=== PATIENT | female | born 1990 | race Caucasian/White ===

== ENCOUNTER 2023-08-09 21:59 | Emergency (ER) | payer MEDICAID, SELFPAY ==
[2023-08-09 22:13] VITALS: BP 122/78; PULSE 82; RESP 17; TEMP 36.8; O2SAT 97; BMI 35.3
[2023-08-09 22:57] LABS: Bilirubin Urine NEGATIVE (NEGATIVE); Blood Urine MODERATE (NEGATIVE); Clarity Urine CLEAR (CLEAR); Color Urine LT. YELLOW (YELLOW); Glucose Urine UA NEGATIVE (NEGATIVE); Ketones Urine NEGATIVE (NEGATIVE); Leukocyte Esterase Urine NEGATIVE (NEGATIVE); Nitrite Urine NEGATIVE (NEGATIVE); Protein Urine NEGATIVE (NEG/TRACE); Specific Gravity Urine 1.015 (1.005-1.025); Urobilinogen Urine 0.2 EU/dL (0.2-1.0); pH Urine 7.5 (5.0-9.0)
[2023-08-09 23:08] LABS: Bacteria Urine NONE SEEN #/HPF (NONE SEEN); Cast Seen? NONE SEEN #/LPF (NONE SEEN); Crystals Seen? None Seen #/HPF (None Seen); Mucus Urine NONE SEEN (NONE SEEN); RBC Urine 0-2 #/HPF (0-2); Squamous Epithelial Cell Urine FEW #/LPF (NONE/RARE)
== END 2023-08-09 23:54 | disposition left against medical advice (07) ==
LOC: ER 22:17
PROVIDERS: Emergency Provider Emergency Medicine; PCP Internal Medicine
DX: R35.0 Frequency of micturition (principal); Z53.21 Procedure and treatment not carried out due to patient leaving prior to being seen by health care provider
CPT/HCPCS: 81001

== ENCOUNTER 2023-10-12 19:10 | Outpatient (REF) | payer MEDICAID, SELFPAY ==
[2023-10-17 15:10] LABS: Age Gdln ACOG Testing Note (.); HPV Aptima Negative (Negative); IGP, Aptima HPV, rfx 16/18,45 Note (.)
== END 2023-10-12 19:11 | disposition home or self-care (01) ==
LOC: LAB 19:10
PROVIDERS: PCP Internal Medicine; Visit Provider Obstetrics & Gynecology
DX: Z01.419 Encounter for gynecological examination (general) (routine) without abnormal findings (principal)
CPT/HCPCS: 87624; G0145

== ENCOUNTER 2024-07-27 11:52 | Outpatient (OUT) | payer MEDICAID, SELFPAY ==
--- NOTE | 2024-07-27 | US_ITS ---
[address] [address] Patient Name: DOMENIC RODRIGUEZ MRN: [id number] date: 1990 Sex: F Assigned Patient Location: Current Patient Location: Accession/Order Number: [id number] Exam Date: 07/27/2024 12:10 Report Date: 07/29/2024 07:45 At the request of: NANY MÉNDEZ Procedure: US pelvis w/ transvaginal EXAMINATION: US pelvis w/ transvaginal HISTORY: PELVIC PAIN R10.2 COMPARISON: 09/16/2022 FINDINGS: The uterus is surgically absent The right ovary measures 3.8 x 2.9 x 2.4 cm. Normal color and Doppler flow. Area of anechoic echogenicity measuring 2.3 x 2.3 x 1.7 cm, simple cyst. The left ovary measures 3.3 x 2.6 x 2.7 cm. Anechoic cystic area measuring 2.2 x 2.3 x 2.2 cm with a peripheral area of soft tissue echotexture US/US pelvis w/ transvaginal IMPRESSION: 2.3 cm right ovarian simple cyst 2.3 cm left ovarian cyst with peripheral soft tissue component, nonspecific Electronically authenticated by: PRISCILLA PARKER Date: 07/29/2024 07:45
--- OUTSIDE RECORDS SUMMARY | 2024-07-27 11:58 | XMS_ITS | CCD ---
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 Name Role Phone OSINOWO, OSIYEMI Unavailable Unavailable OSINOWO, OSIYEMI Unavailable Unavailable CRIS, ILDA Unavailable Unavailable CRIS, ILDA Unavailable Unavailable MALIA, DA Unavailable Unavailable MALIA, DA Unavailable Unavailable CRIS, ILDA Unavailable Unavailable CRIS, ILDA Unavailable Unavailable NORI, YOUNGSOOK Unavailable Unavailable NORI, YOUNGSOOK Unavailable Unavailable CRIS, ILDA Unavailable Unavailable SELF, REFERRED Unavailable Unavailable UNKNOWN, PROVIDER Attending Unavailable [id number], [id number] Primary Care Unavailable Igor, Aissatou A Primary Care Provider Kadir, Carmen Unavailable Taye, Carmen Unavailable Igor, Aissatou A Primary Care Provider Kadir, Carmen Unavailable Igor WHEEL AND CASTER REPAIRER-C, Aissatou A Primary Care Unavailable Igor, Aissatou A Admitting Unavailable Igor, Aissatou A Attending Unavailable SHAAN, RAMOS R Admitting Unavailable SHAAN, RAMOS R Attending Unavailable Igor WHEEL AND CASTER REPAIRER-C, Aissatou A Primary Care Unavailable Igor WHEEL AND CASTER REPAIRER-C, Aissatou A Primary Care Unavailable Igor, Aissatou A Attending Unavailable Igor, Aissatou A Attending Unavailable Igor WHEEL AND CASTER REPAIRER-C, Aissatou A Primary Care Unavailable Igor WHEEL AND CASTER REPAIRER-C, Aissatou A Primary Care Unavailable Igor, Aissatou A Attending Unavailable Igor WHEEL AND CASTER REPAIRER-C, Aissatou A Primary Care Unavailable Igor, Aissatou A Attending Unavailable Igor WHEEL AND CASTER REPAIRER-C, Aissatou A Primary Care Unavailable Igor, Aissatou A Attending Unavailable Igor WHEEL AND CASTER REPAIRER-C, Aissatou A Primary Care Unavailable Igor, Aissatou A Attending Unavailable Igor, Aissatou A Attending Unavailable Igor WHEEL AND CASTER REPAIRER-C, Aissatou A Primary Care Unavailable Igor, Aissatou A Attending Unavailable Igor, Aissatou A Admitting Unavailable Igor WHEEL AND CASTER REPAIRER-C, Aissatou A Primary Care Unavailable Clary Flores Unavailable Igor, 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 ASSEMBLER Aissatou A Primary Care Provider MD Carmen Kothari Attending Provider HANH Chacon Attending Provider Roxie Chacon Unavailable SHAAN ., DR VANN Admitting Unavailable SHAAN ., DR VANN Attending Unavailable IGOR, AISSATOU Primary Care Unavailable SHAAN ., DR VANN Consulting Unavailable ZIEBER, DARNELL Yan Consulting Unavailable MCGRAW ., MR REJI Admitting Unavailable MCGRAW ., MR REJI Attending Unavailable IGOR, AISSATOU Primary Care Unavailable MCGRAW ., MR REJI Consulting Unavailable SHAAN ., DR VANN Admitting Unavailable SHAAN ., DR VANN Attending Unavailable IGOR, AISSATOU Primary Care Unavailable SHAAN ., DR VANN Consulting Unavailable SHAAN ., DR VANN Admitting Unavailable SHAAN ., DR VANN Attending Unavailable IGOR, AISSATOU Primary Care Unavailable SHAAN ., DR VANN Consulting Unavailable PRISCILLA CALLES Consulting Unavailable FAWWAD, PINEDO H Admitting Unavailable FAWWAD, PINEDO H Attending Unavailable IGOR, AISSATOU Primary Care Unavailable FAWWAD, PINEDO H Consulting Unavailable Igor, Aissatou A Primary Care Provider [phone] Carmen Nichols Unavailable Shaikh Naik MD Primary Care Provider Igor, 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 ASSEMBLER Aissatou A Primary Care Provider MD Carmen Kothari Attending Provider DO Orlando Guan Emergency Provider [phone] MD Janak Naik Primary Care Provider DO Jerrell Smith Admit Provider DO Jerrell Smith Attending Provider MD Maria Elena Garibay Attending Provider [phone] MD Francis Fuller Other Provider Igor 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 ASSEMBLER-SELVINNormaa Primary Care Provider [phone] Miriam Fabian Unavailable Igor, 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 ASSEMBLER Aissatou A Primary Care Provider MD Carmen Kothari Attending Provider [phone] CARIDAD Fabian Attending Provider MD Carmen Kothari Attending Provider MD Carmen Kothari Referring Provider MD [facility] Primary Care Provider ILDA CANNON Attending Unavailable Ramos MAHONEY Referring Unavailable ILDA CANNON Admitting Unavailable ILDA CANNON Attending Unavailable [facility] Primary [facility] Physician [phone] YUSUF Cannon Attending Provider MD Jerrell Hooper Emergency Provider MD Jean Claude Olsen Admit Provider MD Jean Claude Olsen Attending Provider [phone] SHAIKH NAIK Attending Unavailable RAMOS MAHONEY Attending Unavailable SOHA SOUSA Attending Unavailable Carmen Nichols Unavailable Unavailable [facility] Primary Care Provider [phone] [facility] Primary Care Provider [phone] MARQUIS NAIKIKH Primary Care Unavailable GIUSEPPE FAIR Attending Unavailable [facility] Primary Care Unavailable Ilda Cannon Admitting Unavailable Ilda Cannon Attending Unavailable [facility] Primary Care Unavailable Taye Carmen Admitting Unavailable Carmen Kothari Attending Unavailable Carmen Kothari Referring Unavailable Jean Claude Olsen Admitting Unavailable Jean Claude Olsen Attending Unavailable Shaikh Naik Primary Care Unavailable Miriam Fabian Admitting Unavailable Miriam Fabian Attending Unavailable Clifton Gonsales MD Primary Care Provider Frannie Laureano NP Unavailable Allergies Allergy Classification Reported Allergen(s) Allergy Type Date of Onset Reaction(s) Facility Adhesive Tape (2 sources) Adhesive Tape Substance Allergy 4 [facility] (1 source) [id number] Drug allergy (disorder) [address] [facility] Repository (7 sources) Adhesive Tape; Translations: [ADHESIVE TAPE (ROSINS)] Allergy to substance 8 Rash [facility] (12 sources) Desonide; Translations: [Desonide] Drug Allergy 9 Unknown, Unknown (qualifier value) [facility] (11 sources) Adhesive Tape; Translations: [Tape] Propensity to adverse reactions skin tear [facility] Repository (5 sources) Adhesive bandage; Translations: [Adhesive Bandage] Propensity to adverse reactions to drug (disorder) Eruption of skin (disorder) [facility] Repository (12 sources) Adhesive agent; Translations: [adhesive] Allergy to substance 8 [facility] (4 sources) Adhesive Tape; Translations: [adhesive tape] Allergy to substance 4 [facility] (4 sources) New Skin Bandage; Translations: [New Skin Bandage] Propensity to adverse reactions (disorder) Eruption of skin (disorder) [facility] Rep[facility] (4 sources) Desonide Allergy to substance 9 Unknown [facility] (4 sources) New Skin Drug Allergy 4 Rash [facility] (4 sources) Wound Dressing Adhesive Drug Intolerance 8 [facility] Medications Current Medications Medication Drug Class(es) Dates Sig (Normalized) Sig (Original) acetaminophen 500 mg oral tablet (9 sources) Start: 02-01-2024 take 2 tablets by mouth every six hours Acetaminophen (Tylenol Extra Strength) 500 mg tablet Active 1000 MG PO Every 6 hours February 01, 2024 12:00am Start: 01-26-2022 take 2 tablets by mo [facility] every six hours acetaminophen (TYLENOL EXTRA STRENGTH) 500 mg tablet Take 2 tablets (1,000 mg total) by mouth every 6 (six) hours. 30 tablet 0 01/26/2022 Active acetaminophen 325 mg / oxyCODONE hydrochloride 5 mg oral tablet (2 sources) Opioid Agonist take 1 tablet by mouth every four hours as needed for pain oxyCODONE-acetaminophen (PERCOCET) 5-325 mg per tablet Take 1 tablet by mouth every 4 (four) hours as needed for pain. 0 Active [employer] Sport Ankle Brace/Rght - (2 sources) Start: 023 Airc[employer] Sport Ankle Brace/Rght - as directed Aug, Active aMILoride hydrochloride 5 mg oral tablet (20 sources) Potassium-spari ng Diuretic Start: 024 take 2 tablets by mouth twice daily amiloride 5 mg oral tablet take 2 tablets by mouth twice a day Start Date: 02/27/24 Status: Ordered Start: 09-16-2018 take 10 mg by mouth twice zen y Amiloride Active 10 MG PO Twice daily September 16, 2018 1:00am Comment on above: Take 5 mg by mouth t hree times daily as needed. 2 tabs twice daily cephalexin 250 mg oral capsule (5 sources) Cephalosporin Antibacterial Start: 03-07-2024 Cephalexin Active 250 MG PO .COMPLEX March 07, 2024 12:00am 250 mg orally following sexual activity.; Start: 02-27-2024 Keflex 250 mg Cap See Instructions, take 1 cap po following sexual activity for UTI prevention, # 15 cap(s), Refills(s) 3, Pharmacy: [id number], 155, cm, 02/27/24 9:49:00 EDT, Height/Length Dosing, 87.5, kg, 02/27/24 9:49:00 EDT, Weight Dosing Start Date: 02/27/24 Status: Ordered Start: 02-27-2024 Keflex 250 mg Cap See Instructions, take 1 cap po following sexual activity for UTI prevention, # 15 cap(s), Refills(s) 3, Pharmacy: [id number], 155, cm, 02/27/24 9:49:00 EDT, Height/Length Dosing, 87.5, kg, 02/27/24 9:49:00 EDT, Weight Dosing Start Date: 02/27/24 Status: Ordered Start: 08-11-2023 take 1 tablet by nori every twelve hours Cephalexin 500 MG 1 tablet Orally every 12 hrs for 7 days Jul, Active 1 ml erenumab-aooe 140 mg/ml auto-injector (20 sources) Start: 02-13-2024 inject 1 mL by subcutaneous injection every 30 days erenumab (Aimovig) 140 MG/ML injection Indications: Migraine with aura and without status migrainosus, not intractable (CMS/HCC) inject 1 milliliter ( 140 milligrams ) subcutaneously as directed 30 days 1 mL 2 02/13/2024 Active Start: 02-01-2024 inject 140 mg by sub cutaneous injection every month Erenumab-Aooe (Aimovig Autoinjector) 140 mg/mL auto-injector Active 140 MG SUBCUT every month February 01, 2024 12:00am Start: 04-20-2021 End: 05-30-2024 AIMOVIG AUTOINJECTOR 70 mg/m L auto-injector 04/20/2021 05/30/2024 Discontinued inject 140 mg by sub cutaneous injection every month Aimovig 140 MG/ML as directed Subcutaneous once a month Active gabapentin 100 mg oral capsule (20 sources) Anti-epileptic Agent Start: 04-10-2024 gabapenti n (Neurontin) 100 MG capsule Indications: Neuropathy Take 1-3 caps at bedtime 90 capsule 2 04/10/2024 Active Start: 05-01-2019 End: 01-25-2021 take 200 mg by mouth once daily at bedtime Gabapentin Discontinued 200 MG PO Daily at bedtime 0 January 25, 2021 12:00am January 25, 2021 1:58pm Start: 12-12-2018 End: 01-25-2021 take 100 mg by mouth once daily in the morning Gabapentin Discontinued 100 MG PO Every morning May 07, 2019 12:00am January 24, 2021 3:12pm Comment on above: Take 1 capsule by mo [facility] once daily for 90 days. ibuprofen 800 mg oral tablet (20 sources) Nonsteroidal Anti-inflammatory Drug Start: 02-22-2022 take 1 tablet by mouth every six hours as needed for pain ibuprofen (MOTRIN) 800 mg tablet Take 1 tablet (800 mg total) by mouth every 6 (six) hours as needed for pain. 30 tablet 0 02/22/2022 Active Start: 05-13-2019 End: 05-15-2019 take 800 mg by mouth three times daily Ibuprofen Discontinued 800 MG PO Three times daily May 13, 2019 12:00am May 15, 2019 5:40pm End: 07-24-2024 take 1 tablet by mouth in the morning, then take 1 tablet by mouth in the evening, then take 1 tablet by mouth at bedtime ibuprofen 600 MG tablet Take 600 mg by mouth in the morning and 600 mg in the evening and 600 mg before bedtime. 07/24/2024 Discontinued (Med list cleanup) magnesium oxide 400 mg oral tablet (20 sources) Start: 02-27-2024 take 2 tablets by mouth three times daily magnesium oxide 400 mg Tab take 2 tablets by mouth three times a day Start Date: 02/27/24 Status: Ordered Start: 09-16-2018 End: 01-03-2024 take 800 mg by mouth three times daily Magnesium Oxide Active 800 MG PO Three times daily 540 90 January 03, 2024 5:06pm End: 07-24-2024 take 2 tablets by mouth three times daily magnesium oxide 400 MG capsule Take 2 tablets 3 times a day by oral route for 30 days. 07/24/2024 Discontinued (Duplicate order) take 1 capsule by mo uth in the morning, then take 1 capsule by mouth in the evening, then take 1 capsule by mouth at bedtime magnesium oxide 400 MG capsule Take 400 mg by mouth in the morning and 400 mg in the evening and 400 mg before bedtime. Active take 2 tablets by mo uth every eight hours Magnesium Oxide 400 MG 2 tablets By Mouth tid for 90 day(s) Active take 2 tablets by mo uth three times daily Magnesium Oxide 400 (240 Mg) MG TAKE 2 TABLETS BY MOUTH THREE TIMES DAILY for 30 Active take 2 tablets by mo uth three times daily Magnesium Oxide 400 (241.3 Mg) MG TAKE 2 TABLETS BY MOUTH THREE TIMES DAILY for 30 Active Comment on above: Take 400 mg by mouth once daily. 2 tabs 3 times a day ondansetron 8 mg oral tablet (20 sources) Serotonin-3 Receptor Antagonist Start: 02-01-2024 take 8 mg by mouth once daily Ondansetron Hcl Active 8 MG PO Daily February 01, 2024 12:00am Start: 05-08-2023 take 1 tablet by nori th every eight hours as needed for nausea and vomiting ondansetron ODT (Zofran-ODT) 4 MG disintegrating tablet Take 4 mg by mouth every 8 (eight) hours if needed for nausea or vomiting 05/08/2023 Active Start: 05-13-2019 ondansetron (Z OFRAN) 4 mg tablet 4 mg. 0 05/13/2019 Active Start: 05-13-2019 End: 02-01-2024 Ondansetron Hcl Discontinued 4 MG PO every 6 to 8 hours May 13, 2019 12:00am February 01, 2024 11:33am take 1 tablet by nori th once daily as needed Zofran 8 MG 1 tablet as needed Orally Once a day prn Active Comment on above: 4 mg. Post-OP Shoe/Soft Top Women - (2 sources) Start: 09-10-2022 Post-OP Shoe/S oft Top Women - as directed Aug, Active Potassium Chloride (20 sources) Start: 02-27-2024 Potassium Chlo ride (Uan-Umxz-Ehi M20) 20 mEq oral tablet, extended release take 6 tablets by mouth three times a day Start Date: 02/27/24 Status: Ordered Start: 01-25-2021 End: 01-03-2024 Potassium Chloride (Klor-Con M20) 20 mEq tablet,ER particles/crystals Active 120 MEQ PO Three times daily 1620 90 January 03, 2024 5:08pm Start: 03-28-2020 take 1 tablet by nori th in the morning, then take 1 tablet by mouth in the evening, then take 1 tablet by mouth at bedtime potassium chloride CR (Klor-Con M20) 20 MEQ ER tablet Take 20 mEq by mouth in the morning and 20 mEq in the evening and 20 mEq before bedtime. 03/31/2023 Active Start: 09-16-2018 End: 01-24-2021 take 160 mEq by mouth three times daily Potassium Chloride (Klor-Con) 20 mEq Packet Discontinued 160 MEQ PO Three times daily September 16, 2018 1:00am January 24, 2021 2:32pm take 6 tablets by mo uth in the morning potassium chloride (K-DUR,KLOR-CON) 10 MEQ CR tablet Take 120 mEq by mouth in the morning and 120 mEq at noon and 120 mEq before bedtime. Take 6 tablets(120meq) with each dose. 0 Active take 6 tablets by mo uth every eight hours Klor-Con M20 20 MEQ 6 tablet with food Orally tid for 90 days Active predniSONE 20 mg oral tablet (1 source) Start: 06-10-2022 take 1 tablet by mouth every twelve hours predniSONE 20 MG 1 tablet Orally 2 times a day for 5 day(s) May, Active rimegepant 75 mg disintegrating oral tablet (20 sources) Start: 04-10-2024 Rimegepant Sul fate (Nurtec) 75 MG tablet dispersible Indications: Migraine without aura and without status migrainosus, not intractable (CMS/HCC) Take one at migraine onset, not more than one in 24 hours 8 tablet 2 04/10/2024 Active Start: 04-20-2021 End: 01-20-2022 Rimegepant Sulfate (Nurtec) 75 MG tablet dispersible Indications: Migraine without aura and without status migrainosus, not intractable (CMS/HCC) Take one at migraine onset, not more than one in 24 hours 8 tablet 2 04/10/2024 Active Comment on above: DISSOLVE ONE TABLET BY MOUTH AT ONSET OF MIGRAINES rivaroxaban 20 mg oral tablet (20 sources) Factor Xa Inhibitor Start: End: take 1 tablet by mouth at mealtime rivaroxaban (Xarelto) 20 MG tablet Indications: Deep vein thrombosis (DVT) of distal vein of lower extremity, unspecified chronicity, unspecified laterality (CMS/HCC) Take 1 tablet (20 mg) by mouth in the evening. Take with meals Take with food. 90 tablet 06/18/2024 Active Comment on above: TAKE 1 TABLET BY NORI TH ONCE DAILY WITH DINNER Completed/Discontinued Medications Medication Drug Class(es) Dates Sig (Normalized) Sig (Original) acetaminophen 300 mg / butalbital 50 mg / caffeine 40 mg oral capsule (16 sources) Barbiturate, Central Nervous System Stimulant, Methylxanthine Start: 05-13-2019 End: 06-23-2021 take 1 capsule by mouth every four to six hours Butalbital-Acetam inophen-Caff (Fioricet) 50-300-40 mg Capsule Discontinued 300 MG PO EVERY 4-6 HOURS May 13, 2019 12:00am June 23, 2021 8:14am Acetaminophen-Ca ff-Butalbital 50-325-40 mg cap owlqqbtrzu-tyuqqkmgblygn-hedcoqcp 50 mg-325 mg-40 mg capsule 0 Active take 1 capsule by mo [facility] every four hours Fioricet 50-300-40 MG 1 capsule as neede d Orally every 4 hrs Active Comment on above: butalbital-acetamino phen-caffeine 50 mg-325 mg-40 mg capsule acetaminophen 300 mg / butalbital 50 mg / caffeine 40 mg / codeine phosphate 30 mg oral capsule (3 sources) Opioid Agonist, Barbiturate, Central Nervous System Stimulant, Methylxanthine butalbital-acetami nop-caf-cod (FIORICET WITH CODEINE) 82-747-45-30 mg cap Take by mouth as needed. 0 Active Comment on above: Take by mouth as nee ded. azithromycin 500 mg oral tablet (9 sources) Macrolide Antimicrobial Sta rt: 9 End : 9 take 500 mg by mouth once daily Azithromycin Discontinued 500 MG PO Daily 5 5 September 17, 2018 1:00am September 22, 2018 1:02am cetirizine hydrochloride 10 mg oral tablet (4 sources) Histamine-1 Receptor Antagonist Sta rt: 3 End : 4 take 1 tablet by mouth in the morning cetirizine (ZyrTEC) 10 MG tablet Take 10 mg by mouth in the morning. 01/18/2023 07/24/2024 Discontinued (Med list cleanup) ciprofloxacin 500 mg oral tablet (3 sources) Quinolone Antimicrobial Sta rt: 4 take 1 tablet by mouth once daily Cipro 500 mg Tab 500 mg = 1 tab(s), Oral, Daily, take one tab day before procedure and one tab after procedure, # 2 tab(s), Refills(s) 0, Pharmacy: [id number], 155, cm, 02/27/24 9:49:00 EDT, Height/Length Dosing, 87.5, kg, 02/27/24 9:49:00 EDT, Weight Dosing Start Date: 02/27/24 Status: Ordered cyclobenzaprine hydrochloride 5 mg oral tablet (20 sources) Muscle Relaxant Sta rt: 9 End : 9 Cyclobenzaprine Discontinued TABLET May 13, 2019 12:00am May 13, 2019 3:39pm Start: 02-22-2019 End: 05-30-2024 take 1 tablet by mouth in the evening as needed for muscle spasms cyclobenzaprine (FLEXERIL) 5 mg tablet TAKE 1 TABLET BY MOUTH IN THE EVENING NEEDED for spasms 0 02/22/2019 05/30/2024 Discontinued Comment on above: TAKE 1 TABLET BY NORI TH IN THE EVENING NEEDED for spasms famotidine 20 mg oral tablet (9 sources) Histamine-2 Receptor Antagonist Start: 02-24-20 End: 02-01-20 take 20 mg by mouth once daily Famotidine Discontinued 20 MG PO Daily February 23, 2022 11:32pm February 01, 2024 11:33am fluticasone propionate 0.05 mg/actuat metered dose nasal spray (4 sources) Corticosteroid Start: 01-19-20 23 End: 07-24-20 24 take 2 spray(s) nasal route in the morning fluticasone (Flonase) 50 MCG/ACT nasal spray Administer 2 sprays into each nostril in the morning. 01/18/2023 07/24/2024 Discontinued (Med list cleanup) 12 hr guaiFENesin 1200 mg extended release oral tablet (9 sources) Start: 09-17-19 End: 05-01-20 19 take 1 tablet by mouth every twelve hours, then take 1 tablet by mouth every twelve hours Guaifenesin (Mucinex) 1,200 mg tablet extended release 12hr Discontinued 1200 MG PO Q12H September 17, 2018 5:04pm May 01, 2019 8:29am available over the counter, drink plenty of fluids metFORMIN hydrochloride 500 mg oral tablet (9 sources) Biguanide Start: 06-23-20 21 End: 11-11-19 22 take 500 mg by mouth once daily Metformin Discontinued 500 MG PO Daily June 23, 2021 1:00am November 10, 2021 9:43am Nirmatrelvir-Ritonavi r (7 sources) Start: 05-02-20 23 End: 02-01-20 24 take 1 tablet by mouth twice daily Nirmatrelvir-Ritona vir (Paxlovid) 300 mg (150 mg x 2)-100 mg Tablets,Dose Pack Discontinued 1 EACH PO Twice daily May 02, 2023 12:00am February 01, 2024 11:33am Start: 05-02-2023 [facility] Nirmatrelvir-Ritonavir (Paxlovid) 300 mg (150 mg x 2)-100 mg Tablets,Dose Pack Active 1 EACH PO Twice daily May 01, 2023 11:00pm Start: 05-02-2023 [facility] 1 [facility] Nirmatrelvir-Ritonavir (Paxlovid) 300 mg (150 mg x 2)-100 mg Tablets,Dose Pack Active 1 EACH PO Twice daily May 02, 2023 12:00am oseltamivir 75 mg oral capsule (9 sources) Neuraminidase Inhibitor Start: 10-01-2019 End: 01-24-2021 take 75 mg by mouth twice daily Oseltamivir Discontinued 75 MG PO Twice daily October 01, 2019 1:00am January 24, 2021 3:12pm pantoprazole 40 mg delayed release oral tablet (7 sources) Proton Pump Inhibitor Start: 05-02-2023 End: 02-01-2024 Pantoprazole (Protonix) 40 mg tablet,delayed release (DR/EC) Discontinued 40 MG PO As Directed May 02, 2023 12:00am February 01, 2024 11:33am 40 mg twice a day for 6 weeks, then 20 mg daily in the setting of Xarelto potassium bicarbonate 20 meq effervescent oral tablet (3 sources) take 8 tablets by mouth twice daily Potassium Bicarb-Citric Acid 20 mEq tbef Take 8 tablets by mouth twice daily. 0 Active Comment on above: Take 8 tablets by mo [facility] twice daily. SUMAtriptan 100 mg oral tablet (9 sources) Serotonin-1b and Serotonin-1d Receptor Agonist Start: 09-16-2018 End: 01-20-2022 Sumatriptan Succinate (Imitrex) 100 mg Tablet Discontinued 100 MG PO EVERY 2-4 HOURS September 16, 2018 1:00am January 20, 2022 10:45am Tylenol Extra Strength 500 MG (8 sources) take 2 tablets by mouth every six hours as needed Tylenol Extra Strength 500 MG 2 tablets as needed Orally prn every 6 hrs Not-Taking take 2 tablets by mo uth every six hours as needed Tylenol Extra Strength 500 MG 2 tablets as needed Orally prn every 6 hrs Active vitamin b12 1 mg oral tablet (18 sources) Vitamin B12 Start: 05-01-2019 End: 01-25-2021 take 1000 ug by mouth once daily Cyanocobalamin (Vitamin B-12) Discontinued 1000 MCG PO Daily 0 January 25, 2021 12:00am January 25, 2021 1:58pm VITAMINS B COMPLEX capsule (3 sources) Start: 04-18-2019 VITAMINS B COM PLEX capsule Problems Active Problems Problem Classification Problem Date Documented Date Episodic/Chronic Abdominal pain (10 sources) Pelvic and perineal pain; Translations: [Pain in pelvis] Onset: 3 Episodic Coagulation and hemorrhagic disorders (5 sources) Hypercoagulability state; Translations: [Other primary thrombophilia] Onset: 3 05-31-2024 Chronic Esophageal disorders (9 sources) Gastric reflux; Translations: [Gastro-esophageal reflux disease without esophagitis] 02-23-2022 Chronic Essential hypertension (1 source) Essential (primary) hypertension; Translations: [ESSENTIAL (PRIMARY) HYPERTENSION] Onset: 8 Chronic Fluid and electrolyte disorders (20 sources) Hypokalemia; Translations: [Alkalosis] Onset: 8 Resolved: 2 10-09-2007 Episodic Headache; including migraine (19 sources) Migraine; Translations: [Migraine with aura] Onset: 4 02-26-2024 Chronic Immunizations and screening for infectious disease (1 source) Encounter for screening for human papillomavirus (HPV); Translations: [ENC SCREENING HUMAN PAPILLOMAVIRUS] Onset: 3 Episodic Influenza (9 sources) Influenza due to Influenza A virus; Translations: [Influenza due to other identified influenza virus with other respiratory manifestations] 06-23-2021 Episodic Joint disorders and dislocations; trauma-related (13 sources) Dislocation of temporomandibular joint; Translations: [Dislocation of jaw, unspecified side, initial encounter] Onset: 3 06-23-2021 Episodic Menstrual disorders (8 sources) Irregular menstruation, unspecified; Translations: [Excessive and frequent menstruation] Onset: 2 Chronic Miscellaneous mental health disorders (4 sources) Primary insomnia; Translations: [Primary insomnia] Onset: 4 04-06-2024 Chronic Nausea and vomiting (20 sources) Nausea and vomiting; Translations: [Nausea with vomiting, unspecified] 02-23-2022 Episodic Nonspecific chest pain (12 sources) Other chest pain; Translations: [Chest pain] Onset: 9 06-23-2021 Episodic Other aftercare (9 sources) Long-term current use of anticoagulant; Translations: [USP (current) use of anticoagulants] 06-23-2021 Episodic Other aftercare (1 source) Encounter for adjustment and management of vascular access device; Translations: [Encounter for adjustment and management of vascular access device] Onset: 4 Episodic Other diseases of kidney and ureters (4 sources) 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; Translations: [OTH DISORDERS RESULTING FROM IMPAIRED RENAL TUBULAR FUNCTION] Onset: 8 Chronic Other endocrine disorders (7 sources) Polycystic ovary syndrome; Translations: [Polycystic ovarian syndrome] Onset: 4 02-26-2024 Chronic Other female genital disorders (6 sources) Abnormal uterine bleeding; Translations: [Abnormal uterine and vaginal bleeding, unspecified] Onset: 2 Resolved: 2 02-09-2022 Chronic Other female genital disorders (1 source) History of gynecological disorder; Translations: [Personal history of other diseases of the female genital tract] 05-31-2024 Episodic Other hereditary and degenerative nervous system conditions (4 sources) Restless legs; Translations: [Restless legs syndrome] Onset: 4 04-06-2024 Chronic Other injuries and conditions due to external causes (1 source) Unspecified injury of right ankle, initial encounter Episodic Other lower respiratory disease (1 source) Hemoptysis; Translations: [Hemoptysis] Onset: 4 Episodic Other nervous system disorders (4 sources) Neuropathy; Translations: [Polyneuropathy, unspecified] Onset: 4 04-06-2024 Chronic Other nutritional; endocrine; and metabolic disorders (20 sources) Hypomagnesemia; Translations: [Disorders of magnesium metabolism] Onset: 8 Resolved: 2 Chronic Other nutritional; endocrine; and metabolic disorders (6 sources) Metabolic disease; Translations: [Metabolic disorder, unspecified] Onset: 8 10-09-2007 Chronic Other nutritional; endocrine; and metabolic disorders (20 sources) Gitelman syndrome; Translations: [Hypomagnesemia] Onset: 2 10-02-2019 Chronic Other nutritional; endocrine; and metabolic disorders (18 sources) Hypomagnesemia; Translations: [Hypomagnesemia] 01-20-2022 Chronic Other nutritional; endocrine; and metabolic disorders (8 sources) Hypocalcemia; Translations: [Hypocalcemia] 02-01-2024 Chronic Other nutritional; endocrine; and metabolic disorders (11 sources) Hypocalcemia; Translations: [Hypocalcemia] Onset: 4 Chronic Other nutritional; endocrine; and metabolic disorders (4 sources) 5,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; Translations: [Methylenetetrahydrofola te reductase deficiency] Onset: 3 08-10-2023 Chronic Other screening for suspected conditions (not mental disorders or infectious disease) (4 sources) Encounter for screening for malignant neoplasm of cervix; Translations: [ENC SCREENING MALIG NEOPLASM CERV] Onset: 3 Episodic Other upper respiratory infections (11 sources) Acute pharyngitis, unspecified; Translations: [Acute laryngitis] Episodic Residual codes; unclassified (4 sources) Obstructive sleep apnea syndrome; Translations: [Obstructive sleep apnea (adult) (pediatric)] Onset: 4 04-06-2024 Chronic Sprains and strains (1 source) Sprain of unspecified ligament of right ankle, initial encounter Episodic Substance-related disorders (1 source) Nicotine dependence, cigarettes, uncomplicated; Translations: [NICOTINE DEPENDENCE, CIGARETTES, UNCOMPLICATED] Onset: 8 Chronic Unclassified (2 sources) Unknown / UNK(Unknown) Onset: 8 Unclassified (3 sources) CONTACT W/AND (SUSP) EXPOS COVID-19; Translations: [CONTACT W/AND (SUSP) EXPOS COVID-19] Onset: 2 Viral infection (11 sources) Other viral agents as the cause of diseases classified elsewhere; Translations: [Disease caused by 2019-nCoV] Episodic Past or Other Problems Problem Classification Problem Date Documented Da te Episodic/Chronic Disorders of teeth and jaw (4 sources) Temporomandibular joint disorder; Translations: [Unspecified temporomandibular joint disorder, unspecified side] Onset: 4 04-06-2024 Episodic Genitourinary symptoms and ill-defined conditions (5 sources) Urogenital finding; Translations: [Unspecified symptoms and signs involving the genitourinary system] Onset: 3 08-11-2023 Episodic Mood disorders (2 sources) Mood disorders Onset: 2 03-08-2022 Other aftercare (5 sources) 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; Translations: [Long-term (current) use of anticoagulants] Onset: 4 05-02-2023 Episodic Other ear and sense organ disorders (2 sources) Sudden hearing loss; Translations: [Sudden idiopathic hearing loss, right ear] Onset: 9 Resolved: 2 01-11-2022 Episodic Other female genital disorders (1 source) Noninflammatory disorder of uterus, unspecified; Translations: [NONINFLAMMATORY DISORDER UTERUS UNS] Onset: 2 Episodic Other injuries and conditions due to external causes (4 sources) Injury of head; Translations: [Unspecified injury of head, initial encounter] Onset: 4 04-06-2024 Episodic Other nervous system disorders (2 sources) Postoperative pain ; Translations: [Other acute postprocedural pain] Onset: 2 Resolved: 2 05-18-2022 Episodic Phlebitis; thrombophlebitis and thromboembolism (20 sources) Personal history of other venous thrombosis and embolism; Translations: [Acute deep venous thrombosis of left femoral vein] Onset: 8 Resolved: 2 04-12-2018 Episodic Residual codes; unclassified (4 sources) Memory impairment; Translations: [Other amnesia] Onset: 4 08-21-2023 Episodic Unclassified (1 source) Contact with and (suspected) exposure to covid-19 Z20.822 Unclassified (1 source) CONTACT W/AND (SUSP) EXPOS COVID-19; Translations: [CONTACT W/AND (SUSP) EXPOS COVID-19] Onset: 2 Unclassified (2 sources) Onset: 1 09-10-2020 Urinary tract infections (17 sources) Urinary tract infectious disease; Translations: [Urinary tract infection, site not specified] Onset: 4 06-23-2021 Episodic Results Test Name Value Interpretation Reference Range Facility [facility] 06-20-2024 CNPN Telephone ([place]) ----- JENNIFERDOMENIC Mark Anthony ([id number]) 1990 F Date Time Provider Department 06/20/24 KARI NAVARRETE During your visit today, we recorded the following information about you: Kari Navarrete RN 06/20/2024 4:55 PM Signed Pt calls asking if Dr Fair will prescribe her Xarelto for one more month. Pt states she has a follow up appointment with her PCP in 3 weeks, and their office will not fill until they see her, and pt will be out of medication in a few days. Script pending if you agree. Pt does not want this to go to [facility] where her previous script went. Thanks ROSHAN Dallas Tiffaney, RN 06/21/2024 10:50 AM Signed Left a VM for patient that script was refilled and sent to in [place] and left call back number if she has any questions or concerns. Bebo Martinez RN Allergies As of Date: 06/20/2024 Noted Allergy Reaction ADHESIVE TAPE (ROSINS) 04/12/2018 2 - Rash DESONIDE 04/22/2019 16 - Unknown Date Reviewed: 05/30/2024 Reviewed by: Christelle Martinez MA - Fully Assessed Reason for Visit: Medication Question [4738] Order(s):rivaroxaban (XARELTO) 20 mg tabletTake 1 tablet by mouth daily with dinner.Disp: 30 tabletRfl: 3 Prescriptions as of 06/21/2024 - rivaroxaban (XARELTO) 20 mg tablet Take 1 tablet by mouth daily with dinner. - NURTEC ODT 75 mg disintegrating tablet DISSOLVE ONE TABLET BY MOUTH AT ONSET OF MIGRAINES - potassium chloride ER (K-DUR, KLOR-CON) 20 mEq tablet - magnesium oxide 400 mg cap Take 400 mg by mouth once daily. 2 tabs 3 times a day - aMILoride (MIDAMOR) 5 mg tablet Take 5 mg by mouth three times daily as needed. 2 tabs twice daily Problem List As Of Date 06/20/2024 Noted Resolved HYPOPOTASSEMIA [E87.6] 10/09/2007 METABOLISM DISORDER NOS [E88.9] 10/09/2007 Acute deep vein thrombosis (DVT) of femoral vei*04/12/2018 Recurrent deep vein thrombosis (DVT) (HCC) [I82*10/10/2018 Prescriptions ordered this encounter Disp Refills Start End RIVAROXABAN 20 MG TABLET 30 t* 3 06/20/2024 Route: ORAL Sig: Take 1 tablet by mouth daily with dinner. Medications Discontinued During This Encounter Prescriptions - XARELTO 20 mg tablet (Discontinued) TAKE 1 TABLET BY MOUTH ONCE DAILY WITH DINNER Encounter Status:Closed by DAVIDA MARTINEZ on 06/21/24 Normal [facility] Dipstick and Microscopicon 1 Appearance (U) Clear Normal Clear [facility] Comment on above: Performed By: #### Maureen Zamorano, BMP #### [address] Bacteria,Urine None Seen Normal None Seen [facility] Comment on above: Performed By: #### Maureen G, BMP #### [facility] [address] [place] [address] [place] Bilirubin,Urine Negative Normal Negative [facility] Comment on above: Performed By: #### M G, BMP #### [facility] [address] [place] [address] [facility] Color (U) Light-Yellow Normal Yellow [facility] Comment on above: Performed By: #### M G, BMP #### [facility] [address] [place] [id number] [place] Glucose Ql (U) Normal Normal Normal [facility] Comment on above: Performed By: #### M G, BMP #### [address] Hyaline Casts,Urine None Normal 0-8 [facility] Comment on above: Result Comment: PERF ORMED BY: [place] [address] PATHOLOGIST AGILITY INSTRUCTOR MAXINE RANGEL M.D. Performed By: #### M G, BMP #### [address] Ketones Ql (U) Negative Normal Negative [facility] Comment on above: Performed By: #### M G, BMP #### [address] Leukocyte esterase Test strip Ql (U) Negative Normal Negative [facility] Comment on above: Performed By: #### M G, BMP #### [place] [address] [place] Nitrite,Urine Negative Normal Negative [facility] Comment on above: Performed By: #### M G, BMP #### [address] Occult Blood,Urine Negative Normal Negative [facility] Comment on above: Performed By: #### M G, BMP #### [address] pH (U) 8.0 [pH] Normal 5.0-9.0 [facility] Comment on above: Performed By: #### M G, BMP #### [place] [address] [place] Protein,Urine Trace High Negative [facility] Comment on above: Performed By: #### M G, BMP #### [place] [address] [place] RBC,Urine 5-9 High 0-4 [facility] Comment on above: Performed By: #### M G, BMP #### [place] [id number] [place] Specificy [place],Urine 1.016 Normal 1.001-1.03 0 [facility] Comment on above: Performed By: #### M G, BMP #### [address] Squamous Epithelial Cell,Urine 5-9 High 0-2 [facility] Comment on above: Performed By: #### M G, BMP #### [address] Urobilinogen,Urine Normal Normal Normal [facility] Comment on above: Performed By: #### M G, BMP #### [address] WBC,Urine 1-2 Normal 0-4 [facility] Comment on above: Performed By: #### M G, BMP #### [address] Hemogram CBC Without Diffon 06-07-2024 Erythrocyte distribution width (RBC) [Ratio] 13.4 % Normal 11.9-15.3 [facility] Comment on above: Performed By: #### M G, BMP #### [address] Hematocrit (Bld) [Volume fraction] 37.6 % Normal 34.0-46.4 [facility] Comment on above: Performed By: #### M G, BMP #### [address] Hemoglobin (Bld) [Mass/Vol] 13.4 g/dL Normal 11.8-15.4 [facility] Comment on above: Performed By: #### M G, BMP #### [address] MCH (RBC) [Entitic mass] 30.3 pg Normal 24.7-34.3 [facility] Comment on above: Performed By: #### M G, BMP #### [address] MCV (RBC) [Entitic vol] 84.9 fL Normal 80-100 [facility] Comment on above: Performed By: #### M G, BMP #### [address] Mean Corpuscular HGB Conc 35.6 g/dL High 32.0-35.0 [facility] Comment on above: Performed By: #### M G, BMP #### [address] Platelet mean volume (Bld) [Entitic vol] 7.3 fL Normal 6.3-10.7 [facility] Comment on above: Result Comment: PERF ORMED BY: [place] [address] PATHOLOGIST AGILITY INSTRUCTOR MAXINE RANGEL M.D. Performed By: #### M G, BMP #### [address] Platelets (Bld) [#/Vol] 397 10*3/uL Normal 150-450 [facility] Comment on above: Performed By: #### M G, BMP #### [place] [address] [place] RBC (Bld) [#/Vol] 4.43 10*6/uL Normal 3.60-5.00 [facility] Comment on above: Performed By: #### M G, BMP #### [place] [address] [place] WBC (Bld) [#/Vol] 8.5 10*3/uL Normal 3.8-11.6 [facility] Comment on above: Performed By: #### M G, BMP #### [address] Magnesiumon 06-07-2024 Magnesium [Mass/Vol] 1.6 mg/dL Low 1.9-2.7 [facility] Comment on above: Performed By: #### M G, BMP #### [address] Parathyroid Hormone Intacton 06-07-2024 Parathyroid Hormone Intact 124.5 pg/mL High 12-88 [facility] Comment on above: Result Comment: PERF ORMED BY: [place] [address] PATHOLOGIST AGILITY INSTRUCTOR MAXINE RANGEL M.D. Performed By: #### M G, BMP #### [address] Protein Creat Ratio Ur Rando mon 06-07-2024 Creatinine, Urine (Random) 85.00 mg/dL Normal [facility] Comment on above: Result Comment: No r eference range established Performed By: #### M G, BMP #### [address] Protein (U) [Mass/Vol] 19 mg/dL High 0-9 e [facility] Comment on above: Performed By: #### M G, BMP #### [address] Urine Protein/Creatinine Ratio 224 mg/g{Cre} High 0-200 [facility] Comment on above: Result Comment: PERF ORMED BY: [place] [address] PATHOLOGIST AGILITY INSTRUCTOR MAXINE RANGEL M.D. Performed By: #### M G, BMP #### [address] Renal Function Panelon 06-07 Albumin [Mass/Vol] 4.1 g/dL Normal 3.5-5.7 [facility] Comment on above: Performed By: #### M G, BMP #### [place] [id number] [facility] Anion gap [Moles/Vol] 10.8 mmol/L Normal 6.0-15.0 e [facility] Comment on above: Performed By: #### M G, BMP #### [address] Calcium [Mass/Vol] 8.5 mg/dL Low 8.6-10.3 [facility] Comment on above: Performed By: #### M G, BMP #### [facility] [address] [place] [id number] [place] Chloride [Moles/Vol] 100 mmol/L Normal 98-107 [facility] Comment on above: Performed By: #### M G, BMP #### [facility] [address] [place] [id number] [place] CO2 [Moles/Vol] 31.5 mmol/L High 21.0-31.0 The [facility] Comment on above: Performed By: #### M G, BMP #### [facility] [address] Creatinine [Mass/Vol] 0.65 mg/dL Normal 0.60-1.20 [facility] Comment on above: Performed By: #### M G, BMP #### [place] [address] [place] GFR/1.73 sq M.predicted MDRD (S/P/Bld) [Vol rate/Area] mL/min/{1.73_m2} Normal [facility] Comment on above: Performed By: #### M G, BMP #### [address] Glucose [Mass/Vol] 92 mg/dL Normal 70-100 [facility] Comment on above: Result Comment: [facility] Glucose Reference Range is dependent on time and content of last meal. Glucose of more than 200 mg/dL in a nonstressed, ambulatory subject supports the diagnosis of Diabetes Mellitus. ADA recommended reference range Performed By: #### M G, BMP #### [facility] [address] [place] [id number] [place] Phosphate [Mass/Vol] 2.3 mg/dL Low 2.5-4.5 [facility] Comment on above: Performed By: #### M G, BMP #### [facility] [address] [place] [id number] [place] Potassium [Moles/Vol] 3.3 mmol/L Low 3.5-5.1 [facility] Comment on above: Performed By: #### M G, BMP #### [address] Sodium [Moles/Vol] 139 mmol/L Normal 136-145 [facility] Comment on above: Performed By: #### Maureen Zamorano, BMP #### [address] Urea nitrogen [Mass/Vol] 9 mg/dL Normal 7-25 [facility] Comment on above: Performed By: #### Maureen Zamorano, BMP #### [address] Uric Acidon 06-07-2024 Urate [Mass/Vol] 6.2 mg/dL Normal 2.3-6.6 [facility] Comment on above: Performed By: #### Maureen Zamorano, BMP #### [address] Vitamin D 25 Hydroxy Totalon 06-07-2024 Vitamin D 25 Hydroxy Total 18.0 ng/mL Low 30-100 [facility] Comment on above: Result Comment: FANY MIN D STATUS 25(OH)VITAMIN D RANGE (ng/mL) Deficient <20 Insufficient 20 to <30 Sufficient 30 to 100 Reference: Justyn MF,Carlos Alberto NC, Edd-Vidal GALEANO, et al. Evaluation,treatment, and prevention of vitamin D deficiency; an Endocrine Society clinical practice guideline. JCEM. 2010; 96(7):1911-30. PERFORMED BY: [place] [address] PATHOLOGIST AGILITY INSTRUCTOR MAXINE RANGEL M.D. Performed By: #### Maureen Zamorano, BMP #### [place] [id number] [facility] CNOVSPon 05-30-2024 CNOVSP Visit (SP) Office ([place]) ----- DOMENIC NGO ([id number]) 1990 F Date Time Provider Department 05/30/24 10:45 AM GIUSEPPE FAIR During your visit today, we recorded the following information about you: Temperature Pulse Respiration Blood pressure 97.7 degrees 66/minute 16/minute 106/75 Weight Height 90.8 kg 1.549 m Giuseppe Fair MD 05/31/2024 6:32 AM Signed PATIENT NAME: Domenic Ngo DATE: 05/30/2024 Portions of this encounter note have been copied from the note from 04/10/2023 and has been updated where appropriate, and reflect my current medical decision making from today. PRIMARY CARE PHYSICIAN: Dr. Shaikh Naik OTHER PHYSICIANS: Dr. Lerner, Dr. Kothari CC: This is a 33 year old female with a history of recurrent DVT, seen for scheduled follow-up. (prior patient of Dr. Taylor). INTERIM HISTORY: Since the patient's last visit here she has had no significant medical changes. She remains on anticoagulation with Xarelto 20 mg daily. She has occasional mild bruising, but no atypical bleeding. No evidence of recurrent thromboembolic disease. On follow-up today she feels well with no particular complaints. MEDICATIONS: NURTEC ODT 75 mg disintegrating tablet DISSOLVE ONE TABLET BY MOUTH AT ONSET OF MIGRAINES potassium chloride ER (K-DUR, KLOR-CON) 20 mEq tablet XARELTO 20 mg tablet TAKE 1 TABLET BY MOUTH ONCE DAILY WITH DINNER magnesium oxide 400 mg cap Take 400 mg by mouth once daily. 2 tabs 3 times a day aMILoride (MIDAMOR) 5 mg tablet Take 5 mg by mouth three times daily as needed. 2 tabs twice daily ALLERGIES: Adhesive Tape (Rosins) and Desonide PAST MEDICAL HISTORY: PAST MEDICAL HISTORY Diagnosis Date Antithrombin 3 deficiency (HCC) MTHFR gene mutation PAST SURGICAL HISTORY: PAST SURGICAL HISTORY Procedure Laterality Date HYSTERECTOMY S BALLOON,UTERINE ABLATION 01/2018 TUBAL LIGATION 2014 REVIEW OF SYSTEMS: General: No weight loss, malaise or fevers. HEENT: Negative for frequent or significant headaches, No changes in hearing or vision, no nose bleeds or other nasal problems. Respiratory: Negative for cough, wheezing or shortness of breath. Cardiovascular: Negative for chest pain, leg swelling or palpitations. GI: Negative for abdominal discomfort, blood in stools or black stools or change in bowel habits. : No history of dysuria, frequency or incontinence. Musculoskeletal: Negative for: joint pain or swelling, back pain and muscle pain. Skin: Negative for lesions, rash and itching. Hematology/Lymphology: Negative for prolonged bleeding, bruising easily or swollen nodes. Neuro: No history of headaches, syncope, paralysis, seizures or tremors. PHYSICAL EXAM: Vitals: BP 106/75 Pulse 66 Temp 36.5 ?C (97.7 ?F) (Temporal) Resp 16 Ht 154.9 cm (5' 0.98 ) Wt 90.8 kg (200 lb 2.8 oz) LMP 10/18/2007 SpO2 97% BMI 37.84 kg/m? Exam limited to gross visualization where appropriate due to COVID-19. Gen.: This is an age-appropriate patient in no acute distress. Head: Appears atraumatic with no visible lesions. Eyes: Pupils equally round and reactive to light, extraocular muscles are intact. Neck: Supple. Mouth: Mucous membranes appeared to be moist. Respiratory: Appears to be respiring comfortably. Neurologic: Nonfocal to gross visualization. Alert and oriented ?3. Psychiatric: No evidence of inappropriate anxiety or depression. Skin: Visible areas of skin without rash, lesions, wounds or petechiae. ASSESSMENT/PLAN: 1. Primary hypercoagulable state (HCC) - ICD9: 289.81, ICD10: D68.59 (primary diagnosis) Initial DVT of the left lower extremity diagnosed May 2014, thought to be induced by ongoing at the time. The patient was treated with Lovenox ? 6 months with resolution of symptoms. Hypercoagulable workup February 2015 revealed a heterozygous MTHFR mutation, otherwise unremarkable. She was diagnosed with a recurrent left lower extremity DVT in March 2018, apparently unprovoked. At the time of her second DVT the patient was started on anticoagulation with Xarelto, with plans to take indefinitely. At this time she remains clinically stable. Options for management were discussed at length with the patient and her fiance. As previously discussed she will continue as is with Xarelto, with plans to take indefinitely. However, I did mention that she consider decreasing the dosage if severe bruising persists. Per patient request she will now follow-up with her PCP for further management. We did not schedule a return visit here, but would be happy to see her in the future if we can be of assistance. 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 Continue management per nephrology (Dr. Kothari) 3. (more content not included)... Normal [facility] Basic Metabolic Panelon 02-12 Creatinine Clr Calc Pharmacy 126.48 Normal [facility] Comment on above: Performed By: #### Maureen Zamorano, BMP #### [facility] [address] [place] [id number] [place] GFR/1.73 sq M.predicted MDRD (S/P/Bld) [Vol rate/Area] mL/min/{1.73_m2} Normal [facility] Comment on above: Performed By: #### Maureen Zamorano, BMP #### [facility] [address] [place] [id number] [place] Potassium [Moles/Vol] 3.3 mmol/L Low 3.5-5.1 [facility] Comment on above: Performed By: #### Maureen Zamorano, BMP #### [facility] [address] [place] [id number] [place] Calcium [Mass/volume] in Ser um or PlasmaOrdered By: Jean Claude Olsen on 03-05-2024 Calcium [Mass/Vol] 8.7 mg/dL Normal 8.6-10.3 [facility] Comment on above: Performed By: #### Maureen Zamorano, BMP #### [facility] [address] [place] [address] [place] Carbon dioxide, total [Moles /volume] in Serum or PlasmaOrdered By: Jean Claude Olsen on 03-05-2024 CO2 [Moles/Vol] 30.1 mmol/L Normal 21.0-31.0 [facility] Comment on above: Performed By: #### Maureen Zamorano, BMP #### [facility] [address] [place] [address] [place] Chloride [Moles/volume] in S erwin or PlasmaOrdered By: Jean Claude Olsen on 03-05-2024 Chloride [Moles/Vol] 102 mmol/L Normal 98-107 [facility] Comment on above: Performed By: #### Maureen Zamorano, BMP #### [facility] [address] [place] [id number] [place] Creatinine [Mass/volume] in Serum or PlasmaOrdered By: Jean Claude Olsen on 03-05-2024 Creatinine [Mass/Vol] 0.65 mg/dL Normal 0.60-1.20 [facility] Comment on above: Performed By: #### Maureen Zamorano, BMP #### [facility] [address] [place] [id number] [place] Glucose [Mass/volume] in Ser um or PlasmaOrdered By: Jean Claude Olsen on 03-05-2024 Glucose [Mass/Vol] 103 mg/dL High 70-100 [facility] Comment on above: ADA recommended refe rence rangeRandom Glucose Reference Range is dependent on time and content of last meal. Glucose of more than 200 mg/dL in a nonstressed, ambulatory subject supports the diagnosis of Diabetes Mellitus. Result Comment: [place] om Glucose Reference Range is dependent on time and content of last meal. Glucose of more than 200 mg/dL in a nonstressed, ambulatory subject supports the diagnosis of Diabetes Mellitus. ADA recommended reference range Performed By: #### Maureen Zamorano, BMP #### [facility] [address] [place] [address] [place] Magnesiumon 03-05-2024 Magnesium [Mass/Vol] 2.0 mg/dL Normal 1.9-2.7 [facility] Comment on above: Result Comment: PERF ORMED BY: [facility] [address] [place] [address] PATHOLOGIST AGILITY INSTRUCTOR MAXINE RANGEL M.D. Performed By: #### Maureen Zamorano, BMP #### [facility] [address] [place] [id number] [place] Magnesium [Mass/volume] in S erwin or PlasmaOrdered By: Jean Claude Olsen on 03-05-2024 Magnesium [Mass/Vol] 1.5 mg/dL Low 1.9-2.7 [facility] Comment on above: Result Comment: PERF ORMED BY: [place] [address] PATHOLOGIST AGILITY INSTRUCTOR MAXINE RANGEL M.D. Performed By: #### K , MG #### [facility] [address] [place] [address] No Panel InformationOrdered By: Jean Claude Olsen on 03-05-2024 Estimated GFR (CKD-EPI) > 60.0 mL/Min [facility] Creatinine Clearance (Chem 126.48 [facility] Potassium [Moles/volume] in Serum or PlasmaOrdered By: Jean Claude Olsen on 03-05-2024 Potassium [Moles/Vol] 3.4 mmol/L Low 3.5-5.1 [facility] Comment on above: Performed By: #### K , MG #### [facility] [address] [place] [address] Serum or plasma anion gap de terminationOrdered By: Jean Claude Olsen on 03-05-2024 Anion gap [Moles/Vol] 9.2 mmol/L Normal 6.0-15.0 [facility] Comment on above: Performed By: #### M G, BMP #### [facility] [address] [place] [address] Sodium [Moles/volume] in Ser um or PlasmaOrdered By: Jean Claude Olsen on 03-05-2024 Sodium [Moles/Vol] 138 mmol/L Normal 136-145 [facility] Comment on above: Performed By: #### M G, BMP #### [facility] [address] [place] [address] US venous duplex LE BIon US venous duplex LE BI [facility] [address] [place] [address] Ultrasound Report Signed Patient: Domenic Ngo MR#: [id number] 04 : 1990 Acct:[id number] Age/Sex: 33 / F ADM Date: 03/03/24 Loc: Room: [address] [place] [address] Type: ADM IN Attending Dr: Jean Claude Olsen MD Ordering Provider: Jean Claude Olsen MD Date of Service: 03/04/24 US/US venous duplex LE BI: calf tenderness, h/o DVT Copies to: Jean Claude Olsen MD BILATERAL LOWER EXTREMITY VENOUS DUPLEX INDICATION: Leg pain PROCEDURE: Color-flow duplex scanning is used to interrogate the deep venous system of the right and left lower extremities. The common femoral vein, femoral vein and popliteal vein show good compressibility with normal proximal and distal augmentation. The posterior tibial and peroneal veins are compressible. US/US venous duplex LE BI IMPRESSION: NO EVIDENCE FOR DEEP VEIN THROMBOSIS OR PROXIMAL SUPERFICIAL THROMBOPHLEBITIS IN THE RIGHT OR LEFT LOWER EXTREMITY. Impression dictated by: Arben Sin M.D.03/05/2024 10:30 AM Dictation Location: [place] [address] Tech: Laura Brittany Transcribed By: DARREN 03/05/24 1030 Dictated By: Arben Sin MD 03/05/24 1030 Signed By: 03/05/24 1030 Normal [facility] Urea nitrogen [Mass/volume] in Serum or PlasmaOrdered By: Jean Claude Olsen on 03-05-2024 Urea nitrogen [Mass/Vol] 9 mg/dL Normal 03-07 [facility] Comment on above: Performed By: #### M G, BMP #### [facility] [address] Automated basophil %Ordered By: Jean Claude Olsen on 03-04-2024 Basophils/100 WBC (Bld) 0.3 % Normal . [facility] Comment on above: Performed By: #### C BC, MG, BMP #### [facility] [address] Automated basophil countOrde red By: Jean Claude Olsen on 03-04-2024 Basophils (Bld) [#/Vol] 0.0 10*3/uL Normal 0.0-0.2 [facility] Comment on above: Result Comment: PERF ORMED BY: [place] [address] PATHOLOGIST AGILITY INSTRUCTOR MAXINE RANGEL M.D. Performed By: #### C BC MG, BMP #### [address] Automated blood monocyte cou ntOrdered By: Jean Claude Olsen on 03-04-2024 Monocytes (Bld) [#/Vol] 0.5 10*3/uL Normal 0.0-0.8 [facility] Comment on above: Performed By: #### C BC, MG, BMP #### [address] Automated eosinophil %Ordere d By: Jean Claude Olsen on 03-04-2024 Eosinophils/100 WBC (Bld) 1.6 % Normal . [facility] Comment on above: Performed By: #### C BC MG, BMP #### [address] Automated eosinophil countOr dered By: Jean Claude Olsen on 03-04-2024 Eosinophils (Bld) [#/Vol] 0.1 10*3/uL Normal 0.0-0.45 [facility] Comment on above: Performed By: #### C BC MG, BMP #### [address] Automated monocyte %Ordered By: Jean Claude Olsen on 03-04-2024 Monocytes/100 WBC (Bld) 6.1 % Normal . [facility] Comment on above: Performed By: #### C BC, MG, BMP #### [address] Automated neutrophil %Ordere d By: Jean Claude Olsen on 03-04-2024 Neutrophils/100 WBC (Bld) 69.1 % Normal . [facility] Comment on above: Performed By: #### C BC, MG, BMP #### [address] Basic Metabolic Panelon 02-12 Anion gap [Moles/Vol] 8.3 mmol/L Normal 6.0-15.0 [facility] Comment on above: Performed By: #### C BC, MG, BMP #### [facility] [address] [place] [id number] [place] Calcium [Mass/Vol] 7.5 mg/dL Low 8.6-10.3 [facility] Comment on above: Performed By: #### C BC, MG, BMP #### [facility] [address] [place] [id number] [place] Chloride [Moles/Vol] 102 mmol/L Normal 98-107 [facility] Comment on above: Performed By: #### C BC, MG, BMP #### [facility] [address] [place] [id number] [place] CO2 [Moles/Vol] 30.8 mmol/L Normal 21.0-31.0 [facility] Comment on above: Performed By: #### C BC, MG, BMP #### [facility] [address] [place] [address] [place] Creatinine [Mass/Vol] 0.66 mg/dL Normal 0.60-1.20 [facility] Comment on above: Performed By: #### C BC, MG, BMP #### [facility] [address] [place] [address] [place] Creatinine Clr Calc Pharmacy 124.80 Normal [facility] Comment on above: Performed By: #### C BC, MG, BMP #### [facility] [address] [place] [id number] [place] GFR/1.73 sq M.predicted MDRD (S/P/Bld) [Vol rate/Area] mL/min/{1.73_m2} Normal [facility] Comment on above: Performed By: #### C BC, MG, BMP #### [facility] [address] [place] [address] [place] Glucose [Mass/Vol] 101 mg/dL High 70-100 [facility] Comment on above: Result Comment: [place] Glucose Reference Range is dependent on time and content of last meal. Glucose of more than 200 mg/dL in a nonstressed, ambulatory subject supports the diagnosis of Diabetes Mellitus. ADA recommended reference range Performed By: #### C BC, MG, BMP #### [address] Potassium [Moles/Vol] 3.1 mmol/L Low 3.5-5.1 [facility] Comment on above: Performed By: #### C BC, MG, BMP #### [address] Sodium [Moles/Vol] 138 mmol/L Normal 136-145 [facility] Comment on above: Performed By: #### C BC, MG, BMP #### [address] Urea nitrogen [Mass/Vol] 6 mg/dL Low 7-25 [facility] Comment on above: Performed By: #### C BC, MG, BMP #### [address] Complete Blood Count Auto Di ffon 03-04-2024 Mean Corpuscular HGB Conc 35.7 g/dL High 32.0-35.0 [facility] Comment on above: Performed By: #### C BC, MG, BMP #### [address] NRBC% 0.1 /100{WBC} Normal 0-0.5 [facility] Comment on above: Performed By: #### C BC, MG, BMP #### [address] Erythrocyte distribution wid th [Ratio] by Automated countOrdered By: Jean Claude Olsen on 03-04-2024 Erythrocyte distribution width (RBC) [Ratio] 13.4 % Normal 11.9-15.3 [facility] Comment on above: Performed By: #### C BC, MG, BMP #### [address] Erythrocytes [#/volume] in B lood by Automated countOrdered By: Jean Claude Olsen on 03-04-2024 RBC (Bld) [#/Vol] 4.10 10*6/uL Normal 3.60-5.00 [facility] Comment on above: Performed By: #### C BC, MG, BMP #### [address] Hematocrit [Volume Fraction] of Blood by Automated countOrdered By: Jean Claude Olsen on 03-04-2024 Hematocrit (Bld) [Volume fraction] 35.2 % Normal 34.0-46.4 [facility] Comment on above: Performed By: #### C BC, MG, BMP #### [address] Hemoglobin [Mass/volume] in BloodOrdered By: Jena Claude Olsen on 03-04-2024 Hemoglobin (Bld) [Mass/Vol] 12.6 g/dL Normal 11.8-15.4 [facility] Comment on above: Performed By: #### C BC, MG, BMP #### [address] Leukocytes [#/volume] correc flor for nucleated erythrocytes in Blood by Automated counOrdered By: Jean Claude Olsen on 03-04-2024 WBC corrected for nucl RBC Auto (Bld) [#/Vol] 7.7 10*3/uL 3.8-11.6 [facility] Leukocytes [#/volume] in Blo od by Automated countOrdered By: Jean Claude Olsen on 03-04-2024 WBC (Bld) [#/Vol] 7.7 10*3/uL Normal 3.8-11.6 [facility] Comment on above: Performed By: #### C BC, MG, BMP #### [address] Lymphocytes [#/volume] in Bl ood by Automated countOrdered By: Jean Claude Olsen on 03-04-2024 Lymphocytes (Bld) [#/Vol] 1.8 10*3/uL Normal 1.00-4.8 [facility] Comment on above: Performed By: #### C BC, MG, BMP #### [place] [address] [place] Lymphocytes/100 leukocytes i n Blood by Automated countOrdered By: Jean Claude Olsen on 03-04-2024 Lymphocytes/100 WBC (Bld) 22.9 % Normal . [facility] Comment on above: Performed By: #### C BC, MG, BMP #### [address] MCH [Entitic mass] by Automa flor countOrdered By: Jean Claude Olsen on 03-04-2024 MCH (RBC) [Entitic mass] 30.7 pg Normal 24.7-34.3 [facility] Comment on above: Performed By: #### C BC, MG, BMP #### [address] MCHC Auto (RBC) [Mass/Vol]Or dered By: Jean Claude Olsen on 03-04-2024 MCHC (RBC) [Mass/Vol] 35.7 g/dL High 32.0-35.0 [facility] MCV [Entitic volume] by Auto mated countOrdered By: Jean Claude Olsen on 03-04-2024 MCV (RBC) [Entitic vol] 86.0 fL Normal 80-100 [facility] Comment on above: Performed By: #### C BC, MG, BMP #### [address] Magnesiumon 03-04-2024 Magnesium [Mass/Vol] 2.2 mg/dL Normal 1.9-2.7 [facility] Comment on above: Result Comment: PERF ORMED BY: [place] [address] PATHOLOGIST AGILITY INSTRUCTOR MAXINE RANGEL M.D. Performed By: #### M G #### [address] Magnesium [Mass/Vol] 2.6 mg/dL Normal 1.9-2.7 [facility] Comment on above: Result Comment: PERF ORMED BY: [place] [address] PATHOLOGIST AGILITY INSTRUCTOR MAXINE RANGEL M.D. Performed By: #### C BC, MG, BMP #### [address] [place] [address] [place] Neutrophils [#/volume] in Bl ood by Automated countOrdered By: Jean Claude Olsen on 03-04-2024 Neutrophils (Bld) [#/Vol] 5.3 10*3/uL Normal 1.8-7.7 [facility] Comment on above: Performed By: #### C BC, MG, BMP #### [place] [address] [place] Nucleated erythrocytes [Pres ence] in Blood by Automated countOrdered By: Jean Claude Olsen on 03-04-2024 Nucleated RBC Auto Ql (Bld) 0.1 /100{WBC} 0-0.5 [facility] Platelet mean volume [Entiti c volume] in Blood by Automated countOrdered By: Jean Claude Olsen on 03-04-2024 Platelet mean volume (Bld) [Entitic vol] 7.6 fL Normal 6.3-10.7 [facility] Comment on above: Performed By: #### C BC, MG, BMP #### [address] Platelets [#/volume] in Bloo d by Automated countOrdered By: Jean Claude Olsen on 03-04-2024 Platelets (Bld) [#/Vol] 311 10*3/uL Normal 150-450 [facility] Comment on above: Performed By: #### C BC, MG, BMP #### [address] Potassiumon 03-04-2024 Potassium [Moles/Vol] 3.8 mmol/L Normal 3.5-5.1 [facility] Comment on above: Result Comment: PERF ORMED BY: [place] [address] PATHOLOGIST AGILITY INSTRUCTOR MAXINE RANGEL M.D. Performed By: #### M G, BMP #### [address] Alanine aminotransferase [En zymatic activity/volume] in Serum or PlasmaOrdered By: Jerrell Hooper on 03-03-2024 ALT [Catalytic activity/Vol] 17 U/L Normal 7-52 [facility] Comment on above: Performed By: #### Maureen Zamorano, BMP #### [facility] [address] [place] [address] [place] Albumin [Mass/volume] in Ser um or Plasma by Bromocresol green (BCG) dye binding methoOrdered By: Jerrell Hooper on 03-03-2024 Albumin BCG dye [Mass/Vol] 3.8 g/dL 3.5-5.7 [facility] Alkaline phosphatase [Enzyma tic activity/volume] in Serum or PlasmaOrdered By: Jerrell Hooper on 03-03-2024 ALP [Catalytic activity/Vol] 47 U/L Normal 34-104 [facility] Comment on above: Performed By: #### Maureen Zamorano, BMP #### [address] Aspartate aminotransferase [ Enzymatic activity/volume] in Serum or PlasmaOrdered By: Jerrell Hooper on 03-03-2024 AST [Catalytic activity/Vol] 20 U/L Normal 13-39 [facility] Comment on above: Performed By: #### Maureen Zamorano, BMP #### [address] Automated basophil %Ordered By: Jerrell Hooper on 03-03-2024 Basophils/100 WBC (Bld) 0.3 % Normal . [facility] Comment on above: Performed By: #### Maureen Zamorano, BMP #### [address] Automated basophil countOrde red By: Jerrell Hooper on 03-03-2024 Basophils (Bld) [#/Vol] 0.0 10*3/uL Normal 0.0-0.2 [facility] Comment on above: Result Comment: PERF ORMED BY: [place] [address] PATHOLOGIST AGILITY INSTRUCTOR MAXINE RANGEL M.D. Performed By: #### Maureen Zamorano, BMP #### [address] Automated blood monocyte cou ntOrdered By: Jerrell Hooper on 03-03-2024 Monocytes (Bld) [#/Vol] 0.4 10*3/uL Normal 0.0-0.8 [facility] Comment on above: Performed By: #### M Jaun, BMP #### [address] Automated eosinophil %Ordere d By: Jerrell Hooper on 03-03-2024 Eosinophils/100 WBC (Bld) 0.1 % Normal . [facility] Comment on above: Performed By: #### Maureen Zamorano, BMP #### [address] Automated eosinophil countOr dered By: Jerrell Hooper on 03-03-2024 Eosinophils (Bld) [#/Vol] 0.0 10*3/uL Normal 0.0-0.45 [facility] Comment on above: Performed By: #### Maureen Zamorano, BMP #### [address] Automated monocyte %Ordered By: Jerrell Hooper on 03-03-2024 Monocytes/100 WBC (Bld) 3.5 % Normal . [facility] Comment on above: Performed By: #### Maureen Zamorano, BMP #### [address] Automated neutrophil %Ordere d By: Jerrell Hooper on 03-03-2024 Neutrophils/100 WBC (Bld) 91.2 % Normal . [facility] Comment on above: Performed By: #### Maureen Zamorano, BMP #### [address] Bilirubin Test strip Ql (U)O rdered By: Jean Claude Olsen on 03-03-2024 Bilirubin Ql (U) Negative Negative [facility] Bilirubin.total [Mass/volume ] in Serum or PlasmaOrdered By: Jerrell Hooper on 03-03-2024 Bilirubin [Mass/Vol] 0.7 mg/dL Normal 0.3-1.0 [facility] Comment on above: Performed By: #### Maureen Zamorano, BMP #### [address] Calcium [Mass/volume] in Ser um or PlasmaOrdered By: Jerrell Hooper on 03-03-2024 Calcium [Mass/Vol] 7.5 mg/dL Low 8.6-10.3 [facility] Comment on above: Performed By: #### M Jaun, BMP #### [address] Carbon dioxide, total [Moles /volume] in Serum or PlasmaOrdered By: Jerrell Hooper on 03-03-2024 CO2 [Moles/Vol] 34.1 mmol/L High 21.0-31.0 [facility] Comment on above: Performed By: #### M G, BMP #### [address] Chloride [Moles/volume] in S erwin or PlasmaOrdered By: Jerrell Hooper on 03-03-2024 Chloride [Moles/Vol] 94 mmol/L Low 98-107 [facility] Comment on above: Performed By: #### Maureen Zamorano, BMP #### [address] Color of Urine by AutoOrdere d By: Jean Claude Olsen on 03-03-2024 Color (U) Light-yellow Normal Yellow [facility] Comment on above: Order Comment: Name Collection Type:: Clean-Voided Midstream Performed By: #### M Jaun, BMP #### [address] Complete Blood Count Auto Di ffon 03-03-2024 Mean Corpuscular HGB Conc 36.1 g/dL High 32.0-35.0 [facility] Comment on above: Performed By: #### M G, BMP #### [place] [address] [place] Monocytes/100 WBC (Bld) 22.27 % High 0.00-20.00 [facility] Comment on above: Result Comment: For adults in ED, MDW > 20.0 may be associated with a higher risk of sepsis during the first 12 hrs of hospital admission Performed By: #### M G, BMP #### [place] [address] [place] NRBC% 0.1 /100{WBC} Normal 0-0.5 [facility] Comment on above: Performed By: #### Maureen Zamorano, BMP #### [address] Comprehensive Metabolic Pane [place]in[place] 03-03-2024 Albumin [Mass/Vol] 3.8 g/dL Normal 3.5-5.7 [facility] Comment on above: Performed By: #### Maureen Zamorano, BMP #### [address] Creatinine Clr Calc Pharmacy 107.20 Normal [facility] Comment on above: Performed By: #### Maureen Zamorano, BMP #### [address] GFR/1.73 sq M.predicted MDRD (S/P/Bld) [Vol rate/Area] mL/min/{1.73_m2} Normal [facility] Comment on above: Performed By: #### Maureen Zamorano, BMP #### [address] Creatinine [Mass/volume] in Serum or PlasmaOrdered By: Jerrell Hooper on 03-03-2024 Creatinine [Mass/Vol] 0.77 mg/dL Normal 0.60-1.20 [facility] Comment on above: Performed By: #### Maureen Zamorano, BMP #### [address] Erythrocyte distribution wid th [Ratio] by Automated countOrdered By: Jerrell Hooper on 03-03-2024 Erythrocyte distribution width (RBC) [Ratio] 13.6 % Normal 11.9-15.3 [facility] Comment on above: Performed By: #### Maureen Zamorano, BMP #### [address] Erythrocytes [#/volume] in B lood by Automated countOrdered By: Jerrell Hooper on 03-03-2024 RBC (Bld) [#/Vol] 4.15 10*6/uL Normal 3.60-5.00 [facility] Comment on above: Performed By: #### Maureen Zamorano, BMP #### [facility] [address] [place] [id number] [place] Glucose [Mass/volume] in Ser um or PlasmaOrdered By: Jerrell Hooper on 03-03-2024 Glucose [Mass/Vol] 104 mg/dL High 70-100 [facility] Comment on above: ADA recommended refe rence rangeRandom Glucose Reference Range is dependent on time and content of last meal. Glucose of more than 200 mg/dL in a nonstressed, ambulatory subject supports the diagnosis of Diabetes Mellitus. Result Comment: [place] om Glucose Reference Range is dependent on time and content of last meal. Glucose of more than 200 mg/dL in a nonstressed, ambulatory subject supports the diagnosis of Diabetes Mellitus. ADA recommended reference range Performed By: #### Maureen Zamorano, BMP #### [facility] [address] [place], [place] [id number] [place] Glucose [Mass/volume] in Uri ne by Test stripOrdered By: Jean Claude Olsen on 03-03-2024 Glucose Test strip (U) [Mass/Vol] Normal mg/dL Normal [facility] Hematocrit [Volume Fraction] of Blood by Automated countOrdered By: Jerrell Hooper on 03-03-2024 Hematocrit (Bld) [Volume fraction] 35.4 % Normal 34.0-46.4 [facility] Comment on above: Performed By: #### Maureen Zamorano, BMP #### [facility] [address] [place] [address] [place] Hemoglobin Test strip Ql (U) Ordered By: Jean Claude Olsen on 03-03-2024 Hemoglobin Ql (U) Negative Negative [facility] Hemoglobin [Mass/volume] in BloodOrdered By: Jerrell Hooper on 03-03-2024 Hemoglobin (Bld) [Mass/Vol] 12.7 g/dL Normal 11.8-15.4 [facility] Comment on above: Performed By: #### Maureen Zamorano, BMP #### [facility] [address] [place], [place] [id number] [facility] Ketones [Presence] in Urine by Test stripOrdered By: Jean Claude Olsen on 03-03-2024 Ketones Ql (U) Negative Normal Negative [facility] Comment on above: Order Comment: Name Collection Type:: Clean-Voided Midstream Performed By: #### Maureen Zamorano, BMP #### [address] Leukocyte esterase [Presence ] in Urine by Test stripOrdered By: Jean Claude Olsen on 03-03-2024 Leukocyte esterase Test strip Ql (U) Negative Normal Negative [facility] Comment on above: Order Comment: Name Collection Type:: Clean-Voided Midstream Performed By: #### Maureen Zamorano, BMP #### [address] Leukocytes [#/volume] correc flor for nucleated erythrocytes in Blood by Automated counOrdered By: Jerrell Hooper on 03-03-2024 WBC corrected for nucl RBC Auto (Bld) [#/Vol] 12.7 10*3/uL High 3.8-11.6 [facility] Leukocytes [#/volume] in Blo od by Automated countOrdered By: Jerrell Hooper on 03-03-2024 WBC (Bld) [#/Vol] 12.7 10*3/uL High 3.8-11.6 [facility] Comment on above: Performed By: #### Maureen Zamorano, BMP #### [place] [address] [place] Lymphocytes [#/volume] in Bl ood by Automated countOrdered By: Jerrell Hooper on 03-03-2024 Lymphocytes (Bld) [#/Vol] 0.6 10*3/uL Low 1.00-4.8 [facility] Comment on above: Performed By: #### Maureen Zamorano, BMP #### [place] [address] [place] Lymphocytes/100 leukocytes i n Blood by Automated countOrdered By: Jerrell Hooper on 03-03-2024 Lymphocytes/100 WBC (Bld) 4.9 % Normal . [facility] Comment on above: Performed By: #### Maureen Zamorano, BMP #### [place] [address] [place] MCH [Entitic mass] by Automa flor countOrdered By: Jerrell Hooper on 03-03-2024 MCH (RBC) [Entitic mass] 30.7 pg Normal 24.7-34.3 [facility] Comment on above: Performed By: #### Maureen Zamorano, BMP #### [address] MCHC Auto (RBC) [Mass/Vol]Or dered By: Jerrell Hooper on 03-03-2024 MCHC (RBC) [Mass/Vol] 36.1 g/dL High 32.0-35.0 [facility] MCV [Entitic volume] by Auto mated countOrdered By: Jerrell Hooper on 03-03-2024 MCV (RBC) [Entitic vol] 85.3 fL Normal 80-100 [facility] Comment on above: Performed By: #### Maureen Zamorano, BMP #### [address] Magnesiumon 03-03-2024 Magnesium [Mass/Vol] 2.7 mg/dL Normal 1.9-2.7 [facility] Comment on above: Result Comment: PERF ORMED BY: [place] [address] PATHOLOGIST AGILITY INSTRUCTOR MAXINE RANGEL M.D. Performed By: #### Maureen Zamorano, BMP #### [address] Magnesium [Mass/volume] in S erwin or PlasmaOrdered By: Jerrell Hooper on 03-03-2024 Magnesium [Mass/Vol] 0.9 mg/dL Off scale low 1.9-2.7 [facility] Comment on above: Critical Result S_MG : Called to and read back by: BRUCE ROGERS at: 03/03/2024 14:11:51 by:LFM Result Comment: Crit ical Result S_MG: Called to and read back by: BRUCE ROGERS at: 03/03/2024 14:11:51 by:LFM PERFORMED BY: [place] [address] PATHOLOGIST AGILITY INSTRUCTOR MAXINE RANGEL M.D. Performed By: #### Maureen Zamorano, BMP #### [address] Monocyte distribution width [Entitic volume] in Blood by AutomatedOrdered By: Jerrell Hooper on 03-03-2024 Monocyte distribution width Auto (Bld) [Entitic vol] 22.27 % High 0.00-20.00 [facility] Comment on above: For adults in ED, MD W > 20.0 may be associated with a higher risk of sepsis during the first 12 hrs of hospital admission Neutrophils [#/volume] in Bl ood by Automated countOrdered By: Jerrell Hooper on 03-03-2024 Neutrophils (Bld) [#/Vol] 11.6 10*3/uL High 1.8-7.7 [facility] Comment on above: Performed By: #### MINI Davalos #### [facility] [address] [place] [address] Nitrite Test strip Ql (U)Ord ered By: Jean Claude Olsen on 03-03-2024 Nitrite Ql (U) Negative Negative [facility] No Panel InformationOrdered By: Jerrell Hooper on 03-03-2024 Estimated GFR (CKD-EPI) > 60.0 mL/Min [facility] Creatinine Clearance (Chem 107.20 [facility] Nucleated erythrocytes [Pres ence] in Blood by Automated countOrdered By: Jerrell Hooper on 03-03-2024 Nucleated RBC Auto Ql (Bld) 0.1 /100{WBC} 0-0.5 [facility] Platelet mean volume [Entiti c volume] in Blood by Automated countOrdered By: Jerrell Hooper on 03-03-2024 Platelet mean volume (Bld) [Entitic vol] 7.8 fL Normal 6.3-10.7 [facility] Comment on above: Performed By: #### Maureen Zamorano, BMP #### [facility] [address] Platelets [#/volume] in Bloo d by Automated countOrdered By: Jerrell Hooper on 03-03-2024 Platelets (Bld) [#/Vol] 291 10*3/uL Normal 150-450 [facility] Comment on above: Performed By: #### Maureen Zamorano, BMP #### [facility] [address] [place] [address] [place] Potassiumon 03-03-2024 Potassium [Moles/Vol] 2.6 mmol/L Off scale low 3.5-5.1 [facility] Comment on above: Result Comment: Crit ical Result Called to and read back by: AARON NOLASCO at: 03/04/2024 00:49:46 by:[id number] Performed By: #### Maureen Zamorano, BMP #### [address] Potassium [Moles/volume] in Serum or PlasmaOrdered By: Jerrell Hooper on 03-03-2024 Potassium [Moles/Vol] 2.0 mmol/L Off scale low 3.5-5.1 [facility] Comment on above: Critical Result Call ed to and read back by: BRUCE ROGERS at: 03/03/2024 14:11:51 by:LFM Result Comment: Crit ical Result Called to and read back by: BRUCE ROGERS at: 03/03/2024 14:11:51 by:LFM Performed By: #### Maureen Zamorano, BMP #### [address] Protein Test strip (U) [Mass /Vol]Ordered By: Jean Claude Olsen on 03-03-2024 Protein (U) [Mass/Vol] Negative Negative [facility] Protein [Mass/volume] in Ser um or PlasmaOrdered By: Jerrell Hooper on 03-03-2024 Protein [Mass/Vol] 6.6 g/dL Normal 6.4-8.9 [facility] Comment on above: Performed By: #### Maureen Zamorano, BMP #### [address] Serum globulin measurement b y calculation (mass/volume)Ordered By: Jerrell Hooper on 03-03-2024 Globulin (S) [Mass/Vol] 2.8 g/dL Normal [facility] Comment on above: Performed By: #### Maureen Zamorano, BMP #### [address] Serum or plasma albumin/glob ulin mass ratioOrdered By: Jerrell Hooper on 03-03-2024 Albumin/Globulin [Mass ratio] 1.4 {ratio} Normal [facility] Comment on above: Performed By: #### M G, BMP #### [facility] [address] Serum or plasma anion gap de terminationOrdered By: Jerrell Hooper on 03-03-2024 Anion gap [Moles/Vol] 10.9 mmol/L Normal 6.0-15.0 [facility] Comment on above: Performed By: #### M G, BMP #### [address] Sodium [Moles/volume] in Ser um or PlasmaOrdered By: Jerrell Hooper on 03-03-2024 Sodium [Moles/Vol] 137 mmol/L Normal 136-145 [facility] Comment on above: Performed By: #### M G, BMP #### [address] Specific gravity Test strip (U) [Rel density]Ordered By: Jean Claude Olsen on 03-03-2024 Specific gravity (U) [Rel density] 1.014 1.001-1.03 0 [facility] Urea nitrogen [Mass/volume] in Serum or PlasmaOrdered By: Jerrell Hooper on 03-03-2024 Urea nitrogen [Mass/Vol] 12 mg/dL Normal 7-25 [facility] Comment on above: Performed By: #### M G, BMP #### [address] Urinalysison 03-03-2024 Bilirubin,Urine Negative Normal Negative [facility] Comment on above: Order Comment: Name Collection Type:: Clean-Voided Midstream Performed By: #### M G, BMP #### [address] Glucose Ql (U) Normal Normal Normal [facility] Comment on above: Order Comment: Name Collection Type:: Clean-Voided Midstream Performed By: #### M G, BMP #### [address] Nitrite,Urine Negative Normal Negative [facility] Comment on above: Order Comment: Name Collection Type:: Clean-Voided Midstream Performed By: #### M G, BMP #### [address] Occult Blood,Urine Negative Normal Negative [facility] Comment on above: Order Comment: Name Collection Type:: Clean-Voided Midstream Result Comment: PERF ORMED BY: [place] [address] PATHOLOGIST AGILITY INSTRUCTOR MAXINE RANGEL M.D. Performed By: #### M G, BMP #### [address] Protein,Urine Negative Normal Negative [facility] Comment on above: Order Comment: Name Collection Type:: Clean-Voided Midstream Performed By: #### M G, BMP #### [address] Specificy [place],Urine 1.014 Normal 1.001-1.03 0 [facility] Comment on above: Order Comment: Name Collection Type:: Clean-Voided Midstream Performed By: #### M G, BMP #### [address] Urobilinogen,Urine Normal Normal Normal [facility] Comment on above: Order Comment: Name Collection Type:: Clean-Voided Midstream Performed By: #### M G, BMP #### [address] Urine appearanceOrdered By: Jean Claude Olsen on 03-03-2024 Appearance (U) Clear Normal Clear [facility] Comment on above: Order Comment: Name Collection Type:: Clean-Voided Midstream Performed By: #### M G, BMP #### [place] [address] [place] Urobilinogen Test strip (U) [Mass/Vol]Ordered By: Jean Claude Olsen on 03-03-2024 Urobilinogen (U) [Mass/Vol] Normal mg/dL Normal [facility] pH of Urine by Test stripOrd ered By: Jean Claude Olsen on 03-03-2024 pH (U) 7.0 [pH] Normal 5.0-9.0 [facility] Comment on above: Order Comment: Name Collection Type:: Clean-Voided Midstream Performed By: #### M MINI Zamorano #### [address] US renal BIon 03-02-2024 US renal BI [facility] [place] [address] Ultrasound Report Signed Patient: Domenic Ngo MR#: [id number] [birth year] : 1990 Acct:[id number] Age/Sex: 33 / F ADM Date: 03/02/24 Loc: Room: Type: [facility] Attending Dr: Ilda Cannon PA-C Ordering Provider: Ilda Cannon PA-C Date of Service: 03/02/24 US/US renal BI: FREG UTI Copies to: Ilda Cannon PA-C Bilateral Renal Ultrasound HISTORY: Frequent UTIs COMPARISON: None RIGHT kidney measures 8.6 cm. LEFT kidney measures 10.7 cm. Hydronephrosis: Mild LEFT pelvocaliectasis. RENAL STONE: No shadowing renal calculus is seen. RENAL LESIONS: No renal lesion identified. URINARY BLADDER: Bilateral ureteral jets. A minimal post for residual urinary bladder. REPRODUCTIVE STRUCTURES Not assessed US/US renal BI IMPRESSION : Mild LEFT pelvocaliectasis. Patent ureters. Impression dictated by: Arben Snow M.D.03/02/2024 12:13 PM Dictation Location: [place] [address] Tech: Kristen Shay Transcribed By: DARREN 03/02/24 1213 Dictated By: Arben Snow DO 03/02/24 1211 Signed By: 03/02/24 1213 Normal [facility] XR abdomen 1Von 03-02-2024 XR abdomen 1V [facility] Main [place] [id number] XRay Report Signed Patient: Domenic Ngo MR#: [id number] [birth year] : 1990 Acct:[id number] Age/Sex: 33 / F ADM Date: 03/02/24 Loc: Room: Type: [facility] Attending Dr: Ilda Cannon PA-C Copies to: Ilda Cannon PA-C Ordering Provider: Ilda Cannon PA-C Date of Service: 03/02/24 XR/XR abdomen 1V: RECURRENT UTI Single view of abdomen COMPARISON: None HISTORY: Recurrent UTI. THORAX: Lung bases unremarkable. FREE AIR: Supine position limits assessment BOWEL: No gaseous intestinal distention. STOOL: Moderate constipation RENAL STONES: No significant stones present. VASCULAR CALCIFICATIONS: Unremarkable SOFT TISSUE: Unremarkable BONES: Unremarkable POSTSURGICAL CHANGES: None XR/XR abdomen 1V IMPRESSION: No visible stone. Moderate constipation. Impression dictated by: Arben Snow M.D.03/02/2024 12:09 PM Dictation Location: [place] [address] Transcribed By: [facility] 03/02/24 1209 Dictated By: Arben Snow DO 03/02/24 1156 Signed By: 03/02/24 1209 Normal [facility] C Urineon 02-29-2024 Bacteria identified Cx Nom (U) Microbiology PROCEDURE: Urine Culture [R1] SOURCE: U CleanCatch BODY SITE: COLLECTED DATE/TIME: 02/27/2024 10:22 EDT RECEIVED DATE/TIME: 02/27/2024 18:01 EDT START DATE/TIME: 02/27/2024 18:01 EDT FREE TEXT SOURCE: ILDA CANNON PA-C, PA-C, ILDA Martines FINAL REPORTS Final Report [] Verified Date/Time: 02/29/2024 08:42 EDT >100,000 cfu/ml Escherichia coli SUSCEPTIBILITY RESULTS __ LEGEND: S=Susceptible, N/R=Not Reported, Blank=Data not available, or drug not advisable or tested, I=Intermediate, ESBL=Extended spectrum beta-lactamase, R=Resistant, TFG=Thymidine-dependent strain, JUSTINO=Beta-lactamase positive, BRANDEN=mcg/m;(mg/L), S*=Predicted susceptible interp, R*=Predicted resistant interp EC Antibiotic BRANDEN Dilutn BRANDEN Interp Ampicillin <=8 S Ampicillin/ <=8/4 S Sulbactam Aztreonam <=4 S Cefazolin <=2 S Cefepime <=2 S Ceftazidime <=1 S Ceftazidime/ <=8 S Avibactam Ceftriaxone <=1 S Cefuroxime <=4 S Ciprofloxacin <=0.25 S Ertapenem <=0.5 S Gentamicin <=2 S Levofloxacin <=0.5 S Meropenem <=1 S Nitrofurantoin <=32 S Piperacillin/ <=8 S Tazobactam Tetracycline <=4 S Tobramycin <=2 S Trimethoprim/ <=2/38 S Sulfa Performing Locations R1: This test was performed at: [facility], [address] [place] [address], [facility] , , [facility] Comment on above: Performed By: #### [id number] #### [facility] [address] [place] [address] Ambulatory Visit Summaryon 0 02-27-2024 Ambulatory Visit Summary Ambulatory Visit Summary DOMENIC NGO :1990 Visit Date:02/27/2024 Ambulatory Visit Instructions Your Diagnosis Frequent UTI Tests Performed US Renal -- Results Pending -- XR Abdomen 1 View -- Results Pending -- Please visit your patient portal for your results or contact your primary care physician. Your Care Team Attending Physician - ILDA CANNON PA-C Primary Care Physician - GUMARO GIRARD, Referring Physician - Ramos MAHONEY DO This Is Your Medications List cephalexin (Keflex 250 mg Cap) ciprofloxacin (Cipro 500 mg Tab) Contact prescribing physician if questions or concerns amiloride (amiloride 5 mg oral tablet) erenumab (A[employer]ig SureClick Autoinjector-aooe 140 mg/mL subcutaneous solution) magnesium oxide (magnesium oxide 400 mg Tab) potassium chloride (Potassium Chloride (Tvo-Qudr-Eub M20) 20 mEq oral tablet, extended release) rivaroxaban (Xarelto 20 mg oral tablet) Procedures Performed History of ureteral reimplantation (1992), Hysterectomy, Myringotomy and insertion of grommet, Procedure on mandible, Tubal ligation. Discharge Vitals Heart Rate (Peripheral) 70 Respiratory Rate 16 Blood Pressure 111/79 Height 155 cm Height 61 in Weight 87.5 kg Weight 192.5 lb BMI 36.42 What to do next You Need to Schedule the Following Appointments Follow Up with ILDA CANNON PA-C, URL When: Comments: sched cysto/possible UD Where: [address] [place] [address] [id number] You Need to Complete the Following Urine Culture, Urine, Clean Catch, Routine collect, 02/27/24, Order for future visit, Nurse collect, Frequent UTI, Print Label By Order Location Medications What How Much When Why Instructions New cephalexin (Keflex 250 mg Cap) See instructions Frequent UTI Refills: 3 take 1 cap po following sexual activity for UTI prevention Pickup at [facility] New ciprofloxacin (Cipro 500 mg Tab) 1 Tablets By Mouth Every day take one tab day before procedure and one tab after procedure Pickup at [facility] Unchanged amiloride (amiloride 5 mg oral tablet) take 2 tablets by mouth twice a day Contact prescribing physician if questions or concerns Unchanged erenumab (Aimovig SureClick Autoinjector-aooe 140 mg/ mL subcutaneous solution) inject 1 milliliter ( 140 milligrams ) subcutaneously as directed 30 days Contact prescribing physician if questions or concerns Unchanged magnesium oxide (magnesium oxide 400 mg Tab) take 2 tablets by mouth three times a day Contact prescribing physician if questions or concerns Unchanged potassium chloride (Potassium Chloride (Gbw-Uksx-Ayh M20) 20 mEq oral tablet, extended release) take 6 tablets by mouth three times a day Contact prescribing physician if questions or concerns Unchanged rivaroxaban (Xarelto 20 mg oral tablet) take 1 tablet by mouth every evening with food Contact prescribing physician if questions or concerns Pharmacy Information [facility]: [address] [place] [phone] Allergies Adhesive Bandage (Rash) Desonide (Unknown) New Skin Bandage (Rash) Problems Ongoing - Any problem that you are currently receiving treatment for. 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 Please share your experience with us by completing your survey. We appreciate your feedback and thank you for choosing us for your care. Education Materials Urinary Tract Infection, Adult A urinary tract infection (UTI) is an infection of any part of the urinary tract. The urinary tract includes the kidneys, ureters, bladder, and urethra. These organs make, store, and get rid of urine in the body. An upper UTI affects the ureters and kidneys. A lower UTI affects the bladder and urethra. What are the causes? Most urinary tract infections are caused by bacteria in your genital area around your urethra, where urine leaves your body. These bacteria grow and cause inflammation of your urinary tract. What increases the risk? You are more likely to develop this condition if: ? You have a urinary catheter that stays in place. ? You are not able to control when you urinate or have a bowel movement (incontinence). ? You are female and you: ? Use a spermicide or diaphragm for control. ? Have low estrogen levels. ? Are . ? You have certain genes that increase your risk. ? You are sexually active. ? You take antibiotic medicines. ? You have a condition that causes your flow of urine to slow down, such as: ? An enlarged prostate, if you are male. ? Blockage in your urethra. ? A kidney stone. ? A nerve condition that affects your bladder control (neurogenic bladder). ? (more content not included)... Normal [facility] Provider Letteron 02-13-2024 Provider Letter Provider Letter February 13, 2024 DOMENIC NGO [address] [place] [phone] : 1990 Dear Domenic, We have been trying to reach you with no success. You have an appointment with Dr. Orlando Duval on February which will need to be rescheduled since he will be out of the office that day. Please contact the office at the number listed below to get this appointment rescheduled at your earliest convenience. Thank you for your prompt attention to this matter. Sincerely, [facility] [address], [place] [address] [facility] Urinalysis - AUTOMATEDon Appearance (U) cloudy [employer] Other Bilirubin Ql (U) Negative [employer] Other Color (U) orange [employer] Other Glucose Ql (U) 100 [employer] Other Hemoglobin Ql (U) large [employer] Other Ketones Ql (U) Negative [employer] Other Leukocyte esterase Test strip Ql (U) Negative [employer] Other Nitrite Ql (U) Positive [employer] Other pH (U) 7.0 [pH] [employer] Other Protein Ql (U) 30 [employer] Other Specific gravity (U) [Rel density] 1.025 [employer] Other Urobilinogen (U) [Mass/Vol] 1.0 mg/dL [employer] Other Urinalysis - AUTOMATED No rth [employer] Other Urine Cultureon 08-11-2023 Bacteria identified Cx Nom (U) ORGANISM: Escherichia coli (O:ESCCOL) [place] Count >100,000 Aerobic BRANDEN Charge ([id number]) SUSCEPTIBILITY ORGANISM: O:ESCCOL ANTIBIOTIC INTERPRETATION BRANDEN Amikacin S <16 Amoxacillin/K Clavulanate S <8 Ampicillin S <8 Ampicillin/Sulbactam S <4 Aztreonam S <4 Cefazolin S <2 Cefepime S <2 Ceftazidime S <1 Ceftazidime/Avibactam S <4 Ceftolozane/Tazobactam S <2 Ceftriaxone S <1 Cefuroxime S <4 Ciprofloxacin S <0.25 Ertapenem S <0.5 Gentamicin S <2 Levofloxacin S <0.5 Meropenem S <1 Meropenem/Vaborbactam S <2 Nitrofurantoin S <32 Piperacillin/Tazobactam S <8 Tetracycline S <4 Tigecycline S <2 Tobramycin S <2 Trimethoprim/Sulfamethoxa zole S <0.5 S = SUSCEPTIBLE I = INTERMEDIATE R = RESISTANT BLANK = DATA NOT AVAILABLE, OR DRUG NOT ADVISABLE OR TESTED R* = RESISTANCE DUE TO EXTENDED SPECTRUM BETA-LACTAMASES ESBL = EXTENDED SPECTRUM BETA-LACTAMASE TFG = THYMIDINE-DEPENDENT STRAIN JUSTINO = BETA-LACTAMASE POSITIVE IB = INDUCIBLE BETA-LACTAMASE. APPEARS IN PLACE OF 'S' WITH SPECIES KNOWN TO POSSESS INDUCIBLE BETA-LACTAMASES. POTENTIALLY THEY MAY BECOME RESISTANT TO ALL B-LACTAM DRUGS. PERFORMED BY: [place] [address] PATHOLOGIST AGILITY INSTRUCTOR MAXINE RANGEL M.D. Normal [facility] Comment on above: Performed By: #### C UU #### [address] Basophils Auto (Bld) [#/Vol] Ordered By: Jerrell Smith on 05-02-2023 Basophils (Bld) [#/Vol] 0.0 10*3/uL 0.0-0.2 [facility] Basophils/100 WBC Auto (Bld) Ordered By: Jerrell Smith on 05-02-2023 Basophils/100 WBC (Bld) 0.7 % . [facility] Calcium [Mass/volume] in Ser um or PlasmaOrdered By: Jerrell Smith on 05-02-2023 Calcium [Mass/Vol] 8.5 mg/dL 8.6-10.3 [facility] Carbon dioxide, total [Moles /volume] in Serum or PlasmaOrdered By: Jerrell Smith on 05-02-2023 CO2 [Moles/Vol] 30.8 mmol/L 21.0-31.0 [facility] Chloride [Moles/volume] in S erwin or PlasmaOrdered By: Jerrell Smith on 05-02-2023 Chloride [Moles/Vol] 101 mmol/L 98-107 [facility] Creatinine [Mass/volume] in Serum or PlasmaOrdered By: Jerrell Smith on 05-02-2023 Creatinine [Mass/Vol] 0.87 mg/dL 0.60-1.20 [facility] Eosinophils Auto (Bld) [#/Vo l]Ordered By: Jerrell Smith on 05-02-2023 Eosinophils (Bld) [#/Vol] 0.1 10*3/uL 0.0-0.45 [facility] Eosinophils/100 WBC Auto (Bl d)Ordered By: Jerrell Smith on 05-02-2023 Eosinophils/100 WBC (Bld) 2.6 % . [facility] Erythrocyte distribution wid th Auto (RBC) [Ratio]Ordered By: Jerrell Smith on 05-02-2023 Erythrocyte distribution width (RBC) [Ratio] 13.3 % 11.9-15.3 [facility] Glucose [Mass/volume] in Ser um or PlasmaOrdered By: Jerrell Smith on 05-02-2023 Glucose [Mass/Vol] 104 mg/dL 70-100 [facility] Comment on above: ADA recommended refe rence rangeRandom Glucose Reference Range is dependent on time and content of last meal. Glucose of more than 200 mg/dL in a nonstressed, ambulatory subject supports the diagnosis of Diabetes Mellitus. Hematocrit Auto (Bld) [Volum e fraction]Ordered By: Jerrell Smith on 05-02-2023 Hematocrit (Bld) [Volume fraction] 37.0 % 34.0-46.4 [facility] Hemoglobin [Mass/volume] in BloodOrdered By: Jerrell Smith on 05-02-2023 Hemoglobin (Bld) [Mass/Vol] 13.2 g/dL 11.8-15.4 [facility] Leukocytes [#/volume] correc flor for nucleated erythrocytes in Blood by Automated counOrdered By: Jerrell Smith on 05-02-2023 WBC corrected for nucl RBC Auto (Bld) [#/Vol] 4.6 10*3/uL 3.8-11.6 [facility] Lymphocytes Auto (Bld) [#/Vo l]Ordered By: Jerrell Smith on 05-02-2023 Lymphocytes (Bld) [#/Vol] 1.7 10*3/uL 1.00-4.8 [facility] Lymphocytes/100 WBC Auto (Bl d)Ordered By: Jerrell Smith on 05-02-2023 Lymphocytes/100 WBC (Bld) 36.7 % . [facility] MCH Auto (RBC) [Entitic mass ]Ordered By: Jerrell Smith on 05-02-2023 MCH (RBC) [Entitic mass] 30.4 pg 24.7-34.3 [facility] MCHC Auto (RBC) [Mass/Vol]Or dered By: Jerrlel Smith on 05-02-2023 MCHC (RBC) [Mass/Vol] 35.6 g/dL 32.0-35.0 [facility] MCV Auto (RBC) [Entitic vol] Ordered By: Jerrell Smith on 05-02-2023 MCV (RBC) [Entitic vol] 85.3 fL 80-100 [facility] Magnesium [Mass/volume] in S erwin or PlasmaOrdered By: Jerrell Smith on 05-02-2023 Magnesium [Mass/Vol] 2.4 mg/dL 1.9-2.7 [facility] Monocytes Auto (Bld) [#/Vol] Ordered By: Jerrell Smith on 05-02-2023 Monocytes (Bld) [#/Vol] 0.4 10*3/uL 0.0-0.8 [facility] Monocytes/100 WBC Auto (Bld) Ordered By: Jerrell Smith on 05-02-2023 Monocytes/100 WBC (Bld) 8.1 % . [facility] Neutrophils Auto (Bld) [#/Vo l]Ordered By: Jerrell Smith on 05-02-2023 Neutrophils (Bld) [#/Vol] 2.4 10*3/uL 1.8-7.7 [facility] Neutrophils/100 WBC Auto (Bl d)Ordered By: Jerrell Smith on 05-02-2023 Neutrophils/100 WBC (Bld) 51.9 % . [facility] No Panel InformationOrdered By: Jerrell Smith on 05-02-2023 Estimated GFR (CKD-EPI) > 60.0 mL/Min [facility] Creatinine Clearance (Chem 103.30 [facility] Nucleated erythrocytes [Pres ence] in Blood by Automated countOrdered By: Jerrell Smith on 05-02-2023 Nucleated RBC Auto Ql (Bld) 0.0 /100{WBC} 0-0.5 [facility] Platelet mean volume Auto (B ld) [Entitic vol]Ordered By: Jerrell Smith on 05-02-2023 Platelet mean volume (Bld) [Entitic vol] 8.0 fL 6.3-10.7 [facility] Platelets Auto (Bld) [#/Vol] Ordered By: Jerrell Smith on 05-02-2023 Platelets (Bld) [#/Vol] 254 10*3/uL 150-450 [facility] Potassium [Moles/volume] in Serum or PlasmaOrdered By: Jerrell Smith on 05-02-2023 Potassium [Moles/Vol] 3.2 mmol/L 3.5-5.1 [facility] RBC Auto (Bld) [#/Vol]Ordere d By: Jerrell Smith on 05-02-2023 RBC (Bld) [#/Vol] 4.34 10*6/uL 3.60-5.00 [facility] Serum or plasma anion gap de terminationOrdered By: Jerrell Smith on 05-02-2023 Anion gap [Moles/Vol] 7.4 mmol/L 6.0-15.0 [facility] Sodium [Moles/volume] in Ser um or PlasmaOrdered By: Jerrell Smith on 05-02-2023 Sodium [Moles/Vol] 136 mmol/L 136-145 [facility] Urea nitrogen [Mass/volume] in Serum or PlasmaOrdered By: Jerrell Smith on 05-02-2023 Urea nitrogen [Mass/Vol] 9 mg/dL 7-25 [facility] WBC Auto (Bld) [#/Vol]Ordere d By: Jerrell Smith on 05-02-2023 WBC (Bld) [#/Vol] 4.6 10*3/uL 3.8-11.6 [facility] Activated partial thrombopla stin time (aPTT) in platelet poor plasma by coagulation aOrdered By: Jerrell Smith on 05-01-2023 aPTT Coag (PPP) [Time] 34.0 s 25.1-36.5 [facility] Comment on above: A hematocrit value g reater than 55% may lead to inaccurate results in coagulation testing. Patients having hematocrit values >55% require a special collection tube for coagulation studies. Please contact the laboratory at [phone] for redraw instructions. Fibrin D-dimer [Presence] in Platelet poor plasma by Latex agglutinationOrdered By: Jerrell Smith on 05-01-2023 Fibrin D-dimer LA Ql (PPP) < 200 ng/mL 0-243 [facility] Comment on above: The reference range for D-dimer is <243 ng/mL D-dimer units.D-dimer results must be used in conjunction with a clinicalpretest probability (PTP) assessment model for deep veinthrombosis (DVT) and pulmonary embolism (PE). Results <230ng/mL d-dimer units can be used as a negative predictor inpatients with low or moderate probability for DVT/PE.Results above the exclusion threshold of 230 ng/ml D-dimerunits for DVT/PE may indicate the need for furtherdiagnostic testing.D-Dimer can be increased in hospitalized patients due toco-morbid conditions.A hematocrit value greater than 55% may lead to inaccurate results in coagulation testing. Patients having hematocrit values >55% require a special collection tube for coagulation studies. Please contact the laboratory at [phone] for redraw instructions. INR in Platelet poor plasma by Coagulation assayOrdered By: Jerrell Smith on 05-01-2023 INR Coag (PPP) [Relative time] 1.4 {INR} [facility] Comment on above: INR Therapeutic Rang e A) Pre- and Peroperative OAT started two weeks before surgery. NOT HIP SURGERY: 1.5 - 2.5 HIP SURGERY: 2 - 3B) Primary and secondary prevention of venous THROMBOSIS: 2 - 3C) Active venous thrombosis, pulmonary embolismand prevention of recurrent venous thrombosis: 2 - 3D) Prevention of arterial thromboembolismincluding patients with mechanical heart valves: 3 - 4.5 Prothrombin time (PT)Ordered By: Jerrell Smith on 05-01-2023 PT Coag (PPP) [Time] 16.4 s 9.0-12.9 [facility] Comment on above: A hematocrit value g reater than 55% may lead to inaccurate results in coagulation testing. Patients having hematocrit values >55% require a special collection tube for coagulation studies. Please contact the laboratory at [phone] for redraw instructions. Alanine aminotransferase [En zymatic activity/volume] in Serum or PlasmaOrdered By: Orlando Guan on 04-30-2023 ALT [Catalytic activity/Vol] 13 U/L 7-52 [facility] Albumin [Mass/volume] in Ser um or Plasma by Bromocresol green (BCG) dye binding methoOrdered By: Orlando Guan on 04-30-2023 Albumin BCG dye [Mass/Vol] 4.3 g/dL 3.5-5.7 [facility] Alkaline phosphatase [Enzyma tic activity/volume] in Serum or PlasmaOrdered By: Orlando Guan on 04-30-2023 ALP [Catalytic activity/Vol] 59 U/L 34-104 [facility] Aspartate aminotransferase [ Enzymatic activity/volume] in Serum or PlasmaOrdered By: Orlando Guan on 04-30-2023 AST [Catalytic activity/Vol] 19 U/L 13-39 [facility] Basophils Auto (Bld) [#/Vol] Ordered By: Orlando Guan on 04-30-2023 Basophils (Bld) [#/Vol] 0.0 10*3/uL 0.0-0.2 [facility] Basophils/100 WBC Auto (Bld) Ordered By: Orlando Guan on 04-30-2023 Basophils/100 WBC (Bld) 0.6 % . [facility] Bilirubin.total [Mass/volume ] in Serum or PlasmaOrdered By: Orlando Guan on 04-30-2023 Bilirubin [Mass/Vol] 0.6 mg/dL 0.3-1.0 [facility] COVID CepheidOrdered By: Nasrin Guan on 04-30-2023 SARS-CoV-2 (COVID-19) Ab IA Ql Positive Negative [facility] Comment on above: This is a duplicate [employer] Xpert Xpress CoV-2/Flu/RSV Plus RNA by RT-PCR result to be used for statistical tracking purpose only. SARS-CoV-2 (COVID-19) RNA CAROL+probe Ql (Unsp spec) [facility] Calcium [Mass/volume] in Ser um or PlasmaOrdered By: Orlando Guan on 04-30-2023 Calcium [Mass/Vol] 8.6 mg/dL 8.6-10.3 [facility] Carbon dioxide, total [Moles /volume] in Serum or PlasmaOrdered By: Orlando Guan on 04-30-2023 CO2 [Moles/Vol] 33.7 mmol/L 21.0-31.0 [facility] Chloride [Moles/volume] in S erwin or PlasmaOrdered By: Orlando Guan on 04-30-2023 Chloride [Moles/Vol] 96 mmol/L 98-107 [facility] Creatinine [Mass/volume] in Serum or PlasmaOrdered By: Orlando Guan on 04-30-2023 Creatinine [Mass/Vol] 0.87 mg/dL 0.60-1.20 [facility] Eosinophils Auto (Bld) [#/Vo l]Ordered By: Orlando Guan on 04-30-2023 Eosinophils (Bld) [#/Vol] 0.1 10*3/uL 0.0-0.45 [facility] Eosinophils/100 WBC Auto (Bl d)Ordered By: Orlando Guan on 04-30-2023 Eosinophils/100 WBC (Bld) 1.0 % . [facility] Erythrocyte distribution wid th Auto (RBC) [Ratio]Ordered By: Orlando Guan on 04-30-2023 Erythrocyte distribution width (RBC) [Ratio] 13.6 % 11.9-15.3 [facility] Globulin Calc (S) [Mass/Vol] Ordered By: Orlando Guan on 04-30-2023 Globulin (S) [Mass/Vol] 3.0 g/dL [facility] Glucose [Mass/volume] in Ser um or PlasmaOrdered By: Orlando Guan on 04-30-2023 Glucose [Mass/Vol] 94 mg/dL 70-100 [facility] Comment on above: ADA recommended refe rence rangeRandom Glucose Reference Range is dependent on time and content of last meal. Glucose of more than 200 mg/dL in a nonstressed, ambulatory subject supports the diagnosis of Diabetes Mellitus. Hematocrit Auto (Bld) [Volum e fraction]Ordered By: Orlando Guan on 04-30-2023 Hematocrit (Bld) [Volume fraction] 37.3 % 34.0-46.4 [facility] Hemoglobin [Mass/volume] in BloodOrdered By: Orlando Guan on 04-30-2023 Hemoglobin (Bld) [Mass/Vol] 13.8 g/dL 11.8-15.4 [facility] Leukocytes [#/volume] correc flor for nucleated erythrocytes in Blood by Automated counOrdered By: Orlando Guan on 04-30-2023 WBC corrected for nucl RBC Auto (Bld) [#/Vol] 7.1 10*3/uL 3.8-11.6 [facility] Lipase [Enzymatic activity/v olume] in Serum or PlasmaOrdered By: Orlando Guan on 04-30-2023 Lipase [Catalytic activity/Vol] 21.0 U/L 11.0-82.0 [facility] Lymphocytes Auto (Bld) [#/Vo l]Ordered By: Orlando Guan on 04-30-2023 Lymphocytes (Bld) [#/Vol] 0.4 10*3/uL 1.00-4.8 [facility] Lymphocytes/100 WBC Auto (Bl d)Ordered By: Orlando Guan on 04-30-2023 Lymphocytes/100 WBC (Bld) 6.3 % . [facility] MCH Auto (RBC) [Entitic mass ]Ordered By: Orlando Guan on 04-30-2023 MCH (RBC) [Entitic mass] 30.9 pg 24.7-34.3 [facility] MCHC Auto (RBC) [Mass/Vol]Or dered By: Orlando Guan on 04-30-2023 MCHC (RBC) [Mass/Vol] 36.9 g/dL 32.0-35.0 [facility] MCV Auto (RBC) [Entitic vol] Ordered By: Orlando Guan on 04-30-2023 MCV (RBC) [Entitic vol] 83.6 fL 80-100 [facility] Magnesium [Mass/volume] in S erwin or PlasmaOrdered By: Orlando Guan on 04-30-2023 Magnesium [Mass/Vol] 0.9 mg/dL 1.9-2.7 [facility] Comment on above: Critical Result S_MG : Called to and read back by: YOLY GAMING at: 04/30/2023 12:01:56 by:[id number] Monocyte distribution width [Entitic volume] in Blood by AutomatedOrdered By: Orlando Guan on 04-30-2023 Monocyte distribution width Auto (Bld) [Entitic vol] 21.47 % 0.00-20.00 [facility] Comment on above: For adults in ED, MD W > 20.0 may be associated with a higher risk of sepsis during the first 12 hrs of hospital admission Monocytes Auto (Bld) [#/Vol] Ordered By: Orlando Guan on 04-30-2023 Monocytes (Bld) [#/Vol] 0.6 10*3/uL 0.0-0.8 [facility] Monocytes/100 WBC Auto (Bld) Ordered By: Orlando Guan on 04-30-2023 Monocytes/100 WBC (Bld) 7.7 % . [facility] Neutrophils Auto (Bld) [#/Vo l]Ordered By: Orlando Guan on 04-30-2023 Neutrophils (Bld) [#/Vol] 6.0 10*3/uL 1.8-7.7 [facility] Neutrophils/100 WBC Auto (Bl d)Ordered By: Orlando Guan on 04-30-2023 Neutrophils/100 WBC (Bld) 84.4 % . [facility] No Panel InformationOrdered By: Orlando Guan on 04-30-2023 Estimated GFR (CKD-EPI) > 60.0 mL/Min [facility] Creatinine Clearance (Chem 93.89 [facility] Nucleated erythrocytes [Pres ence] in Blood by Automated countOrdered By: Orlando Guan on 04-30-2023 Nucleated RBC Auto Ql (Bld) 0.1 /100{WBC} 0-0.5 [facility] Platelet adequacy [Presence] in Blood by Light microscopyOrdered By: Orlando Guan on 04-30-2023 Platelets LM Ql (Bld) Normal Normal [facility] Platelet mean volume Auto (B ld) [Entitic vol]Ordered By: Orlando Guan on 04-30-2023 Platelet mean volume (Bld) [Entitic vol] 8.0 fL 6.3-10.7 [facility] Platelet morphology finding [Identifier] in BloodOrdered By: Orlando Guan on 04-30-2023 Platelet morphology finding Nom (Bld) Normal Normal [facility] Platelets Auto (Bld) [#/Vol] Ordered By: Orlando Guan on 04-30-2023 Platelets (Bld) [#/Vol] 275 10*3/uL 150-450 [facility] Potassium [Moles/volume] in Serum or PlasmaOrdered By: Orlando Guan on 04-30-2023 Potassium [Moles/Vol] 1.9 mmol/L 3.5-5.1 [facility] Comment on above: Critical Result Call ed to and read back by: YOLY GAMING at: 04/30/2023 12:01:56 by:[id number] Protein [Mass/volume] in Ser um or PlasmaOrdered By: Orlando Guan on 04-30-2023 Protein [Mass/Vol] 7.3 g/dL 6.4-8.9 [facility] RBC Auto (Bld) [#/Vol]Ordere d By: Orlando Guan on 04-30-2023 RBC (Bld) [#/Vol] 4.46 10*6/uL 3.60-5.00 [facility] RBC morphologyOrdered By: Larry Guan on 04-30-2023 RBC morphology finding Nom (Bld) Normal Normal [facility] Serum or plasma albumin/glob ulin mass ratioOrdered By: Orlando Guan on 04-30-2023 Albumin/Globulin [Mass ratio] 1.4 {ratio} [facility] Serum or plasma anion gap de terminationOrdered By: Orlando Guan on 04-30-2023 Anion gap [Moles/Vol] 11.2 mmol/L 6.0-15.0 [facility] Sodium [Moles/volume] in Ser um or PlasmaOrdered By: Orlando Guan on 04-30-2023 Sodium [Moles/Vol] 139 mmol/L 136-145 [facility] Urea nitrogen [Mass/volume] in Serum or PlasmaOrdered By: Orlando Guan on 04-30-2023 Urea nitrogen [Mass/Vol] 11 mg/dL 7-25 [facility] WBC Auto (Bld) [#/Vol]Ordere d By: Orlando Guan on 04-30-2023 WBC (Bld) [#/Vol] 7.1 10*3/uL 3.8-11.6 [facility] Alanine aminotransferase [En zymatic activity/volume] in Serum or PlasmaOrdered By: Giuseppe Fair on 02-16-2023 ALT [Catalytic activity/Vol] 18 U/L 7-52 [facility] Albumin [Mass/volume] in Ser um or Plasma by Bromocresol green (BCG) dye binding methoOrdered By: Giuseppe Fair on 02-16-2023 Albumin BCG dye [Mass/Vol] 4.1 g/dL 3.5-5.7 [facility] Alkaline phosphatase [Enzyma tic activity/volume] in Serum or PlasmaOrdered By: Giuseppe Fair on 02-16-2023 ALP [Catalytic activity/Vol] 56 U/L 34-104 [facility] Aspartate aminotransferase [ Enzymatic activity/volume] in Serum or PlasmaOrdered By: Giuseppe Fair on 02-16-2023 AST [Catalytic activity/Vol] 21 U/L 13-39 [facility] Basophils Auto (Bld) [#/Vol] Ordered By: Giuseppe Fair on 02-16-2023 Basophils (Bld) [#/Vol] 0.0 10*3/uL 0.0-0.2 [facility] Basophils/100 WBC Auto (Bld) Ordered By: Giuseppe Fair on 02-16-2023 Basophils/100 WBC (Bld) 0.6 % . [facility] Bilirubin.total [Mass/volume ] in Serum or PlasmaOrdered By: Giuseppe Fair on 02-16-2023 Bilirubin [Mass/Vol] 0.5 mg/dL 0.3-1.0 [facility] Calcium [Mass/volume] in Ser um or PlasmaOrdered By: Giuseppe Fair on 02-16-2023 Calcium [Mass/Vol] 8.6 mg/dL 8.6-10.3 [facility] Carbon dioxide, total [Moles /volume] in Serum or PlasmaOrdered By: Giuseppe Fair on 02-16-2023 CO2 [Moles/Vol] 35.3 mmol/L High 21.0-31.0 [facility] Chloride [Moles/volume] in S erwin or PlasmaOrdered By: Giuseppe Fair on 02-16-2023 Chloride [Moles/Vol] 100 mmol/L 98-107 [facility] Creatinine [Mass/volume] in Serum or PlasmaOrdered By: Giuseppe Fair on 02-16-2023 Creatinine [Mass/Vol] 0.72 mg/dL 0.60-1.20 [facility] Eosinophils Auto (Bld) [#/Vo l]Ordered By: Giuseppe Fair on 02-16-2023 Eosinophils (Bld) [#/Vol] 0.2 10*3/uL 0.0-0.45 [facility] Eosinophils/100 WBC Auto (Bl d)Ordered By: Giuseppe Fair on 02-16-2023 Eosinophils/100 WBC (Bld) 2.7 % . [facility] Erythrocyte distribution wid th Auto (RBC) [Ratio]Ordered By: Giuseppe Fair on 02-16-2023 Erythrocyte distribution width (RBC) [Ratio] 13.5 % 11.9-15.3 [facility] Globulin Calc (S) [Mass/Vol] Ordered By: Giuseppe Fair on 02-16-2023 Globulin (S) [Mass/Vol] 2.7 g/dL [facility] Glucose [Mass/volume] in Ser um or PlasmaOrdered By: Giuseppe Fair on 02-16-2023 Glucose [Mass/Vol] 83 mg/dL 70-100 [facility] Comment on above: ADA recommended refe rence rangeRandom Glucose Reference Range is dependent on time and content of last meal. Glucose of more than 200 mg/dL in a nonstressed, ambulatory subject supports the diagnosis of Diabetes Mellitus. Hematocrit Auto (Bld) [Volum e fraction]Ordered By: Giuseppe Fair on 02-16-2023 Hematocrit (Bld) [Volume fraction] 37.7 % 34.0-46.4 [facility] Hemoglobin [Mass/volume] in BloodOrdered By: Giuseppe Fair on 02-16-2023 Hemoglobin (Bld) [Mass/Vol] 13.4 g/dL 11.8-15.4 [facility] Leukocytes [#/volume] correc flor for nucleated erythrocytes in Blood by Automated counOrdered By: Giuseppe Fair on 02-16-2023 WBC corrected for nucl RBC Auto (Bld) [#/Vol] 7.1 10*3/uL 3.8-11.6 [facility] Lymphocytes Auto (Bld) [#/Vo l]Ordered By: Giuseppe Fair on 02-16-2023 Lymphocytes (Bld) [#/Vol] 2.0 10*3/uL 1.00-4.8 [facility] Lymphocytes/100 WBC Auto (Bl d)Ordered By: Giuseppe Fair on 02-16-2023 Lymphocytes/100 WBC (Bld) 27.4 % . [facility] MCH Auto (RBC) [Entitic mass ]Ordered By: Giuseppe Fair on 02-16-2023 MCH (RBC) [Entitic mass] 30.2 pg 24.7-34.3 [facility] MCHC Auto (RBC) [Mass/Vol]Or dered By: Giuseppe Fair on 02-16-2023 MCHC (RBC) [Mass/Vol] 35.6 g/dL High 32.0-35.0 [facility] MCV Auto (RBC) [Entitic vol] Ordered By: Giuseppe Fair on 02-16-2023 MCV (RBC) [Entitic vol] 84.9 fL 80-100 [facility] Monocytes Auto (Bld) [#/Vol] Ordered By: Giuseppe Fair on 02-16-2023 Monocytes (Bld) [#/Vol] 0.6 10*3/uL 0.0-0.8 [facility] Monocytes/100 WBC Auto (Bld) Ordered By: Giuseppe Fair on 02-16-2023 Monocytes/100 WBC (Bld) 7.8 % . [facility] Neutrophils Auto (Bld) [#/Vo l]Ordered By: Giuseppe Fair on 02-16-2023 Neutrophils (Bld) [#/Vol] 4.4 10*3/uL 1.8-7.7 [facility] Neutrophils/100 WBC Auto (Bl d)Ordered By: Giuseppe Fair on 02-16-2023 Neutrophils/100 WBC (Bld) 61.5 % . [facility] No Panel InformationOrdered By: Giuseppe Fair on 02-16-2023 Estimated GFR (CKD-EPI) > 60.0 mL/Min [facility] Creatinine Clearance (Chem N/A [facility] Nucleated erythrocytes [Pres ence] in Blood by Automated countOrdered By: Giuseppe Fair on 02-16-2023 Nucleated RBC Auto Ql (Bld) 0.2 /100{WBC} 0-0.5 [facility] Platelet mean volume Auto (B ld) [Entitic vol]Ordered By: Giuseppe Fair on 02-16-2023 Platelet mean volume (Bld) [Entitic vol] 7.5 fL 6.3-10.7 [facility] Platelets Auto (Bld) [#/Vol] Ordered By: Giuseppe Fair on 02-16-2023 Platelets (Bld) [#/Vol] 338 10*3/uL 150-450 [facility] Potassium [Moles/volume] in Serum or PlasmaOrdered By: Giuseppe Fair on 02-16-2023 Potassium [Moles/Vol] 3.3 mmol/L Low 3.5-5.1 [facility] Protein [Mass/volume] in Ser um or PlasmaOrdered By: Giuseppe Fair on 02-16-2023 Protein [Mass/Vol] 6.8 g/dL 6.4-8.9 [facility] RBC Auto (Bld) [#/Vol]Ordere d By: Giuseppe Fair on 02-16-2023 RBC (Bld) [#/Vol] 4.44 10*6/uL 3.60-5.00 [facility] Serum or plasma albumin/glob ulin mass ratioOrdered By: Giuseppe Fair on 02-16-2023 Albumin/Globulin [Mass ratio] 1.5 {ratio} [facility] Serum or plasma anion gap de terminationOrdered By: Giuseppe Fair on 02-16-2023 Anion gap [Moles/Vol] 8.0 mmol/L 6.0-15.0 [facility] Sodium [Moles/volume] in Ser um or PlasmaOrdered By: Giuseppe Fair on 02-16-2023 Sodium [Moles/Vol] 140 mmol/L 136-145 [facility] Urea nitrogen [Mass/volume] in Serum or PlasmaOrdered By: Giuseppe Fair on 02-16-2023 Urea nitrogen [Mass/Vol] 11 mg/dL 7-25 [facility] WBC Auto (Bld) [#/Vol]Ordere d By: Giuseppe Fair on 02-16-2023 WBC (Bld) [#/Vol] 7.1 10*3/uL 3.8-11.6 [facility] Magnesium [Mass/volume] in S erwin or PlasmaOrdered By: Carmen Kothari on 01-10-2023 Magnesium [Mass/Vol] 1.5 mg/dL Low 1.9-2.7 [facility] Phosphate [Mass/volume] in S erwin or PlasmaOrdered By: Carmen Kothari on 01-10-2023 Phosphate [Mass/Vol] 2.7 mg/dL Low 3.7-7.2 [facility] PAP ACOG PANEL 2: 30 to 65on 10-04-2022 . . Normal [facility] Comment on above: Result Comment: Perf ormed at: WB Performed By: [id number] #### [facility] [address] [place] [address] Dr. Mervat Rondon Age Gdln ACOG Testing 30-65 Normal [facility] Comment on above: Performed By: #### [id number] #### [facility] [address] [place] [address] Dr. Mervat Rondon DIAGNOSIS: Comment Normal [facility] Comment on above: Result Comment: NEGA TIVE FOR INTRAEPITHELIAL LESION OR MALIGNANCY. Performed at: WB Performed By: #### [id number] #### [facility] [address] [place] [address] Dr. Mervat Rondon HPV Aptima Negative Normal Negative [facility] Comment on above: Result Comment: This nucleic acid amplification test detects fourteen high-risk HPV types (16,18,31,33,35,39,45,51,52,56,58,59,66,68) without differentiation. Performed at: =G Performed By: #### [id number] #### [facility] [address] [place] [address] Dr. Mevrat Rondon HPV Genotype Reflex Comment Normal [facility] Comment on above: Result Comment: Crit eria not met, HPV Genotype not performed. Performed at: WB Performed By: #### [id number] #### [facility] [address] [place] [address] Dr. Mervat Rondon Methodology: Comment Normal [facility] Comment on above: Result Comment: This liquid based ThinPrep(R) pap test was screened with the use of an image guided system. Performed at: WB Performed By: #### [id number] #### [facility] [address] [place] [address] Dr. Mervat Rondon Note: Comment Normal [facility] Comment on above: Result Comment: The Pap smear is a screening test designed to aid in the detection of premalignant and malignant conditions of the uterine cervix. It is not a diagnostic procedure and should not be used as the sole means of detecting cervical cancer. Both false-positive and false-negative reports do occur. . Performed at: WB Performed By: [id number] #### [facility] [address] [place] [address] Dr. Mervat Rondon Performed by: Comment Normal [facility] Comment on above: Result Comment: Muna Peters, Barley Steeper (ASCP) Performed at: WB Performed By: #### [id number] #### [facility] [id number] [place], [place] [address] Dr. Mervat Rondon Specimen adequacy: Comment Normal [facility] Comment on above: Result Comment: Sati sfactory for evaluation. No endocervical component is identified. Performed at: WB Performed By: #### [id number] #### [facility] [address] [place], [place] [address] Dr. Mervat Rondon Estimated glomerular filtrat ion rate (GFR) non- AmericanOrdered By: Carmen Kothari on 09-26-2022 GFR/1.73 sq M.predicted among non-blacks MDRD (S/P/Bld) [Vol rate/Area] > 60 mL/Min [facility] No Panel InformationOrdered By: Carmen Kothari on 09-26-2022 Estimated GFR () > 60 mL/Min [facility] Comment on above: GFR estimated refere nce range: According to KDOQI guidelines, <60 ml/min/1.73m2 is sufficient to diagnose a patient with chronic kidney disease. US PELVIS AND TRANSVAGon US PELVIS AND TRANSVAG EXAM: Pelvic ultr asound HISTORY: . Pelvic and perineal pain . COMPARISON: 11/23/2021. TECHNIQUE: Transabdominal and transvaginal scanning was performed FINDINGS: The uterus is absent. Right ovary was not identified. Left ovary measured 2.8 x 2.4 x 1.2 cm. Color-flow is noted. No masses are noted. No fluid is noted in the cul-de-sac. Impression: 1. Absent uterus. Uterus has been removed since previous exam. 2. Right ovary was not identified. 3. Left ovary appears normal. Electronically authenticated by: PRISCILLA CALLES Date: 2022-09-16 12:04 Normal [facility] XR ankle RT min 3V*on 2022 XR ankle RT min 3V* [facility] Other XR ankle RT min 3V* [facility] [place] Other XR ankle RT min 3V* [address] [facility] [place] Other XR ankle RT min 3V* [place] [address] [facility] Other XR ankle RT min 3V* XRay Report [place] [facility] Other XR ankle RT min 3V* Signed [place] Other XR ankle RT min 3V* Patient: Giuseppe Ngo MR#: [id number] [place] [facility] Other XR ankle RT min 3V* 04 [place] Other XR ankle RT min 3V* : 1990 Acct:[id number] [facility] Other XR ankle RT min 3V* Age/Sex: 32 / F ADM Date: 09/10/22 [place] Other XR ankle RT min 3V* Loc: XDUCLY Room: Ty pe: REG CLI [facility] Other XR ankle RT min 3V* Attending Dr: Kaleigh Chacon [facility] [place] Other XR ankle RT min 3V* Copies to: ROXIE CHACON DOORPERSON OR LUGGAGE PORTERWeeve [place] Other XR ankle RT min 3V* Ordering Provider: [facility] [place] Other XR ankle RT min 3V* Date of Service: 09/10/22 [place] Other XR ankle RT min 3V* XR/XR ankle RT min 3V*: RIGHT ANKLE/FOOT INJURY [place] Other XR ankle RT min 3V* ([id number]) XR/XR foot RT min 3V*: RIGHT ANKLE/FOOT INJURY [facility] Other XR ankle RT min 3V* XR foot RT min 3V*, XR ankle RT min 3V* 09/10/2022 2:38 PM [facility] Other XR ankle RT min 3V* SIGNS AND SYMPTOMS: Twisting injury to right ankle and foot with follow-up sensation. Pain and [place] Other XR ankle RT min 3V* swelling over latera l aspect of the ankle and foot [place] Other XR ankle RT min 3V* PROTOCOL: Frontal, lateral, and oblique radiographs of the right foot and ankle [facility] Other XR ankle RT min 3V* COMPARISON: 8 and 04/13/2021 [place] Other XR ankle RT min 3V* FINDINGS: [facility] Other XR ankle RT min 3V* Right foot: [facility] Other XR ankle RT min 3V* The bones are in malik tomic alignment. There is no evidence of fracture or dislocation. The joint [place] Other XR ankle RT min 3V* spaces are preserved . No significant soft tissue swelling is noted. [place] Other XR ankle RT min 3V* Right ankle: [facility] Other XR ankle RT min 3V* The tibiotalar junct ion is intact. There is no evidence of fracture or dislocation. There is mild [place] Other XR ankle RT min 3V* soft tissue swelling over the lateral malleolus. [place] Other XR ankle RT min 3V* X R/XR foot RT min 3V* [place] Other XR ankle RT min 3V* IMPRESSION: [facility] Other XR ankle RT min 3V* No fracture. [facility] Other XR ankle RT min 3V* There is soft tissue swelling over the lateral malleolus. [place] Other XR ankle RT min 3V* Impression dictated by: Tj Ingram M.D.09/10/2022 3:03 PM [place] [facility] Other XR ankle RT min 3V* Dictation Location: RADIO-PC-13 [place] Other XR ankle RT min 3V* Transcribed By: PWS 09/10/22 1503 [place] Other XR ankle RT min 3V* Dictated By: Tj Ingram II, MD 09/10/22 1500 [place] Other XR ankle RT min 3V* Signed By: [place] Other XR ankle RT min 3V* 09/10/22 1503 No rt [facility] Other Covid-19 PCR ([facility])on 07-15 SARS-CoV-2 (COVID-19) RNA CAROL+probe Ql (Unsp spec) Not detected Normal NOT DETECTED [facility] Comment on above: Result Comment: This test is not yet approved or cleared by the [place] FDA. When there are no FDA-approved or cleared tests available, and other criteria are met, FDA can make tests available under an emergency access mechanism called an Emergency Use Authorization (EUA). The EUA for this test is supported by the [place] of Health and Human Service's (HHS's) declaration that circumstances exist to justify the emergency use of in vitro diagnostics for the detection and/or diagnosis of the virus that causes COVID-19. This EUA will remain in effect (meaning this test can be used) for the duration of the COVID-19 declaration justifying emergency of IVDs, unless it is terminated or revoked by FDA (after which the test may no longer be used). When diagnostic testing is negative, the possibility of a false negative should be considered in the context of a patient's recent exposures and the presence of clinical signs and symptoms consistent with SARS-CoV-2. Performed By: #### C VDTB #### [facility] [address] [place] [address] Dr. Mervat Rondon INFLUENZA A AND B AGon 08-02 [facility] SEE BELOW Normal [facility] Comment on above: Result Comment: Nega tive for Flu A protein angiten. Infection due to Flu A cannot be ruled out. Flu A angiten in the sample may be below the detection limit of the test. Performed By: #### I NFLUAB #### [facility] [address] [place] [address] Dr. Mervat Rondon [facility] SEE BELOW Normal [facility] Comment on above: Result Comment: Nega tive for Flu B protein antigen. Infection due to Flu B cannot be ruled out. Flu B antigen in the sample may be below the detection limit of the test. Performed By: #### I NFLUAB #### [facility] [address] [place] [address] Dr. Mervat Rondon INFLUENZA A AG Negative Normal NEGATIVE SEE COMMENT [facility] Comment on above: Performed By: #### I NFLUAB #### [facility] [address] [place] [address] Dr. Mervat Rondon INFLUENZA B AG Negative Normal NEGATIVE SEE COMMENT [facility] Comment on above: Performed By: #### I NFLUAB #### [facility] [address] [place] [address] Dr. Mervat Rondon INTERNAL CONTROLS Within Normal Limits Normal Wi thin Normal Limits [facility] Comment on above: Performed By: #### I NFLUAB #### [facility] [address] [place] [address] Dr. Mervat Rondon Quick Strepon 06-10-2022 S. pyogenes Org specific cx Ql (Throat) Negative [facility] Other Quick Strep [facility] Other SARS-CoV-2 (COVID-19) RNA NA A+probe Ql (Resp)on 06-10-2022 SARS-CoV-2 (COVID-19) RNA CAROL+probe Ql (Unsp spec) Negative [facility] Other Outside Recordson 06-07-2022 Outside Records [id number]#1.00OTGTI FF Normal [facility] Outside Record[facility] 05-17-2022 Outside Records [id number]#1.00OTGTI FF Normal [facility] Outside [facility] 03-22-2022 Outside Records [id number]#1.00OTGTI FF Normal [facility] Outside [facility] 03-21-2022 Outside Records [id number]#1.00OTGTI FF Normal [facility] Outside [facility] 03-15-2022 Outside Records [id number]#1.00OTGTI FF Normal [facility] Outside Records [id number]#1.00OTGTI FF Normal [facility] Outside [facility] 03-14-2022 Outside Records [id number]#1.00OTGTI FF Normal [facility] Outside [facility] 03-07-2022 Outside Records [id number]#1.00OTGT IFF Normal [facility] Outside [facility] 02-28-2022 Outside Records [id number]#1.00OTGTI FF Normal [facility] Outside [facility] 02-23-2022 Outside Records [id number]#1.00OTG TIFF Normal [facility] Outside Record[facility] 02-21-2022 Outside Records [id number]#1.00OTGTI FF [facility] Outside Recordson 02-17-2022 Outside Records [id number]#1.00OTGTI FF [facility] Outside [facility] 02-08-2022 Outside Records [id number]#1.00OTG TIFF [facility] Outside [facility] 02-03-2022 Outside Records [id number]#1.00OTGT IFF [facility] Outside [facility] 01-31-2022 Outside Records [id number]#1.00OTGT IFF [facility] Outside [facility] 01-28-2022 Outside Records [id number]#1.00OTGT IFF [facility] Outside Records [id number]#1.00OTGT [facility] fluid albumin measureme nt (mass/volume)Ordered By: Carmen Kothari on 01-25-2022 Albumin (Body fld) [Mass/Vol] 3.5 g/dL 3.2-5.5 [facility] Creatinine and Glomerular fi ltration rate.predicted panel (S/P/Bld)Ordered By: Carmen Kothari on 01-25-2022 Creatinine [Mass/Vol] 0.73 mg/dL 0.44-1.03 [facility] Estimated glomerular filtrat ion rate (GFR) non- AmericanOrdered By: Carmen Kothari on 01-25-2022 GFR/1.73 sq M.predicted among non-blacks MDRD (S/P/Bld) [Vol rate/Area] > 60 mL/Min [facility] Laboratory - Chemistry and C hemistry - challengeOrdered By: Carmen Kothari on 01-25-2022 Magnesium [Mass/Vol] 1.3 mg/dL 1.6-2.6 [facility] No Panel InformationOrdered By: Carmen Kothari on 01-25-2022 Estimated GFR () > 60 mL/Min [facility] Comment on above: GFR estimated refere nce range: According to KDOQI guidelines, <60 ml/min/1.73m2 is sufficient to diagnose a patient with chronic kidney disease. Pharmacy Creatinine Clearance (Chem N/A [facility] Phosphate [Mass/volume] in S erwin or PlasmaOrdered By: Carmen Kothari on 01-25-2022 Phosphate [Mass/Vol] 3.7 mg/dL 2.5-4.6 [facility] Serum or plasma calcium hubert urement (mass/volume)Ordered By: Carmen Kothari on 01-25-2022 Calcium [Mass/Vol] 8.8 mg/dL 8.2-10.2 [facility] Serum or plasma chloride devora surement (moles/volume)Ordered By: Carmen Kothari on 01-25-2022 Chloride [Moles/Vol] 100 mmol/L 95-114 [facility] Serum or plasma glucose hubert urement (mass/volume)Ordered By: Carmen Kothari on 01-25-2022 Glucose [Mass/Vol] 93 mg/dL 70-100 [facility] Comment on above: ADA recommended refe rence rangeRandom Glucose Reference Range is dependent on time and content of last meal. Glucose of more than 200 mg/dL in a nonstressed, ambulatory subject supports the diagnosis of Diabetes Mellitus. Serum or plasma potassium me asurement (moles/volume)Ordered By: Carmen Kothari on 01-25-2022 Potassium [Moles/Vol] 4.2 mmol/L 3.5-5.1 [facility] Serum or plasma sodium measu rement (moles/volume)Ordered By: Carmen Kothari on 01-25-2022 Sodium [Moles/Vol] 139 mmol/L 136-146 [facility] Serum or plasma total carbon dioxide measurement (moles/volume)Ordered By: Carmen Kothari on 01-25-2022 CO2 [Moles/Vol] 24.6 mmol/L 22.0-30.0 [facility] Serum or plasma urea nitroge n measurement (mass/volume)Ordered By: Carmen Kothari on 01-25-2022 Urea nitrogen [Mass/Vol] 12 mg/dL 05-06 [facility] Outside [facility] 01-24-2022 Outside Records [id number]#1.00OTGTI [facility] Outside Records [id number]#1.00OTGTI [facility] Rad - Other Radiology Report on 11-25-2021 Rad - Other Radiology Report [id number]#1.00OTGTI [facility] Provider Orderson 11-24-2021 Provider Orders [id number]#1.00OTGTI [facility] US PELVIS AND TRANSVAGon US PELVIS AND TRANSVAG EXAMINATION: US P MARIO AND TRANSVAG HISTORY: Irregular periods COMPARISON: No relevant comparison available. TECHNIQUE: Transabdominal and transvaginal sonographic examination. FINDINGS: UTERUS: Anterior wall myometrial myoma, 1.7 cm. There is a 0.6 cm nabothian cysts within cervix. Uterus size: 7.5 x 4.3 x 5.3 cm ENDOMETRIUM: Contains a 5 mm fluid collection versus cyst. Otherwise normal thickness and echogenicity. Endometrial thickness: 4 mm RIGHT OVARY: Normal size and appearance. Duplex Doppler demonstrates normal waveform and flow; resistive index 0.47. Ovary size: 2.9 x 1.8 x 2.2 cm LEFT OVARY: Normal size and appearance. Duplex Doppler demonstrates normal waveform and flow; resistive index 0.49. Ovary size: 3.5 x 2.1 x 1.8 cm CUL-DE-SAC: Unremarkable. No significant free fluid. BLADDER: Unremarkable. OTHER: None. IMPRESSION: 1. There is a 1.7 cm mass within the anterior wall myometrium suspected represent a leiomyoma, which approaches and may contact the endometrial margin. Electronically authenticated by: DARNELL ENGLAND Date: 2021-11-23 11:29 Normal [facility] Outside [facility] 11-12-2021 Outside Records [id number]#1.00OTG TIFF [facility] Outside [facility] 10-04-2021 Outside Records [id number]#1.00OTGTI FF [facility] C Urineon 10-02-2021 C Urine Mixed skin, or uroge nital oscar. Clinically insignificant [facility] Comment on above: Performed By: #### [id number] ####[facility] (DEFAULT)[address] [place] [address] Coding Summaryon 10-01-2021 Coding Summary HTMLBase 64 KrjojgsoVVx1lMs+PGhlYWQ+P O3DQPNxR53geOInsR1KU3eBHO 4WYQGPNEDNVZ4AML9spYV1YKr sY2ZilkRx MggpmDXaME76XTd9MTD0bVhnX XpnoL2ymCAcR9a4RiVaFV62hA 29BFjoNNEfVdM6MgAfzltjjXU y X9guFiKcdNFjFco+PHRhYmxlI HdpZHRoPScxMDAlJyBzdHlsZT 8oFa3nGAOwAWLkwBxbeGRsQuT j q2loVZGvIDtbQJ8fqGbjF3Vgq AB0CMWuk2a6Wx32hZG+PHRkIH J8nYowATbcl885TzNtp6hhPAP 3 rHMhUMrwVPD8E22ie0W4MCYuA RHsAMC7eFD3wV9nnLsyqzjuO0 KppBQzSdF6RFQ1bGLffZ9kdUb n eudejS9iDez+U65CME4ZLHFVI Z0QKnj4M3LcOlyciBO+PC90YW UiBN66jCGblSDtt8bknFx0VwN w UTGeFYN9gMdeKLtca5QaMBUaJ 57zkBGnq7C0EUIcpQrslXKrCd FllVW5iT2lTKolmccou0bmjnv n Spqru7saan30kS86C62lBFztX FSsTYP3CZMsPOBzfCsyyu3ehJ 9wIi8+ZZpfq3jyz1yjfWb3BsH w MEQvghAosIvtBQS1g3UwDv11B 0VjaXmad7OrIlr1yb32uKUhu3 Y8cZO0VDqeXSEyuJ5xLObtTgZ 6 MZYhPqTnbK00uCTrFQhfZh6zo BxqrAzgSJ1lDFUtwffnIQBauF 6mGXUhsULygPteSN8qGBGruzf m k586NlJeJGV6TSTjvSIoN3Ere V9xCrSfXBQdEWDnX5KyrVHoKT mxG993KQkvKpT5DVRuziPjH3G s YNBifYgcDlW8d5W7Mh0Bj0Waj aeeHVD0YXtjBUKmDgB2ZiGiPh R7A0MaOoy7KIXoqMzyWA0dS9D h JEZeosssooqreXE9EIDqWHMfq H66xPPcIOfjWr9ql3G8q732UG LuWQVayD40Dr0bgGbiBYCrsNV U nD3smtteh3zzdebbSvWxUDZqO Si7ZJo5DJBieKrvCaVxASH7Tc J3SFL6wOEzeF5ysIpjxflpuQ7 w Oyc+J18yqP0sFNT0GOG7lwczP RMdndZiTY51MI55U2EhIhyhvM FibGU+MKDletWdpRvhWU0iQqF j y5kah9WoGLefK3JoIHCfHOhbQ ej0QTAxRVO7nRD2vS1eXFPgIB skc0T1mIP7U1RjifHezd6oy5m s YWWgIJklZ12skFWiv1D2PWKlr PO8NZYqlIxqBaTdvL31Gva+PG McfLxbq3QySriey1ikc6njjZv 9 CkZzNRIbfbRmcMgxWBD5e7NzL j32Y19yXRwmHMHxRRMxNQNtHN XdyDpiad4okN9nHy2+PGNvbCB 3 pWD4kK6qCEUoWdM6GIyrS536W tOgmRCcRpbed9vnc4gjiEn3Ue MiZRTwllCsdShgTIA7q0IuXf1 8 T28aDTpfYTJrHCHgJJAeHBCog Yzjss6quH7hRm1+QW2qd2aage 35xZ57uOA+LMGwHDY4qZmkTWq w IGJbrB0iIUueAgO2CJXtOxSft U24vAKvKObqZz5arNppeNbdQY 8sGYQmrkaqk034DsHcl5vbWLY w qZQwSMhjETZ4S70rs1F4IHGqM ECuPZE3pJG3uI7tlCevyiphdA EyjLxwmoFwgUxwKFnzXJudT52 6 IHRvcDsnPlBhdGllbnQgTmFtZ Ic7Y9GlYah7ZNHioHjuRX7rfM BeUTvpVk3hpBegeYwsPY5rWVM p yovia022OvQpw7akVBEqiTJoS UtrDUI5J40yv9W9IDJyDGEoZW L2pHC8dQ7glXrrkwsscIDkrZn g swHihFoeKVhkKVfoO536OYUwb UweNmIgdhRkNVGxoIZ7ZQ35RK 56mXCdf9D9sMK7T0HaPJIrgao t mroacZI9KYUpJNPnyV55Ig2tt IbmMz5kVAHdROK8CZPzfAKbI6 QvsB2gMcVtYHWmOEAfG9ArkIS t AHkpK294FJpvAmV1WYIvolJhC 9CzLRQqgNwiYtY2q8W7Yz7LK7 F5HE43AX57zDZut2V4lAI6Z1Y h XTTwfxcctdsblQX0LQQeDMQkw C08Ce6yhXyvIc4yMFIxMTP4IY SznURdD1CjwM6uYcRkCOQqLWX w J9JtxXPsINeyE275TSdnJpB9A CNfkiDbJ8VhQTBzsCgkFiL4q4 P5Do8HZFs8CH49HL19lKVnd3M 5 eFH5F2WwOEKmnrfrricugMM4I RNkJKJzmQ49Yj1myMapFz4cFL WeHOK8WZRktHXeZ2NgzZ7fUyQ j HYWnKHDsM4BmwGEiNYnsY998Y ZmsOpS5DLSpyyFbA5SuYRMgmF kuIwL4g0A5Rf5GPDEyFU12XRG 5 gRE8KE36EN85L6RyXnxdpZLqt +PHRhYmxlIHdpZHRoPScxMD AxOlZjzOtqIF8lZo3bWMGxPKB v hTsvjICzWdCoz9apNZXeHJfbG Y0tiWywE7RtjUT1WPMpc0w8Bx 39F41xM3AnjSN+LGIoiXR7qWA 0 lE8vRsFrOsX6DKwuE407TyUbk OQwUgrlz8ezk8vjwCo2LzH5ZO EyewQspAueGJQ5m4ZmWm90P75 s IHdpZHRoPSIxNSUiIHZhbGlnb c3crO4hAr7+TKAtuTO1xCT5gY 6wVmIsScL4CZypD915NxVczHL v Doxww5qwh6brqIm0YrQnISDnf aSaoRhpOJF6m5NkHj27I1HdqE itd3SwEbu1fj98hWBvp0H3jNI 9 W4UbRVHcvhumhOEnsShoWJ3dH BJllpwyKUGnpM2oWEEhV2o5Oh NwNdY4KGahN3IlleF6XZUseNJ g FDuwVDX8N78id4K8THVeKVWoD OF6iTN9bB2ozCrkiaqsfWXmzB itgwHntGgyWEymZPsqZ649ICO v dNbwFXNmbK8qFZQjlHHjxZwpH J1zBLFfjaotExLYY3UTTQPAJa nSLqMpKMRCM3r4Z1StKmw5MWA z nTpkOX7tgEFaSUyoXn6wxNfws QneYN9bIDUvimglSALrfL9bVF YcsNIaqLwrPH4bEFQkpjwib24 0 NcElNAJ0PVYehXMfP0TfgK1gL gLfZUYgSWBxV8FhlKDmFLdnE5 45RJnwEwQ3NQFdeiOfE1KpQOS s mKifGkQ0t1H5If1eRb1oHP7cP VjeFG78YW30eWKxq3T7rIT1S2 QuUTWmjegpfezimQZ0QMGdQJH w gR52uDIpDLecBk2uc1W6i919Z UGsXVZyuC73Qk5zkKheTLNrnB SUeU2icwgkc0gswhfrVcUuHFR w IBa2RAv9ZTEnhLidKhGoRHQ3L aV4BDB6cBTvnX7woMhjowokpK 9wOyc+IyShREXgybG8D3JtIew 0 JBZcmIseCE4bxSFxTCrkWl2iq KlhkTyaXP4nPRCotnccHMBomC 4sNIFksRMhsLgkMG0gTHSmuig m h127AhVvZHA4UKNpaDDhH8Ggm Z2zUoKsQILiRXSkL2EsxWHdQX vbV146MYzbHzU7HJHvixIxN3W s WSBxvMeuCsY7y4A0Ft0PNQ7JE QF8S5LlJyk2QBBsjFfkSL2zfK VqZQobDq3kiJvyqDpqCX3aSWU p ubgvYXEpgP8eVZQnsUWfkSzeZ L7rENQlurmoh650IbOaUUE7EP EwuUZbD1KeiD1sUiDwAWJqUHE w S6EqlCYzQSkzY134YBqyUdJ4G IStndLzT1AiWHRzkQajRcE5j6 R0Wm4GWNfiiCA+US59tn13N8G h JcvyQbn7LPXcMPU2iWA1wZ8cK MJnDErry2X3lOY9U9BaysBbdd 6qb4vlDOJbRGheO95uvQBds1D 7 MTBzvUD7CZUjfJoxDcMfdG01K yc+ULHceSlyn2GhNzngm0pph1 kzsVe9IlRxVIXfwdIgdTpyQKU 0 m1MfZl62C04mPBvaSEJgYXRdS MFeNOZmzNqbps0esB2wPu4+PG JloEY8kYO3mJ1aCvIuKzO2OHp p M054JtQbcJRxTmrjh2nek8qpz Fu1OcXzPYTligJdbAepQDU1o0 QuDw82R0NslKrgy7TjEdi3zh3 8 lEDwo7M2gVP1M6FpFQDgmuzpn VAhtVszZJ1mYOYlrdtfKBRllT 1mLUEwL5p1EhTfJgH2YHmgX5O v arV0PFEpoSEgGIJicGTIlD7fj tyll5qnutklRvIaULPxNRb6PN m4YLDrtMzhUlJbCVI0ZbX7MRU 0 lEWcnH0ttZfzzizvmB8jUow+U Dn2a5yhjNGkZV9hxQD6BO69TA 43nHUbj7E3cYE3J9XkEAQykmi t dvhbaPN2THZvFPQvoG29Vp2uq ArqRg9lWAYfDGJ7MGQrpQEhU2 LrpY4kBxMnZOVbVEBnN0MtjDY t FGxyR462JCmnMlB2RGNuxqSuG 6UvTFOydXqnTzZ2r7N1Bk7BHV 21BM45GC45qXQbv1Q5zTO4P7A h JWZemqklokilkXH5DKQtNGPpr R12Rg6ujZysNg4qOEXtPFC5RL NoiLMvV0XgsK0zTsZwLLEqYRM w K4ZwmLIzYXpxM708TUfaGlF9V AAmesMbB3LtEUBdlIwsMjC9p2 N6Yi2EDp74QZ18DY81zKSkh5K 5 cJG5G2VrYFQxykpdwgnyfIK4E RTgUPDtmM96Li0zmFbnYk4yXQ BbIRU3ULIvwVIrC4XlyH7aGcY j AXMiMAXuM7IhvMAkIDgjB362Z XblJvE0NQYklqWxT7BmQFQigO ihHhM6d9I8Up6VJDlpljk5E1A k PjwvdHI+BS66EDCbEF07lYDuq EThl5ymaFk4QmRtCXOeFWF4jL opHLeya5SxSJHrL19ppKNre7Q 6 IGN (more content not included)... [facility] Outside Record[facility] 09-07-2021 Outside Records [id number]#1.00OTGT IFF [facility] Consent Formson 08-20-2021 Consent Forms [id number]#1.00OTGTI FF [facility] 2019 Novel Coronavirus (CoVI D-19), CAROL LCon 08-19-2021 SARS-CoV-2 (COVID-19) RNA CAROL+probe Ql (Unsp spec) Not detected Invalid Interpretation Code Not Detected [facility] Comment on above: Result Comment: This nucleic acid amplification test was developed and its performance characteristics determined by [facility]. Nucleic acid amplification tests include RT- PCR and TMA. This test has not been FDA cleared or approved. This test has been authorized by FDA under an Emergency Use Authorization (EUA). This test is only authorized for the duration of time the declaration that circumstances exist justifying the authorization of the emergency use of in vitro diagnostic tests for detection of SARS-CoV-2 virus and/or diagnosis of COVID-19 infection under section 564(b)(1) of the Act, 21 U.S.C. 360bbb-3(b) (1), unless the authorization is terminated or revoked sooner. When diagnostic testing is negative, the possibility of a false negative result should be considered in the context of a patient's recent exposures and the presence of clinical signs and symptoms consistent with COVID-19. An individual without symptoms of COVID-19 and who is not shedding SARS-CoV-2 virus would expect to have a negative (not detected) result in this assay. Performed At: [facility] [id number] Ammy Damon PhD Ph:[phone] Performed By: #### [id number] ####[facility] ([facility])[address] [id number] Coding Summaryon 08-19-2021 Coding Summary HTMLBase 64 YcbloiubQKd4bLx+PGhlYWQ+P K5CSIPvQ77meNUxbO6VF4qRIB 0ESJHYRDIXUC0BFK7wnIE9AEg kZ5GptfZo UajaoCAlGS98ESr5NNP4sPlfG CldiJ4grQGfZ9r4MoQbPO23bU 57ELnfZTEjBxH2BhUqvmqwwKC y N4kqVmEexQGjUgf+PHRhYmxlI HdpZHRoPScxMDAlJyBzdHlsZT 0uUw9uSYOeWARaeXejqMKkVnD j m8ebTDRiSKbeCC8rhYnlS8Lvx IF2USAas5f7Ho16dCK+PHRkIH Q5rJakLVhdg568UsZql0fqTRH 3 xAOjBGtmGAK6W33zx3W3CJVjU GSvZPK8eAX2aT3eiWvmjledL5 NasBSgWcI5JQE0kAMgsN8joQk n lfknyH2gCuw+Z74YES2OAFEAY Y2LPkp6J6IhRfjhfKX+PC90YW EnYN59dZHbbLHam4nfdKv9NbM w DNXbEER4cCkfCZeel6JqGESqR 42nzKAsj6E0EODjtNtleNLkSw FmsSD8yI5tZMlnkluot6ttubr n Joktf3lwmw96nL24Z74wKXsmQ SBvHQO5CIEmGQIhyBijkn4oqF 9wIi8+RNrlk6ffr8dkrLq5KwV w CAArlsPnvWbmGYH2c9HaKq90C 3WtjYiou1DiLvy3ky50bHCzr0 Q2uVN1HFjsVPTicT2gJLuiPxJ 6 NIBtYfMooF14nPRlONkxUn8qg NmqaAnoDE1oSGNoysvoYAKzbK 0zMKQhyBNlrTvoWB9uJFMibpo m v276ScMnLAI6BDVagFEcE6Grr Y5sEjMkUMGpCLUeU7PxnQCkGL xfH224PHrnIwI9PDSjokVaP6Y s GHZjzIeeCpW8u9N6Nu7Cb7Ngx doxHXA9TIbvKRZtNcO2XhJbDx T6E5OmObc0ENCdjCumFM6kW1F h DTZwmhnbmwraiCE1WMWuBTAbc R34eFAmVRjoEr8bt0S6x193LI KbGSVtiL31Uy8mdRjcYECjqRL U hT7diyzwj0ljlyjoJhGxYEBpO Im1MJs0UZBqzOpeHuNjRDT5Mi A4NHL4pPTpsB4sgLclfffsdZ5 w Oyc+K94scE4eASU2HUE6rwrrO UAfgyNgVE93KI78F6QkRfiyyF FibGU+ATTqaaSgkOnsER7tZgT j t2dtw3XyHHdjN1SwRGXiQWkuB uh8LAXdGIH7sWD0mX6sNLJnVD vjh0Z3lUP7G8MupbHxkn6sg4g s LIGvPOkpX10pdUSnt2A4MHFvb VC4LJDbuMqgWqUsvK46Tgk+PG UdfTnbh0HcAkamv4vwa7lmjZf 9 VwAuZBOkhmIniHrjDDK7v2ThV v35J48iSLxvIWFwYVOpHOSmSL XmmGexyx4wgY2tKk6+PGNvbCB 3 vEA1iZ5oJXNsIfE3ILytC534S yNysIErQrrfb6mzk6xvtHg9Fl LdFYLrkcHogJeyPEN2v7HvCa4 8 W71tNIkyOLMwCGHfEQCiZKSem Zucop3ugL4lOp8+EL5mj0pvnd 99rP87lXC+PWVqFJP3lGnqCXe w PYBbxK9fJFabRmT1CYNnOsKlr B50wKWiSPziZx7xxSermElwOG 2iSCYjikhpk609GwAyy6fdAXU w nTSgAZdxCAV5Y09nv9Y4WMFwU ZUhATE4rRN0eY9pzWdqgcxbhY XbjJfuniMvgCttZGkqVOccY28 6 IHRvcDsnPlBhdGllbnQgTmFtZ Tv0W2BaKbx4LTEioRhsRD6cpD MbPIfzRk6ltGhyxAyfJZ2lQYD p mrfzu612FoNws1lqWZUbjRUsZ SrkIEW7E10wn8B6BTZwJZCtMW W1bIC4nZ5tsImnpsdccDOecBh g jlPanUhuVCezWOfuP347MDVgm EnfNzKrtqZlSUOiyTZ1YZ15UK 80pEJxh6W9jID3V0YeBNFbiaj t xdqlxGG8KETwKKRudI47Gn4bo YdlOr7fFPSiZUX2EZIinGRjQ0 XutU5qGvOfKKLdIOEjJ3SneVI t CElfS320NHrpDfF4GUWvbdRrM 9JwLZQyqPuhTlL6b5Y5At0HK3 G4XB97QJ15rMElm9L7xZQ0X8O h OYKgisbxouelrCJ1WWUwWMAxo N66Iu4jlBchYf0zOKOwACZ6VW FcmIYxG8GtmZ6aNuHhTIDrKDO w F1XxaBRhFKlhX791WVaaFbR8Y JVmkuPlE7CjXIRhyXujZiY6r0 E1Ee0SNCn4KP43BP42uQZgm4Q 5 fWB2I2ZjZGItzrqszdvscGS7D QVeISVzpX61Lw8jwEwpYn5rFB RbVEV7CZCfhSNxO2CqnE1bZnE j WPXaNABjF1TqiMDsWUlsJ987B DccWtL2HTToocRiN9DqFHDyrQ koYbD3x7O4Pw8SLQEqIH95ZIC 5 vDI6MJ45NB21S7IiVxkhlIAmg +PHRhYmxlIHdpZHRoPScxMD ZrPpQniAufJV2pAa4mKCQxKJN v dEbteILsBrXol1anXKXxPBjwT I8kbGknJ4PiwEY5QHRku5q3Ke 47J54xE7AefRZ+QDYiwVP5tCF 0 wO5bNyYeKqD9LHviU367SzJry LFmUzgkh7mkr7vyqAn4WsR8IQ DjyaCvhTbnTSF7g4SwEg01E08 s IHdpZHRoPSIxNSUiIHZhbGlnb e0meK8lFd0+VBKxgHQ1yVV6cG 6tGkNrXaE1MFqaT199RxZkiVF v Kpybo4qok9uoaAs8YnVfKGNqc eHlgUwtWHE5o6NiFy53H1NdzQ nsr9LuFbz4mc63wPUzt1P1xIW 9 U6ZdPEFmjatmxJWsvUmcZB1bZ CMucbtwXYTmoL4qYWWmT9m6Ye ZgOnN1THvrF6ShwzZ3EBMwlXX g KUraREZ5S19hw6V7EHDnIRLeB FD6aWK7iN5lkMkhoimvzNPfzG bixyQzhIxqUAcvIWaqU234NYV v jBbhAIVgdD4yUXBiqMOfxEsoL H8jYDGkgaonElXSI6ROWIAOUl eIDpBpHJRGW4v8J5LuLgl8KHP z oXprPV9sfVOjCOglZk6ivZuxh DivQE1cDZIpasetVUWqvB6wOY DsvIKwdTdrJT3fBFEjkouyx35 0 ZnLqGYV9MSNazVOuZ1DbiL5vS vGjOIYpQLGkT5AxqMQwAEymY6 03FZwuZoZ1MLSahwVoZ2JlWQB s sJtlRjZ4i9F1Pp2iXb3uSR0yM JgyKZ65AL74cAXfu7D8iLQ6Y7 WrOTApxlriqiaiaES5KUIxHOC w pB35gESwWSgtSm6us0V0k358D THrUPUtbV51Hq6dgExnQNLupI YQlI7lnyvrq8fiojmjReWtHCT w LHp9IRc9UGLacDfaImCrZCW2W aP9CTV4iZLxnY3niProxnzqmV 9wOyc+AkZgWYUgewE9C5YqZqm 0 SDLayQccAQ3mfSTkUKfxWu6io HmrlWtbHR5xHYAxmxwyQABsvS 4kGAQabMDozKyfOB7bXYFjpjv m j019XvKiOKG9UEGblYGkN5Ghc P7xEeOoZHEvPLPcD1OngVObZD miJ786GOusYqS4QPFlujKuI8I s TTBluGcnBfI6q8H1Pz1WWZ1XJ TB3P4DrFej0HWTimMsePC4neI FpOYjzJn9bsQfudYzmFC3mQPZ p csdnMFKgyY1sYCMuoPRbrYyqZ I8uCKHfdoept201IiXqFME0AX PelOGnD6KpvC5sUdGeOREeEPE w H4KfjOPkERkiY186UPfgJxY1Q QJornUrY6NrBZUvuIrmSyW5a2 T8Pn7CWMqfhND+IF65vn59R7P h PvhfQmk1EBNpUXD7aTK1zO8pJ SVsIMasr9C9vGS5E0RrtdElhk 1go9zgLDLxBNfqE34yjGOea8S 7 ESWnoOI4AKJbuWxwLnZdlJ93P yc+BTHkvOdfa0CnTycim1fib8 dakSh1EuQySOYgohJshJuoQHS 0 p6DpCf55Z90zLRrqSBXeKJNwT PMaZQUrsGidwb8cjJ0sOq9+PG EjjUU8fBX2hB7uLiQmHjV9CLr p S549QpLuqLRdKmblx9ktr5sfs Ki9EhYdECCjgkVeyHzcVOD2v1 PkUl62G0UxmNcge7TdXlw9lw1 8 lDPpf3P0hKB1Y9XpGLAaopwwt TPpaMkpUQ4bBHYawuepROXaqX 5wYATxI6c9BmXqPvE7DZhbN1J v xdB5FUEonFQsOLFpdTBJbE6rt auhk2elnfaiGaQlRIZuUBh4ZG j9KHKczDlzRbYjWOP3YrH7AVF 0 vPWppJ7vzUbyofqwiE7iAxw+U Bl4i3lirZCfUI1cmVS1ZA86CE 54iVZgu4Z6gVQ7Y5NsBMJtyos t pqthvMV0PMYlLFMlsG23Ky9ja DnlEe4aBMOmUVD6QVAlpUAnN8 QnhM1pDoEbTWWiOXJzX3LaoUI t KEcpW708ZFxcJlE6FPEgxlSlG 7LsMLRkmHatOyW1w8W4Pl5HKD 53GC08BH83rEYar9O1lWZ6W7T h ZMLawheiakptxTF9HEHfZJIul Q41Ne9kbLksBy9uVFPtKOG6LC KltCGbT8NtyG7kUdTgIEChNGX w V2UtbZQaYLsoY475STzaFbS1I UYymgAmI9XmFECjaJzhBfS7u0 I7Qt1ATf86DU44MW40oVTcv6Q 5 mTE7C7FcKRRxvpkngpsrdKS5X XKjANFyrE85Zn8ilQjeFg8dPZ YwAQC5EACbrZYhO5ZjuM2zCuZ j VYBiGVVfY0JdsOEiASgeU283C GqtJnR0HBNgiyMkO2UcGMVmuC cgRhV6t4A6Gy3FOPdvpmr2T7Q k PjwvdHI+PO09IQIzAW86rKQbx SYvo5wrhZe8SsHhGIPaYGN3yP cjJEwjk5ThZTFdW21sfIXfw6V 6 IGN (more content not included)... [facility] Outside Recordson 08-17-2021 Outside Records [id number]#1.00OTGTIFF [facility] Lab - Other Lab Resultson Lab - Other Lab Results [id number]#1.00OTGT IFF [facility] Basophils Auto (Bld) [#/Vol] Ordered By: Carmen Kothari on 07-23-2021 Basophils (Bld) [#/Vol] 0.1 10*3/uL 0.0-0.2 [facility] Basophils/100 WBC Auto (Bld) Ordered By: Carmen Kothari on 07-23-2021 Basophils/100 WBC (Bld) 1.1 % . [facility] Eosinophils Auto (Bld) [#/Vo l]Ordered By: Carmen Taye on 07-23-2021 Eosinophils (Bld) [#/Vol] 0.2 10*3/uL 0.0-0.45 [facility] Eosinophils/100 WBC Auto (Bl d)Ordered By: Carmen Taye on 07-23-2021 Eosinophils/100 WBC (Bld) 4.9 % . [facility] Erythrocyte distribution wid th Auto (RBC) [Ratio]Ordered By: Carmen Taye on 07-23-2021 Erythrocyte distribution width (RBC) [Ratio] 14.0 % 11.9-15.3 [facility] Hematocrit Auto (Bld) [Volum e fraction]Ordered By: Carmen Taye on 07-23-2021 Hematocrit (Bld) [Volume fraction] 37.9 % 34.0-46.4 [facility] Hemoglobin [Mass/volume] in BloodOrdered By: Carmen Taye on 07-23-2021 Hemoglobin (Bld) [Mass/Vol] 13.2 g/dL 11.8-15.4 [facility] Laboratory - Hematology and Cell countsOrdered By: Carmen Taye on 07-23-2021 Nucleated RBC/100 WBC (Bld) [Ratio] 0.1 % 0-0.5 [facility] Leukocytes [#/volume] in Blo od by Automated countOrdered By: Carmen Taye on 07-23-2021 WBC (Bld) [#/Vol] 4.9 10*3/uL 4.5-11.0 [facility] Lymphocytes Auto (Bld) [#/Vo l]Ordered By: Carmen Taye on 07-23-2021 Lymphocytes (Bld) [#/Vol] 1.8 10*3/uL 1.00-4.8 [facility] Lymphocytes/100 WBC Auto (Bl d)Ordered By: Carmen Taye on 07-23-2021 Lymphocytes/100 WBC (Bld) 35.8 % . [facility] MCH Auto (RBC) [Entitic mass ]Ordered By: Carmen Taye on 07-23-2021 MCH (RBC) [Entitic mass] 29.2 pg 24.7-34.3 [facility] MCHC Auto (RBC) [Mass/Vol]Or dered By: Carmen Taye on 07-23-2021 MCHC (RBC) [Mass/Vol] 34.7 g/dL 32.0-35.0 [facility] MCV Auto (RBC) [Entitic vol] Ordered By: Carmen Taye on 07-23-2021 MCV (RBC) [Entitic vol] 84.1 fL 80-100 [facility] Monocytes Auto (Bld) [#/Vol] Ordered By: Carmen Taye on 07-23-2021 Monocytes (Bld) [#/Vol] 0.4 10*3/uL 0.0-0.8 [facility] Monocytes/100 WBC Auto (Bld) Ordered By: Carmen Taye on 07-23-2021 Monocytes/100 WBC (Bld) 7.6 % . [facility] Neutrophils Auto (Bld) [#/Vo l]Ordered By: Carmen Taye on 07-23-2021 Neutrophils (Bld) [#/Vol] 2.5 10*3/uL 1.8-7.7 [facility] Neutrophils/100 WBC Auto (Bl d)Ordered By: Carmen Taye on 07-23-2021 Neutrophils/100 WBC (Bld) 50.6 % . [facility] Platelet mean volume Auto (B ld) [Entitic vol]Ordered By: Carmen Taye on 07-23-2021 Platelet mean volume (Bld) [Entitic vol] 8.0 fL 6.3-10.7 [facility] Platelets Auto (Bld) [#/Vol] Ordered By: Carmen Taye on 07-23-2021 Platelets (Bld) [#/Vol] 371 10*3/uL 150-450 [facility] RBC Auto (Bld) [#/Vol]Ordere d By: Carmen Taye on 07-23-2021 RBC (Bld) [#/Vol] 4.51 10*6/uL 3.60-5.00 [facility] Outside Recordson 06-30-2021 Outside Records [id number]#1.00OTGTI FF Normal [facility] Globulin Calc (S) [Mass/Vol] Ordered By: Carmen Kothari on 04-07-2021 Globulin (S) [Mass/Vol] 3.1 g/dL [facility] Protein [Mass/volume] in Ser um or PlasmaOrdered By: Carmen Kothari on 04-07-2021 Protein [Mass/Vol] 6.8 g/dL 6.1-7.9 [facility] Serum or plasma alanine moody otransferase measurement without P-5'-P (enzymatic activiOrdered By: Carmen Kothari on 04-07-2021 ALT No additional P-5'-P [Catalytic activity/Vol] 21 U/L 10-60 [facility] Serum or plasma albumin/glob ulin mass ratioOrdered By: Carmen Kothari on 04-07-2021 Albumin/Globulin [Mass ratio] 1.2 {ratio} [facility] Serum or plasma alkaline guanako sphatase measurement (enzymatic activity/volume)Ordered By: Carmen Kothari on 04-07-2021 ALP [Catalytic activity/Vol] 54 U/L 32-92 [facility] Serum or plasma aspartate am inotransferase measurement (enzymatic activity/volume)Ordered By: Carmen Kothari on 04-07-2021 AST [Catalytic activity/Vol] 27 U/L 10-42 [facility] Serum or plasma total biliru bin measurement (mass/volume)Ordered By: Carmen Kothari on 04-07-2021 Bilirubin [Mass/Vol] 0.5 mg/dL 0.3-1.2 [facility] Direct bilirubin measurement on 10-04-2019 Bilirubin.direct [Mass/Vol] 0.1 mg/dL 0.0-0.4 [facility] Serum or plasma non-glucuron idated bilirubin measurement (mass/volume)on 10-04-2019 Bilirubin.indirect [Mass/Vol] 0.2 mg/dL [facility] CBCon 06-07-2019 Erythrocyte distribution width (RBC) [Ratio] Canceled Normal [facility] Comment on above: Order Comment: TEST CBC WAS CANCELLED, 06/07/2019 04:45 ?Cancel Reason: Patient Discharged. Performed By: #### C BC ####[id number] [place] [address] Hematocrit (Bld) [Volume fraction] Canceled Normal [facility] Comment on above: Order Comment: TEST CBC WAS CANCELLED, 06/07/2019 04:45 ?Cancel Reason: Patient Discharged. Performed By: #### C BC ####[id number] [place] [address] Hemoglobin (Bld) [Mass/Vol] Canceled Normal [facility] Comment on above: Order Comment: TEST CBC WAS CANCELLED, 06/07/2019 04:45 ?Cancel Reason: Patient Discharged. Performed By: #### C BC ####[id number] [place] [address] MCHC (RBC) [Mass/Vol] Canceled Normal [facility] Comment on above: Order Comment: TEST CBC WAS CANCELLED, 06/07/2019 04:45 ?Cancel Reason: Patient Discharged. Performed By: #### C BC ####[id number] [place] [address] MCV (RBC) [Entitic vol] Canceled Normal [facility] Comment on above: Order Comment: TEST CBC WAS CANCELLED, 06/07/2019 04:45 ?Cancel Reason: Patient Discharged. Performed By: #### C BC ####[id number] [place] [address] Nucleated RBC/100 WBC (Bld) [Ratio] Canceled Normal [facility] Comment on above: Order Comment: TEST CBC WAS CANCELLED, 06/07/2019 04:45 ?Cancel Reason: Patient Discharged. Performed By: #### C BC ####[id number] [place] [address] Platelets (Bld) [#/Vol] Canceled Normal [facility] Comment on above: Order Comment: TEST CBC WAS CANCELLED, 06/07/2019 04:45 ?Cancel Reason: Patient Discharged. Performed By: #### C BC ####[id number] [place] [address] RBC (Bld) [#/Vol] Canceled Normal [facility] Comment on above: Order Comment: TEST CBC WAS CANCELLED, 06/07/2019 04:45 ?Cancel Reason: Patient Discharged. Performed By: #### C BC ####[id number] [place] [address] WBC (Bld) [#/Vol] Canceled Normal [facility] Comment on above: Order Comment: TEST CBC WAS CANCELLED, 06/07/2019 04:45 ?Cancel Reason: Patient Discharged. Performed By: #### C BC ####[id number] [place] [address] CBCon 06-06-2019 Erythrocyte distribution width (RBC) [Ratio] 12.4 % Normal 11.5 - 14.5 [facility] Comment on above: Performed By: #### C BC ####[id number] [place] [address] Hematocrit (Bld) [Volume fraction] 31.0 % Low 36.0 - 46.0 [facility] Comment on above: Performed By: #### C BC ####[id number] [place] [address] Hemoglobin (Bld) [Mass/Vol] 11.2 g/dL Low 12.0 - 16.0 [facility] Comment on above: Performed By: #### C BC ####[id number] [place] [address] MCHC (RBC) [Mass/Vol] 36.1 g/dL High 32.0 - 36.0 [facility] Comment on above: Performed By: #### C BC ####[id number] [place] [address] MCV (RBC) [Entitic vol] 83 fL Normal 80 - 100 [facility] Comment on above: Performed By: #### C BC ####[id number] [place] [address] Nucleated RBC/100 WBC (Bld) [Ratio] 0.0 /100 WBC Normal 0.0-0.0 [facility] Comment on above: Performed By: #### C BC ####[id number] [place] [address] Platelets (Bld) [#/Vol] 342 10*3/uL Normal 150 - 450 [facility] Comment on above: Performed By: #### C BC ####[id number] [place] [address] RBC (Bld) [#/Vol] 3.74 x10E12/L Low 4.00 - 5.20 [facility] Comment on above: Performed By: #### C BC ####[id number] [place] [address] WBC (Bld) [#/Vol] 12.4 10*3/uL High 4.4 - 11.3 [facility] Comment on above: Performed By: #### C BC ####[id number] [place] [address] Daily Progress Note-Nephrolo gyon 06-06-2019 Daily Progress Note-Nephrology Service: Nephrology Subjective Data: DOMENIC NGO is a 28 year old Female who is Hospital Day # 2. - No acute events overnight - Endorses pain in right jaw and some swelling at surgical site/neck - Denies SOB, chest discomfort, palpitations, swelling. Objective Data: Objective Information: T PRBPSpO2 [id number]/5392% Date/Time06/06 7: 7: 7: 7: 7:10 Range(36.6C - 36.7C ) (71 - 89 ) (18 - 18 ) (95 - 103 )/ (53 - 67 ) (92% - 96% ) ---- Intake and Output ----- Mn/Dy/Year TimeIntakeOutputNet Jun 06, 2019 6:00 [id number] Jun 05, 2019 10:00 [id number] Jun 05, 2019 2:00 [id number] The Intake and Output Totals for the last 24 hours are: IntakeOutputNet [id number] Physical Exam: Constitutional: Well developed, awake/alert/oriented x3, no distress, alert and cooperative Head/Neck: swelling on right face, surgical drain in right jawline/neck Respiratory/Thorax: vesicular breath sounds b/l, good inspiratory effort with equal chest expansion; no wheezes, rales, or rhonchi Cardiovascular: RRR; normal s1/s2; no murmurs, rubs, or gallops Gastrointestinal: Nondistended, soft, non-tender, no rebound tenderness or guarding, no masses palpable, no organomegaly, +BS, no bruits Genitourinary: no ram catheter Extremities: no peripheral edema Neurological: alert and oriented x3 Skin: Warm and dry, no lesions, no rashes Medication: Medications: Continuous Medications ------- 1. Lactated Ringers Infusion: 1000 mL IntraVenous Scheduled Medications ------- 1. amiloRIDE (MIDAMOR): 10 mg Oral 2 Times a Day 2. ceFAZolin 1 gram IVPB/ Premixed Soln 50 mL: 50 mL IntraVenous Piggyback Every 8 Hours 3. Chlorhexidine Gluconate 0.12% Mucous Mem: 15 mL Topical 3 Times a Day After Meals 4. Dexamethasone Injectable: 8 mg IntraVenous Push Every 8 Hours 5. Enoxaparin SubCutaneous: 40 mg SubCutaneous Every 24 Hours 6. Gabapentin: 100 mg Oral 3 Times a Day 7. Heparin Flush 100 unit/ mL Injectable: 5 mL IntraVenous Flush Once 8. Magnesium Oxide: 800 mg Oral 3 Times a Day 9. Magnesium Sulfate 2 gram/Sterile Water 50 mL Premix Soln: 2 gram(s) IntraVenous Piggyback Every 2 Hours 10. Methocarbamol Injectable: 1000 mg IntraVenous Push Every 8 Hours 11. Potassium Chloride 20 mEq/Sterile Water 100 mL Premix IVPB: 20 mEq IntraVenous Piggyback Every 4 Hours 12. Potassium Chloride Powder Packet: 160 mEq Oral 3 Times a Day PRN Medications ------- 1. Acetaminophen Oral Liquid: 650 mg Oral Every 6 Hours 2. HYDROmorphone Injectable: 0.2 mg IntraVenous Push Every 4 Hours 3. Ondansetron Injectable: 4 mg IntraVenous Push Every 6 Hours 4. oxyCODONE Oral Liquid: 5 mg Oral Every 4 Hours 5. oxyCODONE Oral Liquid: 10 mg Oral Every 4 Hours Recent Lab Results: Results: I have reviewed these laboratory results: Renal Function Panel 06-Jun-2019 07:40:00 ResultValue Glucose, Serum 120 H NA 136 K 3.1 L CL 96 L Bicarbonate, Serum 29 Anion Gap, Serum 14 BUN 12 CREAT 0.65 GFR-Non >60 GFR- >60 Calcium, Serum 8.8 Phosphorus, Serum 3.4 ALB 4.1 Complete Blood Count 06-Jun-2019 07:40:00 ResultValue White Blood Cell Count 12.4 H Nucleated Erythrocyte Count 0.0 Red Blood Cell Count 3.74 L HGB 11.2 L HCT 31.0 L MCV 83 MCHC 36.1 H PLT 342 RDW-CV 12.4 Magnesium, Serum 06-Jun-2019 07:40:00 ResultValue Magnesium, Serum 1.53 L Assessment and Plan: Assessment: Domenic Ngo is a 28 y.o. female with PMH of Gitelman Syndrome, migraine headache, PCOS, DVT on anticoagulation and jaw fracture admitted for right TMJ replacement. Nephrology consulted for management of Gitelman Syndrome. # Gitelman Syndrome - On very high doses of oral KCl and magnesium replacement to supplement for renal loss - Per patient, K normally 3-3.5, this a.m. at 3.1, down from 3.5 last night as patient unable to tolerate tabs of KCl with facial/neck swelling - Magnesium stable Recommendation: - Resume home dose of KCl 160mEq TID, will need potassium powder packets at same dose for home until patient feels comfortable swallowing tabs - Resume home dose Magnesium Oxide 800mg TID, patient states able to tolerate tabs with swelling - Resume home amiloride 10mg TID, patient states able to tolerate tabs with swelling - Patient is to follow-up with her primary process control operator at [facility], Dr. Kothari, as an outpatient - Nephrology will sign off, thank you for the consult Doug Mendez MD PGY-1, Department of Medicine Nephrology Consult Pager: [phone] Signature/Cosignature/Att estation: Note Completion: Attending AttestationI saw and evaluated the patient. I personally obtained the bagley and critical portions of the history and physical exam or was physically present for bagley and critical portions performed by the resident/fellow. I reviewed the resident/fellows documentation and discussed the patient with the resident/fellow. I agree with the resident/fellows medical decision making as documented in the note. I personally evaluated the patient [id number] Electronic Signatures: Howie Mendez (Resident)) (Signed 06-Jun-2019 10:49) Authored: Service, Subjective Data, Objective Data, Assessment and Plan, Signature/Cosignature/Att estation Kelly Nunez) (Signed 06-Jun-2019 15:39) Authored: Signature/Cosignature/Att estation Co-Signer: Service, Subjective Data, Objective Data, Assessment and Plan, Signature/Cosignature/Att estation Last Updated: 06-Jun-2019 15:39 by Kelly Nunez) Normal [facility] Daily Progress Note-Oral and Maxillofacial Surgeryon 06-06-2019 Daily Progress Note-law secretary Service: Oral & Maxillofacial Surgery Subjective Data: DOMENIC NGO is a 28 year old Female who is Hospital Day # 2, s/p right condylotomy, abdominal fat graft harvest, and 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 Additional Information: No acute events overnight. Denies N/V, -flatus, able to tolerate PO. Nephrology consulted for periop electrolyte/fluid management. PM K of 3.6 and Mg 1.37. Patient reports pain moderately controlled. Post op panorex showed seating of alloplastic joint in glenoid fossa Objective Data: Objective Information: T PRBPSpO2 Value36.84238994/6696% Date/Time06/06 3: 3: 3: 3: 3:08 Range(36.6C - 36.7C ) (71 - 89 ) (18 - 18 ) (95 - 102 )/ (62 - 67 ) (94% - 96% ) Physical Exam: Constitutional: awake, alert, and oriented, no acute distress Head/Neck: face symmetric, preauricular steri strips, and right neck telfa island dressing (no strikethrough), with AUDI drain (output 55ml post op), CN VII intact b/l, right CN V V3 parasthesia, occlusion is stable and reproducible in elastics. Respiratory/Thorax: symmetric chest expansion Cardiovascular: acyanotic Gastrointestinal: abdomen soft, nontender, nondistended, abdominal tegaderm dressing in place with no strikethrough Medication: Medications: Continuous Medications ------- 1. Lactated Ringers Infusion: 1000 mL IntraVenous Scheduled Medications ------- 1. amiloRIDE (MIDAMOR): 10 mg Oral 2 Times a Day 2. ceFAZolin 1 gram IVPB/ Premixed Soln 50 mL: 50 mL IntraVenous Piggyback Every 8 Hours 3. Chlorhexidine Gluconate 0.12% Mucous Mem: 15 mL Topical 3 Times a Day After Meals 4. Dexamethasone Injectable: 8 mg IntraVenous Push Every 8 Hours 5. Enoxaparin SubCutaneous: 40 mg SubCutaneous Every 24 Hours 6. Gabapentin: 100 mg Oral 3 Times a Day 7. Magnesium Oxide: 800 mg Oral 3 Times a Day 8. Methocarbamol Injectable: 1000 mg IntraVenous Push Every 8 Hours 9. Potassium Chloride Powder Packet: 160 mEq Oral 3 Times a Day PRN Medications ------- 1. Acetaminophen Oral Liquid: 650 mg Oral Every 6 Hours 2. HYDROmorphone Injectable: 0.2 mg IntraVenous Push Every 4 Hours 3. Ondansetron Injectable: 4 mg IntraVenous Push Every 6 Hours 4. oxyCODONE Oral Liquid: 5 mg Oral Every 4 Hours 5. oxyCODONE Oral Liquid: 10 mg Oral Every 4 Hours Recent Lab Results: Results: I have reviewed these laboratory results: Renal Function Panel 05-Jun-2019 20:16:00 ResultValue Glucose, Serum 127 H NA 136 K 3.6 CL 99 Bicarbonate, Serum 26 Anion Gap, Serum 15 BUN 14 CREAT 0.68 GFR-Non >60 GFR- >60 Calcium, Serum 8.6 Phosphorus, Serum 4.1 ALB 3.9 Magnesium, Serum 05-Jun-2019 20:16:00 ResultValue Magnesium, Serum 1.37 L Radiology Results: Results: Panorex 06/05 Post surgical changes of right TMJ joint replacement, PA pathology associated with tooth #30, arch bars in place Assessment and Plan: Assessment: A: 27 yof with history of TMJ hypermobility s/p right TMJ replacement with custom joint and abdominal fat graft harvest on 06/05/19 P: -Dental mechanical diet with nutrition supplement -tylenol scheduled, oxycodone as needed, gabapentin, robaxin -strict I/O, Mg 1.37 (repleted 6g), K 3.6 (repleted 40 Mequivalents), followup am RFP, Mg, followup renal recs, continue home amiloride, continue home KCl, continue home Mg -promote ambulation -RA -ancef periop, peridex -no indication for tranfusion, followup am cbc -SCDs, lovenox -maintain AUDI, possible d/c -periop decadron Pastor Stapleton DMD, [id number] Signature/Cosignature/Att estation: Note Completion: Attending AttestationI reviewed the resident/fellows documentation and discussed the patient with the resident/fellow. I agree with the resident/fellows medical decision making as documented in the note. Electronic Signatures: Shelby Perkins) (Signed 06-Jun-2019 10:03) Authored: Signature/Cosignature/Att estation Co-Signer: Service, Subjective Data, Objective Data, Assessment and Plan, Signature/Cosignature/Att estation Pastor Stapleton) (Signed 06-Jun-2019 07:14) Authored: Service, Subjective Data, Objective Data, Assessment and Plan, Signature/Cosignature/Att estation Last Updated: 06-Jun-2019 10:03 by Shelby Perkins) Normal [facility] Discharge [id number] Discharge Profile2 Discharge Orders: Anticipated Discharge Date: Anticipated Discharge [id number] Activity: May not drive while taking narcotics. No pushing, pulling, or lifting objects greater than 10 lbs. Diet: Dietdental mechanical soft Diet Consistency/Texturemechan ical soft Wound Care 1: Wound SiteRight neck and right Ear Wound Typesurgical incision Cleanse With50/50 hydrogen peroxide and water ApplyBacitracin Wound Care 2: Wound SiteAbdomen Wound Typesurgical incision Other InstructionsMaintain abdominal dressing for 3 days, after that you may clean with soap and water gently Additional Orders: Additional Instructions Follow up 1 week after surgery. Call to schedule. For urgent questions, after hours, or on weekends Call and ask to speak with the oral surgery resident international accounting manager. Post-Operative Instructions Jaw-Facial Surgery Please read your instructions carefully and call with any questions. FOLLOW UPYou will be seen within 1 week after surgery. PositionWhen sleeping elevate your head and back with several pillows for the first 1-2 days after surgery. Lie on your back, rather than on your sides or stomach. BreathingIt is extremely important that you take deep breaths after surgery to prevent from developing pneumonia, which is a common occurrence after surgery if breathing exercises are not followed properly. A good example is to take 10-20 deep breaths every hour, while you are awake, as well as encouraging yourself to cough. IceIce packs or cool damp wash clots should be applied on or around the treated areas for the first 24 hours after surgery, especially over the eyes and cheeks. This will lessen the amount of swelling, bruising, and pain. If no bandages are present, place a cloth between the skin and the ice pack to protect the skin. Use ice for up to 45 minutes out of each waking hour for the first 24 hours. An easy schedule to follow is 20 minutes on and 20 minutes off. HeatYou may begin heat packs after ice packs are stopped. This is helpful to minimize and clear up bruising that may appear 2-3 days after the surgery. The moist heat will increase the circulation and help the body rid itself of swelling and bruising. DO NOT heat continuously. Use heat a maximum of 20 minutes per hour. The temperature should be closely monitored, NEVER set an electric heating pad above a medium setting. Any numbness in treated areas make it possible to burn your skin without knowing. To prevent serious injury from your electric heating pad BE CERTAIN it is approved for use with moisture. Heat may be used until the swelling and bruising have resolved. DietMechanical soft. Oral CareBegin oral hygiene brushing and oral rinses IMMEDIATELY 24 hours after surgery. Use the prescribed medicated mouth rinse. Follow directions on bottle. Rinse gently with a capful of this solution 4-5 times a day. It is imperative that you begin brushing your teeth in addition to the medicated mouth rinse. A gentle baby or childrens toothbrush may be used on your teeth especially in the hard to reach posterior areas. When you do begin gentle brushing of your teeth, make sure that you do not brush across the incisions with the bristles. Activity(I) During your first post-operative day, you should sit, stand, or walk around rather than remain in bed. However, you should rest when tired. (II) Avoid bending over or lifting more than 5 pounds during the first week. SportsNo strenuous physical activity for the first 4 weeks. Prolonged duration may be recommended by your Surgeon. This precaution is to protect your head and neck from bumps, hits or injuries. No swimming, fitness or strenuous activities for first 4 weeks. No diving, biking or skiing for two months. Passive exercise is permitted, like walking. Any other questions should be directed to your Surgeon. Hair CareYou may wash your hair after surgery. A mild baby shampoo is recommended. Please have a family member or aide nearby as the hot water may cause you to feel light headed and weak. CosmeticsYou may apply cosmetics to untreated areas following surgery. Sun ExposureProtect your facial skin from excessive sun exposure as long as the treated area(s) are still pink. When the treated area(s) are no longer pink, ordinary exposure is not harmful, but a sunscreen should always be used. Medicationssome medications may not be available in liquid form; please obtain a pill stem roller or crusher operator that can help to crush needed medications and can be taken with liquids/soft foods. Pain Reliever: take one tablet when you arrive at home. Additional tablets may be taken every 4-6 hours as needed for pain relief. CAUTION: Do not drive or operate machinery while taking pain relievers. Take with food or liquid to avoid nausea. Antibiotics: if prescribed, take them as indicated on the bottle and complete the full course of pills until finished. Aspirin: avoid taking aspiring or aspiring containing compounds during your first week after surgery. Anti-swelling: (dexamethasone). If prescribed, this will be dispensed as a dose pack with a tapering protocol. Please follow the instructions on the packaging for optimal effects. These will help to reduce the amount of local swelling and speed up recovery. PLEASE REPORT ANY OF THE FOLLOWING TO OUR OFFICE: A.Sudden or excessive bleeding, swelling, or bruising. B.Any itching, rash or reaction to medications. C.Fever, temperature over 101 degrees (taken orally). D.Discharge from the incision (other than blood). E.ANY INJURY TO THE FACE. Faithful adherence to pre-operative and post-operative instructions will help to minimize swelling, pain and discomfort. If you do have any problems, please do not hesitate to contact me for assistance. Resident stone chimney mason 06/03 at [phone] and ask for Oral Surgeon Disaster Recovery Consultant. Hospital Course (Home Care/Gold Form): Hospital Course: Hospital Course: include significant abnormal lab values 28 yr old female with hx of chronic right TMJ dislocation s/p total joint replacement of right TMJ on 06/05/[address] Perkins. Please see operative report for full details. Patient tolerated the procedure well and recovered briefly in PACU before being transitioned to regular nursing floor. Post-op course was uncomplicated. Diet was advanced as tolerated. IV medication transitioned to oral as diet advanced. On the day of discharge, the pt was tolerating a diet, pain was controlled on PO pain medication, and they were ambulating and voiding spontaneously. They were discharged home in stable condition with instructions to follow up as outpatient. Provider FINAL REVIEW of Orders: Final Review: Final Review of Medication Reconciliation and Orders Completedby Physician Reviewing ProviderDaniel Mcfadden DMD at 06-Jun-2019 09:08:08 Name/Contact Info for Questions About Discharge [id number] Electronic Signatures: Pastor Stapleton (CALI) (Signed 05-Jun-2019 22:24) Authored: Discharge Orders, Hospital Course (Home Care/Gold Form), Gold Form - Care Program Resident Summary Daniel Mcfadden (CALI) (Signed 06-Jun-2019 09:08) Authored: Discharge Orders, Hospital Course (Home Care/Gold Form), Provider FINAL REVIEW of Orders Last Updated: 06-Jun-2019 09:08 by Daniel Mcfadden (CALI) Normal [facility] MAGNESIUMon 06-06-2019 Magnesium [Mass/Vol] 1.53 mg/dL Low 1.60 - 2.40 [facility] Comment on above: Performed By: #### M G ####[id number] [place] [address] Magnesium [Mass/Vol] 1.37 mg/dL Low 1.60 - 2.40 [facility] Comment on above: Performed By: #### M G ####[id number] [place] [address] Magnesium [Mass/Vol] Canceled Normal [facility] Comment on above: Order Comment: TEST MAGNESIUM WAS CANCELLED, 06/06/2019 10:00 ?Cancel Reason: Cancelled. Performed By: #### M G ####[id number] [place] [address] MAGNESIUM,RBCon 06-06-2019 MAGNESIUM,RBC Canceled Normal [facility] Comment on above: Order Comment: TEST MAGNESIUM,RBC WAS CANCELLED, 06/06/2019 06:14 PER ELLE ONLY REGMAGNESIUM SHOULD HAVE BEEN ORDERED - ADDON ON MG. Performed By: #### M AGRB ####[facility] [place], [place] [id number] RENAL FUNCTION PANELon 06-06 Albumin [Mass/Vol] 4.1 g/dL Normal 3.4 - 5.0 [facility] Comment on above: Performed By: #### R ENAL ####[id number] [place] [address] Anion gap [Moles/Vol] 14 mmol/L Normal 10 - 20 [facility] Comment on above: Performed By: #### R ENAL ####[id number] [place] [address] Calcium [Mass/Vol] 8.8 mg/dL Normal 8.6 - 10.6 [facility] Comment on above: Performed By: #### R ENAL ####[id number] [place] [address] Chloride [Moles/Vol] 96 mmol/L Low 98 - 107 [facility] Comment on above: Performed By: #### R ENAL ####[id number] [place] [address] Creatinine [Mass/Vol] 0.65 mg/dL Normal 0.50 - 1.05 [facility] Comment on above: Performed By: #### R ENAL ####[id number] [place] [address] GFR- AM. >60 Normal >60 [facility] Comment on above: Result Comment: CALC ULATIONS OF ESTIMATED GFR ARE PERFORMED USING THE MDRD STUDY EQUATION FOR THE IDMS-TRACEABLE CREATININE METHODS. CLIN CHEM 2007;53:766-72 Performed By: #### R ENAL ####[id number] [place] [address] GFR-NON AM. >60 Normal >60 [facility] Comment on above: Performed By: #### R ENAL ####[id number] [place] [address] Glucose [Mass/Vol] 120 mg/dL High 74 - 99 [facility] Comment on above: Performed By: #### R ENAL ####[id number] [place] [address] HCO3 (Bld) [Moles/Vol] 29 mmol/L Normal 21 - 32 [facility] Comment on above: Performed By: #### R ENAL ####[id number] [place] [address] Phosphate [Mass/Vol] 3.4 mg/dL Normal 2.5 - 4.9 [facility] Comment on above: Result Comment: The performance characteristics of phosphorus testing in heparinized plasma have been validated by the individual laboratory site where testing is performed. Testing on heparinized plasma is not approved by the FDA; however, such approval is not necessary. Performed By: #### R ENAL ####[id number] [place] [address] Potassium [Moles/Vol] 3.1 mmol/L Low 3.5 - 5.3 [facility] Comment on above: Performed By: #### R ENAL ####[id number] [place] [address] Sodium [Moles/Vol] 136 mmol/L Normal 136 - 145 [facility] Comment on above: Performed By: #### R ENAL ####[id number] [place] [address] Urea nitrogen [Mass/Vol] 12 mg/dL Normal 6 - 23 [facility] Comment on above: Performed By: #### R ENAL ####[id number] [place] [address] Albumin [Mass/Vol] Canceled Normal [facility] Comment on above: Order Comment: TEST RENAL FUNCTION PANEL WAS CANCELLED, 06/06/2019 09:41 DUPLICATE ORDER. Performed By: #### R ENAL ####[id number] [place] [address] Anion gap [Moles/Vol] Canceled Normal [facility] Comment on above: Order Comment: TEST RENAL FUNCTION PANEL WAS CANCELLED, 06/06/2019 09:41 DUPLICATE ORDER. Performed By: #### R ENAL ####[id number] [place] [address] Calcium [Mass/Vol] Canceled Normal [facility] Comment on above: Order Comment: TEST RENAL FUNCTION PANEL WAS CANCELLED, 06/06/2019 09:41 DUPLICATE ORDER. Performed By: #### R ENAL ####[id number] [place] [address] Chloride [Moles/Vol] Canceled Normal [facility] Comment on above: Order Comment: TEST RENAL FUNCTION PANEL WAS CANCELLED, 06/06/2019 09:41 DUPLICATE ORDER. Performed By: #### R ENAL ####[id number] [place] [address] Creatinine [Mass/Vol] Canceled Normal [facility] Comment on above: Order Comment: TEST RENAL FUNCTION PANEL WAS CANCELLED, 06/06/2019 09:41 DUPLICATE ORDER. Performed By: #### R ENAL ####[id number] [place] [address] GFR- AM. Canceled Normal [facility] Comment on above: Order Comment: TEST RENAL FUNCTION PANEL WAS CANCELLED, 06/06/2019 09:41 DUPLICATE ORDER. Result Comment: CALC ULATIONS OF ESTIMATED GFR ARE PERFORMED USING THE MDRD STUDY EQUATION FOR THE IDMS-TRACEABLE CREATININE METHODS. CLIN CHEM 2007;53:766-72 Performed By: #### R ENAL ####[id number] [place] [address] GFR-NON AM. Canceled Normal [facility] Comment on above: Order Comment: TEST RENAL FUNCTION PANEL WAS CANCELLED, 06/06/2019 09:41 DUPLICATE ORDER. Performed By: #### R ENAL ####[id number] [place] [address] Glucose [Mass/Vol] Canceled Normal [facility] Comment on above: Order Comment: TEST RENAL FUNCTION PANEL WAS CANCELLED, 06/06/2019 09:41 DUPLICATE ORDER. Performed By: #### R ENAL ####[id number] [place] [address] HCO3 (Bld) [Moles/Vol] Canceled Normal [facility] Comment on above: Order Comment: TEST RENAL FUNCTION PANEL WAS CANCELLED, 06/06/2019 09:41 DUPLICATE ORDER. Performed By: #### R ENAL ####[id number] [place] [address] Phosphate [Mass/Vol] Canceled Normal [facility] Comment on above: Order Comment: TEST RENAL FUNCTION PANEL WAS CANCELLED, 06/06/2019 09:41 DUPLICATE ORDER. Result Comment: The performance characteristics of phosphorus testing in heparinized plasma have been validated by the individual laboratory site where testing is performed. Testing on heparinized plasma is not approved by the FDA; however, such approval is not necessary. Performed By: #### R ENAL ####[id number] [place] [address] Potassium [Moles/Vol] Canceled Normal [facility] Comment on above: Order Comment: TEST RENAL FUNCTION PANEL WAS CANCELLED, 06/06/2019 09:41 DUPLICATE ORDER. Performed By: #### R ENAL ####[id number] [place] [address] Sodium [Moles/Vol] Canceled Normal [facility] Comment on above: Order Comment: TEST RENAL FUNCTION PANEL WAS CANCELLED, 06/06/2019 09:41 DUPLICATE ORDER. Performed By: #### R ENAL ####[id number] [place] [address] Urea nitrogen [Mass/Vol] Canceled Normal [facility] Comment on above: Order Comment: TEST RENAL FUNCTION PANEL WAS CANCELLED, 06/06/2019 09:41 DUPLICATE ORDER. Performed By: #### R ENAL ####[id number] [place] [address] ARTERIAL BLOOD GASon 23-2 019 BASE EXCESS-BLOOD -0.4 mmol/L Normal -2.0 - 3.0 [facility] Comment on above: Performed By: #### B LGA1 #### [facility] [address] [place] [address] Oxygen (Bld) [Partial pressure] 202 mm[Hg] High 85 - 95 [facility] Comment on above: Performed By: #### B LGA1 #### [facility] [address] [place] [address] PCO2 48 mmHg High 38 - 42 [facility] Comment on above: Performed By: #### B LGA1 #### [facility] [address] [place] [address] pH (Bld) 7.34 [pH] Low 7.38 - 7.42 [facility] Comment on above: Performed By: #### B LGA1 #### [facility] [address] [place] [address] RBC (Bld) [#/Vol] 25.9 mmol/L Normal 22.0 - 26.0 [facility] Comment on above: Performed By: #### B LGA1 #### [facility] [address] [place] [address] Performed By: #### E LEAP ####[id number] [place] [address] SO2 100 % Normal 94 - 100 [facility] Comment on above: Performed By: #### B LGA1 #### [facility] [address] [place] [address] ARTERIAL ELECTROLYTE,GLUCOSE PANELon 06-05-2019 Anion gap [Moles/Vol] 10 mmol/L Normal 10 - 25 [facility] Comment on above: Performed By: #### E LEAP ####[id number] [place] [address] Chloride [Moles/Vol] 104 mmol/L Normal 98 - 107 [facility] Comment on above: Performed By: #### E LEAP ####[id number] [place] [address] Glucose [Mass/Vol] 112 mg/dL High 74 - 99 [facility] Comment on above: Performed By: #### E LEAP ####[id number] [place] [address] Potassium [Moles/Vol] 4.5 mmol/L Normal 3.5 - 5.3 [facility] Comment on above: Performed By: #### E LEAP ####[id number] [place] [address] Sodium [Moles/Vol] 135 mmol/L Low 136 - 145 [facility] Comment on above: Performed By: #### E LEAP ####[id number] [place] [address] ARTERIAL FULL PANELon 2018 Anion gap [Moles/Vol] 5 mmol/L Low 10 - 25 [facility] Comment on above: Performed By: #### A FPA3 #### [facility] [address] [place] [address] BASE EXCESS-BLOOD 3.8 mmol/L High -2.0 - 3.0 [facility] Comment on above: Performed By: #### A FPA3 #### [facility] [address] [place] [address] CALCIUM,IONIZED 1.14 mmol/L Normal 1.10 - 1.33 [facility] Comment on above: Performed By: #### A FPA3 #### [facility] [address] [place] [address] Chloride [Moles/Vol] 103 mmol/L Normal 98 - 107 [facility] Comment on above: Performed By: #### A FPA3 #### [facility] [address] [place] [address] FIO2 50 % Normal [facility] Comment on above: Performed By: #### A FPA3 #### [facility] [address] [place] [address] Glucose [Mass/Vol] 106 mg/dL High 74 - 99 [facility] Comment on above: Performed By: #### A FPA3 #### [facility] [address] [place] [address] Hematocrit (Bld) [Volume fraction] 34.0 % Low 36.0 - 46.0 [facility] Comment on above: Performed By: #### A FPA3 #### [facility] [address] [place] [address] HGB,CALCULATED 11.6 g/dL Low 12.0 - 16.0 [facility] Comment on above: Performed By: #### A FPA3 #### [facility] [address] [place] [address] Lactate [Moles/Vol] 0.8 mmol/L Normal 0.4 - 2.0 [facility] Comment on above: Performed By: #### A FPA3 #### [facility] [address] [place] [address] Oxygen (Bld) [Partial pressure] 160 mm[Hg] High 85 - 95 [facility] Comment on above: Performed By: #### A FPA3 #### [facility] [address] [place] [address] PCO2 49 mmHg High 38 - 42 [facility] Comment on above: Performed By: #### A FPA3 #### [facility] [address] [place] [address] pH (Bld) 7.39 [pH] Normal 7.38 - 7.42 [facility] Comment on above: Performed By: #### A FPA3 #### [facility] [address] [place] [address] Potassium [Moles/Vol] 3.6 mmol/L Normal 3.5 - 5.3 [facility] Comment on above: Performed By: #### A FPA3 #### [facility] [address] [place] [address] RBC (Bld) [#/Vol] 29.7 mmol/L High 22.0 - 26.0 [facility] Comment on above: Performed By: #### A FPA3 #### [facility] [address] [place] [address] SO2 100 % Normal 94 - 100 [facility] Comment on above: Performed By: #### A FPA3 #### [facility] [address] [place] [address] Sodium [Moles/Vol] 134 mmol/L Low 136 - 145 [facility] Comment on above: Performed By: #### A FPA3 #### [facility] [address] [place] [address] Anion gap [Moles/Vol] 9 mmol/L Low 10 - 25 [facility] Comment on above: Performed By: #### A FPA3 #### [facility] [address] [place] [address] BASE EXCESS-BLOOD -0.5 mmol/L Normal -2.0 - 3.0 [facility] Comment on above: Performed By: #### A FPA3 #### [facility] [address] [place] [address] CALCIUM,IONIZED 1.09 mmol/L Low 1.10 - 1.33 [facility] Comment on above: Performed By: #### A FPA3 #### [facility] [address] [place] [address] Chloride [Moles/Vol] 106 mmol/L Normal 98 - 107 [facility] Comment on above: Performed By: #### A FPA3 #### [facility] [address] [place] [address] Glucose [Mass/Vol] 93 mg/dL Normal 74 - 99 [facility] Comment on above: Performed By: #### A FPA3 #### [facility] [address] [place] [address] Hematocrit (Bld) [Volume fraction] 32.0 % Low 36.0 - 46.0 [facility] Comment on above: Performed By: #### A FPA3 #### [facility] [address] [address] [place] HGB,CALCULATED 10.9 g/dL Low 12.0 - 16.0 [facility] Comment on above: Performed By: #### A FPA3 #### [facility] [address] [place] [address] Lactate [Moles/Vol] 0.8 mmol/L Normal 0.4 - 2.0 [facility] Comment on above: Performed By: #### A FPA3 #### [facility] [address] [place] [address] [place] Oxygen (Bld) [Partial pressure] 184 mm[Hg] High 85 - 95 [facility] Comment on above: Performed By: #### A FPA3 #### [facility] [address] [place] [address] PCO2 39 mmHg Normal 38 - 42 [facility] Comment on above: Performed By: #### A FPA3 #### [facility] [address] [place] [address] pH (Bld) 7.40 [pH] Normal 7.38 - 7.42 [facility] Comment on above: Performed By: #### A FPA3 #### [facility] [address] [place] [address] Potassium [Moles/Vol] 3.1 mmol/L Low 3.5 - 5.3 [facility] Comment on above: Performed By: #### A FPA3 #### [facility] [address] [place] [address] RBC (Bld) [#/Vol] 24.2 mmol/L Normal 22.0 - 26.0 [facility] Comment on above: Performed By: #### A FPA3 #### [facility] [address] [place] [address] SO2 100 % Normal 94 - 100 [facility] Comment on above: Performed By: #### A FPA3 #### [facility] [address] [place] [address] Sodium [Moles/Vol] 136 mmol/L Normal 136 - 145 [facility] Comment on above: Performed By: #### A FPA3 #### [facility] [address] [place] [address] Anion gap [Moles/Vol] 7 mmol/L Low 10 - 25 [facility] Comment on above: Performed By: #### A FPA3 #### [facility] [address] [place] [address] BASE EXCESS-BLOOD 2.3 mmol/L Normal -2.0 - 3.0 [facility] Comment on above: Performed By: #### A FPA3 #### [facility] [address] [place] [address] CALCIUM,IONIZED 1.12 mmol/L Normal 1.10 - 1.33 [facility] Comment on above: Performed By: #### A FPA3 #### [facility] [address] [place] [address] Chloride [Moles/Vol] 105 mmol/L Normal 98 - 107 [facility] Comment on above: Performed By: #### A FPA3 #### [facility] [address] [place] [address] Glucose [Mass/Vol] 100 mg/dL High 74 - 99 [facility] Comment on above: Performed By: #### A FPA3 #### [facility] [address] [place] [address] Hematocrit (Bld) [Volume fraction] 30.0 % Low 36.0 - 46.0 [facility] Comment on above: Performed By: #### A FPA3 #### [facility] [address] [place] [address] HGB,CALCULATED 10.2 g/dL Low 12.0 - 16.0 [facility] Comment on above: Performed By: #### A FPA3 #### [facility] [address] [place] [address] Lactate [Moles/Vol] 1.0 mmol/L Normal 0.4 - 2.0 [facility] Comment on above: Performed By: #### A FPA3 #### [facility] [address] [place] [address] Oxygen (Bld) [Partial pressure] 343 mm[Hg] High 85 - 95 [facility] Comment on above: Performed By: #### A FPA3 #### [facility] [address] [place] [address] PCO2 38 mmHg Normal 38 - 42 [facility] Comment on above: Performed By: #### A FPA3 #### [facility] [address] [place] [address] pH (Bld) 7.45 [pH] High 7.38 - 7.42 [facility] Comment on above: Performed By: #### A FPA3 #### [facility] [address] [place] [address] Potassium [Moles/Vol] 3.1 mmol/L Low 3.5 - 5.3 [facility] Comment on above: Performed By: #### A FPA3 #### [facility] [address] [place] [address] RBC (Bld) [#/Vol] 26.4 mmol/L High 22.0 - 26.0 [facility] Comment on above: Performed By: #### A FPA3 #### [facility] [address] [place] [address] SO2 101 % High 94 - 100 [facility] Comment on above: Performed By: #### A FPA3 #### [facility] [address] [place] [address] Sodium [Moles/Vol] 135 mmol/L Low 136 - 145 [facility] Comment on above: Performed By: #### A FPA3 #### [facility] [address] [place] [address] ARTERIAL H+Hon 06-05-2019 Hematocrit (Bld) [Volume fraction] 35.0 % Low 36.0 - 46.0 [facility] Comment on above: Performed By: #### H HNA1 ####[id number] [place] [address] HGB,CALCULATED 11.9 g/dL Low 12.0 - 16.0 [facility] Comment on above: Performed By: #### H HNA1 ####[id number] [place] [address] Admission Risk Screen - Adul ton 06-05-2019 Admission Risk Screen - Adult Allergies: Allergies: NKDA: Tape - Adhesive, Bandaids, Paper: Other Patient Verification: New W ID Band Applied in my Departmentyes Patient Identity Verified Bypatient ID Band FULL Name, include Middle, spelling matches patient's ID used for verificationyes ID Band Matches Patient ID used for Verficationyes ID Band MRN Matches EMR MRNyes Advance Directive: Advance Directive/DNRno (1) Advance Directive Information Givenpatient/family declined (1) Falls Screen: Type of Assessmentadmission Moderate Risk Factorspatient care equipment (scds, ivs, chest tubes, ram, etc) High Risk Factorssymptoms due to meds (sedatives, hypnotics, new diuretics and new laxatives) Risk for Injury Associated with Fallrisk of surgical complications post surgery (recent abdominal, thoracic surgery, lower limb amputation) Fall Risk Conclusionhigh falls risk with risk for associated injury [place] Safety InterventionsWDL *orient to call system *instruct to call for assistance before getting out of bed *non-slip footwear when patient is out of bed *call soria in reach *personal items and telephone in reach *physically safe environment (no spills or clutter) *bed in lowest position with wheels locked *appropriate side rails in place *room/bathroom lighting operational, light cord in reach *appropriate signage on door Fall and Injury Risk Interventionssupervised toileting (mandatory for all high risk patients), exit (bed/chair) alarms (mandatory for all high risk patients), bed alarm - zero scale to ensure bed alarm operation, bed alarm refused, chair alarm, chair alarm refused, educate pt/family, educate patient/family for risk for injury (fractures and bleeding) Family Violence Screen: Are you or have you been threatened or abused physically, emotionally, or sexually by anyoneno Do you feel UNSAFE going back to the place where you are livingno Clinical assessment: Are there any apparent signs of injuries/behaviors that could be related to abuse/neglectno Social Service Consult for abuse/neglect needed this visitno Functional Screen: Functional Screen: In the recent/past 2-4 weeks, patient or family have noticedno issues that require a speech/language consult at this time [facility]- Basic Mobility/Daily Activity: Patient baseline bedboundno Turning from your back to your side while in a flat bed without using bedrailsnone Moving from lying on your back to sitting on the side of a flat bed without using bedrailsnone Moving to and from bed to chair (including a wheelchair)none Standing up from a chair using your arms (e.g. wheelchair or bedside chair) none To walk in hospital roomnone Climbing 3-5 steps with railingnone [facility] Basic Mobility- Total Score24 Putting on and taking off regular lower body clothingnone Bathing (including washing, rinsing, drying)none Putting on and taking off regular upper body clothingnone Toileting, which includes using toilet, bedpan or urinalnone Taking care of personal grooming such as brushing teethnone Eating Mealsnone [facility] Daily Activity- Total Score24 Learning Assessment (Patient): Patient is Able to be Assessed for Learningyes Factors Influencing Readiness to Learnacuteness of illness; fatigue; pain Factors that Impact Ability to Learnvisual problems Devices/Methods Used to Communicateglasses Learning Preferenceswritten material; verbal instruction; skill demonstration Cultural Considerationsnone Developmental Considerationsnone Lutheran Considerationsnone Learning Assessment (Other Learner): Other learner availableno Suicide/Depression Screen: During the past month, have you often been bothered by feeling down, depressed or hopelessno (1) During the past month, have you often had little interest or pleasure in doing thingsno (1) Have you had any thoughts of harming yourselfno (1) Have you had any thoughts of harming anyone elseno (1) Adult Nutrition Screen: Have you recently lost weight without tryingno Have you been eating poorly because of a decreased appetiteno Malnutrition Screening Tool Score0 Malnutrition Screening Tool RiskMST = 0 or 1 Not at risk. Eating well with little or no weight loss Nutrition Consult needed this visitno Can Patient Participate in Room Serviceyes Patient requires Paper Dishes/Plastic Utensilsno Pain Screen: Pain Scalenumerical 0-10 (1) Pain Scale Educationteaching provided (1) Current Pain Level10 = Severe Acceptable Pain Level0 = None Expression of Pain (nonverbal)grimace, verbalization Chronic Painno (1) Spiritual Screen: Are there any cultural, spiritual, yazidi practices/values/needs that are important for us to knowno CAGE: Is this an injured [place] a [place] Center [place]/[place]/ [place]): no Vaccinations: Vaccination - Influenza Vaccination Screen: Is it flu season (between and December 11)Yes Screening for identified contraindications to influenza vaccination patient/caregiver refusal Vaccination - Pneumonia Vaccination Screen: Patient has received a previous pneumonia vaccine:no/unknown... Immunocompetent persons with underlying chronic conditions or reside in retirement care facilitiesnone of these conditions Persons with Functional or Anatomic Asplenianone of these conditions Immunocompromised Personsnone of these conditions Pneumonia vaccine NOT indicated due to:patient DOES NOT have a condition that indicates vaccination patient/caregiver refusal at this time Gil: Skin - Gil Scale: Gil: Sensory Perception (response to environment)(4) no impairment Gil: Moisture (degree skin exposed to moisture)(4) rarely moist Gil: Activity (ability to walk)(3) walks occasionally Gil: Mobility (amount/control of body movement)(4) no limitation Gil: Nutrition (quality of food intake)(2) probably inadequate Gil: Friction and Shear(3) no apparent problem Gil: Score20 Significant Indicatiors: Significant Indicators: Complete Pressure Injury: Pressure Injury Present on Admissionno Electronic Signatures: Frannie Patterson (ROSHAN) (Signed 05-Jun-2019 17:34) Authored: Admission Risk Screens, Vaccinations, Gil, Pressure Injury Last Updated: 05-Jun-2019 17:34 by Frannie Patterson (ROSHAN) References: 1. Data Referenced From Patient Profile - Preop v2 05-Jun-2019 06:48 Normal [facility] BN ORTHOPANTOGRAMon 06-05-20 BN ORTHOPANTOGRAM Patient Name: DOMENIC NGO STUDY: ORTHOPANTOGRAM;; 06/05/2019 9:40 pm INDICATION: post surgery. COMPARISON: CT facial bones dated 02/22/2019; orthopantogram dated 03/02/2016 ACCESSION NUMBER(S): [id number] ORDERING CLINICIAN: ELLE WILLIS TECHNIQUE: Single panoramic radiograph of the mandible was obtained. FINDINGS: Plate and screw fixation of the right mandibular ramus, with no immediate evidence of hardware failure. There appear apical lucency surrounding tooth number 30. There is no evidence of displaced fracture. No air-fluid level in the sinuses. Dental amalgam noted. IMPRESSION: 1. Status post fixation of right mandibular ramus with plate and screw. No immediate evidence of hardware failure. 2. Periapical lucencies surround tooth 30. I personally reviewed the images/study and Dr. Hooper's interpretation and I agree with the findings as stated. This study was performed , analyzed and interpreted at [place], [place]. Electronically signed by: AUDREY PEREZ MD Normal [facility] CALCIUM, IONIZEDon 9 CALCIUM,IONIZED 1.14 mmol/L Normal 1.10 - 1.33 [facility] Comment on above: Result Comment: The performance characteristics of ionized calcium tested in heparinized plasma or serum have been validated by the individual laboratory site where testing is performed. Testing on heparinized plasma or serum is not approved by the FDA; however, such approval is not necessary. Performed By: #### I ONC1 #### [facility] [address] [place] [address] COOX PANEL, ARTERIALon 06-05 DEOXY HGB 0.4 % Normal 0.0 - 5.0 [facility] Comment on above: Performed By: #### C OOXA #### [facility] [address] [place] [address] Hemoglobin (Bld) [Mass/Vol] 1.1 % Normal [facility] Comment on above: Result Comment: REF VALUES NONSMOKERS 0.5-1.5% SMOKERS 0.5-10.0% Performed By: #### C OOXA #### [facility] [address] [place] [address] Hemoglobin (Bld) [Mass/Vol] 12.5 g/dL Normal 12.0 - 16.0 [facility] Comment on above: Performed By: #### C OOXA #### [facility] [address] [place] [address] MET HGB 0.9 % Normal 0.0 - 1.5 [facility] Comment on above: Performed By: #### C OOXA #### [facility] [address] [place] [address] OXY HGB 97.5 % Normal 94.0 - 98.0 [facility] Comment on above: Performed By: #### C OOXA #### [facility] [address] [place] [address] Consult-Nephrologyon 019 Consult-Nephrology Service: Service: Nephrology Consult: Consult requested by (Attending Name): DR Perkins Reason: HypoK History of Present Illness: HPI: HPI: Domenic Ngo is a 28 y.o. female with PMH of Gitelman Syndrome, migraine headache, PCOS, DVT on anticoagulation and jaw fracture with recurrent jaw locking s/p multiple jaw surgeries who presents to [facility] today for right TMJ replacement with OMFS. Nephrology was consulted for management of Gitelman Syndrome. Her primary process control operator is at [facility] in [place], [place]. She was diagnosed with Gitelman Syndrome in 2005 and has been following with a process control operator since that time. Per review of documentation from [facility], patient normally takes 160mEq KCl TID and 800mg magnesium oxide TID, but has recently been taking both QID per patient. She has also increased the dose of her amiloride 10mg TID to QID. ROS: Endorses jaw pain. Denies CP, SOB, palpitations, or extremity swelling. 12-point ROS otherwise negative. PMH: as above PSH: Tubal ligation, multiple jaw surgeries with MM[facility] in the past with Dr Leon (last was 3 years ago), uterine ablation, tonsillectomy and adenoidectomy, PE tube placement, 3 botox injections, blood injections. Family History: brother also has Gitelman Syndrome Social History: Tobacco: Quit tobacco use in 2018 EtOH: rare, only on special occasions Drug use: Denies Allergies: No metal allergy. NKDA. Allergy to tape Allergies: NKDA: Tape - Adhesive, Bandaids, Paper: Other Objective: Objective Information: HR: 77 BP: 98/59 SpO2: 95% Temp: 36.3 Physical Exam: Constitutional: Well developed, awake/alert/oriented x3, no distress, alert and cooperative Eyes: clear sclera ENMT: jaw swelling, ice pack on right jaw Respiratory/Thorax: Patent airways, CTAB, normal breath sounds with good chest expansion, thorax symmetric Cardiovascular: Regular, rate and rhythm, no murmurs, 2+ equal pulses of the extremities, normal S 1and S 2 Gastrointestinal: Nondistended, soft, non-tender, no rebound tenderness or guarding, no masses palpable, no organomegaly, +BS, no bruits Extremities: no LE edema Neurological: alert and oriented x3, CN II-XII grossly normal Skin: Warm and dry, no lesions, no rashes Medications: Medications: Continuous Medications ------- 1. Lactated Ringers Infusion: 1000 mL IntraVenous Scheduled Medications ------- 1. amiloRIDE (MIDAMOR): 10 mg Oral 2 Times a Day 2. Gabapentin: 100 mg Oral 3 Times a Day 3. Magnesium Oxide: 400 mg Oral Daily PRN Medications ------- 1. HYDROmorphone Injectable: 0.2 mg IntraVenous Push Every 5 Minutes 2. HYDROmorphone Injectable: 0.4 mg IntraVenous Push Every 5 Minutes 3. Ondansetron Injectable: 4 mg IntraVenous Push Once 4. oxyCODONE Immediate Release: 5 mg Oral Every 4 Hours 5. Promethazine IV Piggy Back: 6.25 mg IntraVenous Piggyback Every 30 Minutes Recent Lab Results: Results: I have reviewed these laboratory results: Blood Gas, Arterial 05-Jun-2019 12:30:00 ResultValue pH, Arterial 7.34 L pCO2, Arterial 48 H pO2, Arterial 202 H Patient-Temperature 37.0 SO2, Arterial 100 Base Excess-Blood -0.4 Bicarbonate, Calculated, Arterial 25.9 Metabolic Panel from prior to admission (04/03) reviewed: 138/4.5/106/25/8/0.68<117 , Mg 1.4 Recent urine protein: creatinine ratio: 121 Assessment: Domenic Ngo is a 28 y.o. female with PMH of Gitelman Syndrome, migraine headache, PCOS, DVT on anticoagulation and jaw fracture admitted for right TMJ replacement. # Gitelman Syndrome - On very high doses of oral KCl and magnesium replacement to supplement for renal loss - Recent renal function panel (06/03/19) unremarkable - Recent serum magnesium low at 1.4 - No RFP from this admission Recommendation: - STAT renal function panel and serum magnesium - Resume home dose of KCl 160mEq TID - Resume home dose Magnesium Oxide 800mg TID - Resume home amiloride 10mg TID - Monitor urine output Doug Mendez MD PGY-1, Department of Medicine Nephrology Consult Pager: [phone] Signature/Cosignature/Att estation: Note Completion: Attending AttestationI saw and evaluated the patient. I personally obtained the bagley and critical portions of the history and physical exam or was physically present for bagley and critical portions performed by the resident/fellow. I reviewed the resident/fellows documentation and discussed the patient with the resident/fellow. I agree with the resident/fellows medical decision making as documented in the note. I personally evaluated the patient [id number] Electronic Signatures: Howie Mendez (Resident)) (Signed 05-Jun-2019 16:46) Authored: Service, History of Present Illness, Allergies, Objective, Assessment/Recommendation s, Signature/Cosignature/Att estation Kelly Nunez) (Signed 06-Jun-2019 15:38) Authored: Service, Signature/Cosignature/Att estation Co-Signer: Service, History of Present Illness, Allergies, Objective, Assessment/Recommendation s, Signature/Cosignature/Att estation Last Updated: 06-Jun-2019 15:38 by Kelly Nunez) [facility] Operative Reports - [facility] [place] [address] Patient Name: DOMENIC NGO : 1990 Date of Service: 06/05/2019 Patient Location: [place] [id number] Patient Type: O Surgeon: Shelby Perkins DDS Report Type: Operative Reports PREOPERATIVE DIAGNOSIS: 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 OPERATION/PROCEDURE: 1. Right mandibular condylectomy. 2. Maxillomandibular fixation. 3. Temporomandibular joint replacement with custom alloplastic joint. SURGEON: Shelby Perkins DDS MEDICAL REVIEW COORDINATOR(S): 1. Jd Armendariz DMD 2. Daniel Mcfadden DMD 3. Elle Willis MD ANESTHESIA: General nasotracheal intubation. ESTIMATED BLOOD LOSS: 60 mL. FLUIDS: 1600 mL of lactated Ringer's. SPECIMENS: Right mandibular condyle. COMPLICATIONS: None. PROCEDURE: The patient was met in the preoperative area where risks, benefits, and alternatives were discussed with the patient. Consent was then obtained. The site was marked by the attending surgeon. It was confirmed by the patient at that time that there was no known metal allergy. The patient was then wheeled to the operating room by the Anesthesia team and intubated via nasotracheal intubation. Care was then turned back to the Oral Surgery team where the patient was prepped and draped in standard behavioral scientist fashion. A Xeroform was placed in the right ear and sutured into place from tragus to antitragus with a silk suture. The abdomen was also prepped at this time. Care was taken to isolate the oral cavity from the neck and preauricular surgical sites during this procedure. Attention was then turned to the right posterior inferior mandible. A roughly 4 cm incision was then made at the inferior border of the mandible in a modified Risdon approach. This incision was carried through skin sharply and then down to the platysmal layer from platysma to the inferior border of the mandible. A nerve stimulator was used to monitor for branches of the facial nerve. Once the inferior border of the mandible was then identified, a Bovie electrocautery was used to get to the periosteum. The lateral aspect of the mandible including masseter were stripped off in a subperiosteal plane to allow access to the lateral mandible. The site was then packed with moist gauze, and attention was returned to the preauricular area. The preauricular incision was identified in the crease just anterior to the tragus that extended from the length of the ear with a medial superior release of roughly 1 cm. The superior aspect of the incision was carried to the superficial layer of the deep temporal fascia. Following this, an incision was made through this fascia to the subfascial fat. A #9 was then dissected down to the lateral aspect of the zygomatic arch. The incision was then continued to be opened in the inferior aspect with sharp dissection to expose the lateral aspect of the zygomatic arch. An incision was made then through the periosteum, and a subperiosteal dissection was continued anteriorly to expose the zygomatic arch and to allow access to the joint and the joint space. The joint capsule was then dissected laterally, and the disc and capsule were sent for specimen. Following this, condylar head was then protected in the medial, anterior, and posterior directions. A fissure bur was then used to make the condylectomy. This was made in several stages to allow access to the preauricular site. Once the condylectomy of the maxilla had been previously planned for the joint prosthesis to fit, the area was then irrigated with a combination of vancomycin and bacitracin irrigation and packed with gauze. The whole surgical field was covered with Ioban at the beginning of the procedure. Attention was then turned to the mouth, where the mouth was then draped in a way to prevent contamination between the neck and preauricular incisions and the previously used instruments. A second table was set up for the dirty portions of this procedure. The patient was then placed in maxillomandibular fixation using pre-existing Tres arch bars. Occlusion was confirmed to match the model sent by the Pro[employer]. The prep was then removed. The team then re-scrubbed, and a new layer of Ioban was placed to isolate the mouth. Attention was then turned back to the preauricular areas where the fossa component that was previously fractured was placed. It was noted that it fit perfectly without rocking. This was then secured, and all screw holes were filled with the planned screw length. The condylar component was then passed through the neck incision and again secured with all holes filled with the planned length. It was noted at this time that the condylar head was in the appropriately posterior position in the condylar fossa as well as appropriately mediolaterally roughly in the middle. The patient's ears were then again irrigated, packed. Ioban was then placed over the surgical site again, and the surgical team then went dirty back to the mouth. The IMF was released. It was noted that the patient was able to open and close passively into the planned occlusion. The area was then again covered in Ioban. The surgical team re-scrubbed and entered back into the sterile field. Attention was turned to the abdomen where a similar incision was made in the inferior aspect of the navel. This was carried sharply through to the subcutaneous fat. A glob of fat was then harvested to pack into the joint space. The area was then confirmed to be hemostatic and closed in layers with Vicryl and 5-0 fast. The fat that was harvested was then placed in the preauricular joint space. The deep layers of both surgical sites were closed with 3-0 Vicryl followed by 4-0 Biosyn for the skin layers and the superficial layers were closed with 5-0 fast gut suture. The Ioban was then removed. It was noted that the patient was still able to move passively in and out of occlusion. The patient was placed in some light elastics. The throat pack placed at the beginning of the procedure was removed. The patient was anesthetized with 6 mL of local anesthetic around the surgical field sites. Care was then returned back to the Anesthesia team where the patient was extubated and transferred to the PACU in stable condition. I ( Dr. Shelby Perkins) was present for and participated in all bagley portions of this procedure. Jd Armendariz DMD for Shelby Perkins DDS EST TT: 06/05/2019 10:37 PM EST DICTATION NUMBER: [id number] CRYSTAL JOB NUMBER: [id number] CC: Shelby Perkins DDS, [id number] AISSATOU SUN Electronic Signatures: Shelby Perkins (NAMRATA) (Signed on 06-Jun-2019 10:02) Authored Unsigned, Draft (SYS GENERATED) (Entered on 05-Jun-2019 22:37) Entered Last Updated: 06-Jun-2019 10:02 by Shelby Perkins (NAMRATA) [facility] Patient Profile - Adult v2on 06-05-2019 Patient Profile - Adult v2 Profile: Initial Info: How to be AddressedBri(1) Spoken Language PreferredEnglish (1) Are you currently using the Personal Electronic Health Record or [employer] (1) Stated Reason for AdmissionTMJ Wants Family/Rep Notified of Admissionn/a; family present Notify PCPnotify PCP Informed of Patient Visiting Rightsyes Arrived FromOR Patient Belongingsremains with patient Medications Brought to Hospitalno General Health: Weight in kg89.8 kilogram(s) Weight in sah831 pound(s) Height in feet5 feet Height in inches0 inch(es) Height in cm152.4 centimeter(s) BMI (kg/m2)38.663 square meter Weight Methodstated Scale Typebed Height Methodstated Blood Avoidance/Restrictionsnon e(1) Previous Transfusion Reactionno(1) RSP Based Care: How would you like to participate in your caretell RN if in pain What is the number one concern for you during this hospitalizationpain What is the most important thing we can do to support you during this hospitalizationpain ccontrol Is there anything we need to know to best care for yourubber bands in mouth make it difficult to eat Substance: Current or Former Substance Use never: e-Cigarette/Vaping(1), Street Drugs(1) YES: Cigarette/Tobacco(1), Alcohol(1) Tobacco Cessation Education (provide if tobacco use within the last 12 mos) patient declined Alcohol Use Statuscurrent alcohol (1) Health Mgmt: Symptoms/Conditions Managed at Homehematologic; chronic pain Are You Currently Breastfeedingno (2) Hematologic Managementmanaged Chronic Pain Management Strategiesmedication therapy Chronic Pain Managementmanaged Are You no (2) Relationship/Environ: Primary Source of Support/Comfortparent; mom Mai Ngo [phone] Lives Withdependent child(fortunato); parent(s) Living Arrangementshouse Resource/Environmental Concernsnone Anticipated Transition Toportal Services Anticipated at Transitionnone Significant IndicatorsComplete Information Review: Allergies, Home Meds and Significant Events have been Reviewed and Verified with Patient/Familyyes ALLERGY, INTOLERANCE, ADVERSE EVENT: Allergies: NKDA: Active Tape - Adhesive, Bandaids, Paper: Environment, Other, Active Electronic Signatures: Farnnie Patterson (ROSHAN) (Signed 05-Jun-2019 17:39) Authored: Profile, Additional Information Last Updated: 05-Jun-2019 17:39 by Frannie Patterson (ROSHAN) References: 1. Data Referenced From Patient Profile - Preop v2 05-Jun-2019 06:48 2. Data Referenced From History and Physical 05-Jun-2019 08:09 Normal [facility] Patient Profile - Preop v2on 06-05-2019 Patient Profile - Preop v2 Profile: Initial Info: How to be AddressedBri Spoken Language PreferredEnglish Source of Informationpatient Are you currently using the Personal Electronic Health Record or [facility]no Are you interested in learning more about [facility] for the management of your healthdeclined Prep Instructions Reviewedn/a Stated Reason for Admissionjaw titanium put in Primary Contact Name and NumberMichelle Oneill [phone] Limitations on Visitors/Phone Callsnone Patient Belongingsnone Medications Brought to Hospitalno General Health: Weight in kg90.1 kilogram(s) Weight in xjq441.6 pound(s) Weight Methodactual (measured) Scale Typestanding Height in feet5 feet Height Methodstated Patient or Family Member Reaction to Anesthesiano previous reaction Blood Avoidance/Restrictionsnon e Previous Transfusion Reactionno Health Mgmt: Symptoms/Conditions Managed at Homehematologic; genitourinary; obstetric/gynecologic Are You Currently Breastfeedingno Genitourinary Symptoms/Conditions CommentGitelman's syndrome Hematologic Symptoms/Conditions Commenthx DVT 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 STRIPPING Symptoms/Conditions CommentPCOS Barriers to Managing Healthnone Are You no Relationship/Environ: Resource/Environmental Concernsnone Services Anticipated at Transitionnone Lives Withparent(s) Living Arrangementshouse Anticipated [facility] Substance: Current or Former Substance Use never: e-Cigarette/Vaping, Street Drugs YES: Cigarette/Tobacco, Alcohol Tobacco Cessation Education (provide if tobacco use within the last 12 mos)not applicable Other Tobacco Use Commentsquit apr 2018 Alcohol Use Statuscurrent alcohol Alcohol Use Additional Commentssocial Risk Screens: Advance Directive/DNRno Advance Directive Information Givenpatient/family declined During the past month, have you often been bothered by feeling down, depressed or hopelessno During the past month, have you often had little interest or pleasure in doing thingsno Have you had any thoughts of harming yourselfno Have you had any thoughts of harming anyone elseno Are you or have you been threatened or abused physically,emotionally or sexually abused by anyoneno Do you feel UNSAFE going back to the place you are livingno Patient is Able to be Assessed for Learningyes Factors Influencing Readiness to Learnacuteness of illness Factors that Impact Ability to Learnnone Devices/Methods Used to Communicatenone Learning Preferencesindividual instruction; verbal instruction Cultural Considerationsnone Developmental Considerationsnone Lutheran Considerationsnone Other learner availableno Falls RiskPatient location auto qualifies him/her for HIGH RISK. Are there any cultural, spiritual, yazidi practices/values/needs that are important for us to knowno Pain Scalenumerical 0-10 Pain Scale Educationteaching provided Current Pain Level0 = None Acceptable Pain Level3 = Mild Chronic Painno Information Review: Allergies, Home Meds and Significant Events have been Reviewed and Verified with Patient/Familyyes Allergy, Intolerance, Adverse Event: Allergies: NKDA: Active Tape - Adhesive, Bandaids, Paper: Environment, Other, Active Electronic Signatures: Cely Coon) (Signed 05-Jun-2019 06:59) Authored: Profile, Additional Information Last Updated: 05-Jun-2019 06:59 by Cely Coon) Normal [facility] Preop Checkliston 06-05-2019 Preop Checklist Preop Checklist: Preop Checklist: Arrival [id number] Arrival Time06:37 Procedure TypeTMJ arthroplasty NPO [id number] 20:00 ID Band Onyes Allergy Bandyes Consent Signedpending H&P Completepending Anesthesia Assessment Completedpending EKG Performednot ordered Chest X-Ray Performednot ordered HCG Urine TestComplete negative Chlorhexadine Bath Givennot applicable Nasal Antiseptic Appliednot applicable Hair Washedyes Soap and water bath with hair shampoo the night before surgeryyes SCD's Appliedsent to OR FLOR Hose Appliednot ordered Denturesnot applicable Prostheticsnot applicable Hearing Aidsnot applicable Valuables Securednot applicable Glasses / Contactssent with family Respiratory Assessment: Respirationsunlabored regular Neurological Assessment: Level of Consciousnessalert, oriented Mobilitymoves all extremities Able to Express Selfyes Age Appropriateyes Emotional Statuscalm Preop Education: Surgical Site Infection Preventionyes Pain Scales and Managementyes Language / Communication: Language / CommunicationEnglish Electronic Signatures: Cely Coon) (Signed 05-Jun-2019 07:02) Authored: Preop Checklist Last Updated: 05-Jun-2019 07:02 by Cely Coon) Normal [facility] RENAL FUNCTION PANELon 06-05 Albumin [Mass/Vol] 3.9 g/dL Normal 3.4 - 5.0 [facility] Comment on above: Performed By: #### R ENAL ####[id number] [place] [address] Anion gap [Moles/Vol] 15 mmol/L Normal 10 - 20 [facility] Comment on above: Performed By: #### R ENAL ####[id number] [place] [address] Calcium [Mass/Vol] 8.6 mg/dL Normal 8.6 - 10.6 [facility] Comment on above: Performed By: #### R ENAL ####[id number] [place] [address] Chloride [Moles/Vol] 99 mmol/L Normal 98 - 107 [facility] Comment on above: Performed By: #### R ENAL ####[id number] [place] [address] Creatinine [Mass/Vol] 0.68 mg/dL Normal 0.50 - 1.05 [facility] Comment on above: Performed By: #### R ENAL ####[id number] [place] [address] GFR- AM. >60 Normal >60 [facility] Comment on above: Result Comment: CALC ULATIONS OF ESTIMATED GFR ARE PERFORMED USING THE MDRD STUDY EQUATION FOR THE IDMS-TRACEABLE CREATININE METHODS. CLIN CHEM 2007;53:766-72 Performed By: #### R ENAL ####[id number] [place] [address] GFR-NON AM. >60 Normal >60 [facility] Comment on above: Performed By: #### R ENAL ####[id number] [place] [address] Glucose [Mass/Vol] 127 mg/dL High 74 - 99 [facility] Comment on above: Performed By: #### R ENAL ####[id number] [place] [address] HCO3 (Bld) [Moles/Vol] 26 mmol/L Normal 21 - 32 [facility] Comment on above: Performed By: #### R ENAL ####[id number] [place] [address] Phosphate [Mass/Vol] 4.1 mg/dL Normal 2.5 - 4.9 [facility] Comment on above: Result Comment: The performance characteristics of phosphorus testing in heparinized plasma have been validated by the individual laboratory site where testing is performed. Testing on heparinized plasma is not approved by the FDA; however, such approval is not necessary. Performed By: #### R ENAL ####[id number] [place] [address] Potassium [Moles/Vol] 3.6 mmol/L Normal 3.5 - 5.3 [facility] Comment on above: Performed By: #### R ENAL ####[id number] [place] [address] Sodium [Moles/Vol] 136 mmol/L Normal 136 - 145 [facility] Comment on above: Performed By: #### R ENAL ####[id number] [place] [address] Urea nitrogen [Mass/Vol] 14 mg/dL Normal 6 - 23 [facility] Comment on above: Performed By: #### R ENAL ####[id number] [place] [address] [facility] Surgical Pathology Depar tmenton 06-05-2019 [facility] Surgical Pathology Department Name DOMENIC NGO Pathologist: Claire Chen MD, Ph.D. Date of Procedure: 06/05/2019 Date Received: 06/05/2019 Date Reported 06/13/2019 Submitting Physician: SHELBY PERKINS DDS Location: [facility] Other External # FINAL DIAGNOSIS RIGHT MANDIBULAR CONDYLE AND DISC, EXCISION: --FRAGMENTS OF FIBROCARTILAGE WITH DEGENERATIVE CHANGES Electronically Signed Out By Claire Chen MD, Ph.D./MAC By the signature on this report, the individual or group listed as making the Final Interpretation/Diagnosis certifies that they have reviewed this case. Clinical History: Right chronic dislocation TMJ Specimens Submitted As: A: RIGHT MANDIBULAR CONDYLE AND DISC Gross Description: A: Received in formalin, labeled with the patient's name and hospital number, are four fragments of bone with adjoining cartilage, muscle and soft tissue aggregating to 3.5 x 3.5 x 1.5 cm. Dry Mixer sections are submitted in one cassette following decalcification. SJD sjd/06/05/2019 The assays/tests were performed with appropriate positive and negative controls which stained appropriately. Normal [facility] Comment on above: Performed By: #### U [facility] ####[facility] Surgical Pathology [id number] [address] Automated erythrocytes count in urine sediment (number/area)on 05-27-2019 RBC Auto (Urine sed) [#/Area] Innumerable [HPF] High 0-4 [facility] Automated leukocytes count i n urine sediment (number/area)on 05-27-2019 WBC Auto (Urine sed) [#/Area] 3-4 [HPF] 0-4 [facility] Bilirubin Test strip Ql (U)o n 05-27-2019 Bilirubin Ql (U) Negative Negative [facility] Color Auto (U)on 05-27-2019 Color (U) Yellow Yellow [facility] Creatinine [Mass/volume] in Urineon 05-27-2019 Creatinine (U) [Mass/Vol] 98.9 mg/dL [facility] Comment on above: No reference range e stablished Ketones Auto test strip (U) [Mass/Vol]on 05-27-2019 Ketones (U) [Mass/Vol] Negative Negative [facility] Laboratory - Urinalysison Hyaline casts LM Ql (Urine sed) 0-8 [LPF] 0-8 [facility] Nitrite Test strip Ql (U)on 05-27-2019 Nitrite Ql (U) Negative Negative [facility] Protein Auto test strip (U) [Mass/Vol]on 05-27-2019 Protein (U) [Mass/Vol] Negative Negative [facility] Protein [Mass/volume] in Uri neon 05-27-2019 Protein (U) [Mass/Vol] 12 mg/dL High 0-9 [facility] Specific gravity Auto test s trip (U) [Rel density]on 05-27-2019 Specific gravity (U) [Rel density] 1.017 1.001-1.03 0 [facility] Squamous epithelial cells de tection in urine sediment by light microscopyon 05-27-2019 Epithelial cells.squamous LM Ql (Urine sed) 3-4 [HPF] High 0-2 [facility] Urine bacteria detection by automated methodon 05-27-2019 Bacteria Auto Ql (U) None seen None Seen [facility] Urine clarity by refractomet ry automatedon 05-27-2019 Clarity Refractometry automated (U) Clear Clear [facility] Urine glucose measurement by automated test strip (mass/volume)on 05-27-2019 Glucose Auto test strip (U) [Mass/Vol] Normal mg/dL Normal [facility] Urine hemoglobin detection b y automated test stripon 05-27-2019 Hemoglobin Auto test strip Ql (U) 3+ High Negative [facility] Urine leukocyte esterase det ection by automated test stripon 05-27-2019 Leukocyte esterase Auto test strip Ql (U) 2+ High Negative [facility] Urine protein/creatinine rat ioon 05-27-2019 Protein/Creatinine (U) [Ratio] 121 mg/g{Cre} 0-200 [facility] Urobilinogen Auto test strip (U) [Mass/Vol]on 05-27-2019 Urobilinogen (U) [Mass/Vol] Normal mg/dL Normal [facility] pH Auto test strip (U)on pH (U) 8.0 [pH] 5.0-9.0 [facility] NR CT FACIAL BONESon [address] FACIAL BONES Patient Name: DOMENIC NGO STUDY: CT FACIAL BONES; 02/22/2019 10:01 am INDICATION: Dislocation of jaw, bilateral please use attached tmj concepts protocol scanned in onbase. COMPARISON: Orthopantogram dated 03/02/2016 ACCESSION NUMBER(S): [id number] ORDERING CLINICIAN: DANIEL MCFADDEN TECHNIQUE: Axial, thin section CT images were obtained through the maxilla on temporomandibular joints and the mandible without contrast in the closed-mouth position. The images were reformatted axial, sagittal, coronal views in bone and soft tissue windows. Additional 3D reconstructed images were provided for display.. FINDINGS: RIGHT TEMPOROMANDIBULAR JOINT: On sagittal images, the mandibular condyle is mildly displaced anteriorly in the glenoid fossa. On the coronal planes, mild medial displacement of the mandibular condyle within the glenoid fossa is seen. Minimal irregularity is seen along the posterosuperior aspect of the mandibular condyle (axial reformatted image 55 of 69 and coronal reformatted image 55 of 106 on bone window). However, no bony irregularity is seen in the glenoid fossa or the articular eminence. The soft tissues around the mandibular joint are normal in appearance. LEFT TEMPOROMANDIBULAR JOINT: On sagittal images, the mandibular condyle is anteriorly displaced and lies beneath the articular eminence with possible thinning of the articular disc. On coronal images, it is displaced medially within the glenoid fossa. Mild bony irregularity is seen in the mandibular condyle but no bony abnormality is seen in the articular eminence or the glenoid fossa. The soft tissues around the temporomandibular joints are unremarkable in appearance. The orbits and their contents are unremarkable in appearance. The major salivary glands are unremarkable. The nasopharynx, oropharynx, oral cavity and floor of the mouth are within normal limits. A small mucous retention cyst/polyp is seen in the right maxillary sinus. The rest of the paranasal sinuses are unremarkable. The mastoid air cells are clear. IMPRESSION: 1. 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 2. Mild anterior and medial displacement of the right mandibular condyle with minimal irregularity of the mandibular condyle, concerning for early degenerative changes of the right temporomandibular joint. MRI exam of the temporomandibular joints may be of value to evaluate articular disc, if clinically warranted. I personally reviewed the image(s) / study and fellow interpretation. I agree with the findings as stated. This study was interpreted at [facility]. Electronically signed by: NELL JAMA MD [facility] Clinical Event Note-Physicia n Transfer Callon 02-03-2019 Clinical Event Note-Physician Transfer Call Event: Topic: Physician Transfer Call Details: 28 yo f, transfer from [facility] for dislocated mandible, accepted by [facility]. 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 Pt was admitted to [place] for hypokalemia and hypomagnesemia and would have been d/c in the am, but c/o jaw pain and was found to have dislocation. Hemodynamically stable. Per transferring physician, previous reductions have worked well with propofol. Electronic Signatures: Madai Guerrero) (Signed 03-Feb-2019 01:51) Authored: Event Last Updated: 03-Feb-2019 01:51 by Madai Guerrero) [facility] Discharge Summaryon 02-26-20 Discharge Summary [id number] Admitted: 02/21/2018 Discharged: 02/22/2018 Date of : 1990 Physician: Brigitte Julio M.D. DISCHARGE SUMMARYSERVICE: MICU.PRIMARY DIAGNOSES:1. Gitelman syndrome.2. Severe hypokalemia.3. Hypertension.SECONDARY DIAGNOSES:1. History of DVT in 2013 during .2. Hypophosphatemia.CONSULTS : Nephrology.PROCEDURES: None.SUMMARY OF HOSPITAL COURSE: Ms. Ngo is a 27-year-old female with pastmedical history of Gitelman syndrome, DVT in 2013 during , [facility]ed [facility] a transfer from [facility] with complaints ofsevere electrolyte abnormalities, which were noted to have been severelyhypokalemic. She was started on initial replacement, however, nephrologistis Dr. Finley and it was decided to transfer the patient to [facility] forfurther management. In the ED, the patient was advised to be admitted tothe ICU for further management. In the ICU, her electrolytes were replacedaggressively. Nephrology was consulted as well. Advised to increase herplacement to her home dose of 100 mEq t.i.d. of potassium tablets. Inaddition, during her stay, she was noted to have an episode of chest pain.An EKG and stat troponin were obtained and were noted to be negative. Thepatient had reproducible pain on exam and was likely suffering from musclespasm from hypokalemia. The patient improved on the above regimen and wasdeemed stable for transfer out of the ICU and ultimately discharged.DISCHARGE DISPOSITION: Home.DISCHARGE INSTRUCTIONS: You are being discharged to home, please continuetaking medications as prescribed. Please follow up with your PCP in 1-2weeks as well as your process control operator, Dr. Finley in 1-2 weeks as well.DISCHARGE MEDICATIONS:1. Ehvieybs-vukbethzy-fxmqob michael-simethicone 330 mL p.o. p.r.n.2. Amiloride 5 mg 2 tablets p.o. b.i.d.3. Aspirin 81 mg 1 tablet p.o. q.a.m.4. Fioricet 1 or 2 caps by mouth q.8h p.r.n.5. Calcium and vitamin D3 800 mg p.o. b.i.d.6. Ibuprofen 600 mg p.o. b.i.d.7. Lisinopril 2.5 mg p.o. daily.8. Magnesium oxide 400 mg 2 tablets p.o. b.i.d.9. Melatonin 3 mg p.o. at bedtime.10. Potassium chloride 100 mEq p.o. t.i.d.More thna 30 minutes were spent to coordinate the discharge planning.Electronically Signed by:Brigitte Julio M.D. 02/26/2018 12:56 P Brigitte Julio M.D. I personally saw this patient on the day of the encounter, performed thekey portion(s) of the service and participated in the management andconfirm the resident's documentation. Please note there may be anadditional personal documentation from me. Date Dict: 02/25/2018/02:25 P/Ankit aMncera, MDDate Trans: 02/25/2018 04:23 P/[id number] cc: Ilda Hernandez M.D. [facility] [place] [address]EXD Normal [facility] BASIC METABOLIC PANELon 02-11 Calcium 9.6 mg/dL Normal 8.6-10.[address] [facility] Comment on above: Order Comment: No: D o not add to previous draw Performed By: #### 1 0070, 72742 ####[facility] [id number], [facility] Chloride 100 mmol/L Normal 98-[address] [facility] Comment on above: Order Comment: No: D o not add to previous draw Performed By: #### 1 69, 35143 ####[facility] [place] [address], [facility] CO2 25 mmol/L Normal 21-[address] [facility] Comment on above: Order Comment: No: D o not add to previous draw Performed By: #### 1 69, 65106 ####[place] [address] [place] [address], [facility] Creatinine 0.71 mg/dL Normal 0.60-1.[address] [facility] Comment on above: Order Comment: No: D o not add to previous draw Performed By: #### 1 69, 46158 ####[facility] [place] [address], [facility] eGFR (black) mL/min/{1.73_m2} Normal >[address] [facility] Comment on above: Order Comment: No: D o not add to previous draw Performed By: #### 1 69, 12721 ####[facility] [place] [address], [facility] eGFR (non-black) mL/min/{1.73_m2} Normal >[address] [facility] Comment on above: Order Comment: No: D o not add to previous draw Performed By: #### 1 69, 58368 ####[place] [address] [place] [address], [facility] Glucose mass conc 111 mg/dL High 70-[address] [facility] Comment on above: Order Comment: No: D o not add to previous draw Performed By: #### 1 69, 50525 ####[facility] [place] [address], [facility] Potassium molar conc 3.8 mmol/L Normal 3.5-5.[address] [facility] Comment on above: Order Comment: No: D o not add to previous draw Performed By: #### 1 69, 14414 ####[facility] [place] [address], [facility] Sodium 134 mmol/L Low 136-[address] [facility] Comment on above: Order Comment: No: D o not add to previous draw Performed By: #### 1 69, 42359 ####[facility] [place] [address], [facility] Urea nitrogen 9 mg/dL Normal 7-[address] [facility] Comment on above: Order Comment: No: D o not add to previous draw Performed By: #### 1 69, ####[facility] [place] [address], [facility] Calcium 9.0 mg/dL Normal 8.6-10.[address] [facility] Comment on above: Order Comment: No: D o not add to previous draw Performed By: #### 1 69, 25823 ####[facility] [place] [address], [facility] Chloride 98 mmol/L Normal 98-[address] [facility] Comment on above: Order Comment: No: D o not add to previous draw Performed By: #### 1 69, 26480 ####[facility] [place] [address], [place] CO2 29 mmol/L Normal 21-[address] [facility] Comment on above: Order Comment: No: D o not add to previous draw Performed By: #### 1 69, 28635 ####[facility] [place] [address], [place] Creatinine 0.61 mg/dL Normal 0.60-1.[address] [facility] Comment on above: Order Comment: No: D o not add to previous draw Performed By: #### 1 69, 38458 ####[facility] [facility].[address] eGFR (black) mL/min/{1.73_m2} Normal >[address] [facility] Comment on above: Order Comment: No: D o not add to previous draw Performed By: #### 1 69, 33687 ####[facility].[address] eGFR (non-black) mL/min/{1.73_m2} Normal >[address] [facility] Comment on above: Order Comment: No: D o not add to previous draw Performed By: #### 1 69, ####[place] [address] [facility].[address] Glucose mass conc 105 mg/dL High 70-[address] [facility] Comment on above: Order Comment: No: D o not add to previous draw Performed By: #### 1 69, ####[facility].[address] Potassium molar conc 3.1 mmol/L Low 3.5-5.[address] [facility] Comment on above: Order Comment: No: D o not add to previous draw Performed By: #### 1 69, ####[facility].[address] Sodium 134 mmol/L Low 136-[address] [facility] Comment on above: Order Comment: No: D o not add to previous draw Performed By: #### 1 69, 54981 ####[place] [address] [facility].[address] Urea nitrogen 10 mg/dL Normal 7-[address] [facility] Comment on above: Order Comment: No: D o not add to previous draw Performed By: #### 1 69, 94528 ####[facility].[address] CBC COMPLETE BLOOD COUNTon 0 02-22-2018 Erythrocyte distribution width Auto Ratio (RBC) 12.6 % Normal 11.5-15.[address] [facility] Comment on above: Order Comment: No: D o not add to previous draw Performed By: #### 1 69, 49990 ####[facility] [facility] Erythrocytes (RBC) 4.39 10*6/uL Normal 3.80-5.[address] [facility] Comment on above: Order Comment: No: D o not add to previous draw Performed By: #### 1 69, 27739 ####[facility] Hematocrit (HCT) 36.6 % Normal 36.0-45.[address] [facility] Comment on above: Order Comment: No: D o not add to previous draw Performed By: #### 1 69, 39383 ####[facility] [facility].[address] Hemoglobin mass conc (Bld) 13.2 g/dL Normal 12.0-15.[address] [facility] Comment on above: Order Comment: No: D o not add to previous draw Performed By: #### 1 69, 25620 ####[facility] [facility].[address] MCH 30.1 pg Normal 27.0-33.[address] [facility] Comment on above: Order Comment: No: D o not add to previous draw Performed By: #### 1 69, 51369 ####[facility] [facility].[address] MCHC mass conc (RBC) 36.1 g/dL High 32.0-35.[address] [facility] Comment on above: Order Comment: No: D o not add to previous draw Performed By: #### 1 69, 04209 ####[facility] MCV 83.4 fL Normal 82.0-98.[address] [facility] Comment on above: Order Comment: No: D o not add to previous draw Performed By: #### 1 69, 08214 ####[facility] [facility] NRBC 0 % Normal 0-[address] [facility] Comment on above: Order Comment: No: D o not add to previous draw Performed By: #### 1 69, 16285 ####[facility].[address] PLAT CNT 343 10*3/uL Normal 150-[address] [facility] Comment on above: Order Comment: No: D o not add to previous draw Performed By: #### 1 69, 22349 ####[facility] WBC (Leukocytes) 7.55 10*3/uL Normal 4.00-10.[address] [facility] Comment on above: Order Comment: No: D o not add to previous draw Performed By: #### 1 69, ####[facility] MAGNESIUM BLOODon 02-22-2018 Magnesium 2.1 mg/dL Normal 1.9-2.[address] [facility] Comment on above: Order Comment: No: D o not add to previous draw Performed By: #### 1 69, 42407 ####[facility] PHOSPHORUS BLOODon 8 Phosphate 3.9 mg/dL Normal 2.5-5.[address] [facility] Comment on above: Order Comment: No: D o not add to previous draw Performed By: #### 1 69, 28419 ####[facility] [place] [address], [facility] BASIC METABOLIC PANELon 07- Calcium 8.8 mg/dL Normal 8.6-10.[address] [facility] Comment on above: Order Comment: No: D o not add to previous draw Performed By: #### 1 69, 29422 ####[facility] [place] [address], [place] Chloride 98 mmol/L Normal 98-[address] [facility] Comment on above: Order Comment: No: D o not add to previous draw Performed By: #### 1 69, 19253 ####[facility] [place] [address], [place] CO2 31 mmol/L Normal 21-[address] [facility] Comment on above: Order Comment: No: D o not add to previous draw Performed By: #### 1 69, 37034 ####[facility] [id number], [place] Creatinine 0.66 mg/dL Normal 0.60-1.[address] [facility] Comment on above: Order Comment: No: D o not add to previous draw Performed By: #### 1 69, 47091 ####[facility] [place] [address], [facility] eGFR (black) mL/min/{1.73_m2} Normal >[address] [facility] Comment on above: Order Comment: No: D o not add to previous draw Performed By: #### 1 69, 88642 ####[facility] [place] [address], [place] eGFR (non-black) mL/min/{1.73_m2} Normal >[address] [facility] Comment on above: Order Comment: No: D o not add to previous draw Performed By: #### 1 69, 68885 ####[facility] [id number], [facility] Glucose mass conc 111 mg/dL High 70-[address] [facility] Comment on above: Order Comment: No: D o not add to previous draw Performed By: #### 1 69, 76842 ####[facility] [place] [address], [facility] Potassium molar conc 2.9 mmol/L Low 3.5-5.[address] [facility] Comment on above: Order Comment: No: D o not add to previous draw Performed By: #### 1 69, 76180 ####[facility] [place] [address], [facility] Sodium 135 mmol/L Low 136-[address] [facility] Comment on above: Order Comment: No: D o not add to previous draw Performed By: #### 1 69, 65148 ####[facility] [place] [address], [facility] Urea nitrogen 10 mg/dL Normal 7-[address] [facility] Comment on above: Order Comment: No: D o not add to previous draw Performed By: #### 1 69, 48901 ####[facility] [place] [address], [facility] Calcium 8.1 mg/dL Low 8.6-10.[address] [facility] Comment on above: Order Comment: No: D o not add to previous draw Performed By: #### 0 0071, 70512, 47568 ####[facility] [place] [address], [facility] Chloride 98 mmol/L Normal 98-[address] [facility] Comment on above: Order Comment: No: D o not add to previous draw Performed By: #### 0 0071, 42900, 15084 ####[facility] [place] [address], [facility] CO2 33 mmol/L High 21-[address] [facility] Comment on above: Order Comment: No: D o not add to previous draw Performed By: #### 0 0071, 69795, 75981 ####[facility] [place] [address], [facility] Creatinine 0.64 mg/dL Normal 0.60-1.[address] [facility] Comment on above: Order Comment: No: D o not add to previous draw Performed By: #### 0 0071, 47675, 50465 ####[facility] [place] [address], [facility] eGFR (black) mL/min/{1.73_m2} Normal >[address] [facility] Comment on above: Order Comment: No: D o not add to previous draw Performed By: #### 0 0071, 44368, 98548 ####[facility] [place] [address], [facility] eGFR (non-black) mL/min/{1.73_m2} Normal >[address] [facility] Comment on above: Order Comment: No: D o not add to previous draw Performed By: #### 0 0071, 97537, 99526 ####[facility] [place] [address], [facility] Glucose mass conc 150 mg/dL High 70-[address] [facility] Comment on above: Order Comment: No: D o not add to previous draw Performed By: #### 0 0071, 46011, 12720 ####[facility] [place] [address], [facility] Potassium molar conc 2.7 mmol/L Low 3.5-5.[address] [facility] Comment on above: Order Comment: No: D o not add to previous draw Performed By: #### 0 0071, 73435, 24901 ####[facility] [place] [address], [facility] Sodium 138 mmol/L Normal 136-[address] [facility] Comment on above: Order Comment: No: D o not add to previous draw Performed By: #### 0 0071, 64063, 54650 ####[facility] [place] [address], [facility] Urea nitrogen 7 mg/dL Normal 7-[address] [facility] Comment on above: Order Comment: No: D o not add to previous draw Performed By: #### 0 0071, 46851, 59263 ####[facility] [place] [address], [facility] Calcium 7.8 mg/dL Low 8.6-10.[address] [facility] Comment on above: Order Comment: No: D o not add to previous draw Performed By: #### 1 0070, 63173, 76293 ####[facility] [place] [address], [facility] Chloride 95 mmol/L Low 98-[address] [facility] Comment on above: Order Comment: No: D o not add to previous draw Performed By: #### 1 0070, 95534, 99350 ####[facility] [place] [address], [facility] CO2 32 mmol/L High 21-[address] [facility] Comment on above: Order Comment: No: D o not add to previous draw Performed By: #### 1 0070, 46145, 08915 ####[facility] [place] [address], [facility] Creatinine 0.66 mg/dL Normal 0.60-1.[address] [facility] Comment on above: Order Comment: No: D o not add to previous draw Performed By: #### 1 0070, 17782, 23601 ####[facility] [place] [address], [facility] eGFR (black) mL/min/{1.73_m2} Normal >[address] [facility] Comment on above: Order Comment: No: D o not add to previous draw Performed By: #### 1 0070, 68109, 13693 ####[facility] eGFR (non-black) mL/min/{1.73_m2} Normal >[address] [facility] Comment on above: Order Comment: No: D o not add to previous draw Performed By: #### 1 0, 46279, 10341 ####[facility] Glucose mass conc 92 mg/dL Normal 70-[address] [facility] Comment on above: Order Comment: No: D o not add to previous draw Performed By: #### 1 0, 72521, 55327 ####[facility].[address] Potassium molar conc 2.2 mmol/L Critically low 3.5-5.[address] [facility] Comment on above: Order Comment: No: D o not add to previous draw Result Comment: M-CR ITICAL RESULT(S) REVIEWED, CALLED TO AND READ BACK BY DR. RAYA [id number]. Performed By: #### 1 0070, 25125, 03594 ####[facility].[address] Sodium 137 mmol/L Normal 136-[address] [facility] Comment on above: Order Comment: No: D o not add to previous draw Performed By: #### 1 0, 83376, 13619 ####[facility] [place] [address], [facility] Urea nitrogen 7 mg/dL Normal 7-[address] [facility] Comment on above: Order Comment: No: D o not add to previous draw Performed By: #### 1 0070, 10000, 67450 ####[facility] [place] [address], [facility] CBC W/DIFFon 02-21-2018 ABS BASOPHILS 0.0 10*3/uL Normal 0.0-0.[address] [facility] Comment on above: Performed By: #### 5 0103 ####[facility] [address] ABS IMM GRANS 0.0 10*3/uL Normal 0.0-0.[address] [facility] Comment on above: Performed By: #### 5 0103 ####[facility] ABS NEUTROPHILS 3.7 10*3/uL Normal 1.6-7.[address] [facility] Comment on above: Performed By: #### 5 0103 ####[place] [id number] [address] Basophils Auto #/vol (Bld) 0.6 % Normal 0.0-1.[address] [facility] Comment on above: Performed By: #### 5 0103 ####[facility] [address] Eosinophils 0.1 10*3/uL Normal 0.0-0.[address] [facility] Comment on above: Performed By: #### 5 0103 ####[facility] [address] Eosinophils/100 leukocytes 1.7 % Normal 0.0-6.[address] [facility] Comment on above: Performed By: #### 5 0103 ####[facility] [address] Erythrocyte distribution width Auto Ratio (RBC) 12.6 % Normal 11.5-15.[address] [facility] Comment on above: Performed By: #### 5 3 ####[facility] [address] Erythrocytes (RBC) 4.14 10*6/uL Normal 3.80-5.[address] [facility] Comment on above: Performed By: #### 5 0103 ####[facility].[address] Hematocrit (HCT) 34.1 % Low 36.0-45.[address] [facility] Comment on above: Performed By: #### 5 0103 ####[facility] [address] Hemoglobin mass conc (Bld) 12.2 g/dL Normal 12.0-15.[address] [facility] Comment on above: Performed By: #### 0103 ####[facility] [address] IMMATURE GRANS 0.1 % Normal 0.0-1.[address] [facility] Comment on above: Performed By: #### 3 ####[facility] [address] Lymphocytes 2.5 10*3/uL Normal 1.2-4.[address] [facility] Comment on above: Performed By: #### 5 0103 ####[facility] [address] Lymphocytes/100 leukocytes 36.2 % Normal 20.0-45.[address] [facility] Comment on above: Performed By: #### 5 3 ####[facility] [address] MCH 29.5 pg Normal 27.0-33.[address] [facility] Comment on above: Performed By: #### 5 0103 ####[facility] [address] MCHC mass conc (RBC) 35.8 g/dL High 32.0-35.[address] [facility] Comment on above: Performed By: #### 3 ####[facility] [place] [id number], [place] MCV 82.4 fL Normal 82.0-98.[address] [facility] Comment on above: Performed By: #### 5 0103 ####[facility] [address] Monocytes 0.6 10*3/uL Normal 0.1-1.[address] [facility] Comment on above: Performed By: #### 5 0103 ####[facility] [address] MONOS 8.7 % Normal 5.0-12.[address] [facility] Comment on above: Performed By: #### 5 0103 ####[facility] [address] Neutrophils/100 leukocytes 52.7 % Normal 40.0-72.[address] [facility] Comment on above: Performed By: #### 5 0103 ####[facility] [address] NRBC 0 % Normal 0-[address] [facility] Comment on above: Performed By: #### 5 0103 ####[facility] [address] PLAT CNT 310 10*3/uL Normal 150-[address] [facility] Comment on above: Performed By: #### 5 0103 ####[facility] [address] WBC (Leukocytes) 7.01 10*3/uL Normal 4.00-10.[address] [facility] Comment on above: Performed By: #### 5 010 ####[facility] [address] CPK-MB PROFILEon 02-21-2018 CKMB 1.3 ng/mL Normal 0.0-1.[address] [facility] Comment on above: Order Comment: No: D o not add to previous draw Performed By: #### 1 0, 94939 ####[facility] [place] [address], [facility] CKMB 1.6 ng/mL Normal 0.0-5.[address] [facility] Comment on above: Order Comment: No: D o not add to previous draw Result Comment: IF T OTAL CK <200 U/L AND: 1. CKMB IS 5-10 NG/ML----BORDERLINE 2. CKMB IS >10 NG/ML----INDICATIVE OF DE OR IF TOTAL CK >200 U/L AND CKMB INDEX >1.9----INDICATIVE OF DE Performed By: #### 1 0, 42734 ####[facility] [address] Creatine kinase (CK) 128 U/L Normal 30-[address] [facility] Comment on above: Order Comment: No: D o not add to previous draw Performed By: #### 1 0, 77214 ####[facility] [place] [address], [facility] MAGNESIUM BLOODon 02-21-2018 Magnesium 2.4 mg/dL Normal 1.9-2.[address] [facility] Comment on above: Order Comment: No: D o not add to previous draw Performed By: #### 1 0, 49426 ####[facility] [place] [address], [facility] Magnesium 2.2 mg/dL Normal 1.9-2.[address] [facility] Comment on above: Performed By: #### 0 0071, 94446, 36915 ####[facility] [place] [address], [facility] Magnesium 1.5 mg/dL Low 1.9-2.[address] [facility] Comment on above: Order Comment: No: D o not add to previous draw Performed By: #### 1 0070, 65442, 71834 ####[facility] [place] [address], [facility] PHOSPHORUS BLOODon 8 Phosphate 2.9 mg/dL Normal 2.5-5.[address] [facility] Comment on above: Order Comment: No: D o not add to previous draw Performed By: #### 1 0070, 09884 ####[facility] [place] [address], [facility] Phosphate 2.3 mg/dL Low 2.5-5.[address] [facility] Comment on above: Performed By: #### 0 0071, 13446, 80867 ####[facility] [place] [address], [facility] Phosphate 3.5 mg/dL Normal 2.5-5.[address] [facility] Comment on above: Order Comment: No: D o not add to previous draw Performed By: #### 1 0070, 41742, 59043 ####[facility] [place] [address], [facility] SERUM TESTon 02-21 TEST Negative Normal [facility] Comment on above: Performed By: #### 4 6473 ####[facility] [place] [address], [facility] TROPONIN-Ion 02-21-2018 Troponin I.cardiac mass conc 0.00 ng/mL Normal 0.00-0.[address] [facility] Comment on above: Order Comment: No: D o not add to previous draw Result Comment: REFE RENCE RANGES: 0.00 - 0.14 ng/ml NEGATIVE 0.15 - 0.25 ng/ml INDETERMINATE > 0.25 ng/ml INDICATIVE OF AN M.I. Performed By: #### 1 0070, 27609 ####[facility] [place] [address], [facility] BASIC METABOLIC PANELon 08-16 Calcium 8.8 mg/dL Normal 8.6-10.[address] [facility] Comment on above: Performed By: #### 1 69, 55306 ####[facility].[address] Chloride 102 mmol/L Normal 98-[address] [facility] Comment on above: Performed By: #### 1 69, ####[facility].[address] CO2 30 mmol/L Normal 21-[address] [facility] Comment on above: Performed By: #### 1 69, ####[facility].[address] Creatinine 0.90 mg/dL Normal 0.60-1.[address] [facility] Comment on above: Performed By: #### 1 69, ####[place] [address] [facility].[address] eGFR (black) mL/min/{1.73_m2} Normal >[address] [facility] Comment on above: Performed By: #### 1 69, ####[place] [address] [facility].[address] eGFR (non-black) mL/min/{1.73_m2} Normal >[address] [facility] Comment on above: Performed By: #### 1 69, ####[facility].[address] Glucose mass conc 131 mg/dL High 70-[address] [facility] Comment on above: Performed By: #### 1 69, 59025 ####[facility].[address] Potassium molar conc 3.1 mmol/L Low 3.5-5.[address] [facility] Comment on above: Performed By: #### 1 69, 71159 ####[facility] [place] [address], [facility] Sodium 137 mmol/L Normal 136-[address] [facility] Comment on above: Performed By: #### 1 0070, 97227 ####[facility] [place] [address], [facility] Urea nitrogen 7 mg/dL Normal 7-[address] [facility] Comment on above: Performed By: #### 1 0, 96973 ####[facility] [place] [address], [facility] MAGNESIUM BLOODon 09-12-2017 Magnesium 1.5 mg/dL Low 1.9-2.[address] [facility] Comment on above: Performed By: #### 1 0, 43596 ####[facility] [place], [place] [id number] [place] [address] Vital Signs Date Time Vital Sign Value Performing Clinician Facility 07-24-2024 13:16-0500 Body height 154.9 cm Frannie Laureano [employer] Work Phone: [facility] 07-24-2024 13:16-0500 Body mass index (BMI) [Ratio] 37.79 kg/m2 Frannie Laureano [employer] Work Phone: [facility] 07-24-2024 13:16-0500 Body temperature 98.01 [degF] Frannie Laureano [employer] Work Phone: [facility] 07-24-2024 13:16-0500 Body weight 90.72 kg Frannie Laureano [employer] Work Phone: [facility] 07-24-2024 13:16-0500 Diastolic blood pressure 68 mm[Hg] Frannie Laureano [employer] Work Phone: [facility] 07-24-2024 13:16-0500 Heart rate 71 /min Frannie Laureano [employer] Work Phone: [facility] 07-24-2024 13:16-0500 Respiratory rate 16 /min Frannie Motapatrick [employer] Work Phone: [facility] 07-24-2024 13:16-0500 SaO2% (BldA) [Mass fraction] 97 % Frannie Motapatrick [employer] Work Phone: [facility] 07-24-2024 13:16-0500 Systolic blood pressure 102 mm[Hg] Frannie Motapatrick [employer] Work Phone: [facility] 05-30-2024 10:35-0400 Body height 154.9 cm Giuseppe Fair MD Work Phone: [facility] 05-30-2024 10:35-0400 Body mass index (BMI) [Ratio] 37.84 kg/m2 Giuseppe Fair MD Work Phone: [facility] 05-30-2024 10:35-0400 Body temperature 97.7 [degF] Giuseppe Fair MD Work Phone: [facility] 05-30-2024 10:35-0400 Body weight 90.8 kg iGuseppe Fair MD Work Phone: [facility] 05-30-2024 10:35-0400 Diastolic blood pressure 75 mm[Hg] Giuseppe Fair MD Work Phone: [facility] 05-30-2024 10:35-0400 Heart rate 66 /min Giuseppe Fair MD Work Phone: [facility] 05-30-2024 10:35-0400 Respiratory rate 16 /min Giuseppe Fair MD Work Phone: [facility] 05-30-2024 10:35-0400 SaO2% (BldA) [Mass fraction] 97 % Giuseppe Fair MD Work Phone: [facility] 05-30-2024 10:35-0400 Systolic blood pressure 106 mm[Hg] Giuseppe Fair MD Work Phone: [facility] 03-07-2024 13:49-0400 Body height 154.94 cm MD Carmen Kothari Work Phone: [facility] 03-07-2024 13:49-0400 Body mass index (BMI) [Ratio] 37.5 kg/m2 MD Carmen Kothari Work Phone: [facility] 03-07-2024 13:49-0400 Body temperature 97.2 [degF] MD Carmen Kothari Work Phone: [facility] 03-07-2024 13:49-0400 Body weight 90.03 kg MD Carmen Kothari Work Phone: [facility] 03-07-2024 13:49-0400 Diastolic blood pressure 60 mm[Hg] MD Carmen Kothari Work Phone: [facility] 03-07-2024 13:49-0400 Heart rate 100 /min MD Carmen Kothari Work Phone: [facility] 03-07-2024 13:49-0400 Respiratory rate 16 /min MD Carmen Kothari Work Phone: [facility] 03-07-2024 13:49-0400 SaO2% (BldA) [Mass fraction] 98 % MD Carmen Kothari Work Phone: [facility] 03-07-2024 13:49-0400 Systolic blood pressure 102 mm[Hg] MD Carmen Kothari Work Phone: [facility] 03-05-2024 08:06-0400 Body temperature 97.8 [degF] MD Carmen Kothari Work Phone: [facility] 03-05-2024 08:06-0400 Diastolic blood pressure 74 mm[Hg] MD Carmen Kothari Work Phone: [facility] 03-05-2024 08:06-0400 Heart rate 72 /min MD Carmen Kothari Work Phone: [facility] 03-05-2024 08:06-0400 Respiratory rate 20 /min MD Carmen Kothari Work Phone: [facility] 03-05-2024 08:06-0400 SaO2% (BldA) [Mass fraction] 98 % MD Carmen Kothari Work Phone: [facility] 03-05-2024 08:06-0400 Systolic blood pressure 109 mm[Hg] MD Carmen Kothari Work Phone: [facility] 03-05-2024 04:44-0400 Body weight 89.5 kg MD Carmen Kothari Work Phone: [facility] 03-03-2024 17:20-0400 Body height 154.94 cm MD Carmen Kothari Work Phone: [facility] 03-03-2024 17:04-0400 Diastolic blood pressure 58 mm[Hg] MD Carmen Kothari Work Phone: [facility] 03-03-2024 17:04-0400 Heart rate 89 /min MD Carmen Kothari Work Phone: [facility] 03-03-2024 17:04-0400 Respiratory rate 20 /min MD Carmen Kothari Work Phone: [facility] 03-03-2024 17:04-0400 SaO2% (BldA) [Mass fraction] 95 % MD Carmen Kothari Work Phone: [facility] 03-03-2024 17:04-0400 Systolic blood pressure 106 mm[Hg] MD Carmen Kothari Work Phone: [facility] 03-03-2024 15:19-0400 Body temperature 99.8 [degF] MD Carmen Kothari Work Phone: [facility] 03-03-2024 12:47-0400 Body height 154.94 cm MD Carmen Kothari Work Phone: [facility] 03-03-2024 12:47-0400 Body weight 90.15 kg MD Carmen Kothari Work Phone: [facility] 02-27-2024 09:44-0400 Blood Pressure Location ILDA HAILEE [facility] 02-27-2024 09:44-0400 Diastolic blood pressure 79 mm[Hg] ILDA HAILEE [facility] 02-27-2024 09:44-0400 Heart rate 70 /min ILDA HAILEE [facility] 02-27-2024 09:44-0400 Respiratory rate 16 /min ILDA HAILEE [facility] 02-27-2024 09:44-0400 Systolic blood pressure 111 mm[Hg] ILDA HAILEE [facility] 02-01-2024 11:30-0400 Body height 154.94 cm MD Carmen Kothari Work Phone: [facility] 02-01-2024 11:30-0400 Body mass index (BMI) [Ratio] 36.7 kg/m2 MD Carmen Kothari Work Phone: [facility] 02-01-2024 11:30-0400 Body temperature 97 [degF] MD Carmen Kothari Work Phone: [facility] 02-01-2024 11:30-0400 Body weight 88.22 kg MD Carmen Kothari Work Phone: [facility] 02-01-2024 11:30-0400 Diastolic blood pressure 70 mm[Hg] MD Carmen Kothari Work Phone: [facility] 02-01-2024 11:30-0400 Heart rate 67 /min MD Carmen Kothari Work Phone: [facility] 02-01-2024 11:30-0400 Respiratory rate 16 /min MD Carmen Kothari Work Phone: [facility] 02-01-2024 11:30-0400 SaO2% (BldA) [Mass fraction] 97 % MD Carmen Kothari Work Phone: [facility] 02-01-2024 11:30-0400 Systolic blood pressure 102 mm[Hg] MD Carmen Kothari Work Phone: [facility] 08-11-2023 16:25-0500 Body height 154.94 cm Miriam Fabian Other [facility] Other 08-11-2023 16:25-0500 Body mass index (BMI) [Ratio] 37.67 kg/m2 Miriam Fabian Other [facility] Other 08-11-2023 16:25-0500 Body temperature 98.3 [degF] Miriam Fabian Other [facility] Other 08-11-2023 16:25-0500 Body weight 90.45 kg Miriam Fabian Other [facility] Other 08-11-2023 16:25-0500 Diastolic blood pressure 67 mm[Hg] Miriam Fabian Other [facility] Other 08-11-2023 16:25-0500 Respiratory rate 18 /min Miriam Fabian Other [facility] Other 08-11-2023 16:25-0500 SaO2% (BldA) [Mass fraction] 97 % Miriam Fabian Other [facility] Other 08-11-2023 16:25-0500 Systolic blood pressure 114 mm[Hg] Miriam Fabian Other [facility] Other 08-01-2023 16:40-0500 Body height 154.94 cm Carmen Taye Other [facility] Other 08-01-2023 16:40-0500 Body mass index (BMI) [Ratio] 37.29 kg/m2 Carmen Taye Other [facility] Other 08-01-2023 16:40-0500 Body temperature 97.8 [degF] Carmen Taye Other [facility] Other 08-01-2023 16:40-0500 Body weight 89.54 kg Carmen Taye Other [facility] Other 08-01-2023 16:40-0500 Diastolic blood pressure 66 mm[Hg] Carmen Taye Other [facility] Other 08-01-2023 16:40-0500 Respiratory rate 16 /min Carmen Taye Other [facility] Other 08-01-2023 16:40-0500 SaO2% (BldA) [Mass fraction] 98 % Carmen Taye Other [facility] Other 08-01-2023 16:40-0500 Systolic blood pressure 103 mm[Hg] Carmen Taye Other [facility] Other 05-02-2023 11:26-0400 Body temperature 97.9 [degF] 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 Work Phone: [facility] 05-02-2023 11:26-0400 Diastolic blood pressure 77 mm[Hg] 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 Work Phone: [facility] 05-02-2023 11:26-0400 Heart rate 72 /min 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 Work Phone: [facility] 05-02-2023 11:26-0400 Respiratory rate 18 /min 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 Work Phone: [facility] 05-02-2023 11:26-0400 SaO2% (BldA) [Mass fraction] 97 % 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 Work Phone: [facility] 05-02-2023 11:26-0400 Systolic blood pressure 123 mm[Hg] 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 Work Phone: [facility] 05-02-2023 06:00-0400 Body weight 102 kg 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 Work Phone: [facility] 05-01-2023 14:54-0400 Body height 154.94 cm 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 Work Phone: [facility] 04-30-2023 14:30-0400 Body temperature 100.9 [degF] 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 Work Phone: [facility] 04-30-2023 14:30-0400 Diastolic blood pressure 60 mm[Hg] 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 Work Phone: [facility] 04-30-2023 14:30-0400 Heart rate 75 /min 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 Work Phone: [facility] 04-30-2023 14:30-0400 Respiratory rate 16 /min 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 Work Phone: [facility] 04-30-2023 14:30-0400 SaO2% (BldA) [Mass fraction] 100 % 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 Work Phone: [facility] 04-30-2023 14:30-0400 Systolic blood pressure 106 mm[Hg] 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 Work Phone: [facility] 04-30-2023 09:56-0400 Body height 154.94 cm 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 Work Phone: [facility] 04-30-2023 09:56-0400 Body weight 87 kg 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 ASSEMBLER Iassatou Igor Work Phone: [facility] 01-12-2023 10:40-0400 Body height 154.94 cm Carmen Tyae Other [facility] Other 01-12-2023 10:40-0400 Body mass index (BMI) [Ratio] 37.6 kg/m2 Carmen Taye Other [facility] Other 01-12-2023 10:40-0400 Body temperature 96.8 [degF] Carmen Taye Other [facility] Other 01-12-2023 10:40-0400 Body weight 90.27 kg Carmen Taye Other [facility] Other 01-12-2023 10:40-0400 Diastolic blood pressure 70 mm[Hg] Carmen Taye Other [facility] Other 01-12-2023 10:40-0400 Respiratory rate 16 /min Carmen Taye Other [facility] Other 01-12-2023 10:40-0400 SaO2% (BldA) [Mass fraction] 97 % Carmen Taye Other [facility] Other 01-12-2023 10:40-0400 Systolic blood pressure 120 mm[Hg] Carmen Taye Other [facility] Other 09-10-2022 15:25-0500 Body height 154.94 cm Roxie Meiault Other [facility] Other 09-10-2022 15:25-0500 Body mass index (BMI) [Ratio] 36.56 kg/m2 Roxie Chacon Other [facility] Other 09-10-2022 15:25-0500 Body temperature 98.3 [degF] Roxie Meiault Other [facility] Other 09-10-2022 15:25-0500 Body weight 87.77 kg Roxie Meiault Other [facility] Other 09-10-2022 15:25-0500 Diastolic blood pressure 63 mm[Hg] Roxie Meiault Other [facility] Other 09-10-2022 15:25-0500 Respiratory rate 20 /min Roxie Meiault Other [facility] Other 09-10-2022 15:25-0500 SaO2% (BldA) [Mass fraction] 98 % Roxie Meiault Other [facility] Other 09-10-2022 15:25-0500 Systolic blood pressure 100 mm[Hg] Roxie Meiault Other [facility] Other 06-28-2022 17:20-0500 Body height 154.94 cm Carmen Taye Other [facility] Other 06-28-2022 17:20-0500 Body mass index (BMI) [Ratio] 37.12 kg/m2 Carmen Taye Other [facility] Other 06-28-2022 17:20-0500 Body temperature 97.3 [degF] Carmen Taye Other [facility] Other 06-28-2022 17:20-0500 Body weight 89.13 kg Carmen Taye Other [facility] Other 06-28-2022 17:20-0500 Diastolic blood pressure 74 mm[Hg] Carmen Taye Other [facility] Other 06-28-2022 17:20-0500 Respiratory rate 20 /min Carmen Taye Other [facility] Other 06-28-2022 17:20-0500 SaO2% (BldA) [Mass fraction] 96 % Carmen Taye Other [facility] Other 06-28-2022 17:20-0500 Systolic blood pressure 104 mm[Hg] Carmen Taye Other [facility] Other 06-10-2022 10:00-0400 Body height 154.94 cm Clary Flores Other [facility] Other 06-10-2022 10:00-0400 Body mass index (BMI) [Ratio] 36.84 kg/m2 Clary Flores Other [facility] Other 06-10-2022 10:00-0400 Body temperature 98.1 [degF] Clary Flores Other [facility] Other 06-10-2022 10:00-0400 Body weight 88.45 kg Clary Flores Other [facility] Other 06-10-2022 10:00-0400 Respiratory rate 18 /min Clary Flores Other [facility] Other 06-10-2022 10:00-0400 SaO2% (BldA) [Mass fraction] 98 % Clary Flores Other [facility] Other 12-20-2021 17:20-0400 Body height 154.94 cm Carmen Taye Other [facility] Other 12-20-2021 17:20-0400 Body mass index (BMI) [Ratio] 37.22 kg/m2 Carmen Taye Other [facility] Other 12-20-2021 17:20-0400 Body temperature 97.4 [degF] Carmen Taye Other [facility] Other 12-20-2021 17:20-0400 Body weight 89.36 kg Carmen Taye Other [facility] Other 12-20-2021 17:20-0400 Diastolic blood pressure 64 mm[Hg] Carmen Taye Other [facility] Other 12-20-2021 17:20-0400 Respiratory rate 18 /min Carmen Taye Other [facility] Other 12-20-2021 17:20-0400 SaO2% (BldA) [Mass fraction] 98 % Carmen Taye Other [employer] [facility] [employer] Other 12-20-2021 17:20-0400 Systolic blood pressure 114 mm[Hg] Carmen Taye Other [facility] Other 11-05-2021 13:53-0400 Body temperature 97 [degF] 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 Work Phone: [facility] 08-26-2021 10:20-0500 Diastolic blood pressure 62 mm[Hg] 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 Work Phone: [facility] 08-26-2021 10:20-0500 Heart rate 58 /min 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 Work Phone: [facility] 08-26-2021 10:20-0500 Respiratory rate 16 /min 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 Performed By: #### B LGA1 #### [facility] [id number] [place] [address] 06-05-2019 12:22-0400 Body temperature 37.0 degrees C [facility] Comment on above: Result Comment: NOTE: PATIENT RESULTS AR E NOT CORRECTED FOR TEMPERATURE. Performed By: #### A FPA3 #### [facility] [address] [place] [address] 06-05-2019 11:53-0400 Body temperature 37.0 degrees C [facility] Comment on above: Result Comment: NOTE: PATIENT RESULTS AR E NOT CORRECTED FOR TEMPERATURE. Performed By: #### A FPA3 #### [facility] [address] [place] [address] 06-05-2019 11:22-0400 Body temperature 37.0 degrees C [facility] Comment on above: Result Comment: NOTE: PATIENT RESULTS AR E NOT CORRECTED FOR TEMPERATURE. Performed By: #### A FPA3 #### [facility] [address] [place] [address] Encounters Encounter Date Encounter Type Care Provider Facility Start: 07-24-2024 End: 07-24-2024 Bamboo flowsheet Frannie Laureano [employer] REPAIRER Work Phone: [facility] Start: 07-24-2024 End: 07-24-2024 Bamboo flowsheet Frannie Olivok [employer] CA[employer] REPAIRER Work Phone: [facility] Start: 07-24-2024 End: 07-24-2024 Office outpatient visit 15 minutes Frannie Laureano [employer] REPAIRER Work Phone: [facility] Comment on above: Pelvic pain (Primary Dx); Gitelman disease; Pelvic cramping Start: 06-20-2024 End: 06-21-2024 Telephone encounter Kari Navarrete RN Work Phone: Hematology/Oncology Comment on above: Medication Question Start: 06-18-2024 End: 06-18-2024 Refill Haven Magana MA [facility] Comment on above: Deep vein thrombosis (DVT) of distal vein of lower extremity, unspecified chronicity, unspecified laterality (CMS/HCC) Start: 06-07-2024 ambulatory Shaikh Gumaro Facility: [facility] Start: 05-30-2024 End: 05-30-2024 ambulatory Giuseppe Fair MD Work Phone: Hematology/Oncology Comment on above: Primary hypercoagula ble state (HCC) (Primary Dx); Gitelman syndrome; History of PCOS Start: 05-30-2024 End: 05-30-2024 Patient encounter procedure Giuseppe Fair MD Work Phone: Hematology/Oncology Start: 04-10-2024 End: 04-10-2024 ambulatory SOHA SOUSA Not Available Start: 03-07-2024 End: 03-07-2024 ambulatory MD Carmen Kothari Work Phone: [facility] Work Phone: Start: 03-07-2024 End: 03-07-2024 Patient encounter procedure MD Carmen Kothari Work Phone: [facility] [place] Work Phone: Start: 03-03-2024 End: 03-05-2024 Evaluation and management of inpatient MD Carmen Kothari Work Phone: [facility] [place] [facility] Work Phone: Start: 03-02-2024 End: 03-02-2024 Patient encounter procedure MD Carmen Kothari Work Phone: [facility] [place] Work Phone: Start: 03-02-2024 End: 03-02-2024 ambulatory MD Carmen Kothari Work Phone: [facility] Work Phone: Start: 02-29-2024 End: 04-17-2024 Pre-admission assessment Orlando DUVAL [facility] Start: 02-27-2024 End: 02-27-2024 ambulatory ILDA CANNON Facility:[facility] Start: 02-27-2024 End: 02-27-2024 Lab Drop off ILDA CANNON [facility] Start: 02-27-2024 End: 02-27-2024 ambulatory ILDA CANNON [place] [place] Start: 02-27-2024 End: 02-27-2024 Patient encounter procedure ILDA CANNON [facility] Start: 02-01-2024 End: 02-01-2024 ambulatory MD Carmen Kothari Work Phone: [facility] Work Phone: Start: 02-01-2024 End: 02-01-2024 Patient encounter procedure MD Carmen Kothari Work Phone: [facility] [place] Work Phone: Start: 01-18-2024 Registered Recurring MD Carmen Kothari Work Phone: [facility]Infusion Therapy - [facility] Work Phone: Start: 10-27-2023 ambulatory ILDA CANNON Facility :[facility] [place] Start: 10-12-2023 End: 10-12-2023 ambulatory RAMOS MAHONEY Not Available Start: 08-21-2023 End: 08-21-2023 ambulatory SHAIKH GUMARO Not Available Start: 08-11-2023 End: 08-11-2023 Departed Referred CARIDAD Costa Work Phone: [facility] [place] Work Phone: Start: 08-11-2023 End: 08-11-2023 ambulatory 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 ASSEMBLER Aissatou Costa Work Phone: [facility] Other Start: 08-11-2023 Office outpatient vi sit 15 minutes Miriam Fabian 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 Aissatou Costa Work Phone: [facility] Work Phone: Start: 05-03-2023 Telephone encounter Britt Reyes Hematology/Oncology Comment on above: Patient Update Start: 04-30-2023 End: 05-02-2023 Evaluation and management of inpatient 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 ASSEMBLER Aissatou Costa Work Phone: [facility] [place] [facility] Work Phone: Start: 04-11-2023 Registered Recurring 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 ASSEMBLERAmy Costa Work Phone: [facility] Work Phone: Start: 02-13-2023 Telephone encounter Britt Reyes Hematology/Oncology Comment on above: Patient Question Start: 01-12-2023 End: 01-12-2023 ambulatory Carmen Taye Other [facility] Other Start: 01-12-2023 Office outpatient vi sit 15 minutes Carmen Taye [facility] [place] Start: 10-14-2022 End: 10-15-2022 ambulatory MR REJI MCGRAW . Facility:[facility] Start: 09-26-2022 End: 09-26-[address] RAMOS MAHONEY . Facility:[facility] Start: 09-20-2022 End: 09-20-2022 ambulatory Carmen Taye Other [facility] Other Start: 09-20-2022 Telephone encounter Carmen Taye [facility] Start: 09-16-2022 End: 09-17-[address] RAMOS MAHONEY . 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 Work Phone: [facility] [place] Work Phone: Start: 09-10-2022 End: 09-10-2022 ambulatory 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 ASSEMBLER Aissatou A Igor Work Phone: [facility] Work Phone: Start: 09-10-2022 Office outpatient vi sit 15 minutes Roxie Chacon [facility] [place] Start: 08-29-2022 Registered Recurring 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 Work Phone: [facility] Work Phone: Start: 08-02-2022 End: 08-02-2022 ambulatory SHAIKH Danielle NAIK Facility: Start: 06-28-2022 End: 06-28-2022 ambulatory Carmen Taye Other [facility] Other Start: 06-28-2022 Office outpatient vi sit 15 minutes Carmen Taye [facility] Start: 06-10-2022 End: 06-10-2022 ambulatory Clary Flores Other [facility] Other Start: 06-10-2022 Office outpatient vi sit 25 minutes Clary Sandra [facility] [place] Start: 04-13-2022 Telephone encounter Giuseppe parmar MD Work Phone: Hematology/Oncology Comment on above: Lab Orders Start: 02-22-2022 End: 02-22-2022 ambulatory RAMOS MAHONEY Facility:[facility] Start: 02-01-2022 ambulatory Aissatou A Igor Facility:[facility] Start: 01-26-2022 End: 01-26-2022 ambulatory Carmen Taye Other [facility] Other Start: 01-26-2022 Telephone encounter Carmen Taye [facility] Start: 01-24-2022 End: 01-24-2022 ambulatory Carmen Taye Other [facility] Other Start: 01-24-2022 Telephone encounter Carmen Taye [facility] Start: 12-20-2021 End: 12-20-2021 ambulatory Carmen Taye Other [facility] Other Start: 12-20-2021 Office outpatient vi sit 15 minutes Carmen Taye [facility] Start: 11-23-2021 End: 11-24-[address] RAMOS MAHONEY . Facility: Start: 11-17-2021 End: 11-17-2021 ambulatory Aissatou A Igor Facility:[facility] Start: 11-16-2021 Telephone encounter Shawanda Calderón RN Hematology/Oncology Comment on above: Orders Start: 10-01-2021 End: 10-08-2021 ambulatory Aissatou A Igor Facility:[facility] Start: 08-26-2021 ambulatory Aissatou A Igor [employer] REPAIRER-C Facil ity:[facility] Start: 08-18-2021 End: 08-18-2021 ambulatory Aissatou A Igor [employer] CASTER REPAIRER-C Facility:[facility] Start: 08-17-2021 End: 08-17-2021 ambulatory Aissatou A Igor WHE[employer] AND CASTER REPAIRER-C Facility:[facility] Start: 07-22-2021 End: 07-22-2021 ambulatory Aissatou A Igor WHE[employer] AND CASTER REPAIRER-C Facility:[facility] Start: 06-30-2021 End: 06-30-2021 ambulatory Aissatou A Igor WHE[employer] AND CASTER REPAIRER-C Facility:[facility] Start: 09-06-2018 Patient encounter procedure PROVIDER UNKNOWN Facility:[id number] Start: 02-21-2018 End: 02-22-2018 Evaluation and management of inpatient BRIGITTE JULIO Facility:[facility] Start: 10-27-2017 End: 10-28-2017 Patient encounter DA FINLEY Facility:[facility] Start: 09-12-2017 End: 09-13-2017 Patient encounter MIK QUACH Facility:[facility] Procedures Date Procedure Procedure Detail Performing Clinician Start: 03-04-2024 Duplex scan of lower limb veins MD Carmen Kothari Work Phone: Start: 03-02-2024 Diagnostic radiography of abdomen MD Carmen Kothari Work Phone: Start: 03-02-2024 Ultrasonography of bilateral kidneys MD Carmen Kothari Work Phone: Start: 08-10-2023 H/O: hysterectomy History of hysterectomy Haven Chino UMANZ[facility] Start: 04-30-2023 SARS-CoV-2, Influenza & RSV (PCR) 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 ASSEMBLER Aissatou Costa Work Phone: Start: 09-10-2022 X-ray of right ankle 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 Work Phone: Start: 09-10-2022 X-ray of right foot 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 Work Phone: Start: 03-08-2022 Adult depression screening assessment Shaikh Gumaro GIRARD Work Phone: Start: 04-27-2021 Adult depression screening assessment Shawanda Calderón RN Start: 08-14-1992 History of reimplantation of ureter ILDATARA CANNON Hysterectomy ILDA CANNON Ligation of fallopian tube J AREN CANNON Myringotomy and inse rtion of tympanic ventilation tube ILDA CANNON Procedure on mandible YINA CANNON Plan of Treatment Date Care Activity Detail Author Start: 01-23-2025 End: 01-23-2025 Patient encounter procedure 01/23/2025 9:30 AM EDT Office Visit [facility] [address] [place] [address] Frannie Laureano NP [address] [place] [address] [facility] Start: 10-15-2024 End: 10-15-2024 Patient encounter procedure 10/15/2024 10:00 AM EST Office Visit [facility] [address] [place] [id number] Ramos Mahoney DO [address] [place] [address] [facility] Start: 08-05-2024 End: 08-05-2024 Patient encounter procedure 08/05/2024 2:00 PM EST Office Visit [facility] [place] [address] [place] [address] Soha Sousa NP [address] [place], [place] [facility] [place] [address] [facility] Start: 07-24-2024 End: 07-24-2025 US Pelvis US Pelvis w/ TV Imaging Routine Pelvic pain Pelvic cramping Expected: 07/24/2024, Expires: 07/24/2025 [facility] Work Phone: Comment on above: Expected: 07/24/2024 , Expires: 07/24/2025 Start: 07-24-2024 End: 07-24-2024 Patient encounter procedure 07/24/2024 1:30 PM EST Office Visit [facility] [address] [place] [phone] Frannie Laureano, DOYLE [address] [place] [phone] Arrived [facility] Comment on above: Arrived Start: 07-04-2024 End: 07-04-2024 Patient encounter procedure 07/04/2024 10:30 AM EST Office Visit [facility] [address] [place] [phone] Frannie Laureano, WHE[employer] AND CASTER REPAIRER [address] [place] [address] [facility] Start: 07-03-2024 End: 07-03-2024 Patient encounter procedure 07/03/2024 10:00 AM EST Office Visit [facility] [address] [place] [address] Soha Sousa, DO[place] [address] [place], [place] [facility] [address] Start: 04-14-2024 Covid-19 Vaccine () Covid-19 Vaccine () [facility] Start: 04-14-2024 Influenza vaccination Influenza Vacc ine (#1) [facility] Start: 03-05-2024 [facility] Start: 03-04-2024 [facility] Start: 03-03-2024 End: 03-03-2024 [facility] Start: 03-03-2024 Hospital admission [facility] Start: 08-11-2023 End: 08-11-2024 Bacteria identified in Urine by Culture [employer] Work Phone: Comment on above: Expected: 08/11/2023 , Expires: 08/11/2024 Start: 08-11-2023 End: 08-11-2024 Glucose dipstick, urine Glucose dipstick, urine Lab Routine Unspecified symptoms and signs involving the genitourinary system Expected: 08/11/2023, Expires: 08/11/2024 [employer] Work Phone: Comment on above: Expected: 08/11/2023 , Expires: 08/11/2024 Start: 05-18-2023 Adult BMI Screening Adult BMI Screen ing [employer] Start: 05-02-2023 [facility] Start: 05-01-2023 Referral to spool salvager [facility] Start: 04-30-2023 Hospital admission [facility] Start: 04-14-2023 COVID-19 Vaccine ( season) COVID-19 Vaccine () [facility] Start: 04-14-2023 Influ[facility] Start: 03-20-2023 Tobacco Screening Tobacco Screening [facility] Start: 03-08-2023 Depression Screening Depression Scre ening [facility] Start: 02-13-2023 End: 04-15-2023 CBC W Auto Differential panel - Blood CBC + DIFF Lab Routine Recurrent deep vein thrombosis (DVT) ([facility]) Expected: 02/13/2023, Expires: 04/15/2023 [facility] Work Phone: Comment on above: Expected: 02/13/2023 , Expires: 04/15/2023 Start: 02-13-2023 End: 04-15-2023 Comprehensive metabolic 2000 panel - Serum or Plasma COMP METABOLIC PANEL Lab Routine Recurrent deep vein thrombosis (DVT) ([facility]) Expected: 02/13/2023, Expires: 04/15/2023 [facility] Work Phone: Comment on above: Expected: 02/13/2023 , Expires: 04/15/2023 Start: 08-14-2022 DEPRESSION ASSESSMENT DEPRESSION ASS ESSMENT [facility] Start: 04-27-2022 Adult depression scr eening assessment DEPRESSION SCREENING [facility] Start: 04-14-2022 Influenza vaccination C [facility] Start: 2021 HPV TESTING HPV TESTING [facility] Start: 06-10-2021 COVID-19 VACCINE (3 - Booster for Pfizer series) COVID-19 VACCINE (3 - Booster for Pfizer series) [facility] Start: 03-05-2021 COVID-19 VACCINE (3 - Booster for Pfizer series) COVID-19 VACCINE (3 - Booster for Pfizer series) [facility] Start: 03-05-2021 Covid-19 Vaccine (3 - Pfizer series) Covid-19 Vaccine (3 - Pfizer series) [facility] Start: 08-14-2016 DTaP,Tdap and Td Vac cines (2 - Td or Tdap) DTaP,Tdap and Td Vaccines (2 - Td or Tdap) [facility] Start: 08-14-2016 Urine microalbumin profile DTa P,Tdap,Td Vaccine (2 - Td or Tdap) [facility] Start: 2012 PAP TESTING PAP TESTING [facility] Start: 2012 Screening for malign ant neoplasm of cervix Cervical Cancer Screening [facility] Start: 2010 Hepatitis B Vaccine (1 of 3 - 19+ 3-dose series) Hepatitis B Vaccine (1 of 3 - 19+ 3-dose series) [facility] Start: 2010 Urine microalbumin profile [facility] Start: 2009 Anxiety Screening Anxiety Screening [facility] Start: 2009 Depression Screening Depression Scre ening [facility] Start: 2009 HEPATITIS C SCREENING HEPATITIS C [facility] Start: 2009 Hepatitis C screening Hepatitis C [facility] Start: 2009 HIV SCREENING HIV SCREENING [facility] [facility] Start: 2009 HIV screening HIV Screening [facility] Start: 1991 HEPATITIS B (1 of 3 - 3-dose series) HEPATITIS B (1 of 3 - 3-dose series) [facility] Start: 1991 Hepatitis B Vaccine (1 of 3 - 3-dose series) Hepatitis B Vaccine (1 of 3 - 3-dose series) [facility] Patient Education [facility] Work Phone: Patient referral [facility] Work Phone: Renal function 2000 panel - Serum or Plasma [facility] Immunizations Immunization Date Immunization Notes Care Provider Kriss childress 06-24-2021 influenza, injectabl e, quadrivalent, preservative free CARIDAD Costa Work Phone: [facility] 06-24-2021 influenza virus vaccine, unspecified formulation Britt Swanson RN [facility] 01-08-2021 COVID-19 Vaccine Pfi zer - Documentation Purposes Only Clary Flores Other [facility] 12-13-2020 COVID-19 Vaccine Pfi zer - Documentation Purposes Only Calry Flores Other [facility] 08-26-2020 influenza, injectabl e, quadrivalent, preservative free Shawanda Calderón RN [facility] 08-26-2020 influenza virus vaccine, unspecified formulation Shaikh Gumaro GIRARD Work Phone: [facility] 07-08-2019 influenza, injectabl e, quadrivalent, preservative free Shawanda Calderón RN [facility] 07-26-2018 influenza, injectabl e, quadrivalent, preservative free Shawanda Calderón RN [facility] 06-01-2010 influenza virus vaccine, whole virus Shawanda Calderón RN [facility] 06-01-2010 seasonal influenza, intradermal, preservative free Giuseppe Fair MD Work Phone: [facility] 08-14-2006 tetanus toxoid, redu mackenzie diphtheria toxoid, and acellular pertussis vaccine, adsorbed Giuseppe Fair MD Work Phone: [facility] Payers Date Payer Category Payer Self-pay [id number] 2021 Unknown [id number] 2021 Medicaid [employer] [id number] 2021-Present [phone] [address] [place] [address] Medicaid [id number] 2021 Medicaid [id number] [id number] 2019 Unknown [id number] 2019 Medicaid [id number] 1991 Unknown [id number] 2.16.840.1.496070.3.579.2.355 1991 Unknown [id number] 2.16.840.1.772499.3.579.2.593 1991 Unknown [id number] 2.16.840.1.754121.3.579.2.593 1991 Unknown [id number] 2.16.840.1.998443.3.579.2.593 1991 Unknown [id number] 2.16.840.1.370024.3.579.2.593 1991 Unknown [id number] 2.16.840.1.735314.3.579.2.593 1991 Unknown [id number] 2.16.840.1.134255.3.579.2.718 1991 Unknown [id number] 2.16.840.1.212446.3.579.2.718 1991 Unknown [id number] 2.16.840.1.611176.3.579.2.71 1991 Unknown [id number] 2.16.840.1.592178.3.579.2.718 1991 Unknown [id number] 2.16.840.1.043605.3.579.2.718 1991 Unknown [id number] 2.16.840.1.558287.3.579.2.718 1991 Unknown [id number] 2.16.840.1.637971.3.579.2.718 1991 Unknown [id number] 2.16.840.1.829870.3.579.2.718 1991 Unknown [id number] 2.16.840.1.828836.3.579.2.718 1991 Unknown [id number] 2.16.840.1.785612.3.579.2.718 1991 Unknown [id number] 2.16.840.1.519294.3.579.2.727 1991 Unknown [id number] 2.16.840.1.317867.3.579.2.727 1991 Unknown [id number] 2.16.840.1.769433.3.579.2.1259 1991 Unknown [id number] 2.16.840.1.107286.3.579.2.1259 1991 Unknown [id number] 2.16.840.1.268144.3.579.2.1259 1959 Unknown [id number] Unknown Tara BC/BS [id number] Unknown [id number] 2.16.840.1.573087.3.579.2.531 Unknown [id number] 2.16.840.1.484168.3.579.2.531 Unknown [id number] 2.16.840.1.428036.3.579.2.531 Unknown [id number] 2.16.840.1.898635.3.579.2.531 Social History Date Type Detail Facility Start: 04-12-2018 End: 08-21-2023 Tobacco smoking status NHIS Ex-smoker [facility] End: 04-10-2018 History of tobacco use Current smoker [facility] Start: 04-12-2018 End: 08-21-2023 Tobacco use and exposure Smokeless tobacco non-user [facility] Start: 04-27-2021 End: 07-24-2024 Alcohol intake Current drinker of alcohol (finding) [facility] Start: 1990 Sex Assigned At Not on file [facility] Start: 04-10-2023 End: 08-10-2023 Sex Assigned At [facility] End: 04-10-2018 History of tobacco use Cigarette Smoker [facility] Start: 04-12-2018 End: 08-10-2023 Cigarette pack-years [facility] Start: 1990 Sex Assigned At Female [facility] Adult Depression Screening Assessment 0 [facility] Do you belong to any clubs or organizations such as yazidi groups, unions, fraternal or athletic groups, or school groups? No [facility] Are you now , , , , never or living with a partner? Living with partner [facility] How often to you hav e a drink containing alcohol? Monthly or less [facility] How many standard dr inks containing alcohol do you have on a typical day? 3 or 4 [facility] How often do you hav e 6 or more drinks on 1 occasion? Less than monthly [facility] Do you feel stress - tense, restless, nervous, or anxious, or unable to sleep at night because your mind is troubled all the time - these days [OSQ] Only a little [facility] Start: 03-08-2022 Education 21 [facility] Start: 07-03-2019 Tobacco Comment quit in 05/01 [facility] Start: 09-10-2020 Alcohol Comment occassionally [facility] Start: 01-25-2022 Gender identity Identifies as female gender (finding) [facility] Start: 03-03-2024 Tobacco smoking status NHIS Never smoked tobacco (finding) [facility] (I/We) worried wheth er (my/our) food would run out before (I/we) got money to buy more. Never true [facility] Start: 08-21-2023 Alcohol Comment caffeine: soda daily [facility] Medical Equipment Procedure Code Equipment Code Equipment Origin al Text Equipment Identifier Dates Insertion of central venous catheter (CVC) with subcutaneous port for chemotherapy INFUSAPORT POWER PORT 8FR FDA Start: 05-01-2019 Insertion of central venous catheter (CVC) with subcutaneous port for chemotherapy INFUSAPORT POWER PORT 8FR FDA Start: 05-01-2019 Insertion of central venous catheter (CVC) with subcutaneous port for chemotherapy INFUSAPORT POWER PORT 8FR FDA Start: 05-01-2019 Insertion of central venous catheter (CVC) with subcutaneous port for chemotherapy INFUSAPORT POWER PORT 8FR FDA Start: 05-01-2019 Insertion of central venous catheter (CVC) with subcutaneous port for chemotherapy INFUSAPORT POWER PORT 8FR FDA Start: 05-01-2019 Insertion of central venous catheter (CVC) with subcutaneous port for chemotherapy INFUSAPORT POWER PORT 8FR FDA Start: 05-01-2019 Insertion of central venous catheter (CVC) with subcutaneous port for chemotherapy INFUSAPORT POWER PORT 8FR FDA Start: 05-01-2019 Insertion of central venous catheter (CVC) with subcutaneous port for chemotherapy INFUSAPORT POWER PORT 8FR FDA Start: 05-01-2019 Insertion of central venous catheter (CVC) with subcutaneous port for chemotherapy INFUSAPORT POWER PORT 8FR FDA Start: 05-01-2019 Goals Date Patient Goal Desired Activity /State Functional Status Date Assessment Result Facility 03-05-2024 Functional status Patient at Baseline [facility] Work Phone: 03-03-2024 Functional status Patient at Baseline [facility] Work Phone: 02-27-2024 Functional Status N/A [facility] 05-02-2023 Functional status Patient at Baseline [facility] Work Phone: Mental Status Date Assessment Result Facility 03-05-2024 Cognitive function Cognitive Sta tus Patient at Baseline [facility] Work Phone: 03-03-2024 Cognitive function Cognitive Sta tus Patient at Baseline [facility] Work Phone: 05-02-2023 Cognitive function Cognitive Sta tus Patient at Baseline [facility] Work Phone: Clinical Notes 11-17-2021 to 07-24-2024 Frannie Laureano NP - 07/24/2024 1:45 PM Elaine Laureano NP - 07/24/2024 1:33 PM Elaine Laureano NP - 07/24/2024 1:30 PM ESTPatient Instructions Note Date & Type Note Facility 07-24-2024 History of Presen t illness Narrative Associated Problem(s): Pelvic cramping Pelvic cramping ongoing for 2 weeks Intermittent, takes her breath away Denies: Changes in urination/bowel habits Blood in urine/blood in stool Burning Back pain Abdominal pain Partial hysterectomy in 2021 Will order Pelvic US with transvaginal Advised pt to update [employer] as well. Severe abdominal/pelvis pain, blood in urine or stool, dizziness GO TO ER! Pt verbalized understanding Associated Problem(s): Gitelman disease Follows closely with Nephrology- On amiloride. Potassium and magnesium. Continue current regimen. Images from the original note were not included. Subjective Patient ID: Domenic Ngo is a 33 y.o. female who presents for Follow-up. HPI Specialists: Nephrology-Dr. Kothari Neurology- Dr. Lerner Oral maxofacial surgery- Dr. Leon Heme/Onc- Dr. Fair Pelvic cramping ongoing for 2 weeks Intermittent, takes her breath away Denies: Changes in urination/bowel habits Blood in urine/blood in stool Burning Back pain Abdominal pain Vaginal pain Vaginal discharge Partial hysterectomy in 2021 Will order Pelvic US with transvaginal Advised pt to update [employer] Review of Systems Constitutional: Negative for activity change, appetite change, chills, diaphoresis, fatigue, fever and unexpected weight change. HENT: Negative for congestion, ear pain, rhinorrhea, sinus pressure, sinus pain, sneezing, sore throat, trouble swallowing and voice change. Eyes: Negative for visual disturbance. Respiratory: Negative for cough, chest tightness, shortness of breath and wheezing. Cardiovascular: Negative for chest pain, palpitations and leg swelling. Gastrointestinal: Negative for abdominal distention, abdominal pain, blood in stool, constipation, diarrhea and vomiting. Genitourinary: Positive for pelvic pain. Negative for decreased urine volume, dysuria, flank pain, frequency, hematuria and urgency. Musculoskeletal: Negative for arthralgias, gait problem, joint swelling and myalgias. Skin: Negative for rash. Neurological: Negative for dizziness, tremors, syncope, weakness, light-headedness and headaches. Psychiatric/Behavioral: Negative for decreased concentration and suicidal ideas. The patient is not nervous/anxious. Hematological: Does not bruise/bleed easily. Endocrine: Negative for cold intolerance, heat intolerance, polydipsia, polyphagia and polyuria. Objective Physical Exam Vitals reviewed. Constitutional: Appearance: Normal appearance. HENT: Right Ear: Tympanic membrane normal. Left Ear: Tympanic membrane normal. Nose: Nose normal. Mouth/Throat: Mouth: Mucous membranes are moist. Pharynx: Oropharynx is clear. Eyes: Pupils: Pupils are equal, round, and reactive to light. Cardiovascular: Rate and Rhythm: Normal rate and regular rhythm. Pulses: Normal pulses. Heart sounds: Normal heart sounds. Pulmonary: Effort: Pulmonary effort is normal. Breath sounds: Normal breath sounds. Abdominal: General: Abdomen is flat. Bowel sounds are normal. Palpations: Abdomen is soft. Tenderness: There is abdominal tenderness in the suprapubic area. Skin: Capillary Refill: Capillary refill takes less than 2 seconds. Neurological: Mental Status: She is alert and oriented to person, place, and time. 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 Potassium and magnesium. Continue current regimen. Pelvic cramping - Primary Pelvic cramping ongoing for 2 weeks Intermittent, takes her breath away Denies: Changes in urination/bowel habits Blood in urine/blood in stool Burning Back pain Abdominal pain Partial hysterectomy in 2021 Will order Pelvic US with transvaginal Advised pt to update [employer] as well. Severe abdominal/pelvis pain, blood in urine or stool, dizziness GO TO ER! Pt verbalized understanding Relevant Orders US Pelvis w/ TV documented in this encounter [facility] 07-24-2024 Instructions Frannie Laureano NP - 07/24/2024 1:30 PM EST Please have ultrasound done. Call Dr. Mahoney's office to update them on this. Severe abdominal/pelvis pain, blood in urine or stool, dizziness GO TO ER! documented in this encounter [facility] 06-21-2024 Telephone encounter Note Left a VM for patient that script was refilled and sent to in [place] and left call back number if she has any questions or concerns. Bebo Martinez RN [facility] 06-21-2024 Miscellaneous Notes Left a VM for patient that script was refilled and sent to in [place] and left call back number if she has any questions or concerns. Bebo Martinez RN Pt calls asking if Dr Fair will prescribe her Xarelto for one more month. Pt states she has a follow up appointment with her PCP in 3 weeks, and their office will not fill until they see her, and pt will be out of medication in a few days. Script pending if you agree. Pt does not want this to go to [facility] where her previous script went. Thanks Kari Navarrete RN documented in this encounter [facility] 06-20-2024 Telephone encounter Note Pt calls asking if Dr Fair will prescribe her Xarelto for one more month. Pt states she has a follow up appointment with her PCP in 3 weeks, and their office will not fill until they see her, and pt will be out of medication in a few days. Script pending if you agree. Pt does not want this to go to [facility] where her previous script went. Thanks Kari Navarrete RN [facility] Work Phone: 06-18-2024 Telephone encounter Note TORI:08/23/2023 NOV:07/04/2024 [facility] 06-18-2024 Miscellaneous Notes TORI:08/23/2023 NOV:07/04/2024 documented in this encounter [facility] 05-29-2024 Note HNO ID: [id number] Author: GIUSEPPE FAIR MD Service: ? Author Type: Physician Type: Progress Notes Filed: 05/31/2024 06:32 Note Text: PATIENT NAME: Domenic Ngo DATE: 05/30/2024 Portions of this encounter note have been copied from the note from 04/10/2023 and has been updated where appropriate, and reflect my current medical decision making from today. PRIMARY CARE PHYSICIAN: Dr. Shaikh Naik OTHER PHYSICIANS: Dr. Lerner, Dr. Kothari CC: This is a 33 year old female with a history of recurrent DVT, seen for scheduled follow-up. (prior patient of Dr. Taylor). INTERIM HISTORY: Since the patient's last visit here she has had no significant medical changes. She remains on anticoagulation with Xarelto 20 mg daily. She has occasional mild bruising, but no atypical bleeding. No evidence of recurrent thromboembolic disease. On follow-up today she feels well with no particular complaints. MEDICATIONS: NURTEC ODT 75 mg disintegrating tablet DISSOLVE ONE TABLET BY MOUTH AT ONSET OF MIGRAINES potassium chloride ER (K-DUR, KLOR-CON) 20 mEq tablet XARELTO 20 mg tablet TAKE 1 TABLET BY MOUTH ONCE DAILY WITH DINNER magnesium oxide 400 mg cap Take 400 mg by mouth once daily. 2 tabs 3 times a day aMILoride (MIDAMOR) 5 mg tablet Take 5 mg by mouth three times daily as needed. 2 tabs twice daily ALLERGIES: Adhesive Tape (Rosins) and Desonide PAST MEDICAL HISTORY: PAST MEDICAL HISTORY Diagnosis Date Antithrombin 3 deficiency (HCC) MTHFR gene mutation PAST SURGICAL HISTORY: PAST SURGICAL HISTORY Procedure Laterality Date HYSTERECTOMY S BALLOON,UTERINE ABLATION [id number]/2018 TUBAL LIGATION 2014 REVIEW OF SYSTEMS: General: No weight loss, malaise or fevers. HEENT: Negative for frequent or significant headaches, No changes in hearing or vision, no nose bleeds or other nasal problems. Respiratory: Negative for cough, wheezing or shortness of breath. Cardiovascular: Negative for chest pain, leg swelling or palpitations. GI: Negative for abdominal discomfort, blood in stools or black stools or change in bowel habits. : No history of dysuria, frequency or incontinence. Musculoskeletal: Negative for: joint pain or swelling, back pain and muscle pain. Skin: Negative for lesions, rash and itching. Hematology/Lymphology: Negative for prolonged bleeding, bruising easily or swollen nodes. Neuro: No history of headaches, syncope, paralysis, seizures or tremors. PHYSICAL EXAM: Vitals: BP 106/75 Pulse 66 Temp 36.5 ?C (97.7 ?F) (Temporal) Resp 16 Ht 154.9 cm (5' 0.98 ) Wt 90.8 kg (200 lb 2.8 oz) LMP 10/18/2007 SpO2 97% BMI 37.84 kg/m? Exam limited to gross visualization where appropriate due to COVID-19. Gen.: This is an age-appropriate patient in no acute distress. Head: Appears atraumatic with no visible lesions. Eyes: Pupils equally round and reactive to light, extraocular muscles are intact. Neck: Supple. Mouth: Mucous membranes appeared to be moist. Respiratory: Appears to be respiring comfortably. Neurologic: Nonfocal to gross visualization. Alert and oriented ?3. Psychiatric: No evidence of inappropriate anxiety or depression. Skin: Visible areas of skin without rash, lesions, wounds or petechiae. ASSESSMENT/PLAN: 1. Primary hypercoagulable state (HCC) - ICD9: 289.81, ICD10: D68.59 (primary diagnosis) Initial DVT of the left lower extremity diagnosed May 2014, thought to be induced by ongoing at the time. The patient was treated with Lovenox ? 6 months with resolution of symptoms. Hypercoagulable workup February 2015 revealed a heterozygous MTHFR mutation, otherwise unremarkable. She was diagnosed with a recurrent left lower extremity DVT in March 2018, apparently unprovoked. At the time of her second DVT the patient was started on anticoagulation with Xarelto, with plans to take indefinitely. At this time she remains clinically stable. Options for management were discussed at length with the patient and her fiance. As previously discussed she will continue as is with Xarelto, with plans to take indefinitely. However, I did mention that she consider decreasing the dosage if severe bruising persists. Per patient request she will now follow-up with her PCP for further management. We did not schedule a return visit here, but would be happy to see her in the future if we can be of assistance. 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 Continue management per nephrology (Dr. Kothari) 3. History of PCOS - ICD9: V13.29, ICD10: Z87.42 The patient has a long history of menorrhagia with secondary iron deficiency anemia. Status post hysterectomy February 2022. Currently no gynecologic symptoms. Continue management per gynecology as indicated. Giuseppe Fair MD [facility] 05-29-2024 History of Presen t illness Narrative PATIENT NAME: Domenic Ngo DATE: 05/30/2024 Portions of this encounter note have been copied from the note from 04/10/2023 and has been updated where appropriate, and reflect my current medical decision making from today. PRIMARY CARE PHYSICIAN: Dr. Shaikh Naik OTHER PHYSICIANS: Dr. Lerner, Dr. Kothari CC: This is a 33 year old female with a history of recurrent DVT, seen for scheduled follow-up. (prior patient of Dr. Taylor). INTERIM HISTORY: Since the patient's last visit here she has had no significant medical changes. She remains on anticoagulation with Xarelto 20 mg daily. She has occasional mild bruising, but no atypical bleeding. No evidence of recurrent thromboembolic disease. On follow-up today she feels well with no particular complaints. MEDICATIONS: NURTEC ODT 75 mg disintegrating tablet DISSOLVE ONE TABLET BY MOUTH AT ONSET OF MIGRAINES potassium chloride ER (K-DUR, KLOR-CON) 20 mEq tablet XARELTO 20 mg tablet TAKE 1 TABLET BY MOUTH ONCE DAILY WITH DINNER magnesium oxide 400 mg cap Take 400 mg by mouth once daily. 2 tabs 3 times a day aMILoride (MIDAMOR) 5 mg tablet Take 5 mg by mouth three times daily as needed. 2 tabs twice daily ALLERGIES: Adhesive Tape (Rosins) and Desonide PAST MEDICAL HISTORY: PAST MEDICAL HISTORY Diagnosis Date Antithrombin 3 deficiency (HCC) MTHFR gene mutation PAST SURGICAL HISTORY: PAST SURGICAL HISTORY Procedure Laterality Date HYSTERECTOMY S BALLOON,UTERINE ABLATION 73021 01/2018 TUBAL LIGATION 2014 REVIEW OF SYSTEMS: General: No weight loss, malaise or fevers. HEENT: Negative for frequent or significant headaches, No changes in hearing or vision, no nose bleeds or other nasal problems. Respiratory: Negative for cough, wheezing or shortness of breath. Cardiovascular: Negative for chest pain, leg swelling or palpitations. GI: Negative for abdominal discomfort, blood in stools or black stools or change in bowel habits. : No history of dysuria, frequency or incontinence. Musculoskeletal: Negative for: joint pain or swelling, back pain and muscle pain. Skin: Negative for lesions, rash and itching. Hematology/Lymphology: Negative for prolonged bleeding, bruising easily or swollen nodes. Neuro: No history of headaches, syncope, paralysis, seizures or tremors. PHYSICAL EXAM: Vitals: BP 106/75 Pulse 66 Temp 36.5 C (97.7 F) (Temporal) Resp 16 Ht 154.9 cm (5' 0.98 ) Wt 90.8 kg (200 lb 2.8 oz) LMP 10/18/2007 SpO2 97% BMI 37.84 kg/m Exam limited to gross visualization where appropriate due to COVID-19. Gen.: This is an age-appropriate patient in no acute distress. Head: Appears atraumatic with no visible lesions. Eyes: Pupils equally round and reactive to light, extraocular muscles are intact. Neck: Supple. Mouth: Mucous membranes appeared to be moist. Respiratory: Appears to be respiring comfortably. Neurologic: Nonfocal to gross visualization. Alert and oriented 3. Psychiatric: No evidence of inappropriate anxiety or depression. Skin: Visible areas of skin without rash, lesions, wounds or petechiae. ASSESSMENT/PLAN: 1. Primary hypercoagulable state (HCC) - ICD9: 289.81, ICD10: D68.59 (primary diagnosis) Initial DVT of the left lower extremity diagnosed May 2014, thought to be induced by ongoing at the time. The patient was treated with Lovenox 6 months with resolution of symptoms. Hypercoagulable workup February 2015 revealed a heterozygous MTHFR mutation, otherwise unremarkable. She was diagnosed with a recurrent left lower extremity DVT in March 2018, apparently unprovoked. At the time of her second DVT the patient was started on anticoagulation with Xarelto, with plans to take indefinitely. At this time she remains clinically stable. Options for management were discussed at length with the patient and her fianc . As previously discussed she will continue as is with Xarelto, with plans to take indefinitely. However, I did mention that she consider decreasing the dosage if severe bruising persists. Per patient request she will now follow-up with her PCP for further management. We did not schedule a return visit here, but would be happy to see her in the future if we can be of assistance. 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 Continue management per nephrology (Dr. Kothari) 3. History of PCOS - ICD9: V13.29, ICD10: Z87.42 The patient has a long history of menorrhagia with secondary iron deficiency anemia. Status post hysterectomy February 2022. Currently no gynecologic symptoms. Continue management per gynecology as indicated. Giuseppe Fair MD documented in this encounter [facility] 03-04-2024 Progress note Note Date/Time March 04, 2024 9:18am [facility] [address] [place] [address] Hospitalist Progress Note Signed Patient: Domenic Ngo MR#: [id number] : 1990 Acct:[id number] Age/Sex: 33 / F Adm Date: 4 Loc: Room: [address] [place] [address] Type: ADM IN Attending Dr: Jean Claude Olsen MD Copies to: ~ Date of Service: 03/04/2024 Subjective Subjective Narrative: On examination patient complaining of leg cramps and calf muscle tenderness in both legs. She is concerned about DVT given her history. She is on Xarelto butdue to concern with her nausea and vomiting with possibility of not throwing up Xarelto will obtain venous duplex. Potassium and magnesium levels have improved. Exam Physical Exam Vital Signs: Temp Pulse Resp BP Pulse Ox O2 Del Method 97.5 F L 60 20 95/63 L 96 Room Air 03/04/24 08:06 03/04/24 08:06 03/04/24 08:06 03/04/24 08:06 03/04/24 08:06 03/04/24 08:06 Const Orientation: alert, awake and oriented x3 Resp Effort & Inspection: normal respiratory effort and able to speak in complete sentences Auscultation: no rales, no rhonchi and no wheezes Cardio Rate: regular rate Rhythm: regular rhythm Heart Sounds: S1 normal and S2 normal GI Palpation: soft, not firm, no guarding and nontender Neuro General: patient alert, patient awake, moves all extremities, no focal motor deficits and CN's II-XI intact bilaterally Cognition: normal cognition Speech: speech normal Motor: muscle tone normal throughout and strength 5/5 throughout Sensory Exam: no sensory deficits noted Extrem General: no clubbing, cyanosis or edema and calf tenderness bilaterally Objective Lab Results 03/04/24 05:55 03/04/24 05:55 Meds Allergies and Active Meds Allergies adhesive tape Allergy (Unknown, Verified 03/03/24 12:45) skin tear adhesive Allergy (Verified 03/03/24 12:45) Rash Active Meds: Active Medications Generic Name Dose Route Start Last Admin Trade Name Alexq PRN Reason Stop Dose Admin Acetaminophen 650 mg 03/03/24 15:28 03/04/24 00:12 Acetaminophen 325 Mg Tablet PO 03/03/25 15:27 650 mg Q6HR PRN Administration Pain Scale 1 - 3 or fever Amiloride HCl 10 mg 03/03/24 21:00 03/04/24 08:56 Amiloride 5 Mg Tablet PO 03/03/25 20:59 Not Given BID LEAH Ceftriaxone Sodium 1 gm in 50 mls @ 100 mls/hr 03/03/24 16:15 03/03/24 22:31 Rocephin IV 100 mls/hr Q24H LEAH Administration Magnesium Oxide 800 mg 03/03/24 22:00 03/04/24 08:09 Magnesium Oxide 400 Mg Tablet PO 03/03/25 21:59 800 mg TID LEAH Administration Rimegepant [Nurtec 75 mg 03/03/24 15:30 Odt] 75 Mg Tablet, PO 03/03/25 15:29 Disintegrating DAILY PRN Headache Ondansetron HCl 4 mg 03/03/24 15:28 Ondansetron 4 Mg/2 Ml Vial IV-PUSH 03/03/25 15:27 Q4H PRN Nausea And Vomiting Potassium Chloride 120 meq 03/03/24 22:00 03/04/24 08:09 Potassium Chloride Er 20 Meq Tab.Er.Prt PO 03/03/25 21:59 120 meq TID LEAH Administration Rivaroxaban 20 mg 03/03/24 15:45 03/04/24 08:09 Rivaroxaban 20 Mg Tablet PO 03/03/25 15:44 20 mg DAILY LEAH Administration Sodium Chloride 0 ml 03/03/24 12:45 03/03/24 17:07 Sodium Chloride 0.9 % 10 Ml Syringe IV-PUSH 03/03/25 12:44 10 ml PRN PRN Administration Flush A&P - Hospitalist Assessment/Plan (1) Nausea & vomiting: (2) Hypocalcemia: (3) Hypomagnesemia: (4) Hypokalemia: (5) Chronic anticoagulation: (6) Gitelman syndrome: (7) UTI (urinary tract infection): Plan Nausea and vomiting Denies further nausea and vomiting. Hypocalcemia, hypomagnesemia, hypokalemia, Gitelman Syndrome Magnesium has been replaced. Potassium level 3.1 today Continue oral potassium supplement 120 meq 3 times daily Continue magnesium supplement as per home dosage. Continue to Amiloride. Chronic anticoagulation/leg pain Continue rivaroxaban 20 mg p.o. daily. Will obtain venous duplex rule out DVT given her history with recent nausea and vomiting. UTI Ruled out as no signs of infection on urine analysis. She denies further dysuria. Discontinue ceftriaxone IV. Documented By: Jean Claude Olsen MD 03/04/24912 Signed By: <Electronically signed by Jean Claude Olsen MD> 03/04/24917 [facility] Work Phone: 1(347) 522-429207-21-2024 History and physical note Author Jean Claude Olsen [facility] March 03, 2024 4:24pm Note Date/Time March 03, 2024 4:09 pm [facility] [address] [place] [address] Hospitalist H&P Signed Patient: Domenic Ngo MR#: [id number] : 1990 Acct:[id number] Age/Sex: 33 / F Adm Date: 4 Loc: 3T Room: [address] [place] [address] Type: ADM IN Attending Dr: Jean Claude Olsen MD Copies to: MD Shaikh Gumaro Hayward MD Stanton Vincent, DO, RES~ HPI DATE OF EXAMINATION: 03/03/24 CHIEF COMPLAINT: Nausea, vomiting HISTORY OF PRESENT ILLNESS: Ms. Ngo is a 33-year-old female with a past history of Port-A-Cath in place, anomalous implantation of ureter, PCOS, and Gitelman syndrome presented to the emergency department today due to concerns of nausea and vomiting that started at 3 AM. According to the patient, she went for a camping trip this past weekend in the area. She felt fine otherwise. However, she awakened at 3 AM this morning with severe nausea and ended up vomiting few times. Patient deniesblood in her vomit and denies bile within her vomit. Patient denies bright green vomitus. Furthermore, patient notes that she was diagnosed with a UTI last Monday at [facility]. They provided her a prescription of Keflex, butpatient notes that she was unable to pick this up in the meantime. Lab review in the emergency department reveals a potassium level of 2.0, magnesium level of0.9, high white blood cell count at 12.7 with neutrophil predominance at 11.6. Patient had imaging performed yesterday due to having recurrent UTIs recently. Imaging revealed mild left pelvocaliectasis and patent ureters bilaterally. Moderate constipation was also noted. On entrance to the room, patient is resting comfortably in bed with friend at bedside. She confirms the above story to me. Patient has received potassium 40mill equivalents and magnesium 2 g while in the emergency department. She notesthat she is feeling a little better overall. She does note that she is having some nausea currently. She denies diarrhea, constipation, abdominal pain, numbness, tingling, headache, changes in vision, and changes in hearing at this time. Patient further notes to me that she had a head injury when she was 16, and does suffer from severe migraines and headaches from time to time. All questions and concerns were addressed with the patient. We will address for records from [facility] to assess for urine culture that was performed on her urinalysis on Monday. In the meantime, we can start Keflex. Review of Systems Review of Systems All other systems reviewed & are negative unless noted below or in HPI FORMERLY [facility], [facility] Medical History History of DVT (deep vein thrombosis) Hemoptysis Port-A-Cath in place Anomalous implantation of ureter DVT (deep venous thrombosis) Migraines TMJ (temporomandibular joint syndrome) PCOS (polycystic ovarian syndrome) Neuropathy Gitelman syndrome Surgical History History of hysterectomy S/P Botox injection History of tonsillectomy and adenoidectomy H/O tubal ligation History of mandibular surgery Family History Grandparent Diabetes Hypertension Myocardial infarction Lung cancer Charcot-Annemarie disease Mother Sleep apnea Hypertension Diabetes Social History Smoking Status: Never smoker Tobacco Type: cigarettes Substance Use Type: Alcohol Substance Abuse Comment: socially Meds Medications and Allergies Allergies adhesive tape Allergy (Unknown, Verified 03/03/24 12:45) skin tear adhesive Allergy (Verified 03/03/24 12:45) Rash Home Medications amiloride 5 mg tablet 10 mg PO BID 09/16/18 [History Confirmed 03/03/24] rimegepant 75 mg disintegrating tablet (Nurtec ODT) 75 mg PO DAILY PRN Headache 06/23/21 [History Confirmed 03/03/24] magnesium oxide 800 mg (2 x 400 mg magnesium) PO TID 90 days #540 tabs 01/03/24 [Rx Confirmed 03/03/24] potassium chloride 20 mEq tablet,extended release(part/cryst) (Klor-Con M) 120 meq (6 x 20 mEq) PO TID 90 days #1,620 tabs 01/03/24 [Rx Confirmed 03/03/24] acetaminophen 500 mg tablet (Tylenol Extra Strength) 1,000 mg PO Q6HR PRN pain 02/01/24 [History Confirmed 03/03/24] erenumab-aooe 140 mg/mL subcutaneous auto-injector (Aimovig Autoinjector) 140 mgsubcut QMONTH 02/01/24 [History Confirmed 03/03/24] ondansetron HCl 8 mg tablet 8 mg PO DAILY PRN nausea and vomiting 02/01/24 [History Confirmed 03/03/24] rivaroxaban 20 mg tablet 20 mg PO DAILY 02/01/24 [History Confirmed 03/03/24] Exam Physical Exam Vital Signs: Temp Pulse Resp BP Pulse Ox O2 Del Method 99.8 F H 87 20 95/54 L 97 Room Air 03/03/24 15:19 03/03/24 15:19 03/03/24 15:19 03/03/24 15:19 03/03/24 15:19 03/03/24 15:19 Narrative: General: A&Ox4, no acute distress HEENT: head atraumatic, normocephalic, moist mucous membranes Neck: supple no masses, no lymphadenopathy CVS: regular rate and rhythm, no murmurs or gallops Respiratory: clear to auscultation bilaterally, no wheezing or crackles, symmetric expansion GI: soft, nondistended, nontender, positive bowel sounds with no organomegaly : No CVA tenderness present bilaterally Extremity: moves all extremities, no restrictions of movements, no calf tenderness, no edema Neuro: Moves all extremities in all planes of motion. Skin: dry, intact no rashes or lesions Psych: Cooperative, congruent mood, bright affect Results - Hospitalist H&P Lab Results Labs: Laboratory Last Values Corrected WBC 12.7 X10E3/uL (3.8-11.6) H 03/03/24 13:35 Uncorrected WBC Count 12.7 x10E3/uL (3.8-11.6) H 03/03/24 13:35 RBC 4.15 X10E6/uL (3.60-5.00) 03/03/24 13:35 Hgb 12.7 g/dL (11.8-15.4) 03/03/24 13:35 Hct 35.4 % (34.0-46.4) 03/03/24 13:35 MCV 85.3 fl (80-100) 03/03/24 13:35 MCH 30.7 pg (24.7-34.3) 03/03/24 13:35 MCHC 36.1 g/dL (32.0-35.0) H 03/03/24 13:35 RDW 13.6 % (11.9-15.3) 03/03/24 13:35 Plt Count 291 x10E3/uL (150-450) 03/03/24 13:35 MPV 7.8 fl (6.3-10.7) 03/03/24 13:35 Neut % (Auto) 91.2 % (.) 03/03/24 13:35 Lymph % (Auto) 4.9 % (.) 03/03/24 13:35 [place] % (Auto) 3.5 % (.) 03/03/24 13:35 Eos % (Auto) 0.1 % (.) 03/03/24 13:35 Baso % (Auto) 0.3 % (.) 03/03/24 13:35 Nucleat RBC Rel Count 0.1 /100 WBC (0-0.5) 03/03/24 13:35 Neut # (Auto) 11.6 x10E3/uL (1.8-7.7) H 03/03/24 13:35 Lymph # (Auto) 0.6 x10E3/uL (1.00-4.8) L 03/03/24 13:35 [place] # (Auto) 0.4 x10E3/uL (0.0-0.8) 03/03/24 13:35 Eos # (Auto) 0.0 x10E3/uL (0.0-0.45) 03/03/24 13:35 Baso # (Auto) 0.0 x10E3/uL (0.0-0.2) 03/03/24 13:35 Monocyte Dist Width 22.27 % (0.00-20.00) H 03/03/24 13:35 PHA Creatinine Clear 107.20 03/03/24 13:35 Sodium 137 mmol/L (136-145) 03/03/24 13:35 Potassium 2.0 mmol/L (3.5-5.1) L* 03/03/24 13:35 Chloride 94 mmol/L (98-107) L 03/03/24 13:35 Carbon Dioxide 34.1 mmol/L (21.0-31.0) H 03/03/24 13:35 Anion Gap 10.9 mEq/L (6.0-15.0) 03/03/24 13:35 BUN 12 mg/dL (7-25) 03/03/24 13:35 Creatinine 0.77 mg/dL (0.60-1.20) 03/03/24 13:35 Est GFR (CKD-EPI) > 60.0 mL/Min 03/03/24 13:35 Glucose 104 mg/dL (70-100) H 03/03/24 13:35 Calcium 7.5 mg/dL (8.6-10.3) L 03/03/24 13:35 Magnesium 0.9 mg/dL (1.9-2.7) L* 03/03/24 13:35 Total Bilirubin 0.7 mg/dl (0.3-1.0) 03/03/24 13:35 AST 20 U/L (13-39) 03/03/24 13:35 ALT 17 U/L (7-52) 03/03/24 13:35 Alkaline Phosphatase 47 U/L (34-104) 03/03/24 13:35 Total Protein 6.6 gm/dL (6.4-8.9) 03/03/24 13:35 Albumin 3.8 gm/dL (3.5-5.7) 03/03/24 13:35 Globulin 2.8 gm/dL 03/03/24 13:35 Albumin/Globulin Ratio 1.4 03/03/24 13:35 Assessment & Plan Assessment/Plan (1) Nausea & vomiting: (2) Hypocalcemia: (3) Hypomagnesemia: (4) Hypokalemia: (5) Chronic anticoagulation: (6) Gitelman syndrome: (7) UTI (urinary tract infection): Plan Nausea and vomiting -Continue ondansetron 4 mg IV push every 4 hours as needed for nausea and vomiting. -Monitor vitals every 2 hours. -Encourage patient to partake in p.o. diet. -Nausea and vomiting could be related to the UTI she has or superimposed gastroenteritis. Hypocalcemia, hypomagnesemia, hypokalemia, Gitelman Syndrome -Patient was given 10 mill equivalents potassium in the ER. -Patient was given 2 g of magnesium in the ER. -Administer 4 g of magnesium more. -Continue magnesium oxide supplement that patient takes at home. -Administer 40 mill equivalents of potassium chloride IV at 130 mL/h. -Recheck CBC and BMP in the morning. -Monitor vitals every 2 hours. -Start telemetry. -Obtain magnesium level in the morning. Chronic anticoagulation -Continue rivaroxaban 20 mg p.o. daily. UTI - Ceftriaxone IV. IP vs OBS Justification Based on differential dx, clinical care plan, and risk of adverse events, if untreated, in my clinical judgement this patient requires an acute care setting as: INPATIENT because of an expectation of an over 2 midnight stay. Estimated length of stay (# of days): 3 Documented By: Jean Claude Olsen MD 03/03/24 7946 Signed By: <Electronically signed by Jean Claude Olsen MD> 03/03/24 1624 <Electronically signed by DO ROLLINS Khurram Damon> 03/03/24 1613 [facility] Work Phone: [phone]) 364-706207-16-2024 Evaluation + Plan note Diagnostic Tests Pending * Urine Culture 02/27/[address] [facility]07-16-2024 Hospital Discharge instructions Patient Education 02/27/2024 10:14:28 Urinary Tract Infection, Adult Urinary Tract Infection, Adult A urinary tract infection (UTI) is an infection of any part of the urinary tract. The urinary tractincludes the kidneys, ureters, bladder, and urethra. These organs make, store, and get rid of urinein the body. An upper UTI affects the ureters and kidneys. A lower UTI affects the bladder and urethra. What are the causes? Most urinary tract infections are caused by bacteria in your genital area around your urethra, where urine leaves your body. These bacteria grow and cause inflammation of your urinary tract. What increases the risk? You are more likely to develop this condition if: You have a urinary catheter that stays in place. You are not able to control when you urinate or have a bowel movement (incontinence). You are female and you: ?Use a spermicide or diaphragm for control. ?Have low estrogen levels. ?Are . You have certain genes that increase your risk. You are sexually active. You take antibiotic medicines. You have a condition that causes your flow of urine to slow down, such as: ?An enlarged prostate, if you are male. ?Blockage in your urethra. ?A kidney stone. ?A nerve condition that affects your bladder control (neurogenic bladder). ?Not getting enough to drink, or not urinating often. You have certain medical conditions, such as: ?Diabetes. ?A weak disease-fighting system (immunesystem). ?Sickle cell disease. ?Gout. ?Spinal cord injury. What are the signs or symptoms? Symptoms of this condition include: Needing to urinate right away (urgency). Frequent urination. This may include small amounts of urine each time you urinate. Pain or burning with urination. Blood in the urine. Urine that smells bad or unusual. Trouble urinating. Cloudy urine. Vaginal discharge, if you are female. Pain in the abdomen or the lower back. You may also have: Vomiting or a decreased appetite. Confusion. Irritability or tiredness. A fever or chills. Diarrhea. The first symptom in older adults may be confusion. In some cases, they may not have any symptoms until the infection has worsened. How is this diagnosed? This condition is diagnosed based on your medical history and a physical exam. You may also have other tests, including: Urine tests. Blood tests. Tests for STIs (sexually transmitted infections). If you have had more than one UTI, a cystoscopy or imaging studies may be done to determine the cause of the infections. How is this treated? Treatment for this condition includes: Antibiotic medicine. Snjh-qbd-gqyhgoc medicines to treat discomfort. Drinking enough water to stay hydrated. If you have frequent infections or have other conditions such as a kidney stone, you may need to see a health care provider who specializes in the urinary tract (urologist). In rare cases, urinary tract infections can cause sepsis. Sepsis is a life- threatening condition that occurs when the body responds to an infection. Sepsis is treated in the hospital with IV antibiotics, fluids, and other medicines. Follow these instructions at home: Medicines Take gsdb-lmp-crnxwaf and prescription medicines only as told by your health care provider. If you were prescribed an antibiotic medicine, take it as told by your health care provider. Do notstop using the antibiotic even if you start to feel better. General instructions Make sure you: ?Empty your bladder often and completely. Do not hold urine for long periods of time. ?Empty your bladder after sex. ?Wipe from front to back after urinating or having a bowel movement if you are female. Use each tissue only one time when you wipe. Drink enough fluid to keep your urine pale yellow. Keep all follow-up visits. This is important. Contact a health care provider if: Your symptoms do not get better after 1 2 days. Your symptoms go away and then return. Get help right away if: You have severe pain in your back or your lower abdomen. You have a fever or chills. You have nausea or vomiting. Summary A urinary tract infection (UTI) is an infection of any part of the urinary tract, which includes the kidneys, ureters, bladder, and urethra. Most urinary tract infections are caused by bacteria in your genital area. Treatment for this condition often includes antibiotic medicines. If you were prescribed an antibiotic medicine, take it as told by your health care provider. Do notstop using the antibiotic even if you start to feel better. Keep all follow-up visits. This is important. This information is not intended to replace advice given to you by your health care provider. Make sure you discuss any questions you have with your health care provider. Document Revised: 03/12/2021 Document Reviewed: 03/12/2021 [employer] Patient Education 2022 [employer]. 02/27/2024 10:14:24 Cystoscopy Cystoscopy Cystoscopy is a procedure that is used to help diagnose and sometimes treat conditions that affect the lower urinary tract. The lower urinary tract includes the bladder and the urethra. The urethra is the tube that drains urine from the bladder. Cystoscopy is done using a thin, tube-shaped instrument with a light and camera at the end (cystoscope). The cystoscope may be hard or flexible, depending on the goal of the procedure. The cystoscope is inserted through the urethra, into the bladder. Cystoscopy may be recommended if you have: Urinary tract infections that keep coming back. Blood in the urine (hematuria). An inability to control when you urinate (urinary incontinence) or an overactive bladder. Unusual cells found in a urine sample. A blockage in the urethra, such as a urinary stone. Painful urination. An abnormality in the bladder found during an intravenous pyelogram (IVP) or CT scan. Cystoscopy may also be done to remove a sample of tissue to be examined under a microscope (biopsy). Tell a health care provider about: Any allergies you have. All medicines you are taking, including vitamins, herbs, eye drops, creams, and vsgf-vtz-saaiyts medicines. Any problems you or family members have had with anesthetic medicines. Any blood disorders you have. Any surgeries you have had. Any medical conditions you have. Whether you are or may be . What are the risks? Generally, this is a safe procedure. However, problems may occur, including: Infection. Bleeding. Allergic reactions to medicines. Damage to other structures or organs. What happens before the procedure? Medicines Ask your health care provider about: Changing or stopping your regular medicines. This is especially important if you are taking diabetes medicines or blood thinners. Taking medicines such as aspirin and ibuprofen. These medicines can thin your blood. Do not take these medicines unless your health care provider tells you to take them. Taking xfhc-zfb-gadrkev medicines, vitamins, herbs, and supplements. Tests You may have an exam or testing, such as: X-rays of the bladder, urethra, or kidneys. CT scan of the abdomen or pelvis. Urine tests to check for signs of infection. General instructions Follow instructions from your health care provider about eating or drinking restrictions. Ask your health care provider what steps will be taken to help prevent infection. These steps may include: ?Washing skin with a germ-killing soap. ?Taking antibiotic medicine. Plan to have a responsible adult take you home from the hospital or clinic. What happens during the procedure? You will be given one or more of the following: ?A medicine to help you relax (sedative). ?A medicine to numb the area (local anesthetic). The area around the opening of your urethra will be cleaned. The cystoscope will be passed through your urethra into your bladder. Germ-free (sterile) fluid will flow through the cystoscope to fill your bladder. The fluid will stretch your bladder so that your health care provider can clearly examine your bladder graham. Your doctor will look at the urethra and bladder. Your doctor may take a biopsy or remove stones. The cystoscope will be removed, and your bladder will be emptied. The procedure may vary among health care providers and hospitals. What can I expect after the procedure? After the procedure, it is common to have: Some soreness or pain in your abdomen and urethra. Urinary symptoms. These include: ?Mild pain or burning when you urinate. Pain should stop within a few minutes after you urinate. This may last for up to 1 week. ?A small amount of blood in your urine for several days. ?Feeling like you need to urinate but producing only a small amount of urine. Follow these instructions at home: Medicines Take qnbj-hut-twbwrxe and prescription medicines only as told by your health care provider. If you were prescribed an antibiotic medicine, take it as told by your health care provider. Do notstop taking the antibiotic even if you start to feel better. General instructions Return to your normal activities as told by your health care provider. Ask your health care provider what activities are safe for you. If you were given a sedative during the procedure, it can affect you for several hours. Do not drive or operate machinery until your health care provider says that it is safe. Watch for any blood in your urine. If the amount of blood in your urine increases, call your healthcare provider. Follow instructions from your health care provider about eating or drinking restrictions. If a tissue sample was removed for testing (biopsy) during your procedure, it is up to you to get your test results. Ask your health care provider, or the department that is doing the test, when yourresults will be ready. Drink enough fluid to keep your urine pale yellow. Keep all follow-up visits. This is important. Contact a health care provider if: You have pain that gets worse or does not get better with medicine, especially pain when you urinate. You have trouble urinating. You have more blood in your urine. Get help right away if: You have blood clots in your urine. You have abdominal pain. You have a fever or chills. You are unable to urinate. Summary Cystoscopy is a procedure that is used to help diagnose and sometimes treat conditions that affect the lower urinary tract. Cystoscopy is done using a thin, tube-shaped instrument with a light and camera at the end. After the procedure, it is common to have some soreness or pain in your abdomen and urethra. Watch for any blood in your urine. If the amount of blood in your urine increases, call your healthcare provider. If you were prescribed an antibiotic medicine, take it as told by your health care provider. Do notstop taking the antibiotic even if you start to feel better. This information is not intended to replace advice given to you by your health care provider. Make sure you discuss any questions you have with your health care provider. Document Revised: 04/13/2022 Document Reviewed: 03/12/2021 [employer]Guide Patient Education 2022 [employer]. Follow Up Care 10/27/2023 14:10:04 With:HAILEE GOLDBERG, ILDA Martines, URL Address: [address] [place] [phone] When: Unknown Comments:sched cysto/possible UD [facility] Matthieu 07-16-2024 NoteUrology Office/Clinic Note Chief Complaint Referral *Urethral Stenosis HPI Staff Evaluation requested by Dr Mahoney due to Urethral Stenosis. Pt is a new pt. Never before seen in our office. Recurrent UTI's. Was getting 2-3 a month. Last one a couple weeks ago (Not Dx'd) Usual Sx: Burning, frequency, urgency & flank pain. Without Infection: Occasional straining. No other urinary complaints w/o infection. History of Present Illness staff HPI reviewed and agree. Review of Systems PHQ Score Initial Depression Screen Score: 0 SCORE no fever, chills, malaise, myalgia. no rash/lesions. no chest pain, palpitations, or SOB. no abdominal pain, nausea, vomiting. no unilateral calf swelling, redness, pain Physical Exam Vitals & Measurements HR: 70(Peripheral) RR: 16 BP: 111/79 HT: 61 in HT: 155 cm WT: 87.5 kg WT: 192.5 lb BMI: 36.42 General: nontoxic, NAD Mouth: moist mucosa Lungs: normal respiratory effort Cardio: regular rate, good distal perfusion Abdomen: nondistended, no suprapubic distention or tenderness, no CVA tenderness Neurologic: Grossly normal Skin: No rashes or suspicious lesions Assessment/Plan Domenic is a 33 yo female new pt referred by Dr. Mahoney for possible urethral stenosis. BBS 16. 1. Frequent UTI (N39.0: Urinary tract infection, site not specified) most recent UTI a few weeks ago, no cx was done. Only urine culture on record 08/11/23 - >100k E. coli. UA in office today shows small leuks and positive nitrites. current UTI symptoms no had sx last week, didnt' seek tx but sx improved. however UA suspcious. will send for cx and tx if positive. UTI frequency every 1-2 mos UTIs started worsening in the past 6-12 mos Prior to that averaged UTIs about once a year, attributes frequent infections to S/p unilateral (ptthinks left) ureteral reimplantation. pt's typical UTI sx include burning, frequency, urgency & flank pain. hx stones no immunosuppressed no hysterectomy yes proper hygiene habits: wipes front to back every time yes avoids baths/hot tubs yes avoids scented [employer] products yes urinates after sexual activity yes Dr Mahoney started pt on estrogen cream in October for vaginal dryness and recurrent UTIs but pt stopped due to feeling weird . Does not wish to restart Today we discussed the following methods to decrease frequency of UTIs: 1) Increase fluids. Aim for at least 2L daily. General bladder health reviewed and pt education provided. Bladder irritant list provided for pt to review. 2) We discussed that there is evidence that herbal supplements may help - cranberry, probiotics, and d-mannose. 3) Postcoital abx. Risks/benefits discussed. Will send rx for Keflex 250mg. We will check KUB & LIZZIE to rule out stones as contributing factor to UTIs and r/o hydro. Will call pt with results. If shows significant stone burden, pt will need appt to discuss tx options. Recommend cysto to evaluate bladder and urethra. Pt amenable to proceed. -Contact our office w all future UTI sx so we can monitor urine cx results, treat appropriately (may require extended course abx), and monitor frequency of infections. If develops fever, severe flankpain, vomiting - needs to go to ER. -Will schedule Cysto with possible UD. The procedure risks, benefits, details, and treatment alternatives have been discussed with the patient. These include bleeding, infection, recurrent scar in over 50%, need for repeat dilation or other procedures, no symptom relief with dilation, among others.Full informed consent has been obtained. Will order Local anesthesia. Follow-up With When Contact Information ILDA CANNON PA-C, URL [address] [place] [address] [phone] Additional Instructions: sched cysto/possible UD Patient Education Urinary Tract Infection, Adult Cystoscopy Documentation recorded by the scribe Carline Gaitan accurately reflects the services(s) I performed anddecisions made by me. Authenticated by Ilda Cannon PA-C on 02/27/2024 10:22:14. ICarline, personally scribed for Ilda Cannon PA-C on 02/27/2024 10:16:09. . Problem List/Past Medical History Ongoing Frequent UTI Gitelman disease History of DVT (deep vein thrombosis) Migraines PCOS (polycystic ovarian syndrome) Historical No qualifying data Procedure/Surgical History History of ureteral reimplantation (1992), Hysterectomy, Myringotomy and insertion of grommet, Procedure on mandible, Tubal ligation. Medications Aimovig SureClick Autoinjector-aooe 140 mg/mL subcutaneous solution amiloride 5 mg oral tablet Cipro 500 mg Tab, 500 mg= 1 tab(s), Oral, Daily magnesium oxide 400 mg Tab Potassium Chloride (Fvm-Wepd-Kjg M20) 20 mEq oral tablet, extended release Xarelto 20 mg oral tablet Allergies Adhesive Bandage (Rash) Desonide (Unknown) New Skin Bandage (Rash) Social History Tobacco Former smoker, quit more than 30 days ago T (more content not included)...[facility]:Result Comment: Electronically Signed By: ILDA CANNON PA-C\.br\Date and Time Signed: 02/26/2410:22 EDT\.br\Electronically Co-Signed By: Carline Gaitan\.br\Date and Time Co-Signed: 02/27/24 10:16 [id number] NotePatient Education Obstetrics and Gynecology Urinary Tract Infection, Adult A urinary tract infection (UTI) is an infection of any part of the urinary tract. The urinary tractincludes the kidneys, ureters, bladder, and urethra. These organs make, store, and get rid of urinein the body. An upper UTI affects the ureters and kidneys. A lower UTI affects the bladder and urethra. What are the causes? Most urinary tract infections are caused by bacteria in your genital area around your urethra, where urine leaves your body. These bacteria grow and cause inflammation of your urinary tract. What increases the risk? You are more likely to develop this condition if: ? You have a urinary catheter that stays in place. ? You are not able to control when you urinate or have a bowel movement (incontinence). ? You are female and you: ? Use a spermicide or diaphragm for control. ? Have low estrogen levels. ? Are . ? You have certain genes that increase your risk. ? You are sexually active. ? You take antibiotic medicines. ? You have a condition that causes your flow of urine to slow down, such as: ? An enlarged prostate, if you are male. ? Blockage in your urethra. ? A kidney stone. ? A nerve condition that affects your bladder control (neurogenic bladder). ? Not getting enough to drink, or not urinating often. ? You have certain medical conditions, such as: ? Diabetes. ? A weak disease-fighting system (immunesystem). ? Sickle cell disease. ? Gout. ? Spinal cord injury. What are the signs or symptoms? Symptoms of this condition include: ? Needing to urinate right away (urgency). ? Frequent urination. This may include small amounts of urine each time you urinate. ? Pain or burning with urination. ? Blood in the urine. ? Urine that smells bad or unusual. ? Trouble urinating. ? Cloudy urine. ? Vaginal discharge, if you are female. ? Pain in the abdomen or the lower back. You may also have: ? Vomiting or a decreased appetite. ? Confusion. ? Irritability or tiredness. ? A fever or chills. ? Diarrhea. The first symptom in older adults may be confusion. In some cases, they may not have any symptoms until the infection has worsened. How is this diagnosed? This condition is diagnosed based on your medical history and a physical exam. You may also have other tests, including: ? Urine tests. ? Blood tests. ? Tests for STIs (sexually transmitted infections). If you have had more than one UTI, a cystoscopy or imaging studies may be done to determine the cause of the infections. How is this treated? Treatment for this condition includes: ? Antibiotic medicine. ? Vkgy-jjz-fjupbya medicines to treat discomfort. ? Drinking enough water to stay hydrated. If you have frequent infections or have other conditions such as a kidney stone, you may need to see a health care provider who specializes in the urinary tract (urologist). In rare cases, urinary tract infections can cause sepsis. Sepsis is a life- threatening condition that occurs when the body responds to an infection. Sepsis is treated in the hospital with IV antibiotics, fluids, and other medicines. Follow these instructions at home: Medicines ? Take dicn-par-ifkspsv and prescription medicines only as told by your health care provider. ? If you were prescribed an antibiotic medicine, take it as told by your health care provider. Do not stop using the antibiotic even if you start to feel better. General instructions ? Make sure you: ? Empty your bladder often and completely. Do not hold urine for long periods of time. ? Empty your bladder after sex. ? Wipe from front to back after urinating or having a bowel movement if you are female. Use each tissue only one time when you wipe. ? Drink enough fluid to keep your urine pale yellow. ? Keep all follow-up visits. This is important. Contact a health care provider if: ? Your symptoms do not get better after 1?2 days. ? Your symptoms go away and then return. Get help right away if: ? You have severe pain in your back or your lower abdomen. ? You have a fever or chills. ? You have nausea or vomiting. Summary ? A urinary tract infection (UTI) is an infection of any part of the urinary tract, which includes the kidneys, ureters, bladder, and urethra. ? Most urinary tract infections are caused by bacteria in your genital area. ? Treatment for this condition often includes antibiotic medicines. ? If you were prescribed an antibiotic medicine, take it as told by your health care provider. Do not stop using the antibiotic even if you start to feel better. ? Keep all follow-up visits. This is important. This information is not intended to replace advice given to you by your health care provider. Make sure you discuss any questions you have with your health care provider. Document Revised: 03/12 (more content not included)...[facility]12[facility] Evaluation note* Encounter Date Diagnosis Assessment Notes Treatment Notes Treatment Clinical Notes Jul, Dysuria (ICD-10 - R30.0) Jul, Suspected urinary tract infection (ICD-10 - R39.89) Reviewed UA, will treat patient for UTI today. Instructed patient to take antibiotic as prescribed, take with food, complete entire course of therapy even if feeling better. Allergies and recent antibiotic use was reviewed with patient. Advised patient urine culture was sent today and we will call with her results if antibiotic needs changed. Patient instructed to push fluids. Patient symptoms should improve in the next 24-48 hours, if symptoms persist follow up with PCP or UC. Immediate eval by ER if back or flank pain, blood in urine, fever, chills, N/V, or any other concerning symptoms. Acute cystitis material was printed. Patient verbalizes understanding and is agreeable to treatment plan. 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 Her potassium is normal . Continue current potassium supplement and amiloride. She reported that she has a son and would like to know if he can have that disease. Advised her to be screened with the genetic testing and lab work by PCP. Jul, Hypomagnesemia (ICD-10 - E83.42) continue current magnesium supplement. She reported she cannot tolerate the higher dose of magnesium due to diarrhea. Jul, Deep vein thrombosis (DVT) of lower extremity, unspecified chronicity, unspecified laterality, unspecified vein (ICD-10 - I82.409) continue current dose of Xarelto and follow-up with PCP Jul, Hypocalcemia (ICD-10 - E83.51) She had hypocalcemia possibly due to the vitamin D deficiency. Advised her to take oral vitamin D 1000 unit daily. [facility] Other [id number] Miscellaneous Notes* Telephone Encounter - Giuseppe Fair MD - 05/03/2023 11:35 AM EDT Agree with plans. * Telephone Encounter - Britt Swanson RN - 05/03/2023 11:15 AM EDT COVID + Monday. Off Xarelto while on Paxlovid. Restart Xarelto Monday evening. BRM: FYI/ any further recommendations? Britt Swanson, RN [facility] Consult note Author Francis Fuller [facility] May 01, 2023 3:45pm Note Date/Time May 01, 2023 3:45pm [facility] [address] [place] [address] Gastroenterology Consult Note Signed Patient: Domenic Ngo MR#: [id number] : 1990 Acct:[id number] Age/Sex: 32 / F Adm Date: 3 Loc: Room: [address] [place] [address] Type: ADM IN Attending Dr: Maria Elena Garibay MD Copies to: MD Maria Elena Anderson MD Shaikh Fawwad, MD~ HPI Data of Consult Date of Consultation: 05/01/23 Requesting Physician: Maria Elena Garibay MD Consult Narrative History of present illness: Ms. Ngo is a 32 year old female with a history of Gettleman syndrome, GERD, remote DVT on Xarelto who was admitted with COVID. Who I am consulted for hematemesis. The patient states that she had several episodes of forceful nausea and vomiting with retching. After several rounds of retching and vomiting she had some blood in her emesis. She has never had this happen before. She was on Xarelto at the time. She has been hemodynamically stable. H&H has been within the normal range. cc:: CC: Maria Elena Garibay MD Review of Systems Constitutional Constitutional: Denies poor appetite and Denies weight loss Eyes Eyes: Denies change in vision and Denies eye discharge ENT Ears, Nose, Mouth, and Throat: Denies nasal discharge, Denies sore throat and Denies vertigo Cardiovascular Cardiovascular: Denies chest pain and Denies dyspnea on exertion Respiratory Respiratory: Denies chest congestion, Denies cough and Denies dyspnea on exertion Gastrointestinal Gastrointestinal: Reports as per HPI Musculoskeletal Musculoskeletal: Denies arthralgias, Denies muscle weakness and Denies numbness Integumentary/Breasts Skin/Breast: Denies change in pigmentation and Denies rash Neurologic Neurologic: Denies numbness and Denies vertigo Psychiatric Psychiatric: Denies anxiety and Denies depression Hematologic/Lymphatic Hematologic/Lymphatic: Denies easy bruising and Denies lymphadenopathy [facility]LY [facility], [facility] Medical History (Updated 04/30/23 @ 16:11 by Alfreda Biddinger, RN) Anomalous implantation of ureter DVT (deep venous thrombosis) L leg 2013, 2018 Gitelman syndrome Hemoptysis Migraines Neuropathy L leg PCOS (polycystic ovarian syndrome) Port-A-Cath in place right TMJ (temporomandibular joint syndrome) Surgical History (Updated 04/30/23 @ 16:11 by Alfreda Arroyo RN) H/O tubal ligation History of hysterectomy History of mandibular surgery multiple surgeries of placing and removing hardware History of tonsillectomy and adenoidectomy S/P Botox injection of jaw Family History Grandparent Diabetes Hypertension Myocardial infarction Lung cancer Charcot-Annemarie disease Social History Smoking Status: Former smoker Tobacco Type: cigarettes Substance Use Type: Alcohol Substance Abuse Comment: socially Meds Medications and Allergies Allergies adhesive Allergy (Verified 04/30/23 09:55) Rash Home Medications amiloride 5 mg tablet 10 mg PO BID 09/16/18 [History Confirmed 04/30/23] magnesium oxide 800 mg PO TID 09/16/18 [History Confirmed 04/30/23] ondansetron HCl 4 mg tablet 4 mg PO Q6-8H PRN Nausea 05/13/19 [History Confirmed 04/30/23] potassium chloride 20 mEq tablet,extended release(part/cryst) (Klor-Con M) 120 meq PO TID 01/25/21 [History Confirmed 04/30/23] erenumab-aooe 70 mg/mL subcutaneous auto-injector (Aimovig Autoinjector) 70 mg subcut QMONTH 06/23/21 [History Confirmed 04/30/23] rimegepant 75 mg disintegrating tablet (Nurtec ODT) 75 mg PO DAILY PRN Headache 06/23/21 [History Confirmed 04/30/23] rivaroxaban 20 mg tablet (Xarelto) 20 mg PO HS #1 tab 01/21/22 [Rx Confirmed 04/30/23] famotidine 20 mg tablet 20 mg PO DAILY PRN reflux #30 tabs 02/23/22 [Rx Confirmed 04/30/23] Exam Physical Exam Vital Signs: Temp Pulse Resp BP Pulse Ox O2 Del Method 98.6 F 65 16 101/68 96 Room Air 05/01/23 15:35 05/01/23 15:35 05/01/23 15:35 05/01/23 15:35 05/01/23 15:35 05/01/23 15:35 Const General: no acute distress and well developed HEENT Head: normocephalic and atraumatic Mouth: moist mucous membranes Eyes Sclera: sclerae normal (no scleral icterus) EOM: EOM intact bilaterally Neck Other: trachea midline Resp Effort & Inspection: normal respiratory effort and able to speak in complete sentences GI Inspection: normal to inspection and non-distended Palpation: soft and nontender Skin General: turgor normal and no jaundice Neuro General: patient alert and patient oriented x3 Psych Appearance: grossly normal Mental Status: mental status grossly normal Results Labs Labs: Laboratory Results - last 24 hr 05/01/23 05/01/23 05/01/23 05:00 05:00 05:00 Corrected WBC 4.6 Uncorrected WBC Count 4.6 RBC 4.19 Hgb 12.9 Hct 35.3 MCV 84.2 MCH 30.8 MCHC 36.5 H RDW 13.3 Plt Count 259 MPV 7.9 Neut % (Auto) 45.1 Lymph % (Auto) 37.7 [place] % (Auto) 15.9 Eos % (Auto) 0.5 Baso % (Auto) 0.8 Nucleat RBC Rel Count 0.1 Neut # (Auto) 2.1 Lymph # (Auto) 1.7 [place] # (Auto) 0.7 Eos # (Auto) 0.0 Baso # (Auto) 0.0 PT Cancelled INR Cancelled APTT Cancelled PHA Creatinine Clear 93.41 Sodium 137 Potassium 2.1 L* Chloride 98 Carbon Dioxide 34.1 H Anion Gap 7.0 BUN 8 Creatinine 0.88 Est GFR (CKD-EPI) > 60.0 Glucose 91 Calcium 8.1 L Magnesium 2.1 D 05/01/23 09:00 Corrected WBC Uncorrected WBC Count RBC Hgb Hct MCV MCH MCHC RDW Plt Count MPV Neut % (Auto) Lymph % (Auto) [place] % (Auto) Eos % (Auto) Baso % (Auto) Nucleat RBC Rel Count Neut # (Auto) Lymph # (Auto) [place] # (Auto) Eos # (Auto) Baso # (Auto) PT 16.4 H INR 1.4 APTT 34.0 PHA Creatinine Clear Sodium Potassium Chloride Carbon Dioxide Anion Gap BUN Creatinine Est GFR (CKD-EPI) Glucose Calcium Magnesium A&P - Gastroenterology Assessment/Plan (1) History of DVT (deep vein thrombosis): Code(s): Z86.718 - Personal history of other venous thrombosis and embolism Status: Acute (2) Chronic anticoagulation: Code(s): Z79.01 - USP (current) use of anticoagulants Status: Acute (3) Nausea & vomiting: Code(s): R11.2 - Nausea with vomiting, unspecified Status: Acute (4) COVID-19: Code(s): U07.1 - COVID-19 Status: Acute Plan Likely resolved/resolving Mercedes-Perez versus GERD with esophagitis in the setting of Xarelto use -Recommend high-dose PPI therapy for 6 to 8 weeks, then would recommend switching her to PPI once daily for history of GERD rather than H2 alex if she requires ongoing NOAC use -She does not need endoscopic evaluation at this time -Continue supportive care for DAGO Thank you for this consult, little further to add from a GI standpoint. I will sign off at this time. Documented By: Francis Fuller MD 05/01/231541 Signed By: <Electronically signed by Francis Fuller MD> 05/01/23 [address] [facility] Work Phone: 1(146) 789-331409-18-2023 Progress note Author Maria Elena Garibay [facility] May 02, 2023 3:50pm Note Date/Time May 01, 2023 3:02pm [facility] [address] [place] [address] Hospitalist Progress Note Signed Patient: Domenic Ngo MR#: [id number] : 1990 Acct:[id number] Age/Sex: 32 / F Adm Date: 3 Loc: Room: [address] [place] [address] Type: ADM IN Attending Dr: Maria Elena Garibay MD Copies to: ~ Date of Service: 05/01/2023 Subjective Subjective Narrative: I came here patient has been seen and examined. Still complains of nausea and very poor appetite, no bowel movements, no vomiting. No bleeding anymore. Physical Examination: GENERAL APPEARANCE: Alert, resting comfortably HEENT: NCAT, MMM NECK: Neck soft w/o masses, no JVD CARDIAC: Normal S1 and S2. No S3, S4 or murmurs. LUNGS: Clear to auscultation bilaterally. no wheeze/rhonchi/rales ABDOMEN: Positive bowel sounds. Soft, nontender. No guarding or signs of an acute abdomen MUSCULOSKELETAL: No joint erythema or tenderness. EXTREMITIES: No clubbing, cyanosis or edema PSYCHIATRIC: Appropriate mood and affect Assessment and plan: 1. Acute hypokalemia 2. Acute hypomagnesemia Patient takes high-dose supplements of magnesium and potassium both 3 times daily for her known Gitelman syndrome. At this time with her nausea and vomiting will provide aggressive supplementation with potassium chloride in normal saline throughout the evening. Continue with replacement 3. Metabolic alkalosis Alkalosis is a manifestation of her underlying Gitelman syndrome but also is likely exacerbated by her vomiting. The above potassium supplements are within normal saline a relatively ascitic fluid which should assist in balancing this. Follow a.m. labs. If no improvement can consider nephrology consultation. 4. COVID-19 infection Oral Paxlovid twice daily has been ordered. This does interact with her home Xarelto which can be held for the time being and if further concern can continuethis at a lower dose. 5. History of DVTs, on Xarelto, will check D-dimers, for now place SCDs, unableto give Lovenox now on Xarelto for now due to hematemesis even though her hemoglobin is stable, will continue to observe Exam Physical Exam Vital Signs: Temp Pulse Resp BP Pulse Ox O2 Del Method 37.0 C 55 L 16 115/71 94 L Room Air 05/01/23 12:00 05/01/23 12:00 05/01/23 12:00 05/01/23 12:00 05/01/23 12:00 05/01/23 12:00 Objective Lab Results 05/01/23 05:00 05/01/23 05:00 Microbiology Results Microbiology 04/30/23 10:16 Nasopharyngeal SARS-CoV-2, Influenza & RSV (PCR) - Final Meds Allergies and Active Meds Allergies adhesive Allergy (Verified 04/30/23 09:55) Rash Active Meds: Active Medications Generic Name Dose Route Start Last Admin Trade Name Freq PRN Reason Stop Dose Admin Acetaminophen 650 mg 04/30/23 20:52 05/01/23 04:46 Acetaminophen 325 Mg Tablet PO 04/29/24 20:51 650 mg Q6H PRN Administration pain/fever Amiloride HCl 10 mg 04/30/23 21:00 05/01/23 08:57 Amiloride 5 Mg Tablet PO 04/29/24 20:59 10 mg BID LEAH Administration Magnesium Sulfate 2 gm in 50 mls @ 25 mls/hr 04/30/23 17:55 Magnesium Sulf 2gm-*Swfi* IV 04/29/24 17:54 DAILY PRN Magnesium < 1.9 Potassium Chloride/Sodium Chloride 1,000 mls @ 125 mls/hr 05/01/23 10:30 05/01/23 12:50 0.9% Nacl-40 Meq Kcl IV 04/30/24 10:29 125 mls/hr .Q8H LEAH Administration Nirmatrelvir/Ritonavir 1 each 04/30/23 21:00 05/01/23 08:58 Nirmatrelvir/Ritonavir 300/100 1 Each Box PO 05/05/23 09:01 1 each BID LEAH Administration Protocol Ondansetron HCl 4 mg 04/30/23 17:55 05/01/23 08:57 Ondansetron 4 Mg/2 Ml Vial IV-PUSH 04/29/24 17:54 4 mg Q4H PRN Administration Nausea And Vomiting Pantoprazole Sodium 40 mg 04/30/23 21:00 05/01/23 08:57 Pantoprazole 40 Mg Vial IV-PUSH 04/29/24 20:59 40 mg BID LEAH Administration Potassium Chloride 40 meq 05/01/23 15:00 Potassium Chloride Er 20 Meq Tab.Er.Prt PO 05/01/23 19:01 Q4H LEAH Sodium Chloride 0 ml 04/30/23 09:55 04/30/23 18:15 Sodium Chloride 0.9 % 10 Ml Syringe IV-PUSH 04/29/24 09:54 10 ml PRN PRN Administration Flush Sodium Chloride 10 ml 04/30/23 17:55 Sodium Chloride 0.9 % 10 Ml Syringe IV-PUSH 04/29/24 17:54 PRN PRN Flush Sodium Chloride 10 ml 04/30/23 17:55 04/30/23 21:23 Sodium Chloride 0.9 % 10 Ml Vial.Pf INJECTION 04/29/24 17:54 10 ml PRN PRN Administration Dilution Documented By: Maria Elena Garibay MD 05/01/23 1501 Signed By: <Electronically signed by Maria Elena Garibay MD> 05/02/23 [address] [facility] Work Phone: 1(486) 507-430309-17-2023 History and physical note Author Jerrell Smith [facility] April 30, 2023 7:20pm Note Date/Time April 30, 2023 5:47pm [facility] [address] [place] [address] Hospitalist H&P Signed Patient: Domenic Ngo MR#: [id number] : 1990 Acct:[id number] Age/Sex: 32 / F Adm Date: 3 Loc: Room: [address] [place] [address] Type: ADM IN Attending Dr: Jerrell Smith DO Copies to: DO Shaikh Gumaro Dozier MD~ HPI DATE OF EXAMINATION: 04/30/23 CHIEF COMPLAINT: Nausea and vomiting HISTORY OF PRESENT ILLNESS: This patient is a 32-year-old female who presented to the emergency department earlier today with reports of significant nausea and vomiting that started yesterday. She has a known history of Gitelman syndrome for which she takes amiloride and follows with nephrology regularly. Furthermore has history of DVTand takes 20 mg Xarelto. In addition to her nausea and vomiting she reported some mild hemoptysis that is described as an isolated incident. Vitals on arrival reveal 100 degrees fever, heart rate of 105, respirations 18, blood pressure 107/64, 96% oxygen saturation on room air. Her initial CBC is unremarkable however chemistries are quite abnormal with potassium of 1.9, hypochloremia 96, elevated bicarb 33.7. Kidney function and liver function unremarkable. Magnesium 0.9. She was noted to be positive for COVID-19. She was provided 80 mg IV bolus of Protonix as well as potassium and magnesium repletion. She was subsequently admitted to the [facility] floor for further evaluation and treatment. Resting comfortably upon arrival to the [facility] floor. Physical Examination: GENERAL APPEARANCE: Alert, resting comfortably HEENT: NCAT, MMM NECK: Neck soft w/o masses, no JVD CARDIAC: Normal S1 and S2. No S3, S4 or murmurs. LUNGS: Clear to auscultation bilaterally. no wheeze/rhonchi/rales ABDOMEN: Positive bowel sounds. Soft, nontender. No guarding or signs of an acute abdomen MUSCULOSKELETAL: No joint erythema or tenderness. EXTREMITIES: No clubbing, cyanosis or edema PSYCHIATRIC: Appropriate mood and affect Assessment and plan: 1. Acute hypokalemia 2. Acute hypomagnesemia Patient takes high-dose supplements of magnesium and potassium both 3 times daily for her known Gitelman syndrome. At this time with her nausea and vomiting will provide aggressive supplementation with potassium chloride in normal saline throughout the evening. 3. Metabolic alkalosis Alkalosis is a manifestation of her underlying Gitelman syndrome but also is likely exacerbated by her vomiting. The above potassium supplements are within normal saline a relatively ascitic fluid which should assist in balancing this. Follow a.m. labs. If no improvement can consider nephrology consultation. 4. COVID-19 infection Oral Paxlovid twice daily has been ordered. This does interact with her home Xarelto which can be held for the time being and if further concern can continuethis at a lower dose. Review of Systems Review of Systems All other systems reviewed & are negative unless noted below or in HPI [facility]LY [facility] Medical History (Updated 04/30/23 @ 16:11 by Alfreda Arroyo RN) Anomalous implantation of ureter DVT (deep venous thrombosis) L leg 2013, 2017 Gitelman syndrome Hemoptysis Migraines Neuropathy L leg PCOS (polycystic ovarian syndrome) Port-A-Cath in place right TMJ (temporomandibular joint syndrome) Surgical History (Updated 04/30/23 @ 16:11 by Alfreda Arroyo RN) H/O tubal ligation History of hysterectomy History of mandibular surgery multiple surgeries of placing and removing hardware History of tonsillectomy and adenoidectomy S/P Botox injection of jaw Family History Grandparent Diabetes Hypertension Myocardial infarction Lung cancer Charcot-Annemarie disease Social History Smoking Status: Former smoker Tobacco Type: cigarettes Substance Use Type: Alcohol Substance Abuse Comment: socially Meds Medications and Allergies Allergies adhesive Allergy (Verified 04/30/23 09:55) Rash Home Medications amiloride 5 mg tablet 10 mg PO BID 09/16/18 [History Confirmed 04/30/23] magnesium oxide 800 mg PO TID 09/16/18 [History Confirmed 04/30/23] ondansetron HCl 4 mg tablet 4 mg PO Q6-8H PRN Nausea 05/13/19 [History Confirmed 04/30/23] potassium chloride 20 mEq tablet,extended release(part/cryst) (Klor-Con M) 120 meq PO TID 01/25/21 [History Confirmed 04/30/23] erenumab-aooe 70 mg/mL subcutaneous auto-injector (Aimovig Autoinjector) 70 mg subcut QMONTH 06/23/21 [History Confirmed 04/30/23] rimegepant 75 mg disintegrating tablet (Nurtec ODT) 75 mg PO DAILY PRN Headache 06/23/21 [History Confirmed 04/30/23] rivaroxaban 20 mg tablet (Xarelto) 20 mg PO HS #1 tab 01/21/22 [Rx Confirmed 04/30/23] famotidine 20 mg tablet 20 mg PO DAILY PRN reflux #30 tabs 02/23/22 [Rx Confirmed 04/30/23] Exam Physical Exam Vital Signs: Temp Pulse Resp BP Pulse Ox O2 Del Method 99.8 F H 80 16 99/62 L 100 Room Air 04/30/23 15:58 04/30/23 15:58 04/30/23 15:58 04/30/23 15:58 04/30/23 15:58 04/30/23 16:00 Results Lab Results Labs: Laboratory Last Values Corrected WBC 7.1 X10E3/uL (3.8-11.6) 04/30/23 11:19 Uncorrected WBC Count 7.1 x10E3/uL (3.8-11.6) 04/30/23 11:19 RBC 4.46 X10E6/uL (3.60-5.00) 04/30/23 11:19 Hgb 13.8 g/dL (11.8-15.4) 04/30/23 11:19 Hct 37.3 % (34.0-46.4) 04/30/23 11:19 MCV 83.6 fl (80-100) 04/30/23 11:19 MCH 30.9 pg (24.7-34.3) 04/30/23 11:19 MCHC 36.9 g/dL (32.0-35.0) H 04/30/23 11:19 RDW 13.6 % (11.9-15.3) 04/30/23 11:19 Plt Count 275 x10E3/uL (150-450) 04/30/23 11:19 MPV 8.0 fl (6.3-10.7) 04/30/23 11:19 Neut % (Auto) 84.4 % (.) 04/30/23 11:19 Lymph % (Auto) 6.3 % (.) 04/30/23 11:19 [place] % (Auto) 7.7 % (.) 04/30/23 11:19 Eos % (Auto) 1.0 % (.) 04/30/23 11:19 Baso % (Auto) 0.6 % (.) 04/30/23 11:19 Nucleat RBC Rel Count 0.1 /100 WBC (0-0.5) 04/30/23 11:19 Neut # (Auto) 6.0 x10E3/uL (1.8-7.7) 04/30/23 11:19 Lymph # (Auto) 0.4 x10E3/uL (1.00-4.8) L 04/30/23 11:19 [place] # (Auto) 0.6 x10E3/uL (0.0-0.8) 04/30/23 11:19 Eos # (Auto) 0.1 x10E3/uL (0.0-0.45) 04/30/23 11:19 Baso # (Auto) 0.0 x10E3/uL (0.0-0.2) 04/30/23 11:19 Monocyte Dist Width 21.47 % (0.00-20.00) H 04/30/23 11:19 Platelet Estimate Normal (Normal) 04/30/23 11:19 Plt Morphology Comment Normal (Normal) 04/30/23 11:19 RBC Morphology Normal (Normal) 04/30/23 11:19 PHA Creatinine Clear 93.89 04/30/23 11:19 Sodium 139 mmol/L (136-145) 04/30/23 11:19 Potassium 1.9 mmol/L (3.5-5.1) L* 04/30/23 11:19 Chloride 96 mmol/L (98-107) L 04/30/23 11:19 Carbon Dioxide 33.7 mmol/L (21.0-31.0) H 04/30/23 11:19 Anion Gap 11.2 mEq/L (6.0-15.0) 04/30/23 11:19 BUN 11 mg/dL (7-25) 04/30/23 11:19 Creatinine 0.87 mg/dL (0.60-1.20) 04/30/23 11:19 Est GFR (CKD-EPI) > 60.0 mL/Min 04/30/23 11:19 Glucose 94 mg/dL (70-100) 04/30/23 11:19 Calcium 8.6 mg/dL (8.6-10.3) 04/30/23 11:19 Magnesium 0.9 mg/dL (1.9-2.7) L* 04/30/23 11:19 Total Bilirubin 0.6 mg/dl (0.3-1.0) 04/30/23 11:19 AST 19 U/L (13-39) 04/30/23 11:19 ALT 13 U/L (7-52) 04/30/23 11:19 Alkaline Phosphatase 59 U/L (34-104) 04/30/23 11:19 Total Protein 7.3 gm/dL (6.4-8.9) 04/30/23 11:19 Albumin 4.3 gm/dL (3.5-5.7) 04/30/23 11:19 Globulin 3.0 gm/dL 04/30/23 11:19 Albumin/Globulin Ratio 1.4 04/30/23 11:19 Lipase 21.0 U/L (11.0-82.0) 04/30/23 11:19 SARS-CoV-2 Rap RNA(RT-PCR) Positive (Negative) A 04/30/23 10:16 Microbiology Results Micro: Microbiology - Results from entire visit 04/30/23 10:16 Nasopharyngeal SARS-CoV-2, Influenza & RSV (PCR) - Final Assessment & Plan IP vs OBS Justification Based on differential dx, clinical care plan, and risk of adverse events, if untreated, in my clinical judgement this patient requires an acute care setting as: INPATIENT because of an expectation of an over 2 midnight stay. Estimated length of stay (# of days): 3 Documented By: Jerrell Smith DO 04/30/23 17 43 Signed By: <Electronically signed by Jerrell Smith DO> 04/30/231919 [facility] Work Phone: [phone]) 724-175209-17-2023 Hospital Discharge instructions Additional Instructions You have tested positive for Covid-19 04/30/23, please see attached instructions and follow up with the Health Department for further instructions. Resume Xarelto after finished [facility] Work Phone: [phone]) 568-246707-03-2023 Miscellaneous Notes* Telephone Encounter - Madai Enrique Ran - 02/13/2023 3:00 PM EDT Spoke to patient & scheduled 1 year follow up with BRM on 03/21/2023@9:45 am. Told patient [place] [facility] [place] Madai Enrique Ran * Telephone Encounter - Madai Enrique Ran - 02/13/2023 2:17 PM EDT Lvm for patient to scheduled a 1 year follow up with BRM & to tell her, her labs have been faxed. Madai Enrique Ran * Telephone Encounter - Britt Swanson RN - 02/13/2023 12:33 PM EDT [place] fax[place] [facility] [place] pt request. PSS: please inform pt her labs have been faxed when you call to schedule her BRM appt. Britt Swanson RN * Telephone Encounter - Yuliana Garza APRN.CNP - 02/13/2023 12:25 PM EDT Signed. Yuliana Garza APRN.CNP * Telephone Encounter - Britt Swanson RN - 02/13/2023 11:36 AM EDT Pt aware and agreeable and requests lab orders sent [place] [facility] [place]. BRM: lab orders pended, please review and add any additional if needed Britt Swanson RN * Telephone Encounter - Giuseppe Fair MD - 02/13/2023 11:28 AM EDT Bruising while on Xarelto is not uncommon or necessarily significant. Reasonable to hold Xarelto until the bruising resolves, then resume. Certainly she can see her PCP or schedule an appointment with us if not improving. * Telephone Encounter - Britt Swanson RN - 02/13/2023 10:54 AM EDT Pt called with c/o bruising in her lower leg, next to her calf. Report approx 2 inches in length, a little swollen and sore to touch . Unaware of injury to area. Denies redness, not warm to touch.She is asking if she needs to just watch it, or is there a reason to be concerned? Last visit 03/2022, she does need to schedule yearly follow up. BRM/HM: Please advise PSS: Please call to schedule yearly follow up Britt Swanson RN documented [facility] Evaluation note* Encounter Date Diagnosis Assessment Notes Treatment Notes Treatment Clinical Notes Jan, Hypokalemia (ICD-10 - E87.6) She has a hypokalemia and hypomagnesemia due to the Gitelman syndrome. Her potassium is normal . Continue current potassium supplement and amiloride. She reported that she has a son and would like to know if he can have that disease. Advised her to be screened with the genetic testing and lab work by PCP. Jan, Hypomagnesemia (ICD-10 - E83.42) continue current magnesium supplement. She reported she cannot tolerate the higher dose of magnesium due to diarrhea. Jan, Deep vein thrombosis (DVT) of lower extremity, unspecified chronicity, unspecified laterality, unspecified vein (ICD-10 - I82.409) continue current dose of Xarelto and follow-up with PCP Jan, Hypocalcemia (ICD-10 - E83.51) She has hypocalcemia possibly due to the vitamin D deficiency. Advised her to take oral vitamin D 1000 unit daily. [facility] 02-07-2023 Evaluation note* Encounter Date Diagnosis Assessment Notes Treatment Notes Treatment Clinical Notes Sep, Hypokalemia (ICD-10 - E87.6) [facility] 01-28-2023 Evaluation note* Encounter Date Diagnosis Assessment Notes Treatment Notes Treatment Clinical Notes Aug, Injury of right ankle, initial encounter (ICD-10 - S99.911A) Aug, Sprain of right ankle, unspecified ligament, initial encounter (ICD-10 - S93.401A) Use RICE therapy as discussed: Rest, Ice Compression, Elevate. Apply ice to affected area 3-4 times daily (Do not place ice source directly on skin, must cover with towel-like material). Use OTC as directed for pain if needed. Contact office if symptoms are not improved within the next few days and we will help you get into specialist. [facility] Other 11-15-2022 Evaluation note* Encounter Date Diagnosis Assessment Notes Treatment Notes Treatment Clinical Notes Jun, Hypokalemia (ICD-10 - E87.6) Her potassium is normal . Continue current potassium supplement and amiloride. Jun, Hypomagnesemia (ICD-10 - E83.42) continue current magnesium supplement. She reported she cannot tolerate the higher dose of magnesium due to diarrhea. Jun, Deep vein thrombosis (DVT) of lower extremity, unspecified chronicity, unspecified laterality, unspecified vein (ICD-10 - I82.409) continue current dose of Xarelto and follow-up with PCP [facility] Other 10-28-2022 Evaluation note* Encounter Date Diagnosis Assessment Notes Treatment Notes Treatment Clinical Notes May, Sore throat (ICD-10 - J02.9) May, Acute laryngitis (ICD-10 - J04.0) Laryngitis home care material was printed Drink plenty fluids, get plenty of rest. Take the prednisone as prescribed until gone. Take Tylenol or Motrin as needed for aches pains or fevers. Consider drinking warm tea with honey for comfort. Follow-up with your family physician if no improvement in 2 to 3 days. May, Contact with and (suspected) exposure to covid-19 (ICD-10 - Z20.822) May, Other viral agents as the cause of diseases classified elsewhere (ICD-10 - B97.89) [facility] Other 10-18-2022 NoteEntered by Lena Agosto on May 31, 2022 11:44:16 EDT From: Lena Agosto To: [facility] Sent: 05/31/2022 11:44:16 EDT Subject: Medication Management Submitted: Complete:rivaroxaban (Xarelto 20 mg oral tablet) Signed by Lena Agosto 05/31/2022 11:44:00 EDT Approved rivaroxaban (XARELTO 20MG) TAKE 1 TABLET BY MOUTH ONCE DAILY IN THE MORNING Qty: 30 tab(s) Days Supply: 30 Refills: 0 Substitutions Allowed Route To Pharmacy - [facility] Note from Pharmacy: * * N O T I C E * * PRESCRIPTION PREVIOUSLY AUTHORIZED BY DOCTOR:SEVERO KUMAR * * * Signed by Lena Agosto Patient matched by Lena Agosto on 05/31/2022 09:40:33 EDT From: [facility] To: Igor CLARK, Aissatou Andersen CNP Sent: May 31, 2022 8:27:11 AM CDT Subject: Medication Management Due: June 01, 2022 12:10:06 AM CDT On Hold Pending Signature Drug: rivaroxaban (Xarelto 20 mg oral tablet), TAKE 1 TABLET BY MOUTH ONCE DAILY IN THE MORNING Quantity: 30 tab(s) Days Supply: 30 Refills: 0 Substitutions Allowed Notes from Pharmacy: Dispensed Drug: rivaroxaban (Xarelto 20 mg oral tablet), TAKE 1 TABLET BY MOUTH ONCE DAILY IN THE MORNING Quantity: 30 tab(s) Days Supply: 30 Refills: 0 Substitutions Allowed Notes from Pharmacy: * * N O T I C E * * PRESCRIPTION PREVIOUSLY AUTHORIZED BY DOCTOR:SEVERO KUMAR * * * [id number] Miscellaneous Notes* Telephone Encounter - Giuseppe Fair MD - 04/14/2022 12:38 PM EDT Labs not needed. ThanksNORA * Telephone Encounter - Christelle Martinez - 04/13/2022 3:16 PM EDT Patient coming in to see you on Monday04/26/22 for 1 year follow up. Please add lab orders if needed. Thanks, Christelle Martinez MA documented in this encounterOhio[facility]07-12-2022 NoteEntered by DANNI BRYANT on February 22, 2022 16:59:51 EDT From: DANNI BRYANT To: [facility] Sent: 02/22/2022 16:59:51 EDT Subject: Medication Management Not Approved: Refill not appropriate ondansetron (ONDANSETRON 4MG ODT) DISSOLVE ONE TABLET ON TONGUE EVERY 6 TO 8 HOURS NEEDED FOR NAUSEA/VOMITING. Qty: 10 tab(s) Days Supply: 3 Refills: 0 Substitutions Allowed Route To Pharmacy - [facility] Note from Pharmacy: pt requesting refills please 02/22/2022 4:11:22 PM Signed by DANNI BRYANT From: [facility] To: Aissatou Khalil CNP Sent: February 22, 2022 3:14:11 PM CDT Subject: Medication Management Due: February 23, 2022 12:06:10 AM CDT On Hold Pending Signature Drug: ondansetron (ondansetron 4 mg oral tablet, disintegrating), DISSOLVE ONE TABLET ON TONGUE EVERY 6 TO 8 HOURS NEEDED FOR NAUSEA/VOMITING. Quantity: 10 tab(s) Days Supply: 3 Refills: 0 Substitutions Allowed Notes from Pharmacy: Dispensed Drug: ondansetron (ondansetron 4 mg oral tablet, disintegrating), DISSOLVE ONE TABLET ON TONGUE EVERY 6 TO 8 HOURS NEEDED FOR NAUSEA/VOMITING. Quantity: 10 tab(s) Days Supply: 3 Refills: 0 Substitutions Allowed Notes from Pharmacy: pt requesting refills please 02/22/2022 4:11:22 PM [id number] Evaluation note* Encounter Date Diagnosis Assessment Notes Treatment Notes Treatment Clinical Notes December, Hypokalemia (ICD-10 - E87.6) Her potassium is normal . Continue current potassium supplement and amiloride. I would recommend to continue the oral potassium, magnesium and amiloride prior to the surgery. Her potassium and magnesium should be monitored 6 hours after the surgery for 24 hours and replete with IV KCl 40 mEq if her serum potassium is less than 3 mmol/L and IV magnesium 2 g if her magnesium is less than 1.6 mg/dL December, Hypomagnesemia (ICD-10 - E83.42) continue current magnesium supplement. She reported she cannot tolerate the higher dose of magnesium due to diarrhea. December, Deep vein thrombosis (DVT) of lower extremity, unspecified chronicity, unspecified laterality, unspecified vein (ICD-10 - I82.409) continue current dose of Xarelto and follow-up with PCP [facility] 04-06-2022 Miscellaneous Notes* Telephone Encounter - Shawanda Calderón RN - 11/17/2021 9:59 AM EDT Informed pt of Dr Fair's response. Pt verbalized understanding and denies further needs at this time. Shawanda Calderón RN * Telephone Encounter - Giuseppe Fair MD - 11/16/2021 4:57 PM EDT Please inform the patient that she has already undergone extensive testing, and the only abnormality found was a heterozygous MTHFR mutation. Regardless of her prior testing, because of her recurrentblood clots indefinite treatment with anticoagulation (Xarelto) was recommended. If she is having recurrent blood clots despite Xarelto I would suggest that she be referred to [facility] to be seen by the vascular medicine specialist. They would have more testing availability at the [facility] then at our office. Thanks, BRM * Telephone Encounter - Shawanda Calderón RN - 11/16/2021 4:19 PM EDT Received message from pt stating she was discharged from the hospital last week and they told her to ask Dr Fair to run in-depth blood clotting labs to determine what blood clotting disorder she has. BRM: Would you like to order labs? Shawanda Calderón RN documented in this encounterSelect [facility] complaint+Reason for visit Narrative* Chief Complaint e87.6. vomiting blood Reason for Visit Acute hypokalemia COVID-19 Hypomagnesemia Nausea & vomiting [facility] Work Phone: Consult note Author Francis Fuller [facility] May 01, 2023 3:45pm Note Date/Time May 01, 2023 3:45pm [facility] ENTER [address] [place], [place] [id number] Gastroenterology Consult Note Signed Patient: Domenic Ngo MR#: [id number] : 1990 Acct:[id number] Age/Sex: 32 / F Adm Date: 3 Loc: Room: [address] [place] [address] Type: ADM IN Attending Dr: Maria Elena Garibay MD Copies to: MD Maria Elena Anderson MD Shaikh Fawwad, MD~ HPI Data of Consult Date of Consultation: 05/01/23 Requesting Physician: Maria Elena Garibay MD Consult Narrative History of present illness: Ms. Ngo is a 32 year old female with a history of Gettleman syndrome, GERD, remote DVT on Xarelto who was admitted with COVID. Who I am consulted for hematemesis. The patient states that she had several episodes of forceful nausea and vomiting with retching. After several rounds of retching and vomiting she had some blood in her emesis. She has never had this happen before. She was on Xarelto at the time. She has been hemodynamically stable. H&H has been within the normal range. cc:: CC: Maria Elena Garibay MD Review of Systems Constitutional Constitutional: Denies poor appetite and Denies weight loss Eyes Eyes: Denies change in vision and Denies eye discharge ENT Ears, Nose, Mouth, and Throat: Denies nasal discharge, Denies sore throat and Denies vertigo Cardiovascular Cardiovascular: Denies chest pain and Denies dyspnea on exertion Respiratory Respiratory: Denies chest congestion, Denies cough and Denies dyspnea on exertion Gastrointestinal Gastrointestinal: Reports as per HPI Musculoskeletal Musculoskeletal: Denies arthralgias, Denies muscle weakness and Denies numbness Integumentary/Breasts Skin/Breast: Denies change in pigmentation and Denies rash Neurologic Neurologic: Denies numbness and Denies vertigo Psychiatric Psychiatric: Denies anxiety and Denies depression Hematologic/Lymphatic Hematologic/Lymphatic: Denies easy bruising and Denies lymphadenopathy [facility] Medical History (Updated 04/30/23 @ 16:11 by Alfreda Arroyo RN) Anomalous implantation of ureter DVT (deep venous thrombosis) L leg 2013, 2018 Gitelman syndrome Hemoptysis Migraines Neuropathy L leg PCOS (polycystic ovarian syndrome) Port-A-Cath in place right TMJ (temporomandibular joint syndrome) Surgical History (Updated 04/30/23 @ 16:11 by Alfreda Arroyo RN) H/O tubal ligation History of hysterectomy History of mandibular surgery multiple surgeries of placing and removing hardware History of tonsillectomy and adenoidectomy S/P Botox injection of jaw Family History Grandparent Diabetes Hypertension Myocardial infarction Lung cancer Charcot-Annemarie disease Social History Smoking Status: Former smoker Tobacco Type: cigarettes Substance Use Type: Alcohol Substance Abuse Comment: socially Meds Medications and Allergies Allergies adhesive Allergy (Verified 04/30/23 09:55) Rash Home Medications amiloride 5 mg tablet 10 mg PO BID 09/16/18 [History Confirmed 04/30/23] magnesium oxide 800 mg PO TID 09/16/18 [History Confirmed 04/30/23] ondansetron HCl 4 mg tablet 4 mg PO Q6-8H PRN Nausea 05/13/19 [History Confirmed 04/30/23] potassium chloride 20 mEq tablet,extended release(part/cryst) (Klor-Con M) 120 meq PO TID 01/25/21 [History Confirmed 04/30/23] erenumab-aooe 70 mg/mL subcutaneous auto-injector (Aimovig Autoinjector) 70 mg subcut QMONTH 06/23/21 [History Confirmed 04/30/23] rimegepant 75 mg disintegrating tablet (Nurtec ODT) 75 mg PO DAILY PRN Headache 06/23/21 [History Confirmed 04/30/23] rivaroxaban 20 mg tablet (Xarelto) 20 mg PO HS #1 tab 01/21/22 [Rx Confirmed 04/30/23] famotidine 20 mg tablet 20 mg PO DAILY PRN reflux #30 tabs 02/23/22 [Rx Confirmed 04/30/23] Exam Physical Exam Vital Signs: Temp Pulse Resp BP Pulse Ox O2 Del Method 98.6 F 65 16 101/68 96 Room Air 09/18/23 15:35 05/01/23 15:35 05/01/23 15:35 05/01/23 15:35 05/01/23 15:35 05/01/23 15:35 Const General: no acute distress and well developed HEENT Head: normocephalic and atraumatic Mouth: moist mucous membranes Eyes Sclera: sclerae normal (no scleral icterus) EOM: EOM intact bilaterally Neck Other: trachea midline Resp Effort & Inspection: normal respiratory effort and able to speak in complete sentences GI Inspection: normal to inspection and non-distended Palpation: soft and nontender Skin General: turgor normal and no jaundice Neuro General: patient alert and patient oriented x3 Psych Appearance: grossly normal Mental Status: mental status grossly normal Results Labs Labs: Laboratory Results - last 24 hr 05/01/23 05/01/23 05/01/23 05:00 05:00 05:00 Corrected WBC 4.6 Uncorrected WBC Count 4.6 RBC 4.19 Hgb 12.9 Hct 35.3 MCV 84.2 MCH 30.8 MCHC 36.5 H RDW 13.3 Plt Count 259 MPV 7.9 Neut % (Auto) 45.1 Lymph % (Auto) 37.7 [place] % (Auto) 15.9 Eos % (Auto) 0.5 Baso % (Auto) 0.8 Nucleat RBC Rel Count 0.1 Neut # (Auto) 2.1 Lymph # (Auto) 1.7 [place] # (Auto) 0.7 Eos # (Auto) 0.0 Baso # (Auto) 0.0 PT Cancelled INR Cancelled APTT Cancelled PHA Creatinine Clear 93.41 Sodium 137 Potassium 2.1 L* Chloride 98 Carbon Dioxide 34.1 H Anion Gap 7.0 BUN 8 Creatinine 0.88 Est GFR (CKD-EPI) > 60.0 Glucose 91 Calcium 8.1 L Magnesium 2.1 D 05/01/23 09:00 Corrected WBC Uncorrected WBC Count RBC Hgb Hct MCV MCH MCHC RDW Plt Count MPV Neut % (Auto) Lymph % (Auto) [place] % (Auto) Eos % (Auto) Baso % (Auto) Nucleat RBC Rel Count Neut # (Auto) Lymph # (Auto) [place] # (Auto) Eos # (Auto) Baso # (Auto) PT 16.4 H INR 1.4 APTT 34.0 PHA Creatinine Clear Sodium Potassium Chloride Carbon Dioxide Anion Gap BUN Creatinine Est GFR (CKD-EPI) Glucose Calcium Magnesium A&P - Gastroenterology Assessment/Plan (1) History of DVT (deep vein thrombosis): Code(s): Z86.718 - Personal history of other venous thrombosis and embolism Status: Acute (2) Chronic anticoagulation: Code(s): 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 I will sign off at this time. Documented By: Francis Fuller MD 05/01/23 1542 Signed By: <Electronically signed by Francis Fuller MD> 05/01/23 1545 [facility] Work Phone: Discharge summary Author Maria Elena Garibay [facility] May 04, 2023 6:02pm Note Date/Time May 02, 2023 3:58pm [facility] [address] [place] [address] Discharge Summary Signed Patient: Domenic Ngo MR#: [id number] : 1990 Acct:[id number] Age/Sex: 32 / F Adm Date: 3 Loc: Room: 5E5676-[address]: Maria Elena Garibay MD Copies to: MD Shaikh Gumaro Corcoran MD~ Providers Date of Discharge: 05/02/23 Discharging Provider: Maria Elena Garibay Primary Care Provider: Shaikh Gumaro Consults: 05/01/23 14:57 Consult to Gastroenterology Routine Discharge Diagnosis (1) History of DVT (deep vein thrombosis): (2) Chronic anticoagulation: (3) Nausea & vomiting: (4) COVID-19: Final Diagnosis Final Discharge Diagnosis: COVID-19 viral infection Severe hypokalemia with hypomagnesemia due to Gettleman syndrome as well as poorappetite complicated by nausea/vomiting Hematemesis, suspected Mercedes-Perez tear, discharged with PPIs 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 Initially she vomited bile-like stuff, later she noted blood in her vomitus. Denied any melena or any hematochezia. Upon presentation patient was found to have COVID-19 viral infection, patient had respiratory minimal symptomsand did not require any oxygen. She has Gettleman syndrome, and couple of days she had very poor appetite associated with recurrent nausea with vomiting so shewas found to have severe hypokalemia and hypomagnesemia. Patient was admitted for severe electrolyte abnormalities. For COVID 19 viral infection patient was started on Paxlovid. Xarelto due to interactions with Paxlovid as well as hematemesis was held. Patient is taking Xarelto due to recurrent DVTs. D-dimers were undetectable. I recommended to resume Xarelto if no signs of bleeding after patient finished Paxlovid therapy in 3 days Due to hematemesis gastroenterology was consulted who suspected Mercedes-Perez tear. Recommended to continue with PPIs. During the hospitalization patient did not have any more signs of hematemesis, her H&H remained stable. On the day of discharge patient was feeling significantly better. Again she didnot require any oxygen supplementation. Her appetite improved, and she is able to tolerate p.o. intake well, she did not have any vomiting, she did have normalbowel movements. She still felt weak and fatigued. Patient wanted to be discharged home Physical exam: General -awake, alert, oriented ?3, not in acute distress Cardiovascular -S1 with S2, no murmurs, no rubs, no gallops Pulmonary - clear to auscultation bilaterally Gastrointestinal - abdomen is soft, nondistended, nontender, bowel sounds positive, there is no rigidity, no rebound Extremities -no edema Neurological -no focal neurological dysfunction noted The patient CARE and further plan was discussed with the patient. All questionsanswered. Patient expressed understanding and was discharged home in a stable condition. The patient was given written and verbal instructions. The recommendations were made to follow-up as outpatient within one week.The patientwas informed if his symptoms get worse to go back to emergency room or call his primary care physician office. Time Spent with Patient Time spent providing/coordinating discharge services (# min): 35 Diagnostic Studies Completed and Pending Studies Pending studies at discharge: 05/03/23 05:00 Basic Metabolic Panel [CHEM] IN AM Complete Blood Count Auto Diff IN AM Magnesium [CHEM] IN AM Labs on day of discharge: 05/02/23 05:12: PHA Creatinine Clear 103.30, Sodium 136, Potassium 3.2 L, Chloride 101, Carbon Dioxide 30.8, Anion Gap 7.4, BUN 9, Creatinine 0.87, Est GFR (CKD- EPI) > 60.0, Glucose 104 H, Calcium 8.5 L, Magnesium 2.4 05/02/23 05:12: Corrected WBC 4.6, Uncorrected WBC Count 4.6, RBC 4.34, Hgb 13.2, Hct 37.0, MCV 85.3, MCH 30.4, MCHC 35.6 H, RDW 13.3, Plt Count 254, MPV 8.0, Neut % (Auto) 51.9, Lymph % (Auto) 36.7, [place] % (Auto) 8.1, Eos % (Auto) 2.6, Baso % (Auto) 0.7, Nucleat RBC Rel Count 0.0, Neut # (Auto) 2.4, Lymph # (Auto) 1.7, [place] # (Auto) 0.4, Eos # (Auto) 0.1, Baso # (Auto) 0.0 05/01/23 23:34: PHA Creatinine Clear 105.73, Sodium 132 L, Potassium 3.1 L, Chloride 104, Carbon Dioxide 30.9, Anion Gap 0.2 L, BUN 10, Creatinine 0.85, Est GFR (CKD-EPI) > 60.0, Glucose 96, Calcium 8.1 L 05/01/23 09:00: D-Dimer Quant (PE/DVT) Cancelled 05/01/23 09:00: D-Dimer Quant (PE/DVT) < 200 Exam Physical Exam Vital Signs: Temp Pulse Resp BP Pulse Ox O2 Del Method 36.6 C 72 18 123/77 97 Room Air 05/02/23 11:05/02/23 11:05/02/23 11:05/02/23 11:05/02/23 11:05/02/23 11:26 Discharge Plan Discharge Plan Patient Disposition: Home Diet: Regular Additional Instructions: You have tested positive for Covid-19 04/30/23, please see attached instructions and follow up with the Health Department for further instructions. Resume Xarelto after finished Paxlovid [place] [facility] [place]charge Instructions Stand Alone Forms: Work/School Release Form Prescriptions: New Paxlovid 300 mg (150 mg x 2)-100 mg Tablets,Dose Pack 1 ea PO BID Qty: 0 0RF pantoprazole [Protonix] 40 mg tablet,delayed release (DR/EC) 40 mg PO DIRECTED 28 Days Qty: 28 0RF Rx Instructions: 40 mg twice a day for 6 weeks, then 20 mg daily in the setting of Xarelto Continued ondansetron HCl 4 mg Tablet 4 mg PO Q6-8H PRN (Reason: Nausea) potassium chloride [Klor-Con M20] 20 mEq Tablet,Er Particles/Crystals 120 meq PO TID Aimovig Autoinjector 70 mg/mL auto-injector 70 mg SUBCUT QMONTH Nurtec ODT 75 mg tablet,disintegrating 75 mg PO DAILY PRN (Reason: Headache) Patient Comments: DISSOLVE ONE TABLET BY MOUTH AT ONSET OF MIGRAINES amiloride 5 mg Tablet 10 mg PO BID magnesium oxide 400 mg magnesium Tablet 800 mg PO TID famotidine 20 mg tablet 20 mg PO DAILY PRN (Reason: reflux) Qty: 30 0RF Held Xarelto 20 mg tablet 20 mg PO HS Qty: 1 0RF Hold Instructions: When Paxlovid complete Patient Comments: Rx Instructions: Pt takes at 8pm Follow Up: Francis Fuller MD [Active Staff] - (Please call Gastroenterology for a followup appointment as needed) Shaikh Naik MD [Primary Care Provider] - (The office is aware of your hospital stay and need for follow up in 7-10 days, the office will call you to schedule. Please call the office if you have not heard from them by the next day.) Documented By: Maria Elena Garibay MD 05/02/23 1551 Signed By: <Electronically signed by Maria Elena Garibay MD> 05/04/23 1802 [facility] Work Phone: Evaluation + Plan note No data available for this section [facility] evaluation noteNo InformationNort Impactia Other Evaluation noteNo assessment information available [facility] Work Phone: Evaluation note* Diagnosis Thrombosis of left femoral vein (HCC)- Primary Venous embolism and thrombosis of superficial vessels of lower extremity Recurrent deep vein thrombosis (DVT) (HCC) [facility] Diagnosis Onset Date Resolution Status Acute hypokalemia acute COVID-19 acute Hypomagnesemia acute Nausea & vomiting acute [facility] Work Phone: Evaluation note* Diagnosis Onset Date Resolution Status Acute hypokalemia acute Chronic anticoagulation acut e COVID-19 acute History of DVT (deep vein thrombosis) acute Hypomagnesemia acute Nausea & vomiting acute [facility] Work Phone: Evaluation note* Diagnosis Unspecified symptoms and signs involving the genitourinary system [facility] Diagnosis Onset Date Resolution Status Hypocalcemia acute Hypokalemia acute Hypomagnesemia acute Gitelman syndrome chronic [facility] Work Phone: Evaluation note* Diagnosis Onset Date Resolution Status Hypocalcemia acute Hypokalemia acute Hypomagnesemia acute Gitelman syndrome chronic Chronic anticoagulation acut e Hypocalcemia acute Hypokalemia acute Hypomagnesemia acute Nausea & vomiting acute Gitelman syndrome chronic UTI (urinary tract infection) resolved [facility] Work Phone: Evaluation note* Diagnosis Primary hypercoagulable state (HCC)- Primary Primary hypercoagulable state Gitelman syndrome Disorders of magnesium metabolism History of PCOS Personal history of other genital system and obstetric disorders [facility] Diagnosis Memory impairment of gradual onset- Primary Gitelman disease Disorders of magnesium metabolism H/O deep venous thrombosis Deep vein thrombosis (DVT) of distal vein of lower extremity, unspecified chronicity, unspecified laterality (CMS/HCC) documented in this encounter [facility] HealthcareEvaluation [facility]* Diagnosis Memory impairment of gradual onset- Primary Gitelman disease Disorders of magnesium metabolism H/O deep venous thrombosis Pelvic pain- Primary Gitelman disease Disorders of magnesium metabolism Pelvic cramping documented in this encounter [facility] HealthcareHistory and physical note Author Jerrell Smith [facility] April 30, 2023 7:20pm Note Date/Time April 30, 2023 5:47pm [facility] [address] [place] [address] Hospitalist H&P Signed Patient: Domenic Ngo MR#: [id number] : 1990 Acct:[id number] Age/Sex: 32 / F Adm Date: 3 Loc: Room: [address] [place] [address] Type: ADM IN Attending Dr: Jerrell Smith DO Copies to: DO Shaikh Gumaro Dozier MD~ HPI DATE OF EXAMINATION: 04/30/23 CHIEF COMPLAINT: Nausea and vomiting HISTORY OF PRESENT ILLNESS: This patient is a 32-year-old female who presented to the emergency department earlier today with reports of significant nausea and vomiting that started yesterday. She has a known history of Gitelman syndrome for which she takes amiloride and follows with nephrology regularly. Furthermore has history of DVTand takes 20 mg Xarelto. In addition to her nausea and vomiting she reported some mild hemoptysis that is described as an isolated incident. Vitals on arrival reveal 100 degrees fever, heart rate of 105, respirations 18, blood pressure 107/64, 96% oxygen saturation on room air. Her initial CBC is unremarkable however chemistries are quite abnormal with potassium of 1.9, hypochloremia 96, elevated bicarb 33.7. Kidney function and liver function unremarkable. Magnesium 0.9. She was noted to be positive for COVID-19. She was provided 80 mg IV bolus of Protonix as well as potassium and magnesium repletion. She was subsequently admitted to the [facility] floor for further evaluation and treatment. Resting comfortably upon arrival to the [facility] floor. Physical Examination: GENERAL APPEARANCE: Alert, resting comfortably HEENT: NCAT, MMM NECK: Neck soft w/o masses, no JVD CARDIAC: Normal S1 and S2. No S3, S4 or murmurs. LUNGS: Clear to auscultation bilaterally. no wheeze/rhonchi/rales ABDOMEN: Positive bowel sounds. Soft, nontender. No guarding or signs of an acute abdomen MUSCULOSKELETAL: No joint erythema or tenderness. EXTREMITIES: No clubbing, cyanosis or edema PSYCHIATRIC: Appropriate mood and affect Assessment and plan: 1. Acute hypokalemia 2. Acute hypomagnesemia Patient takes high-dose supplements of magnesium and potassium both 3 times daily for her known Gitelman syndrome. At this time with her nausea and vomiting will provide aggressive supplementation with potassium chloride in normal saline throughout the evening. 3. Metabolic alkalosis Alkalosis is a manifestation of her underlying Gitelman syndrome but also is likely exacerbated by her vomiting. The above potassium supplements are within normal saline a relatively ascitic fluid which should assist in balancing this. Follow a.m. labs. If no improvement can consider nephrology consultation. 4. COVID-19 infection Oral Paxlovid twice daily has been ordered. This does interact with her home Xarelto which can be held for the time being and if further concern can continuethis at a lower dose. Review of Systems Review of Systems All other systems reviewed & are negative unless noted below or in HPI [facility] Medical History (Updated 04/30/23 @ 16:11 by Alfreda Arroyo RN) Anomalous implantation of ureter DVT (deep venous thrombosis) L leg 2013, 2017 Gitelman syndrome Hemoptysis Migraines Neuropathy L leg PCOS (polycystic ovarian syndrome) Port-A-Cath in place right TMJ (temporomandibular joint syndrome) Surgical History (Updated 04/30/23 @ 16:11 by Alfreda Arroyo RN) H/O tubal ligation History of hysterectomy History of mandibular surgery multiple surgeries of placing and removing hardware History of tonsillectomy and adenoidectomy S/P Botox injection of jaw Family History Grandparent Diabetes Hypertension Myocardial infarction Lung cancer Charcot-Annemarie disease Social History Smoking Status: Former smoker Tobacco Type: cigarettes Substance Use Type: Alcohol Substance Abuse Comment: socially Meds Medications and Allergies Allergies adhesive Allergy (Verified 04/30/23 09:55) Rash Home Medications amiloride 5 mg tablet 10 mg PO BID 09/16/18 [History Confirmed 04/30/23] magnesium oxide 800 mg PO TID 09/16/18 [History Confirmed 04/30/23] ondansetron HCl 4 mg tablet 4 mg PO Q6-8H PRN Nausea 05/13/19 [History Confirmed 04/30/23] potassium chloride 20 mEq tablet,extended release(part/cryst) (Klor-Con M) 120 meq PO TID 01/25/21 [History Confirmed 04/30/23] erenumab-aooe 70 mg/mL subcutaneous auto-injector (Aimovig Autoinjector) 70 mg subcut QMONTH 06/23/21 [History Confirmed 04/30/23] rimegepant 75 mg disintegrating tablet (Nurtec ODT) 75 mg PO DAILY PRN Headache 06/23/21 [History Confirmed 04/30/23] rivaroxaban 20 mg tablet (Xarelto) 20 mg PO HS #1 tab 01/21/22 [Rx Confirmed 04/30/23] famotidine 20 mg tablet 20 mg PO DAILY PRN reflux #30 tabs 02/23/22 [Rx Confirmed 04/30/23] Exam Physical Exam Vital Signs: Temp Pulse Resp BP Pulse Ox O2 Del Method 99.8 F H 80 16 99/62 L 100 Room Air 04/30/23 15:58 04/30/23 15:58 04/30/23 15:58 04/30/23 15:58 04/30/23 15:58 04/30/23 16:00 Results Lab Results Labs: Laboratory Last Values Corrected WBC 7.1 X10E3/uL (3.8-11.6) 04/30/23 11:19 Uncorrected WBC Count 7.1 x10E3/uL (3.8-11.6) 04/30/23 11:19 RBC 4.46 X10E6/uL (3.60-5.00) 04/30/23 11:19 Hgb 13.8 g/dL (11.8-15.4) 04/30/23 11:19 Hct 37.3 % (34.0-46.4) 04/30/23 11:19 MCV 83.6 fl (80-100) 04/30/23 11:19 MCH 30.9 pg (24.7-34.3) 04/30/23 11:19 MCHC 36.9 g/dL (32.0-35.0) H 04/30/23 11:19 RDW 13.6 % (11.9-15.3) 04/30/23 11:19 Plt Count 275 x10E3/uL (150-450) 04/30/23 11:19 MPV 8.0 fl (6.3-10.7) 04/30/23 11:19 Neut % (Auto) 84.4 % (.) 04/30/23 11:19 Lymph % (Auto) 6.3 % (.) 04/30/23 11:19 [place] % (Auto) 7.7 % (.) 04/30/23 11:19 Eos % (Auto) 1.0 % (.) 04/30/23 11:19 Baso % (Auto) 0.6 % (.) 04/30/23 11:19 Nucleat RBC Rel Count 0.1 /100 WBC (0-0.5) 04/30/23 11:19 Neut # (Auto) 6.0 x10E3/uL (1.8-7.7) 04/30/23 11:19 Lymph # (Auto) 0.4 x10E3/uL (1.00-4.8) L 04/30/23 11:19 [place] # (Auto) 0.6 x10E3/uL (0.0-0.8) 04/30/23 11:19 Eos # (Auto) 0.1 x10E3/uL (0.0-0.45) 04/30/23 11:19 Baso # (Auto) 0.0 x10E3/uL (0.0-0.2) 04/30/23 11:19 Monocyte Dist Width 21.47 % (0.00-20.00) H 04/30/23 11:19 Platelet Estimate Normal (Normal) 04/30/23 11:19 Plt Morphology Comment Normal (Normal) 04/30/23 11:19 RBC Morphology Normal (Normal) 04/30/23 11:19 PHA Creatinine Clear 93.89 04/30/23 11:19 Sodium 139 mmol/L (136-145) 04/30/23 11:19 Potassium 1.9 mmol/L (3.5-5.1) L* 04/30/23 11:19 Chloride 96 mmol/L (98-107) L 04/30/23 11:19 Carbon Dioxide 33.7 mmol/L (21.0-31.0) H 04/30/23 11:19 Anion Gap 11.2 mEq/L (6.0-15.0) 04/30/23 11:19 BUN 11 mg/dL (7-25) 04/30/23 11:19 Creatinine 0.87 mg/dL (0.60-1.20) 04/30/23 11:19 Est GFR (CKD-EPI) > 60.0 mL/Min 04/30/23 11:19 Glucose 94 mg/dL (70-100) 04/30/23 11:19 Calcium 8.6 mg/dL (8.6-10.3) 04/30/23 11:19 Magnesium 0.9 mg/dL (1.9-2.7) L* 04/30/23 11:19 Total Bilirubin 0.6 mg/dl (0.3-1.0) 04/30/23 11:19 AST 19 U/L (13-39) 04/30/23 11:19 ALT 13 U/L (7-52) 04/30/23 11:19 Alkaline Phosphatase 59 U/L (34-104) 04/30/23 11:19 Total Protein 7.3 gm/dL (6.4-8.9) 04/30/23 11:19 Albumin 4.3 gm/dL (3.5-5.7) 04/30/23 11:19 Globulin 3.0 gm/dL 04/30/23 11:19 Albumin/Globulin Ratio 1.4 04/30/23 11:19 Lipase 21.0 U/L (11.0-82.0) 04/30/23 11:19 SARS-CoV-2 Rap RNA(RT-PCR) Positive (Negative) A 04/30/23 10:16 Microbiology Results Micro: Microbiology - Results from entire visit 04/30/23 10:16 Nasopharyngeal SARS-CoV-2, Influenza & RSV (PCR) - Final Assessment & Plan IP vs OBS Justification Based on differential dx, clinical care plan, and risk of adverse events, if untreated, in my clinical judgement this patient requires an acute care setting as: INPATIENT because of an expectation of an over 2 midnight stay. Estimated length of stay (# of days): 3 Documented By: Jerrell Smith DO 04/30/23 17 43 Signed By: <Electronically signed by Jerrell Smith DO> 04/30/231919 [facility] Work Phone: History and physical note Author Jean Claude Olsen [facility] March 03, 2024 4:24pm Note Date/Time March 03, 2024 4:09 pm [facility] [address] [place] [address] Hospitalist H&P Signed Patient: Domenic Ngo MR#: [id number] : 1990 Acct:[id number] Age/Sex: 33 / F Adm Date: 4 Loc: Room: [address] [place] [address] Type: ADM IN Attending Dr: Jean Claude Olsen MD Copies to: MD Shaikh Gumaro Hayward MD Stanton Vincent, , RES~ HPI DATE OF EXAMINATION: 03/03/24 CHIEF COMPLAINT: Nausea, vomiting HISTORY OF PRESENT ILLNESS: Ms. Ngo is a 33-year-old female with a past history of Port-A-Cath in place, anomalous implantation of ureter, PCOS, and Gitelman syndrome presented to the emergency department today due to concerns of nausea and vomiting that started at 3 AM. According to the patient, she went for a camping trip this past weekend in the area. She felt fine otherwise. However, she awakened at 3 AM this morning with severe nausea and ended up vomiting few times. Patient deniesblood in her vomit and denies bile within her vomit. Patient denies bright green vomitus. Furthermore, patient notes that she was diagnosed with a UTI last Monday at [facility]. They provided her a prescription of Keflex, butpatient notes that she was unable to pick this up in the meantime. Lab review in the emergency department reveals a potassium level of 2.0, magnesium level of0.9, high white blood cell count at 12.7 with neutrophil predominance at 11.6. Patient had imaging performed yesterday due to having recurrent UTIs recently. Imaging revealed mild left pelvocaliectasis and patent ureters bilaterally. Moderate constipation was also noted. On entrance to the room, patient is resting comfortably in bed with friend at bedside. She confirms the above story to me. Patient has received potassium 40mill equivalents and magnesium 2 g while in the emergency department. She notesthat she is feeling a little better overall. She does note that she is having some nausea currently. She denies diarrhea, constipation, abdominal pain, numbness, tingling, headache, changes in vision, and changes in hearing at this time. Patient further notes to me that she had a head injury when she was 16, and does suffer from severe migraines and headaches from time to time. All questions and concerns were addressed with the patient. We will address for records from [facility] to assess for urine culture that was performed on her urinalysis on Monday. In the meantime, we can start Keflex. Review of Systems Review of Systems All other systems reviewed & are negative unless noted below or in HPI [facility] Medical History History of DVT (deep vein thrombosis) Hemoptysis Port-A-Cath in place Anomalous implantation of ureter DVT (deep venous thrombosis) Migraines TMJ (temporomandibular joint syndrome) PCOS (polycystic ovarian syndrome) Neuropathy Gitelman syndrome Surgical History History of hysterectomy S/P Botox injection History of tonsillectomy and adenoidectomy H/O tubal ligation History of mandibular surgery Family History Grandparent Diabetes Hypertension Myocardial infarction Lung cancer Charcot-Annemarie disease Mother Sleep apnea Hypertension Diabetes Social History Smoking Status: Never smoker Tobacco Type: cigarettes Substance Use Type: Alcohol Substance Abuse Comment: socially Meds Medications and Allergies Allergies adhesive tape Allergy (Unknown, Verified 03/03/24 12:45) skin tear adhesive Allergy (Verified 03/03/24 12:45) Rash Home Medications amiloride 5 mg tablet 10 mg PO BID 09/16/18 [History Confirmed 03/03/24] rimegepant 75 mg disintegrating tablet (Nurtec ODT) 75 mg PO DAILY PRN Headache 06/23/21 [History Confirmed 03/03/24] magnesium oxide 800 mg (2 x 400 mg magnesium) PO TID 90 days #540 tabs 01/03/24 [Rx Confirmed 03/03/24] potassium chloride 20 mEq tablet,extended release(part/cryst) (Klor-Con M) 120 meq (6 x 20 mEq) PO TID 90 days #1,620 tabs 01/03/24 [Rx Confirmed 03/03/24] acetaminophen 500 mg tablet (Tylenol Extra Strength) 1,000 mg PO Q6HR PRN pain 02/01/24 [History Confirmed 03/03/24] erenumab-aooe 140 mg/mL subcutaneous auto-injector (Aimovig Autoinjector) 140 mgsubcut QMONTH 02/01/24 [History Confirmed 03/03/24] ondansetron HCl 8 mg tablet 8 mg PO DAILY PRN nausea and vomiting 02/01/24 [History Confirmed 03/03/24] rivaroxaban 20 mg tablet 20 mg PO DAILY 02/01/24 [History Confirmed 03/03/24] Exam Physical Exam Vital Signs: Temp Pulse Resp BP Pulse Ox O2 Del Method 99.8 F H 87 20 95/54 L 97 Room Air 03/03/24 15:19 03/03/24 15:19 03/03/24 15:19 03/03/24 15:19 03/03/24 15:19 03/03/24 15:19 Narrative: General: A&Ox4, no acute distress HEENT: head atraumatic, normocephalic, moist mucous membranes Neck: supple no masses, no lymphadenopathy CVS: regular rate and rhythm, no murmurs or gallops Respiratory: clear to auscultation bilaterally, no wheezing or crackles, symmetric expansion GI: soft, nondistended, nontender, positive bowel sounds with no organomegaly : No CVA tenderness present bilaterally Extremity: moves all extremities, no restrictions of movements, no calf tenderness, no edema Neuro: Moves all extremities in all planes of motion. Skin: dry, intact no rashes or lesions Psych: Cooperative, congruent mood, bright affect Results - Hospitalist H&P Lab Results Labs: Laboratory Last Values Corrected WBC 12.7 X10E3/uL (3.8-11.6) H 03/03/24 13:35 Uncorrected WBC Count 12.7 x10E3/uL (3.8-11.6) H 03/03/24 13:35 RBC 4.15 X10E6/uL (3.60-5.00) 03/03/24 13:35 Hgb 12.7 g/dL (11.8-15.4) 03/03/24 13:35 Hct 35.4 % (34.0-46.4) 03/03/24 13:35 MCV 85.3 fl (80-100) 03/03/24 13:35 MCH 30.7 pg (24.7-34.3) 03/03/24 13:35 MCHC 36.1 g/dL (32.0-35.0) H 03/03/24 13:35 RDW 13.6 % (11.9-15.3) 03/03/24 13:35 Plt Count 291 x10E3/uL (150-450) 03/03/24 13:35 MPV 7.8 fl (6.3-10.7) 03/03/24 13:35 Neut % (Auto) 91.2 % (.) 03/03/24 13:35 Lymph % (Auto) 4.9 % (.) 03/03/24 13:35 [place] % (Auto) 3.5 % (.) 03/03/24 13:35 Eos % (Auto) 0.1 % (.) 03/03/24 13:35 Baso % (Auto) 0.3 % (.) 03/03/24 13:35 Nucleat RBC Rel Count 0.1 /100 WBC (0-0.5) 03/03/24 13:35 Neut # (Auto) 11.6 x10E3/uL (1.8-7.7) H 03/03/24 13:35 Lymph # (Auto) 0.6 x10E3/uL (1.00-4.8) L 03/03/24 13:35 [place] # (Auto) 0.4 x10E3/uL (0.0-0.8) 03/03/24 13:35 Eos # (Auto) 0.0 x10E3/uL (0.0-0.45) 03/03/24 13:35 Baso # (Auto) 0.0 x10E3/uL (0.0-0.2) 03/03/24 13:35 Monocyte Dist Width 22.27 % (0.00-20.00) H 03/03/24 13:35 PHA Creatinine Clear 107.20 03/03/24 13:35 Sodium 137 mmol/L (136-145) 03/03/24 13:35 Potassium 2.0 mmol/L (3.5-5.1) L* 03/03/24 13:35 Chloride 94 mmol/L (98-107) L 03/03/24 13:35 Carbon Dioxide 34.1 mmol/L (21.0-31.0) H 03/03/24 13:35 Anion Gap 10.9 mEq/L (6.0-15.0) 03/03/24 13:35 BUN 12 mg/dL (7-25) 03/03/24 13:35 Creatinine 0.77 mg/dL (0.60-1.20) 03/03/24 13:35 Est GFR (CKD-EPI) > 60.0 mL/Min 03/03/24 13:35 Glucose 104 mg/dL (70-100) H 03/03/24 13:35 Calcium 7.5 mg/dL (8.6-10.3) L 03/03/24 13:35 Magnesium 0.9 mg/dL (1.9-2.7) L* 03/03/24 13:35 Total Bilirubin 0.7 mg/dl (0.3-1.0) 03/03/24 13:35 AST 20 U/L (13-39) 03/03/24 13:35 ALT 17 U/L (7-52) 03/03/24 13:35 Alkaline Phosphatase 47 U/L (34-104) 03/03/24 13:35 Total Protein 6.6 gm/dL (6.4-8.9) 03/03/24 13:35 Albumin 3.8 gm/dL (3.5-5.7) 03/03/24 13:35 Globulin 2.8 gm/dL 03/03/24 13:35 Albumin/Globulin Ratio 1.4 03/03/24 13:35 Assessment & Plan Assessment/Plan (1) Nausea & vomiting: (2) Hypocalcemia: (3) Hypomagnesemia: (4) Hypokalemia: (5) Chronic anticoagulation: (6) Gitelman syndrome: (7) UTI (urinary tract infection): Plan Nausea and vomiting -Continue ondansetron 4 mg IV push every 4 hours as needed for nausea and vomiting. -Monitor vitals every 2 hours. -Encourage patient to partake in p.o. diet. -Nausea and vomiting could be related to the UTI she has or superimposed gastroenteritis. Hypocalcemia, hypomagnesemia, hypokalemia, Gitelman Syndrome -Patient was given 10 mill equivalents potassium in the ER. -Patient was given 2 g of magnesium in the ER. -Administer 4 g of magnesium more. -Continue magnesium oxide supplement that patient takes at home. -Administer 40 mill equivalents of potassium chloride IV at 130 mL/h. -Recheck CBC and BMP in the morning. -Monitor vitals every 2 hours. -Start telemetry. -Obtain magnesium level in the morning. Chronic anticoagulation -Continue rivaroxaban 20 mg p.o. daily. UTI - Ceftriaxone IV. IP vs OBS Justification Based on differential dx, clinical care plan, and risk of adverse events, if untreated, in my clinical judgement this patient requires an acute care setting as: INPATIENT because of an expectation of an over 2 midnight stay. Estimated length of stay (# of days): 3 Documented By: Jean Claude Olsen MD 03/03/24 8508 Signed By: <Electronically signed by Jean Claude Olsen MD> 03/03/24 1624 <Electronically signed by DO RIA Damon> 03/03/24 1613 [facility] Work Phone: History general Narrative - Reported* Type Description Date Medical History Fracture of mandible, unspecifie d, sequela Medical History Hypomagnesemia Medical History DVT Medical History gitelmans syndrome Medical History PCOS Medical History TMJ Medical History CYSTS ON OVARIES Medical History neuropathy Medical History MIGRAINE Medical History COVID POSITIVE Surgical History jaw wiring Surgical History urethral stricture Surgical History tonsillectomy and adenoidectomy Surgical History PE tubes Surgical History tubal ligation Surgical History fracture repair Surgical History blood and silicone injections i nto mandible joints Surgical History botox Surgical History ablasion Surgical History port Surgical History total right jaw replacement Surgical History infusaport placement 04/2019 Surgical History TOTAL RIGHT JOINT MANDIBLAR REP LACEMENT 05/2020 Surgical History tooth extraction 02/2021 Hospitalization History see above Hospitalization History FEVER, FLU, UTI 09/2018 Hospitalization History arch braches in mouth 2018 Hospitalization History Low potassium 04/2019 Hospitalization History dehydration 10/2021 [facility] [employer] general Narrative - Reported* Type Description Date Medical History Fracture of mandible, unspecifie d, sequela Medical History Hypomagnesemia Medical History DVT Medical History gitelmans syndrome Medical History PCOS Medical History TMJ Medical History CYSTS ON OVARIES Medical History neuropathy Medical History MIGRAINE Medical History COVID POSITIVE 2019 Medical History COVID POSITIVE 06/2022 Surgical History jaw wiring Surgical History urethral stricture Surgical History tonsillectomy and adenoidectomy Surgical History PE tubes Surgical History tubal ligation Surgical History fracture repair Surgical History blood and silicone injections i nto mandible joints Surgical History botox Surgical History ablasion Surgical History port Surgical History total right jaw replacement Surgical History infusaport placement 04/2019 Surgical History TOTAL RIGHT JOINT MANDIBLAR REP LACEMENT 05/2020 Surgical History tooth extraction 02/2021 Surgical History HYSTERECTOMY 01/2022 Surgical History SUTURE REPAIR 01/2022 Hospitalization History see above Hospitalization History FEVER, FLU, UTI 09/2018 Hospitalization History arch braches in mouth 2018 Hospitalization History Low potassium 04/2019 Hospitalization History dehydration 10/2021 Hospitalization History HYSTERECTOMY 01/2022 [facility] Other history general Narrative - Reported* Type Description Date Medical History Fracture of mandible, unspecifie d, sequela Medical History Hypomagnesemia Medical History DVT Medical History gitelmans syndrome Medical History PCOS Medical History TMJ Medical History CYSTS ON OVARIES Medical History neuropathy Medical History MIGRAINE Medical History COVID POSITIVE 2019 Medical History COVID POSITIVE 06/2022 Surgical History jaw wiring Surgical History urethral stricture Surgical History tonsillectomy and adenoidectomy Surgical History PE tubes Surgical History tubal ligation Surgical History fracture repair Surgical History blood and silicone injections i nto mandible joints Surgical History botox Surgical History ablasion Surgical History port Surgical History total right jaw replacement Surgical History infusaport placement 04/2019 Surgical History TOTAL RIGHT JOINT MANDIBLAR REP LACEMENT 05/2020 Surgical History tooth extraction 02/2021 Surgical History HYSTERECTOMY 01/2022 Surgical History SUTURE REPAIR 01/2022 Hospitalization History see above Hospitalization History FEVER, FLU, UTI 09/2018 Hospitalization History arch braches in mouth 2018 Hospitalization History Low potassium 04/2019 Hospitalization History dehydration 10/2021 Hospitalization History HYSTERECTOMY 01/2022 Hospitalization History COVID 05/2023 [facility] Discharge instructions No data available for this section [facility] on filedocumented in this encounter [facility] System[facility] note Author Maria Elena Garibay [facility] May 02, 2023 3:50pm Note Date/Time May 01, 2023 3:02pm [facility] [address] [place] [address] Hospitalist Progress Note Signed Patient: Domenic Ngo MR#: [id number] : 1990 Acct:[id number] Age/Sex: 32 / F Adm Date: 3 Loc: Room: [address] [place] [address] Type: ADM IN Attending Dr: Maria Elena Garibay MD Copies to: ~ Date of Service: 05/01/2023 Subjective Subjective Narrative: I came here patient has been seen and examined. Still complains of nausea and very poor appetite, no bowel movements, no vomiting. No bleeding anymore. Physical Examination: GENERAL APPEARANCE: Alert, resting comfortably HEENT: NCAT, MMM NECK: Neck soft w/o masses, no JVD CARDIAC: Normal S1 and S2. No S3, S4 or murmurs. LUNGS: Clear to auscultation bilaterally. no wheeze/rhonchi/rales ABDOMEN: Positive bowel sounds. Soft, nontender. No guarding or signs of an acute abdomen MUSCULOSKELETAL: No joint erythema or tenderness. EXTREMITIES: No clubbing, cyanosis or edema PSYCHIATRIC: Appropriate mood and affect Assessment and plan: 1. Acute hypokalemia 2. Acute hypomagnesemia Patient takes high-dose supplements of magnesium and potassium both 3 times daily for her known Gitelman syndrome. At this time with her nausea and vomiting will provide aggressive supplementation with potassium chloride in normal saline throughout the evening. Continue with replacement 3. Metabolic alkalosis Alkalosis is a manifestation of her underlying Gitelman syndrome but also is likely exacerbated by her vomiting. The above potassium supplements are within normal saline a relatively ascitic fluid which should assist in balancing this. Follow a.m. labs. If no improvement can consider nephrology consultation. 4. COVID-19 infection Oral Paxlovid twice daily has been ordered. This does interact with her home Xarelto which can be held for the time being and if further concern can continuethis at a lower dose. 5. History of DVTs, on Xarelto, will check D-dimers, for now place SCDs, unableto give Lovenox now on Xarelto for now due to hematemesis even though her hemoglobin is stable, will continue to observe Exam Physical Exam Vital Signs: Temp Pulse Resp BP Pulse Ox O2 Del Method 37.0 C 55 L 16 115/71 94 L Room Air 05/01/23 12:00 05/01/23 12:00 05/01/23 12:00 05/01/23 12:00 05/01/23 12:00 05/01/23 12:00 Objective Lab Results 05/01/23 05:00 05/01/23 05:00 Microbiology Results Microbiology 04/30/23 10:16 Nasopharyngeal SARS-CoV-2, Influenza & RSV (PCR) - Final Meds Allergies and Active Meds Allergies adhesive Allergy (Verified 04/30/23 09:55) Rash Active Meds: Active Medications Generic Name Dose Route Start Last Admin Trade Name Freq PRN Reason Stop Dose Admin Acetaminophen 650 mg 04/30/23 20:52 05/01/23 04:46 Acetaminophen 325 Mg Tablet PO 04/29/24 20:51 650 mg Q6H PRN Administration pain/fever Amiloride HCl 10 mg 04/30/23 21:00 05/01/23 08:57 Amiloride 5 Mg Tablet PO 04/29/24 20:59 10 mg BID LEAH Administration Magnesium Sulfate 2 gm in 50 mls @ 25 mls/hr 04/30/23 17:55 Magnesium Sulf 2gm-*Swfi* IV 04/29/24 17:54 DAILY PRN Magnesium < 1.9 Potassium Chloride/Sodium Chloride 1,000 mls @ 125 mls/hr 05/01/23 10:30 05/01/23 12:50 0.9% Nacl-40 Meq Kcl IV 04/30/24 10:29 125 mls/hr .Q8H LEAH Administration Nirmatrelvir/Ritonavir 1 each 04/30/23 21:00 05/01/23 08:58 Nirmatrelvir/Ritonavir 300/100 1 Each Box PO 05/05/23 09:01 1 each BID LEAH Administration Protocol Ondansetron HCl 4 mg 04/30/23 17:55 05/01/23 08:57 Ondansetron 4 Mg/2 Ml Vial IV-PUSH 04/29/24 17:54 4 mg Q4H PRN Administration Nausea And Vomiting Pantoprazole Sodium 40 mg 04/30/23 21:00 05/01/23 08:57 Pantoprazole 40 Mg Vial IV-PUSH 04/29/24 20:59 40 mg BID LEAH Administration Potassium Chloride 40 meq 05/01/23 15:00 Potassium Chloride Er 20 Meq Tab.Er.Prt PO 05/01/23 19:01 Q4H LEAH Sodium Chloride 0 ml 04/30/23 09:55 04/30/23 18:15 Sodium Chloride 0.9 % 10 Ml Syringe IV-PUSH 04/29/24 09:54 10 ml PRN PRN Administration Flush Sodium Chloride 10 ml 04/30/23 17:55 Sodium Chloride 0.9 % 10 Ml Syringe IV-PUSH 04/29/24 17:54 PRN PRN Flush Sodium Chloride 10 ml 04/30/23 17:55 04/30/23 21:23 Sodium Chloride 0.9 % 10 Ml Vial.Pf INJECTION 04/29/24 17:54 10 ml PRN PRN Administration Dilution Documented By: Maria Elena Garibay MD 05/01/23 1501 Signed By: <Electronically signed by Maria Elena Garibay MD> 05/02/23 1550 [facility] Work Phone: Progress note No data available for this section [facility] Summary Purpose Family History Relationship Condition Age at Onset Recorded Date/T omar grandparent Diabetes mellitus Unknown Hypertension Unknown Myocardial infarction Unknown Malignant neoplasm of lung Unknown Peroneal muscular atrophy Unknown Relationship Condition Age at Onset Recorded Date/T omar grandparent Diabetes mellitus Unknown Hypertension Unknown Myocardial infarction Unknown Malignant neoplasm of lung Unknown Peroneal muscular atrophy Unknown Not Specified Sleep apnea Unknown Diabetes mellitus Unknown Relationship Condition Age at Onset Recorded Date/T omar grandparent Diabetes mellitus Unknown Hypertension Unknown Myocardial infarction Unknown Malignant neoplasm of lung Unknown Peroneal muscular atrophy Unknown mother Sleep apnea Unknown Diabetes mellitus Unknown Advance Directives Advance Directive Response Recorded Date/ Time Advance Directives No December 28 12:39pm Advance Directive Response Recorded Date/ Time Advance Directives No December 28 1:39pm Latest Code Status on File Code Status Date Activated Date Inactivated Comments Full Code 02/20/2022 10:57 AM 02/22/2022 3:34 PM Chief Complaint and Reason for Visit Chief Complaint e87.6. Chief Complaint e87.6. vomiting blood. Reason for Visit Acute hypokalemia Chronic anticoagulation COVID-19 History of DVT (deep vein thrombosis) Hypomagnesemia Nausea & vomiting Chief Complaint e87.6 Chief Complaint e87.6 RENAL 6 month f/u Reason for Visit Hypocalcemia Hypokalemia Hypomagnesemia Gitelman syndrome Chief Complaint e87.6 RENAL 6 month f/u freq uti Reason for Visit Hypocalcemia Hypokalemia Hypomagnesemia Gitelman syndrome Chief Complaint e87.6 RENAL 6 month f/u freq uti vomiting Reason for Visit Hypocalcemia Hypokalemia Hypomagnesemia Gitelman syndrome Chronic anticoagulation Hypocalcemia Hypokalemia Hypomagnesemia Nausea & vomiting Gitelman syndrome UTI (urinary tract infection) Chief Complaint e87.6 RENAL 6 month f/u freq uti vomiting Hospital F/U Reason for Visit Hypocalcemia Hypokalemia Hypomagnesemia Gitelman syndrome Chronic anticoagulation Hypocalcemia Hypokalemia Hypomagnesemia Nausea & vomiting Gitelman syndrome UTI (urinary tract infection) Additional Source Comments INFORMATION SOURCE (unrecogn ized section and content) DATE CREATED AUTHOR 03/06/2018 [facility] DATE CREATED AUTHOR AUTHOR'S ORGANIZ ATION 09/18/2018 [facility] DATE CREATED AUTHOR AUTHOR'S ORGANIZ ATION 06/13/2019 [facility] DATE CREATED AUTHOR AUTHOR'S ORGANIZ ATION 06/08/2022 [facility] DATE CREATED AUTHOR AUTHOR'S ORGANIZ ATION 10/19/2022 [facility] DATE CREATED AUTHOR AUTHOR'S ORGANIZ ATION 02/29/2024 [facility] DATE CREATED AUTHOR AUTHOR'S ORGANIZ ATION 03/03/2024 [facility] DATE CREATED AUTHOR AUTHOR'S ORGANIZ ATION 03/04/2024 Constantino [facility] DATE CREATED AUTHOR AUTHOR'S ORGANIZ ATION 04/12/2024 [facility] DATE CREATED AUTHOR AUTHOR'S ORGANIZ ATION 06/23/2024 [facility] DATE CREATED AUTHOR AUTHOR'S ORGANIZ ATION 07/18/2024 [facility] Source Comments (unrecognize d section and content) In the event this informatio n is protected by the Federal Confidentiality of Alcohol and Drug Abuse Patient Records regulations: The Federal rules restrict any use of the information to criminally investigate or prosecute any alcohol or drug abuse patient.[facility] Hospital[facility] the event this information is protected by the Federal Confidentiality of Alcohol and Drug Abuse Patient Records regulations: The Federal rules restrict any use of the information to criminally investigate or prosecute any alcohol or drug abuse patient.[facility] HospitalIn the event this information is protected by the Federal Confidentiality of Alcohol and Drug Abuse Patient Records regulations: The Federal rules restrict any use of the information to criminally investigate or prosecute any alcohol or drug abuse patient.[facility] HospitalIn the event this information is protected by the Federal Confidentiality of Alcohol and Drug Abuse Patient Records regulations: The Federal rules restrict any use of the information to criminally investigate or prosecute any alcohol or drug abuse patient.[facility] HospitalIn the event this information is protected by the Federal Confidentiality of Alcohol and Drug Abuse Patient Records regulations: The Federal rules restrict any use of the information to criminally investigate or prosecute any alcohol or drug abuse patient.[facility] HospitalIn the event this information is protected by the Federal Confidentiality of Alcohol and Drug Abuse Patient Records regulations: The Federal rules restrict any use of the information to criminally investigate or prosecute any alcohol or drug abuse patient.[facility] Reason for Visit (unrecogniz ed section and content) Reason Comments Orders Reason Comments Lab Orders Reason Comments Patient Question Reason Comments Patient Update Reason Comments Primary hypercoagulable state Follow up Reason Onset Date Comments Med Refill 06/18/2024 Reason Comments Medication Question Reason Comments Follow-up Care Teams (unrecognized sec tion and content) 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, Carmen [address] [place] [address] Neurology 12/12/18 Team Status: Inactive Member Role Status Dates Aissatou Costa , 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 ASSEMBLER WHEEL AND CASTER REPAIRER-C Primary Care Provider Active HANH Fields Attending Provider Active Team Status: Active Member Role Status Dates Aissatou A Igor , 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 ASSEMBLER WHEEL AND CASTER REPAIRER-C Primary Care Provider Active Carmen Kothari MD Attending Provider Active Team Status: Active Member Role Status Dates Aissatou A Igor , 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 ASSEMBLER WHEEL AND CASTER REPAIRER-C Primary Care Provider Active Stave Log Cut Off Saw Operator Relationship Specialty Start Date End Date Aissatou Costa A [address] [place] [address] PCP - General Family Medicine 10/10/18 [facility], Carmen [address] [place] [address] Neurology 12/12/18 [employer] Cut Off Saw Operator Relationship Specialty Start Date End Date Shaikh Naik MD [facility] [address] [place] [address] PCP - General Primary Care 04/10/23 [facility], Carmen [address] [place] [address] Neurology 12/12/18 Team Status: Active Member Role Status Dates Shaikh Gumaro MD Primary Care Provider Active Team Status: Active Member Role Status Dates Orlando Guan DO Emergency Provider Active Shaikh Gumaro MD Primary Care Provider Active Jerrell Smith DO Admit Provider, Attending Provider Active Team Status: Inactive Member Role Status Dates Orlando Guan DO Emergency Provider Active Shaikh Gumaro MD Primary Care Provider Active Jerrell Smith DO Admit Provider Active Maria Elena Garibay MD Attending Provider Active Francis Fuller MD Other Provider Active Stave Log Cut Off Saw Operator Relationship Specialty Start Date End Date Aissatou CostaPAULN-CONSERVATION SPECIALIST [address] [place] [address] PCP - General Family Medicine 03/14/18 Team Status: Inactive Member Role Status Dates Miriam Fabian , CARIDAD Attending Provider Active Team Status: Active Member Role Status Dates Carmen Kothari MD Attending Provider, Referring Provider Active Start: January 18, 2024 Shaikh Gumaro MD Primary Care Provider Active Start: January 18, 2024 Team Status: Inactive Member Role Status Dates Shaikh Gumaro MD Primary Care Provider Active Start: February 01, 2024 End: February 01, 2024 Carmen Kothari MD Attending Provider Active Start : February 01, 2024 End: February 01, 2024 Team Status: Inactive Member Role Status Dates Shaikh Gumaro MD Primary Care Provider Active Start: March 02, 2024 End: March 02, 2024 Ilda Cannon PA-C Attending Provider Active Start: March 02, 2024 End: March 02, 2024 Team Status: Active Member Role Status Dates Shaikh Gumaro MD Primary Care Provider Active Start: March 03, 2024 Jerrell Hooper MD Emergency Provider Active St art: March 03, 2024 Mychal Perry DO RES Active St art: March 03, 2024 Jean Claude Olsen MD Admit Provider, Atte nding Provider Active Start: March 03, 2024 Team Status: Inactive Member Role Status Dates Shaikh Gumaro MD Primary Care Provider Active Start: March 03, 2024 End: March 05, 2024 Jerrell Hooper MD Emergency Provider Active St art: March 03, 2024 End: March 05, 2024 Mychal Perry DO RES Active St art: March 03, 2024 End: March 05, 2024 Jean Claude Olsen MD Admit Provider, Atte nding Provider Active Start: March 03, 2024 End: March 05, 2024 Team Status: Inactive Member Role Status Dates Shaikh Gumaro MD Primary Care Provider Active Start: March 07, 2024 End: March 07, 2024 aCrmen Kothari MD Attending Provider Active Start : March 07, 2024 End: March 07, 2024 Stave Log Cut Off Saw Operator Relationship Specialty Start Date End Date Shaikh Naik MD [address] [place] [address] PCP - General Primary Care 04/10/23 [facility] Neurology 12/12/18 Stave [employer] Cut Off Saw Operator Relationship Specialty Start Date End Date Shaikh Naik MD [address] [place] [id number] PCP - General Internal Medicine 04/10/24 [employer] Cut Off Saw Operator Relationship Specialty Start Date End Date Shaikh Naik MD [address] [place] [address] PCP - General Primary Care 04/10/23 [facility] Neurology 12/12/18 Stave Log Cut Off Saw Operator Relationship Specialty Start Date End Date Clifton Gonsales MD [address] [place] [address] PCP - General Family Medicine 07/08/24 Frannie Laureano NP [address] [place] [address] Nurse Practitioner Family Medicine 07/08/24 [employer] Cut Off Saw Operator Relationship Specialty Start Date End Date Clifton Gonsales MD [address] [place] [phone] PCP - General Family Medicine 07/08/24 Frannie Laureano NP [address] [place], [place] [address] [phone] Nurse Practitioner Family Medicine 07/08/24 Goals (unrecognized section and content) Goals may be documented in a n alternate section FOR RECORDS PERTAINING TO PATIENTS WHO ARE OR HAVE BEEN ENROLLED IN A CHEMICAL DEPENDENCY/SUBSTANCEABUSE PROGRAM, SOME INFORMATION MAY BE OMITTED. This clinical summary was aggregated from multiple sources. Caution should be exercised in using it in the provision of clinical care. This summary normalizes information from multiple sources, and as a consequence, information in this document may materially change the coding, format and clinical context of patient data. In addition, data may be omitted in some cases. CLINICAL DECISIONS SHOULD BE BASED ON THE PRIMARY CLINICAL RECORDS. [email or web address] [facility]. provides no warranty or guarantee of the accuracy or completeness of information in this document.
== END 2024-07-27 11:53 | disposition home or self-care (01) ==
DX: R10.2 Pelvic and perineal pain (principal); N83.291 Other ovarian cyst, right side; N83.292 Other ovarian cyst, left side
CPT/HCPCS: 76830; 76856

== ENCOUNTER 2024-09-03 07:31 | Outpatient (RCR) | payer MEDICAID, SELFPAY | END 2024-09-04 11:11 | disposition home or self-care (01) | LOC: HEMC 07:31 | PROVIDERS: Visit Provider Internal Medicine Hematology & Oncology | DX: E72.12 Methylenetetrahydrofolate reductase deficiency (principal); Z86.718 Personal history of other venous thrombosis and embolism; D68.61 Antiphospholipid syndrome; Z79.01 Long term (current) use of anticoagulants | CPT/HCPCS: G0463 ==

== ENCOUNTER 2024-10-01 07:39 | Outpatient (RCR) | payer MEDICAID, SELFPAY ==
[2024-09-17] MEDS: HEPARIN SODIUM (PORCINE) PF LOCK FLUSH 500 UNIT/5 ML SYRINGE IV (11:30)
[2024-09-17 12:24] LABS: Partial Thromboplastin Time 28.7 sec (22.3-36.2)
[2024-09-18 15:07] LABS: Beta-2 Glycoprotein I Ab, IgA <9 (0-25); Beta-2 Glycoprotein I Ab, IgG <9 (0-20); Beta-2 Glycoprotein I Ab, IgM <9 (0-32)
== END 2024-10-02 08:25 | disposition home or self-care (01) ==
LOC: HEMC 07:39
PROVIDERS: Visit Provider Internal Medicine Hematology & Oncology
DX: E72.12 Methylenetetrahydrofolate reductase deficiency (principal); D68.59 Other primary thrombophilia; Z86.718 Personal history of other venous thrombosis and embolism; D68.61 Antiphospholipid syndrome; Z87.891 Personal history of nicotine dependence
CPT/HCPCS: 36415; 36591; 85730; 85732; 86146; 86147; 86148; G0463; J1642

== ENCOUNTER 2024-10-15 15:31 | Outpatient (REF) | payer MEDICAID, SELFPAY ==
[2024-10-18 17:08] LABS: Age Gdln ACOG Testing Note (.); HPV Aptima Negative (Negative); IGP, Aptima HPV, rfx 16/18,45 Note (.)
== END 2024-10-15 15:32 | disposition home or self-care (01) ==
LOC: LAB 15:31
PROVIDERS: Visit Provider Obstetrics & Gynecology
DX: Z01.419 Encounter for gynecological examination (general) (routine) without abnormal findings (principal)
CPT/HCPCS: 87624; 88175